=== PATIENT | female | born 1950 | race Caucasian/White ===

== ENCOUNTER → 2016-09-27 | Outpatient (CLI) | payer BC ==
[~2016-09-27] MED LIST: AMBUNK; ASPI325T45 PO; GLUCTAB7 PO; HEMP EXTRACT PO; MELO7.5T5 PO; MISCCAP80 PO; TAPE50TA PO; ZOLP6.252 PO
[2016-09-27 10:27] LABS: CHOLESTEROL/HDL RATIO 2.6
== END | disposition home or self-care (01) ==
LOC: C.LAB 09:12
PROVIDERS: ATTEND Family Medicine
DX: Z00.00 Encounter for general adult medical examination without abnormal findings (principal); E78.5 Hyperlipidemia, unspecified; N95.1 Menopausal and female climacteric states; M19.90 Unspecified osteoarthritis, unspecified site

== ENCOUNTER → 2016-11-21 | Outpatient (CLI) | payer BC ==
--- NOTE | 2016-11-22 08:03 | MAMMOGRAPHY REPORT ---
UNILATERAL RIGHT DIGITAL SCREENING MAMMOGRAM TOMOSYNTHESIS WITH CAD: 11/21/2016 CLINICAL HISTORY: Asymptomatic. Personal history of breast cancer. TECHNIQUE: Right breast tomosynthesis in addition to standard 2D mammography was performed. Current flavio bullard was also evaluated with a Computer Aided Detection (CAD) system. COMPARISON: Comparison is made to exams dated: 11/19/2015 mammogram, 12/08/2014 stereotactic biopsy, mammogram, 12/08/2014 ultrasound biopsy, 11/19/2014 ultrasound, and 11/19/2014 mammogram - [facility]. BREAST COMPOSITION: The tissue of the right breast is heterogeneously dense, which may obscure small masses. FINDINGS: The parenchymal pattern of the right breast is similar to prior mammograms. No developing mass, architectural distortion or cluster of suspicious microcalcifications is seen. IMPRESSION: ACR BI-RADS CATEGORY 2: BENIGN There is no mammographic evidence of malignancy. A 1 year screening mammogram is recommended. The pa tient will receive written notification of the results. Approximately 10% of breast cancers are not detected with mammography. A negative mammographic report should not delay biopsy if a clinically suggestive mass is present. Heather Shore M.D. ay/:11/21/2016 15:15:36 Donor Services Technician: Lynette HENRY(Suha)(M), [facility] letter sent: Normal 1/2 BI-RADS Code: ACR BI-RADS Category 2: Benign
== END | disposition home or self-care (01) ==
LOC: C.MAMM 09:46
PROVIDERS: ATTEND Obstetrics & Gynecology
DX: Z12.31 Encounter for screening mammogram for malignant neoplasm of breast (principal); Z85.3 Personal history of malignant neoplasm of breast

== ENCOUNTER → 2016-11-28 | Outpatient (CLI) | payer BC ==
--- NOTE | 2016-11-28 13:17 | DIAGNOSTIC IMAGING REPORT ---
RIGHT HIP 2 VIEWS CLINICAL HISTORY: Right hip pain. FINDINGS: AP and frog-leg views of the right hip are obtained. No prior studies are available for comparison at the time of dictation. The skeletal structures are osteopenic. No fracture is seen in the right hip or the imaged right hemipelvis. There is advanced arthritic change present in the right hip with near complete loss of the joint space and mild bony sclerosis. Large spurs arise from the femoral head. Sclerotic change is noted in the right sacroiliac joint. Enthesophytes arise from the right anterior superior iliac spine. The overlying soft tissues are within normal limits. IMPRESSION: 1. No acute bony abnormality is seen in the right hip. 2. Osteopenia and advanced arthritic change as above. Electronically signed by: Judd Menchaca M.D. 11/28/2016 1:15 PM Dictated Date/Time: 11/28/2016 1:13 PM
== END | disposition home or self-care (01) ==
LOC: C.RADBC 12:43
PROVIDERS: ATTEND Family Medicine
DX: M16.11 Unilateral primary osteoarthritis, right hip (principal); M85.89 Other specified disorders of bone density and structure, multiple sites

== ENCOUNTER → 2016-12-08 | Outpatient (CLI) | payer BC | END | disposition home or self-care (01) | LOC: C.MAMM 15:14 | PROVIDERS: ATTEND Family Medicine | DX: M81.0 Age-related osteoporosis without current pathological fracture (principal) ==

== ENCOUNTER → 2018-01-18 | Outpatient (CLI) | payer BC ==
[~2018-01-18] MED LIST changes: -AMBUNK; -ASPI325T45 PO
== END | disposition home or self-care (01) ==
LOC: C.PAPS 16:45
PROVIDERS: ATTEND Obstetrics & Gynecology
DX: Z01.419 Encounter for gynecological examination (general) (routine) without abnormal findings (principal)

== ENCOUNTER 2019-06-10 07:55 | Inpatient (IN) ==
--- NOTE | 2019-05-06 13:53 | PAT Medication Instructions ---
Medication Instructions Date of Service May 06, 2019 Home Medications Cbd Liquid 1 dose PO HS Turmeric 1 dose PO DAILY ascorbic acid (vitamin C) [Vitamin C] 1 g PO UD lactobacillus combination no.4 [Probiotic] 3,000 mmu cells PO DAILY STOP taking 2 weeks before surgery (or as soon as possible if surgery is within 2 weeks) Turmeric 1 dose PO DAILY DO NOT take the morning of surgery ascorbic acid (vitamin C) [Vitamin C] 1 g PO UD lactobacillus combination no.4 [Probiotic] 3,000 mmu cells PO DAILY Take evening before surgery Cbd Liquid 1 dose PO HS Other Notes If you have any questions please call us at [phone] or [phone] or [phone] or [phone]
--- NOTE | 2019-05-07 12:53 | Anesthesiology Consultation ---
Date of Service May 07, 2019 Assessment & Plan (1) Encounter for pre-operative examination: Chart Review Chart Review: Acceptable Risk for Surgery and Patient seen in Pre Admission Testing Teaching & Discussion Pre-Anesthesia Teaching/Discussion Notes: Instructed NPO after midnight before surgery,except medications with 15 cc of water. Medication instructions provided according to the PAT guidelines. History Surgery Operation Date: 06/10/19 07:30 Proposed Procedures p Left Total Knee Arthroplasty - Kun Agrawal, Height/Weight Height: 5 ft 3 in Weight: 56.6 kg Allergies Allergy/AdvReac Type Severity Reaction Status Date / Time anastrozole AdvReac Unknown joint Verified 05/07/19 11:39 inflammation, decreased appetite codeine AdvReac Unknown vomiting Verified 05/07/19 11:39 hydrocodone AdvReac Unknown vomiting Verified 05/07/19 11:39 Medications Home Medications Medication Instructions Recorded Confirmed Last Taken Cbd Liquid 1 dose PO HS 05/02/19 05/07/19 Unknown Turmeric 1 dose PO DAILY 05/02/19 05/07/19 Unknown ascorbic acid (vitamin C) [Vitamin 1 g PO UD 05/02/19 05/07/19 Unknown C] lactobacillus combination no.4 3,000 mmu cells PO DAILY 05/02/19 05/07/19 Unknown [Probiotic] Past Medical History Medical History Borderline high cholesterol History of breast cancer s/p left mastectomy History of IBS Spinal stenosis Exercise / Class Metabolic Activity II 4-5 Yardwork/Stairs/Walk up hill (one flight of stairs (no chest pain, no sob)) Past Family History Family History Brother Family history of thyroid cancer Past Surgical History Surgical History History of arthroscopy of left knee multiple History of arthroscopy of right knee multiple History of colonoscopy History of discectomy History of left knee surgery NERVE ENTRAPMENT History of left mastectomy History of surgery on left wrist History of total right hip arthroplasty Past Anesthesia History No Hx of Anesthesia Complications and No Family Hx of Anesthesia Complications History of PONV No Hx of PONV and Hx of Motion Sickness (occasional) Social History Smoking Status: Never smoker Do You Dip or Chew Tobacco: No Hx Alcohol Use: Yes Alcohol type: wine alcohol intake frequency: 0-2 drinks per day (2 drinks wine/day) Hx Substance Use: Yes substance use type: other Substance Use Type Other:: CBD oil for chronic pain (medical marijuana card- advised [facility] protocol) Review of Systems Patient denies chest pain, shortness of breath, dyspnea on exertion, reflux, cough, wheezing, palpitations. Physical Exam Vital Signs VITALS BP 102/70 (per patient, BP typically in the low-normal range) P 66 TEMP 98.7 SP02 99%RA RESP 16 PHYSICAL Full neck and c-spine range of motion. Full TMJ range of motion. TMD 4 finger breaths Mallampati Score 3 Dentition: intact, crowns on sides Lungs: clear throughout to auscultation Cardiac: regular rate and rhythm, no murmurs noted Spine: normal Carotid arteries: negative bruit Extremities: no edema Testing Laboratory Results 05/07/19 13:14 05/07/19 13:14 PT 10.2 Seconds (9.0-12.0) 05/07/19 13:14 INR 1.0 (0.9-1.1) 05/07/19 13:14 APTT 25.4 Seconds (21.0-31.0) 05/07/19 13:14 Blood Type B Negative 05/07/19 13:14 Antibody Screen NEGATIVE 05/07/19 13:14 *Surgeon office made aware of low WBC* Electrocardiogram Date: 05/07/19 NSR at 64bpm. JOSE. Chest X-Ray Date: 05/07/19 Findings: + NAD Echocardiogram Date: 11/11/15 LVEF 60-65%. No RWMA. No significant valvular disease. Incidental septal aneurysm.
--- NOTE | 2019-05-07 13:58 | XRay Report ---
XR chest Pre-admission PA/Lat CLINICAL HISTORY: Preoperative chest COMPARISON STUDY: March 13, 2017 FINDINGS: The cardiac and mediastinal contours are normal. There is no evidence of focal pulmonary co nsolidation. There is no evidence of failure. No pleural effusions are visualized.[ IMPRESSION: No active disease in the chest. Electronically signed by: Florian Colvin M.D. 05/07/2019 1:56 PM
[2019-05-07 15:05] LABS: Basophils # (auto) 0.02 K/uL (0-0.2); Basophils % (auto) 0.5 %; Eosinophils # (auto) 0.02 K/uL (0-0.5); Eosinophils % (auto) 0.5 %; Hematocrit (blood only) 38.8 % (37-47); Hemoglobin 13.2 g/dL (12.0-16.0); Lymphocytes # (auto) 1.43 K/uL (1.2-3.4); Lymphocytes % (auto) 36.2 %; Mean Corpuscular Hemoglobin 32.8 pg (25-34); Mean Corpuscular Volume 96.5 fL (80-100); Mean Platelet Volume 10.7 fL (7.4-10.4); Monocytes # (auto) 0.32 K/uL (0.11-0.59); Monocytes % (auto) 8.1 %; Neutrophils # (auto) 2.16 K/uL (1.4-6.5); Neutrophils % (auto) 54.7 %; Platelet Count 343 K/uL (130-400); RDW Coefficient of Variation 11.8 % (11.5-14.5); RDW Standard Deviation 42.2 fL (36.4-46.3); Red Blood Count 4.02 M/uL (4.2-5.4); White Blood Count 3.95 K/uL (4.8-10.8)
[2019-05-07 15:19] LABS: Partial Thromboplastin Ratio 0.9; Partial Thromboplastin Time 25.4 Seconds (21.0-31.0); Prothrombin Time 10.2 Seconds (9.0-12.0)
[2019-05-07 15:20] LABS: BUN Creatinine Ratio 19.3 (10-20); Calcium 9.4 mg/dl (8.5-10.1); Est GFR (African American) 96.3; Est GFR (Non-African American) 83.1; Potassium 3.9 mmol/L (3.5-5.1)
--- NOTE | 2019-06-06 08:46 | History & Physical Report ---
Date of Service June 06, 2019 Assessment & Plan (1) Osteoarthritis of left knee: We will proceed with a left total knee arthroplasty. Postoperatively she will be started on aspirin for DVT prophylaxis. She will be kept overnight in the hospital for postoperative medical management. She plans to use energy physical therapy upon discharge. Present on Admission?: Yes History of Present Illness Chief Complaint: Primary osteoarthritis of the left knee Primary Care Provider: Sam Quintero MD Vivien is a pleasant 68-year-old female who is been dealing with chronic increasing left knee pain. X-rays and clinical examination have been diagnostic for primary osteoarthritis of the left knee. She does have a history of a peroneal nerve release around her left fibular head. This pain is located medially. Injections have taken care of all of her pain but they only last temporarily. After failing conservative treatment, she has elected proceed with a left total knee arthroplasty. Allergies Allergy/AdvReac Type Severity Reaction Status Date / Time anastrozole AdvReac Intermediate joint Verified 06/03/19 10:05 inflammation, decreased appetite codeine AdvReac Mild vomiting Verified 06/03/19 10:05 hydrocodone AdvReac Mild vomiting Verified 06/03/19 10:05 Home Medications Home Medications Medication Instructions Recorded Confirmed Type Cbd Liquid 1 dose PO HS 05/02/19 05/07/19 History Turmeric 1 dose PO DAILY 05/02/19 05/07/19 History ascorbic acid (vitamin C) [Vitamin 1 g PO UD 05/02/19 05/07/19 History C] lactobacillus combination no.4 3,000 mmu cells PO DAILY 05/02/19 05/07/19 History [Probiotic] Past Med/Surg History Medical History Borderline high cholesterol History of breast cancer s/p left mastectomy History of IBS Spinal stenosis Surgical History History of arthroscopy of left knee multiple History of arthroscopy of right knee multiple History of colonoscopy History of discectomy History of left knee surgery NERVE ENTRAPMENT History of left mastectomy History of surgery on left wrist History of total right hip arthroplasty Family History Brother Family history of thyroid cancer Social History Preferred Language: [place] Communication Ability: Effective Electrical Electronics Technician Required: No Beliefs That Will Affect Care: None Current Living Situation: Spouse Feels Safe at Home: Yes Smoking Status: Never smoker Hx Alcohol Use: Yes Alcohol type: wine Hx Substance Use: Yes substance use type: other Substance Use Type Other:: CBD oil for chronic pain (medical marijuana card- advised [facility] protocol) Review of Systems All systems reviewed & are unremarkable except as noted in HPI & below Physical Exam Constitutional: WD/WN, vitals as above Eyes: PERRL, conjunctivae normal, anicteric sclerae ENMT: external ear and nose normal, oropharynx normal Neck: trachea midline, no thyromegaly Respiratory: normal respiratory effort Cardiovascular: RRR, no murmur, no edema Gastrointestinal (Abdomen): normal bowel sounds, soft, nontender, no hepatosplenomegaly Musculoskeletal: On physical examination of the left knee there is a trace effusion. There is near full range of motion and no evidence of instability. There is significant tenderness palpation along the medial and lateral joint lines and over the distal femoral condyles. Psychiatric: A+Ox3, euthymic affect Results & Data Diagnostic Findings Radiographs of the left knee demonstrate advanced osteoarthritis with joint space narrowing osteophyte formation and [id number] articulation.
[~2019-06-10 07:55] MED LIST changes: +ACETAMINOPHEN 500 MG TAB PO SCH; +BUPIVACAINE 0.5 % 5 MG/1 ML PF 10ML VIAL ONE; +BUPIVACAINE/EPINEPHRINE 0.25% 1:200,000 30 ML VIAL ONE; +CEFAZOLIN 1000MG 1,000 MG/7.5 ML SYR IV SCH; +FAMOTIDINE 20 MG TAB PO SCH; +GABAPENTIN 300 MG CAP PO SCH; -GLUCTAB7 PO; -HEMP EXTRACT PO; +LR 500ML BOLUS, THEN 15ML/HR IV SCH; +LR 60ML/HR IV SCH; -MELO7.5T5 PO; -MISCCAP80 PO; +ROPIVACAINE 0.5% HCL/PF 150 MG, BUPIVACAINE 0.5% MPF 30 ML, EPINEPHrine 30MG/30ML (OR U... INSTIL SCH; -TAPE50TA PO; +TRANEXAMIC ACID 1,000 MG **IV Intra-op IV SCH; +TRANEXAMIC ACID 1,000 MG **IV Pre-op IV SCH; -ZOLP6.252 PO
--- NOTE | 2019-06-10 08:41 | History & Physical Bridge Note ---
Date of Service June 10, 2019 History & Physical Bridge Note I have examined the patient, reviewed the History & Physical and in the interval since the performance of the History & Physical I have noted the following changes of clinical significance: no changes noted
[2019-06-10] MEDS ORDERED: TRANEXAMIC ACID / 0.7% NACL 1000MG/100ML BAG IV ONE (09:01)
[2019-06-10] MEDS ORDERED: fentaNYL citrate 100 MCG/2 ML VIAL ONE (10:00)
[2019-06-10] MEDS ORDERED: LIDOCAINE HCL 2% 2 ML VIAL/AMP(20MG/ML) INFIL ONE (10:00)
[2019-06-10] MEDS ORDERED: PROPOFOL IV EMULSION 10 MG/ML 20 ML VIAL IV ONE (10:00)
[2019-06-10] MEDS ORDERED: MIDAZOLAM HCL 1 MG/ML 2ML VIAL ONE ×2 (10:00→11:49)
[2019-06-10] MEDS ORDERED: ONDANSETRON INJ 2 MG/ML 2 ML VIAL IV PRN ×2 (10:39→14:03)
[2019-06-10] MEDS ORDERED: ePHEDrine sulfate 50 MG/ML AMP IV PRN (10:39)
[2019-06-10] MEDS ORDERED: ATROPINE SULFATE 0.1 MG/ML 10ML SYR IV PRN (10:39)
[2019-06-10] MEDS ORDERED: fentaNYL citrate 100 MCG/2 ML VIAL IV PRN (10:39)
[2019-06-10] MEDS ORDERED: HYDROmorphone INJ 2 MG/ML SYR/VIAL IV PRN (10:39)
[2019-06-10] MEDS ORDERED: ORTHO JOINT ANESTHETIC ONE (11:11)
[2019-06-10] MEDS ORDERED: ONDANSETRON INJ 2 MG/ML 2 ML VIAL ONE (12:34)
--- NOTE | 2019-06-10 13:01 | Operative Report ---
PG Post Operative Report Pre & Post Diagnosis Operation Date: 06/10/19 10:35 Pre-Op Diagnosis: Left Knee Degerative Joint Disease Post-Op Diagnosis: Left Knee Degerative Joint Disease I identified the patient and participated in the time-out.: Yes Procedure Operation Date: 06/10/19 10:35 Actual Procedures p Left Total Knee Arthroplasty(Left) - Kun Agrawal DO Surgeon Kun Agrawal DO Benzene Operator Kun Michel PAC Estimated Blood Loss 10 Findings Consistent with Post-Op Diagnosis Specimens Left femoral and tibial bone Complications none Disposition Disposition: Recovery Room Indications Vivien is a pleasant 68-year-old female who presented my office with chronic increasing left hip and groin pain. X-rays and clinical examination have been diagnostic for primary osteoarthritis of the left knee. After failing conservative treatment, she elected to proceed with a left total knee arthroplasty. Description of Procedure Implants used: I used a [employer]omet Vanguard total knee arthroplasty system with a size 57.5 femur, 63 tibia, 28 patella, and a size 10 PS plus polyethylene bearing. All components were cemented in place with Palacos G cement. The patient arrived [facility] for the above procedure. There were seen in the preoperative holding area and the operative extremity was identified and signed. There were given a preoperative antibiotic, a spinal anesthetic and an adductor nerve block. There were taken back to the operating room and laid on the table in supine position. There were given basic sedation. The operative knee was then prepped and draped in sterile fashion. A timeout was done, and the patient and the operative extremity was properly identified. A midline incision was made directly over the patella. Dissection was taken down to the extensor mechanism. A subvastus arthrotomy was used. The medial retinaculum was released and the fat pad was mostly left intact. The knee was flexed and the ACL, PCL, and meniscus were removed. A drill was sent down the center of the femoral canal followed by an intramedullary rober. Off that rober a distal femoral cutting block was placed. 9 mm was resected off the distal femur at 5 of valgus. A posterior referencing AP sizing guide was then placed on the distal femur. The femur measured to be a size 57.5. 2 drill holes were placed in 3 of external rotation. A 4-in-1 cutting block was then impacted into place. Anterior posterior and chamfer cuts were then made. The posterior stabilizing box guide was then impacted into place and the box was resected for the posterior stabilizing component. The proximal tibia was then exposed. A drill was sent down the center of the tibial canal followed by an intramedullary rober. Off that rober a proximal tibial resection guide was placed. The proximal tibia was then resected. The tibia measured to be a size 63. The tibial plate was then placed in the appropriate rotation and the tibia was punched. The posterior aspect of the knee was then opened up and any additional meniscus fragments and osteophytes were removed. Trial components were then placed. I used a size 10 PS plus polyethylene insert. The knee was brought through a full range of motion and felt to be stable. The patella was then everted and 8 mm was resected off the posterior aspect of the patella. The patella measured to be a size 28. 3 peg holes were then drilled. A trial patella was placed. The knee was once again brought through a full range of motion and felt to be stable. Trial components were then removed. The surrounding soft tissues were injected with 100 cc of an orthopedic pain control cocktail. All components were then cemented into place with Palacos G cement. The final polyethylene insert was then snapped into place and the anterior bar was locked. Once cement was dry the tourniquet was deflated. Hemostasis was obtained. A dilute betadyne lavage was then done for 3 minutes. The joint was then irrigated with normal saline solution. The subvastus arthrotomy was then closed with #1 Vicryl suture. The skin was closed with 2-0 Vicryl, 3-0V lock suture, and josh. A soft compressive dressing was placed. The patient was then transferred to a hospital bed and taken to the postanesthesia care unit in stable condition. They tolerated the procedure well. I attest to the content of the Intraoperative Record and any orders documented therein. Any exceptions are noted below.
--- NOTE | 2019-06-10 13:47 | Anesthesiology Progress Note ---
Date of Service June 10, 2019 Anesthesia Post Procedure Vital Signs Vital Signs: Temp Pulse Resp BP Pulse Ox 06/10/19 13:35 62 14 123/64 99 06/10/19 13:25 36.3 C L 14 115/74 99 06/10/19 08:19 37.3 C 79 13 128/67 97 Pain Intensity Lower Back: Pain Intensity: 3 Transfer of Care Handoff Completed per policy Notes Mental Status: alert / awake / arousable and participated in evaluation Patient Amnestic to Procedure: Yes Nausea / Vomiting: adequately controlled Pain: adequately controlled Airway Patency, RR, SpO2: stable & adequate BP & HR: stable & adequate Hydration State: stable & adequate Anesthetic Complications: no major complications apparent and Pt Satisfied with anesthetic care
--- NOTE | 2019-06-10 13:49 | XRay Report ---
LEFT KNEE 2 VIEWS History: Left total knee arthroplasty. Degenerative arthritis. Postop. FINDINGS: The patient is status post a left total knee arthroplasty. The hardware is intact. No fract ure or dislocation. Skin josh are in place. IMPRESSION: Left total knee arthroplasty. No evidence for hardware complication. ACT 112: Negative or not required by law. Electronically signed by: Dandre Nava M.D. 06/10/2019 1:48 PM
[2019-06-10] MEDS ORDERED: NALOXONE HCL 0.4 MG/1 ML VIAL/CARP IV PRN (14:03)
[2019-06-10] MEDS ORDERED: HYDROmorphone INJ 0.5 MG/0.5 ML SYR IV PRN (14:03)
[2019-06-10] MEDS ORDERED: MAGNESIUM HYDROXIDE SUSP 30 ML UDC PO PRN (14:03)
[2019-06-10] MEDS ORDERED: bisacodyL 10 MG SUPP PR PRN (14:03)
[2019-06-10] MEDS ORDERED: METOCLOPRAMIDE HCL INJ 5 MG/ML 2 ML VIAL IV PRN (14:03)
[2019-06-10] MEDS ORDERED: TRAMADOL HCL 50 MG TABLET PO PRN (14:03)
[2019-06-10] MEDS: SODIUM CHLORIDE 0.9% 1000ML 1,000 ML IV SCH (14:08)
[2019-06-10] MEDS: KETOROLAC TROMETHAMINE 15 MG/ML VIAL IV SCH ×2 (14:35→20:50)
[2019-06-10] MEDS ORDERED: TAPENTADOL HCL 50 MG TAB PO PRN (16:25)
[2019-06-10] MEDS ORDERED: ZOLPIDEM 6.25 MG PO PRN (17:38)
[2019-06-10] MEDS: ACETAMINOPHEN 500 MG TAB PO SCH (18:31)
[2019-06-10] MEDS: DOCUSATE SODIUM 100 MG CAP PO SCH (20:00)
[2019-06-10] MEDS: ASPIRIN 81 MG ECTAB PO SCH (20:00)
[2019-06-10] MEDS: CEFAZOLIN 2000MG 2,000 MG/15 ML SYR IV SCH (20:46)
[2019-06-10] MEDS ORDERED: SENNA 8.6 MG TAB PO SCH (21:00)
[2019-06-11] MEDS: SODIUM CHLORIDE 0.9% 1000ML 1,000 ML IV SCH (01:32)
[2019-06-11] MEDS: CEFAZOLIN 2000MG 2,000 MG/15 ML SYR IV SCH (03:03)
[2019-06-11] MEDS: KETOROLAC TROMETHAMINE 15 MG/ML VIAL IV SCH ×2 (03:04→08:19)
[2019-06-11 05:09] LABS: Hematocrit (blood only) 31.5 % (37-47); Hemoglobin 10.4 g/dL (12.0-16.0); Mean Corpuscular Hemoglobin 32.4 pg (25-34); Mean Corpuscular Volume 98.1 fL (80-100); Platelet Count 342 K/uL (130-400); RDW Coefficient of Variation 12.6 % (11.5-14.5); RDW Standard Deviation 45.2 fL (36.4-46.3); Red Blood Count 3.21 M/uL (4.2-5.4); White Blood Count 11.59 K/uL (4.8-10.8)
[2019-06-11 05:33] LABS: BUN Creatinine Ratio 23.1 (10-20); Calcium 8.3 mg/dl (8.5-10.1); Creatinine Clr Calc Pharmacy 60.2 ml/min; Est GFR (African American) 94.7; Est GFR (Non-African American) 81.7
[2019-06-11] MEDS: ACETAMINOPHEN 500 MG TAB PO SCH ×2 (06:02→14:16)
--- NOTE | 2019-06-11 06:08 | Orthopedic Progress Note ---
Date of Service June 11, 2019 Assessment & Plan (1) History of total left knee replacement: Overall she is doing very well. She is not having much pain in the left knee. The block is still working some. She will be seen this morning by physical therapy for ambulation and range of motion exercises. We will see how she does. If she is doing well she can be discharged home later today. If she is still having difficulty putting full weight on the knee then I am happy to keep her till tomorrow to see how she does. She is on aspirin 81 mg twice a day for DVT prophylaxis. Present on Admission?: No Subjective Vivien was seen and examined at bedside this morning. Overall she is doing fairly well. The block is still working a little bit and she does not feel that she has full strength yet in her left leg for ambulation. She says it is coming back. She does have motion of her ankle. She was able to get some sleep last night. She has no complaints. Physical Exam Musculoskeletal: On physical examination of the left knee, the dressing is clean and dry. Her leg is out in full extension. She has active dorsiflexion and plantarflexion of her left ankle. Results & Data Vital Signs (Past 12 Hours) Vital Signs Temp Pulse Resp BP Pulse Ox 06/11/19 03:01 36.6 C 72 16 111/65 98 06/10/19 23:16 36.6 C 64 16 99/63 L 98 Laboratory Results H & H 05/07/19 06/11/19 Range/Units 13:14 04:42 Hgb 13.2 10.4 L (12.0-16.0) g/dL Hct 38.8 31.5 L (37-47) % Coagulation 05/07/19 Range/Units 13:14 INR 1.0 (0.9-1.1) Diagnostic Findings Postoperative x-rays of the left knee show the prosthesis to be in anatomic alignment without any evidence of fracture, dislocation, or loosening. PG Care Time/CCT Total # of Minutes Spent Total Time Spent with Patient: Total time spent is greater than 50% in coordination of care (as documented) at patient's floor/unit and/or counseling patient:
[2019-06-11] MEDS ORDERED: dexAMETHasone 4 MG TAB PO SCH (08:00)
--- NOTE | 2019-06-11 08:07 | Anesthesiology Progress Note ---
Date of Service June 11, 2019 Anesthesia Post Procedure Vital Signs Vital Signs: Temp Pulse Pulse Resp BP BP Pulse Ox 06/11/19 07:54 36.6 C 62 16 94/58 L 96 06/11/19 03:01 36.6 C 72 16 111/65 98 06/10/19 23:16 36.6 C 64 16 99/63 L 98 06/10/19 16:59 36.6 C 59 L 16 108/71 100 06/10/19 16:12 36.4 C L 56 L 16 100/61 99 06/10/19 15:00 36.5 C 55 L 14 118/75 98 06/10/19 14:30 36.3 C L 57 L 16 124/79 98 06/10/19 14:00 36.5 C 56 L 16 128/76 99 06/10/19 13:55 36.6 C 68 14 118/71 99 06/10/19 13:45 36.6 C 65 14 119/65 99 06/10/19 13:35 62 14 123/64 99 06/10/19 13:25 36.3 C L 14 115/74 99 06/10/19 08:19 37.3 C 79 13 128/67 97 Pain Intensity Lower Back: Pain Intensity: 0 Left Knee: Pain Intensity: 0 Notes Mental Status: alert / awake / arousable and participated in evaluation Patient Amnestic to Procedure: Yes Nausea / Vomiting: adequately controlled Pain: adequately controlled Airway Patency, RR, SpO2: stable & adequate BP & HR: stable & adequate Hydration State: stable & adequate Neuraxial Anesthesia: was administered and sensory block resolved Anesthetic Complications: no major complications apparent and Pt Satisfied with anesthetic care
[2019-06-11] MEDS: ASPIRIN 81 MG ECTAB PO SCH (08:19)
[2019-06-11] MEDS: DOCUSATE SODIUM 100 MG CAP PO SCH (08:19)
[2019-06-11] MEDS ORDERED: MULTIVITAMIN TAB PO SCH (09:00)
--- NOTE | 2019-06-11 15:37 | Discharge Summary ---
Date of Service June 11, 2019 Admission HPI Per Admitting Provider Vivien is a pleasant 68-year-old female who is been dealing with chronic increasing left knee pain. X-rays and clinical examination have been diagnostic for primary osteoarthritis of the left knee. She does have a history of a peroneal nerve release around her left fibular head. This pain is located medially. Injections have taken care of all of her pain but they only last temporarily. After failing conservative treatment, she has elected proceed with a left total knee arthroplasty. Principal Diagnosis Left total knee arthroplasty Discharge Data Allergies Allergy/AdvReac Type Severity Reaction Status Date / Time anastrozole AdvReac Intermediate joint Verified 06/03/19 10:05 inflammation, decreased appetite codeine AdvReac Mild vomiting Verified 06/03/19 10:05 hydrocodone AdvReac Mild vomiting Verified 06/03/19 10:05 oxycodone AdvReac Mild Vomiting Verified 06/10/19 08:15 Consultations 06/10/19 14:03 Consult Case Management - Discharge Planning Routine Procedures Performed Operation Date: 06/10/19 10:35 Actual Procedures p Left Total Knee Arthroplasty(Left) - Kun Agrawal DO Ordered Studies 06/10/19 05:00 US - OR guided needle placemen Routine Hospital Course (1) History of total left knee replacement: On June 10, 2019 Vivien arrived at [facility] and underwent a left total knee arthroplasty without complication. She had a spinal anesthetic and a left adductor nerve block. Postoperatively she was discharged to general orthopedic floors. She was started on aspirin for DVT prophylaxis. Her hospital course was uneventful. On postop day #1 her H&H was stable and her pain was well controlled. She was able to participate well with physical therapy doing ambulation and range of motion exercises. She was then discharged to home. She will follow-up with orthopedics in 2 weeks. Total Time Total Time Spent Total Time Spent (In Minutes): 20 Discharge Plan Discharge Items Patient Disposition: Home - Home Health Services Reason For Visit: Left Knee Degerative Joint Disease Discharge Diagnosis: Left total knee arthroplasty Activity: As commented below Non-emergency contact: Surgeon Call non-emergency contact if: your wound has increased redness and your wound has increased drainage Follow-up/Referrals: Sam Quintero MD [Primary Care Provider] - Diet: Regular Addtl Attending Provider Instructions: Activity and Therapy Recommendations: * If you are using [facility] then therapy will be provided at your home until they feel you have accomplished all of your goals. * If you are using [facility] then Physical Therapy will be provided until they feel you are ready to start Outpatient Physical Therapy. * If you are not using home therapy then Outpatient Physical Therapy should start about 3-5 days from your day of surgery. Therapy will last about 6-10 w eeks * It is important not to put a pillow under your knee when you are relaxing or sleeping. It is just as important to make sure you are getting your knee perfectly straight as it is to regain your knee bend. * You were shown a series of exercises in the hospital. Do these exercises three times each day including the exercises you were shown in physical therapy. * Get up and walk several times each day. For the first four weeks, try not to stand or walk for more than one hour at a time. If you do stand or walk for more than one hour, you will not hurt anything, but your leg will likely swell . * As you feel comfortable, you may change from the walker or crutches to a cane and then to independent walking. Medications: * Narcotic You will likely be sent home from the hospital with a prescription for the narcotic pain medication that worked best throughout your stay. * Aspirin Most patients will be required to take Aspirin 81mg twice a day for 6 weeks after surgery. This is obtained [id number] and a prescription is not necessary. * Other medications may be prescribed for specific circumstances. If you have any questions, please call the office at . * Resume previous home medications unless otherwise instructed TEDs/Elastic Stockings: The white elastic stockings help limit swelling and prevent blood clots from forming in your legs.~ The more you wear them, the more they work. Wear them for six weeks. Dressing Care: If the incision is not draining then you may leave the josh open to air. If there is a little bit of drainage or if the josh are getting stuck on your clothing then cover the incision with a dry dressing. The josh will be removed at your 2 week follow-up appointment. Showering: You may shower 5 days from the day of surgery. Let the soapy shower water run over the josh and pat them dry. Do not scrub or soak the incision. Things To Watch For: * Drainage from the incision site that occurs more than one week after your surgery. * Increased redness at the incision site. * Fever above 102 degrees Fahrenheit. * Unusual chest pain or shortness of breath. * Call [facility] at with any of the above problems Follow-Up Visit: Follow-up with Dr. Agrawal 2-3 weeks after your day of surgery. An appointment was probably scheduled when you signed-up for surgery in the office. If you have any questions call Office Instructions: More detailed instructions as well as Frequently Asked Questions were provided in a folder by our office when you signed-up for surgery. Please review these instructions when you get home. If you have any further questions or concerns, please feel free to call the office at [phone] Pending Studies at Discharge: No Stand-Alone Forms: [facility], Smoking Cessation Medications and DC Order Prescriptions: New Nucynta 50 mg Tablet 50 mg PO Q4H PRN (Reason: pain) Qty: 30 RF: 0 aspirin [Ecotrin Low Strength] 81 mg Tablet,Delayed Release (Dr/Ec) 81 mg PO BID 42 Days Qty: 0 RF: 0 Continued ascorbic acid (vitamin C) [Vitamin C] 1,000 mg Tablet 1 g PO UD RF: 0 Probiotic 3 billion cell Capsule 3,000 mmu cells PO DAILY RF: 0 Cbd Liquid 1 dose PO HS RF: 0 Turmeric 1 dose PO DAILY RF: 0 zolpidem 6.25 mg Tablet,Ext Release Multiphase 6.25 mg PO HS PRN (Reason: Sleep) RF: 0 Discharge Orders: Discharge Order (Routine); Ordered 06/11/19 Ordered By: Kun Agrawal Admission Data Admit Date/Time: 06/10/19 13:29 Attending Provider: Kun Agrawal Admit Provider: Kun Agrawal Primary Care Provider: Sam Quintero Other Interventions: Discharge Summary Assessment (RN) Last Done: 06/11/19 11:53 DC Date/Time DO NOT enter until pt leaves facility: 06/11/19 14:15
== END 2019-06-11 14:15 | disposition home health service (06) | DRG 470 ==
LOC: ASU 07:55 → INTOOBSV 13:29 → 3E 13:29 → OBSVTOIN 13:29

== ENCOUNTER 2023-05-18 09:09 | Inpatient (IN) ==
--- NOTE | 2023-05-12 10:23 | Anesthesiology Consultation ---
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 Oracio Narayanan MD Height/Weight Height: 5 ft 3 in Weight: 52.163 kg Allergies Allergy/AdvReac Type Severity Reaction Status Date / Time anastrozole AdvReac Intermediate joint Verified 05/11/23 11:56 inflammation, decreased appetite codeine AdvReac Mild vomiting Verified 05/11/23 11:56 hydrocodone AdvReac Mild vomiting Verified 05/11/23 11:56 oxycodone AdvReac Mild Vomiting Verified 05/11/23 11:56 Medications Home Medications Medication Instructions Recorded Confirmed Last Taken Cbd Liquid 1 dose PO HS PRN Sleep 05/02/19 05/11/23 06/09/19 20:30 Turmeric 1 dose PO DAILY 05/02/19 05/11/23 06/03/19 ascorbic acid (vitamin C) 1,000 mg 1 g PO UD 05/02/19 05/11/23 Unknown tablet (Vitamin C) lactobacillus combination no.4 3 3,000 mmu cells PO DAILY 05/02/19 05/11/23 Unknown billion cell capsule (Probiotic) lysine 1,000 mg PO QAM 01/09/23 05/11/23 Unknown zinc acetate 1 tab PO DAILY 01/09/23 05/11/23 Unknown peg 3350-sod sulf,[id number]-mah-elm See Rx Instructions PO .COMPLEX #2 04/26/23 Unknown 178.7-7.3-0.5-1.12-0.9 gram oral mL soln (Suflave) diphenhydramine 25 1 tab PO HS PRN Sleep 05/11/23 05/11/23 Unknown mg-acetaminophen 500 mg tablet (Tylenol PM Extra Strength) magnesium 30 mg tablet 30 mg PO DAILY 05/11/23 05/11/23 Unknown Past Medical History Medical History CLL (chronic lymphocytic leukemia) no meds, has visits every 3 month at [facility] heme/onc for monitoring and blood work History of breast cancer s/p left mastectomy History of IBS Spinal stenosis Borderline high cholesterol Past Family History Family History Brother Family history of thyroid cancer Prostate cancer Grandmother (Maternal) Breast cancer Father Prostate cancer Other Colorectal cancer Schizophrenia Denies family history of Ovarian cancer Past Surgical History Surgical History History of total left knee replacement (~05/2019) History of colonoscopy History of surgery on left wrist History of total right hip arthroplasty History of discectomy History of arthroscopy of right knee multiple History of arthroscopy of left knee multiple History of left knee surgery NERVE ENTRAPMENT; numbness in left foot History of left mastectomy Social History Smoking Status: Never smoker Do You Dip or Chew Tobacco: No Hx Alcohol Use: Yes Alcohol type: beer and wine alcohol intake frequency: 0-2 drinks per day Hx Substance Use: Yes substance use type: other Substance Use Type Other:: CBD oil for chronic pain (medical marijuana card- advised [facility] protocol) Lab Results CBC Results Results Complete Blood Count Results: RBC 3.12 M/uL (3.93-5.22) L 07/01/22 WBC 4.40 K/ul (4.8-10.8) L 07/01/22 Hgb 11.6 g/dl (12.0-16.0) L 07/01/22 Hct 34.2 % (34.1-44.9) 07/01/22 Plt Count 380 K/uL (130-400) 07/01/22 Chemistry (BMP) Results [facility] Results: Sodium 142 mmol/L (136-145) 07/01/22 Potassium 4.2 mmol/L (3.5-5.1) 07/01/22 Chloride 107 mmol/L (98-107) 07/01/22 Carbon Dioxide 30 mmol/L (21-32) 07/01/22 Anion Gap 5 (3-11) 07/01/22 BUN 21 mg/dl (6-23) 07/01/22 Creatinine 0.77 mg/dl (0.6-1.2) 07/01/22 Glucose 110 mg/dl (70-99) H 06/11/19 Testing Electrocardiogram Date: 05/07/19 Findings: + NSR @ (64bpm) right atrial enlargement Chest X-Ray Date: 05/07/19 Findings: + NAD
[2023-05-18] MEDS ORDERED: LIDOCAINE 2% 2 ML VIAL/AMP(20MG/ML) INFIL ONE (09:22)
[2023-05-18] MEDS ORDERED: PROPOFOL IV EMULSION 10 MG/ML 20 ML VIAL IV ONE ×2 (09:22→10:39)
--- NOTE | 2023-05-18 09:43 | History & Physical Report ---
Date of Service May 18, 2023 Assessment & Plan (1) Colon cancer screening: Plan proceed with colonoscopy. risks/benefits and procedure discussed with patient, who agrees to proceed History of Present Illness Primary Care Provider: Issac Mark 72 yo female here for colonoscopy. Allergies Allergy/AdvReac Type Severity Reaction Status Date / Time anastrozole AdvReac Intermediate joint Verified 05/18/23 09:23 inflammation, decreased appetite codeine AdvReac Mild vomiting Verified 05/18/23 09:23 hydrocodone AdvReac Mild vomiting Verified 05/18/23 09:23 oxycodone AdvReac Mild Vomiting Verified 05/18/23 09:23 Home Medications Medication Instructions Recorded Confirmed Type Cbd Liquid 1 dose PO HS PRN Sleep 05/02/19 05/18/23 History Turmeric 1 dose PO DAILY 05/02/19 05/18/23 History ascorbic acid (vitamin C) 1,000 mg 1 g PO UD 05/02/19 05/18/23 History tablet (Vitamin C) lactobacillus combination no.4 3 3,000 mmu cells PO DAILY 05/02/19 05/18/23 History billion cell capsule (Probiotic) lysine 1,000 mg PO QAM 01/09/23 05/18/23 History zinc acetate 1 tab PO DAILY 01/09/23 05/18/23 History peg 3350-sod sulf,[id number]-lya-inp See Rx Instructions PO .COMPLEX #2 04/26/23 Rx 178.7-7.3-0.5-1.12-0.9 gram oral mL soln (Suflave) diphenhydramine 25 1 tab PO HS PRN Sleep 05/11/23 05/18/23 History mg-acetaminophen 500 mg tablet (Tylenol PM Extra Strength) magnesium 30 mg tablet 30 mg PO DAILY 05/11/23 05/18/23 History Past Med/Surg History Medical History CLL (chronic lymphocytic leukemia) no meds, has visits every 3 month at [facility] heme/onc for monitoring and blood work History of breast cancer s/p left mastectomy History of IBS Spinal stenosis Borderline high cholesterol Surgical History History of total left knee replacement (~05/2019) History of colonoscopy History of surgery on left wrist History of total right hip arthroplasty History of discectomy History of arthroscopy of right knee multiple History of arthroscopy of left knee multiple History of left knee surgery NERVE ENTRAPMENT; numbness in left foot History of left mastectomy Family History Brother Family history of thyroid cancer Prostate cancer Grandmother (Maternal) Breast cancer Father Prostate cancer Other Colorectal cancer Schizophrenia Denies family history of Ovarian cancer Social History Smoking Status: Never smoker Second Hand Exposure: No; Do You Dip or Chew Tobacco: No; Tobacco Cessation Education Requested by Patient: No Hx Alcohol Use: Yes Alcohol type: beer and wine Hx Substance Use: No Preferred Language: Polish Communication Ability: Effective Health Evaluator Required: No Beliefs That Will Affect Care: None marital status: Current Living Situation: Spouse Other Information That Helps Us Care for You: No Feels Safe at Home: Yes Safety Concerns: Feels Safe At This Time Assistive Devices: Glasses Physical Exam Constitutional: WD/WN, vitals as above Respiratory: normal respiratory effort, lungs clear to auscultation Cardiovascular: RRR, no murmur, no edema Gastrointestinal (Abdomen): normal bowel sounds, soft, nontender, no hepatosplenomegaly Musculoskeletal: Head/Neck/Chest: normocephalic and head atraumatic Psychiatric: Orientation: alert and cooperative Affect: euthymic affect Results & Data Vital Signs (Past 12 Hours) Vital Signs Temp Pulse Resp BP Pulse Ox O2 Del Method 05/18/23 09:27 37.0 C 68 16 111/65 98 Room Air Coding Level of Care Code None Diagnoses Colon cancer screening Z12.11
[2023-05-18] MEDS ORDERED: SODIUM CHLORIDE 0.9% 1,000 ML IV SCH (09:45)
[2023-05-18] MEDS ORDERED: fentaNYL citrate PF 100 MCG/2 ML VIAL ONE (10:15)
[2023-05-18] MEDS ORDERED: ONDANSETRON INJ 2 MG/ML 2 ML VIAL IV PRN (10:43)
[2023-05-18] MEDS ORDERED: HYDROmorphone INJ 1 MG/ML SYRINGE IV PRN (10:43)
[2023-05-18] MEDS ORDERED: ATROPINE SULFATE 0.1 MG/ML 10ML SYR IV PRN (10:43)
[2023-05-18] MEDS ORDERED: ePHEDrine sulfate 50 MG/ML AMP IV PRN (10:43)
--- NOTE | 2023-05-18 10:48 | GI REPORT ---
Patient Name: Vivien Tay Procedure Date: 05/18/2023 9:24 AM Date of : 1950 Admit Type: Outpatient Age: 72 Gender: Female Attending MD: Rafy Narayanan MD, Procedure: Colonoscopy Providers: Rafy Narayanan MD Referring MD: Nghia Mark M.d. Indications: Screening for colorectal malignant neoplasm Medicines: Monitored Anesthesia Care Complications: No immediate complications. Estimated blood loss: None. Estimated Blood Loss: Estimated blood loss: none. Procedure: Pre-Anesthesia Assessment: - Prior Anticoagulants: The patient has taken no anticoagulant or antiplatelet agents. - ASA Grade Assessment: II - A patient with mild systemic disease. After I obtained informed consent, the scope was passed under direct vision. Throughout the procedure, the patient's blood pressure, pulse, and oxygen saturations were monitored continuously. The Colonoscope was introduced through the anus and advanced to the ileocecal valve. The colonoscopy was performed without difficulty. The patient tolerated the procedure well. The quality of the bowel preparation was adequate to identify polyps greater than 5 mm in size. Findings: A 20 mm polyp was found in the ascending colon. The polyp was carpet-like. The polyp was removed with a piecemeal technique using a hot snare. Resection and retrieval were complete. Estimated blood loss: none. A perforation was found in the sigmoid colon. This defect was medium-sized. To repair the defect, the tissue edges were approximated and one padlock [id number]-sun-rngif clip was successfully placed. Closure of the defect was successful. Clip chain maker machine: Wudya. There was no bleeding at the end of the procedure. Multiple small-mouthed diverticula were found in the sigmoid colon. Non-bleeding internal hemorrhoids were found. The hemorrhoids were small. Impression: - One 20 mm polyp in the ascending colon, removed piecemeal using a hot snare. Resected and retrieved. - A perforation was found in the sigmoid colon. Clip was placed. Clip chain maker machine: Wudya. - Diverticulosis in the sigmoid colon. - Non-bleeding internal hemorrhoids. Recommendation: - Admit the patient to hospital [facility] for ongoing care. - NPO today. - Await pathology results. -general surgery consult -antibiotics, supportive care - Repeat colonoscopy in 6 months for surveillance after piecemeal polypectomy. Rafy Narayanan MD 05/18/2023 10:47:38 AM This report has been signed electronically. Note Initiated On: 05/18/2023 9:24 AM Number of Addenda: 0 I attest to the content of the Intraoperative Record and orders documented therein, exceptions below {[id number]}
[2023-05-18] MEDS ORDERED: NALOXONE HCL 0.4 MG/1 ML VIAL/CARP IV PRN (10:57)
[2023-05-18] MEDS ORDERED: PIPERACILLIN/TAZOBACTAM 4.5 GM in DEXTROSE 5% MINI-B 100 ML IV SCH (11:00)
--- NOTE | 2023-05-18 11:11 | Surgery Consultation ---
Date of Consultation May 18, 2023 Assessment & Plan (1) Colon cancer screening: (2) Perforated bowel: Patient is a 72 yo female with PMH of CLL, arthritis, that presented to the [facility] endoscopy unit for an outpatient colonoscopy. During the colonoscopy it was noted by Dr. Narayanan that patients diverticulum was perforated, He then placed an endoscopic clip (see procedure notes for full details). General surgery was consulted. Colonoscopy imaging reviewed with Dr. Law , Dr. Narayanan, bowel appears clean, Endoscopic clip visualized. Patient reports 9/10 abdominal pain. Was bradycardiac in endoscopy OR, in recovery room patients HR is low 60s to 50s. Was 60s in pre operative. Bp stable. Admit to hospitalist service Keep NPO IV Fluids for hydration IV antiemetic IV antibiotics IV analgesic Will continue to monitor , treat conservatively for now. Dr. Law discussed case with admitting provider. as above. pt seen. clean tear on prepped bowel appropriately closed endoscopically. keep NPO. supportive care. no urgent indication for surgical intervention. will follow along closely. History of Present Illness Reason for Consultation: Diverticulum perforation, sigmoid colon Attending Physician: Rafy Narayanan MD History of Present Illness Patient is a 72 yo female with PMH of CLL, arthritis, that presented to the [facility] endoscopy unit for an outpatient colonoscopy. During the colonoscopy it was noted by Dr. Narayanan that patients diverticulum was perforated, He then placed an endoscopic clip (see procedure notes for full details). General surgery was consulted. Allergies Allergy/AdvReac Type Severity Reaction Status Date / Time anastrozole AdvReac Intermediate joint Verified 05/18/23 09:23 inflammation, decreased appetite codeine AdvReac Mild vomiting Verified 05/18/23 09:23 hydrocodone AdvReac Mild vomiting Verified 05/18/23 09:23 oxycodone AdvReac Mild Vomiting Verified 05/18/23 09:23 Home Medications Medication Instructions Recorded Confirmed Type Cbd Liquid 1 dose PO HS PRN Sleep 05/02/19 05/18/23 History Turmeric 1 dose PO DAILY 05/02/19 05/18/23 History ascorbic acid (vitamin C) 1,000 mg 1 g PO UD 05/02/19 05/18/23 History tablet (Vitamin C) lactobacillus combination no.4 3 3,000 mmu cells PO DAILY 05/02/19 05/18/23 History billion cell capsule (Probiotic) lysine 1,000 mg PO QAM 01/09/23 05/18/23 History zinc acetate 1 tab PO DAILY 01/09/23 05/18/23 History peg 3350-sod sulf,[id number]-sxt-uoy See Rx Instructions PO .COMPLEX #2 04/26/23 Rx 178.7-7.3-0.5-1.12-0.9 gram oral mL soln (Suflave) diphenhydramine 25 1 tab PO HS PRN Sleep 05/11/23 05/18/23 History mg-acetaminophen 500 mg tablet (Tylenol PM Extra Strength) magnesium 30 mg tablet 30 mg PO DAILY 05/11/23 05/18/23 History Patient History Medical History CLL (chronic lymphocytic leukemia) no meds, has visits every 3 month at [facility] heme/onc for monitoring and blood work History of breast cancer s/p left mastectomy History of IBS Spinal stenosis Borderline high cholesterol Surgical History History of total left knee replacement (~05/2019) History of colonoscopy History of surgery on left wrist History of total right hip arthroplasty History of discectomy History of arthroscopy of right knee multiple History of arthroscopy of left knee multiple History of left knee surgery NERVE ENTRAPMENT; numbness in left foot History of left mastectomy Family History Brother Family history of thyroid cancer Prostate cancer Grandmother (Maternal) Breast cancer Father Prostate cancer Other Colorectal cancer Schizophrenia Denies family history of Ovarian cancer Social History Smoking Status: Never smoker Second Hand Exposure: No; Do You Dip or Chew Tobacco: No; Tobacco Cessation Education Requested by Patient: No Hx Alcohol Use: Yes Alcohol type: beer and wine Hx Substance Use: No Preferred Language: Hebrew Communication Ability: Effective 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 Professor Required: No Beliefs That Will Affect Care: None marital status: Current Living Situation: Spouse Other Information That Helps Us Care for You: No Feels Safe at Home: Yes Safety Concerns: Feels Safe At This Time Assistive Devices: Glasses Review of Systems Constitutional: no fever, no chills and no sweats Respiratory: no dyspnea Cardiovascular: no chest pain Gastrointestinal: + abdominal pain Physical Exam Constitutional: cooperative Respiratory: able to speak in complete sentences; no respiratory distress Cardiovascular: Rate/Rhythm: regular rate Gastrointestinal (Abdomen): Percussion/Palpation: + abdomen tender Results & Data Vital Signs (Past 12 Hours) Vital Signs Temp Pulse Resp BP Pulse Ox O2 Del Method 05/18/23 09:27 98.6 F 68 16 111/65 98 Room Air PG Care Time/CCT Total # of Minutes Spent Total Time Spent with Patient: Total time spent is greater than 50% in coordination of care (as documented) at patient's floor/unit and/or counseling patient: Coding Level of Care Code 20400 OP VST NEW MOD 45-59 MIN Diagnoses Colon cancer screening Z12.11 Perforated bowel K63.1
[2023-05-18] MEDS: HYDROmorphone INJ 0.5 MG/0.5 ML SYR IV PRN ×2 (11:16→11:43)
--- NOTE | 2023-05-18 11:22 | Anesthesiology Progress Note ---
Date of Service May 18, 2023 Anesthesia Post Procedure Vital Signs Vital Signs: Temp Pulse Resp BP Pulse Ox O2 Del Method 05/18/23 09:27 37.0 C 68 16 111/65 98 Room Air Transfer of Care Handoff Completed per policy Notes Mental Status: alert / awake / arousable and participated in evaluation Patient Amnestic to Procedure: Yes Nausea / Vomiting: adequately controlled Pain: see Notes below Airway Patency, RR, SpO2: stable & adequate BP & HR: see Notes below Hydration State: stable & adequate Anesthetic Complications: no major complications apparent and Pt Satisfied with anesthetic care Notes: pt with perforation and air under the diaphragm. pain management and admission by medicine department
[2023-05-18] MEDS ORDERED: PIPERACILLIN/TAZOBACTAM 4.5 GM in DEXTROSE 5% MINI-B 100 ML IV ONE (11:30)
[2023-05-18] MEDS ORDERED: PLASMA-LYTE A 250 ML IV ONE (11:35)
--- NOTE | 2023-05-18 11:35 | History & Physical Report ---
Date of Service May 18, 2023 Assessment & Plan (1) Perforated bowel: Plan: Patient came in for colonoscopy screening with Dr. Narayanan on the morning of 05/18 for +Cologuard in 2020 Perforated diverticulum was noted during procedure, and padlock clip was applied Patient denies history of diverticulitis Clinically, she endorses severe RUQ pain, as well as neck pain Keep n.p.o. for now EKG revealed NSR at 64 bpm CXR revealed pneumoperitoneum Per GI/Surgery, CT of abd/pelvis not recommended as she has a known perf with closure No surgical intervention is indicated at this time CBC, CMP, PTT, PT/INR, mag ordered, pending Hgb 9.8 and Hct 28.6 post procedure High risk of sepsis; 30cc/kg IVF resuscitation started post procedure with Plasma-Lyte Zosyn 4.5mg IV q6h for empiric antibiotic coverage Dilaudid 0.5mg IV q2h as needed for pain 4-6 Dilaudid 1.0mg IV q2h as needed for pain 7-10 Admit to ICU (2) Nausea: Plan: Zofran 4mg IV q6h as needed for nausea; QTc 435 (3) CLL (chronic lymphocytic leukemia): Plan: Not taking any medications Visits with [facility] heme/onc q3mo for monitoring and blood work; follows with Dr. Manuel De Santiago Plan Disposition: ICU Full code Keep n.p.o. for now VTE PPx: Will defer to ICU History of Present Illness Chief Complaint: Divericulum perforation following routine colonoscopy Primary Care Provider: Miguel Angelsbguerita EliseDahlia Jas Puga is a 72-year-old female with PMH of IBS, lumbar stenosis, breast cancer s/p left-sided mastectomy, and SLL/CLL (dx in July 2022). She presented for a routine colonoscopy screening on 05/[address] Narayanan. During the procedure, a perforated diverticulum was noted, an endoscopic clip was placed. Patient denies being on aspirin or blood thinners. She reports that she did not take any morning medications today. She notes that she is not on any blood pressure medications. She reports only taking Tylenol PM and supplements on a regular basis. Patient is bradycardic at 53 bpm, and hypotensive at 88/40 following colonoscopy. ROS: Patient endorses neck pain, nausea, and severe LUQ pain. Patient denies PMH of CHF, CVA, or heart problems Allergies Allergy/AdvReac Type Severity Reaction Status Date / Time anastrozole AdvReac Intermediate joint Verified 05/18/23 09:23 inflammation, decreased appetite codeine AdvReac Mild vomiting Verified 05/18/23 09:23 hydrocodone AdvReac Mild vomiting Verified 05/18/23 09:23 oxycodone AdvReac Mild Vomiting Verified 05/18/23 09:23 Home Medications Medication Instructions Recorded Confirmed Type Cbd Liquid 1 dose PO HS PRN Sleep 05/02/19 05/18/23 History Turmeric 1 dose PO DAILY 05/02/19 05/18/23 History ascorbic acid (vitamin C) 1,000 mg 1 g PO UD 05/02/19 05/18/23 History tablet (Vitamin C) lactobacillus combination no.4 3 3,000 mmu cells PO DAILY 05/02/19 05/18/23 History billion cell capsule (Probiotic) lysine 1,000 mg PO QAM 01/09/23 05/18/23 History zinc acetate 1 tab PO DAILY 01/09/23 05/18/23 History peg 3350-sod sulf,[id number] See Rx Instructions PO .COMPLEX #2 04/26/23 Rx 178.7-7.3-0.5-1.12-0.9 gram oral mL soln (Suflave) diphenhydramine 25 1 tab PO HS PRN Sleep 05/11/23 05/18/23 History mg-acetaminophen 500 mg tablet (Tylenol PM Extra Strength) magnesium 30 mg tablet 30 mg PO DAILY 05/11/23 05/18/23 History Past Med/Surg History Medical History CLL (chronic lymphocytic leukemia) no meds, has visits every 3 month at [facility] heme/onc for monitoring and blood work History of breast cancer s/p left mastectomy History of IBS Spinal stenosis Borderline high cholesterol Surgical History History of total left knee replacement (~05/2019) History of colonoscopy History of surgery on left wrist History of total right hip arthroplasty History of discectomy History of arthroscopy of right knee multiple History of arthroscopy of left knee multiple History of left knee surgery NERVE ENTRAPMENT; numbness in left foot History of left mastectomy Family History Brother Family history of thyroid cancer Prostate cancer Grandmother (Maternal) Breast cancer Father Prostate cancer Other Colorectal cancer Schizophrenia Denies family history of Ovarian cancer Social History Smoking Status: Never smoker Second Hand Exposure: No; Do You Dip or Chew Tobacco: No; Hx Alcohol Use: Yes Alcohol type: beer and wine Hx Substance Use: No Preferred Language: Kiswahili Communication Ability: Effective Back Tacker Required: No Beliefs That Will Affect Care: None marital status: Current Living Situation: Spouse Feels Safe at Home: Yes Safety Concerns: Feels Safe At This Time Assistive Devices: Glasses Review of Systems Review of Systems: See HPI above Physical Exam Physical Exam: General: Patient is in acute abdominal pain/distress following her colonoscopy; diaphoretic; non-toxic appearing HEENT: normocephalic, atraumatic; no scleral icterus; PERRLA w/ EOMs intact; moist mucus membrane; vision and hearing grossly intact Neck: supple; no lymphadenopathy; trachea midline; no crepitus or subcutaneous emphysema on palpation of the posterior neck where patient reports pain is located Skin: warm, moist without signs of tenting; no cyanosis; no rashes, bruising, lesions, or erythema noted on abdomen, back, chest wall, or upper neck CV: chest wall NTP; regular rhythm, bradycardic 48 bpm; S1/S2 normal; no murmurs/rubs/gallops; pulses intact and symmetric at radial, DP, and PT Lungs: no acute respiratory distress; symmetrical chest wall expansion; clear breath sounds across all lung lau w/o adventitious sounds; no wheezing ABD: Soft; BS present; pain to gentle palpation of the LUQ; no ascites; no distention MSK: no tics or fasciculations; no edema noted in the LEs b/l Neuro: A&Ox3; lethargic; fluent speech Results & Data Results & Data Vital Signs (Past 12 Hours) Vital Signs Temp Pulse Resp BP Pulse Ox O2 Del Method 05/18/23 09:27 37.0 C 68 16 111/65 98 Room Air Laboratory Results Abnormal lab results 05/18/23 Range/Units 11:31 WBC 4.37 L (4.8-10.8) K/ul RBC 2.50 L (4.20-5.40) M/uL Hgb 9.8 L (12.0-16.0) g/dl Hct 28.6 L (37.0-47.0) % MCV 114.4 H (80.0-100.0) fL MCH 39.2 H (25.0-34.0) pg RDW Std Deviation 54.7 H (36.4-46.3) fL Chloride 108 H (98-107) mmol/L Anion Gap 12 H (3-11) BUN/Creatinine Ratio 23.9 H (10-20) Glucose 111 H (70-99(Fasting)) mg/dl Globulin 2.2 L (2.5-4.0) gm/dl Diagnostic Findings Chest X-Ray 05/18/23 11:41 XR chest 1V portable CLINICAL HISTORY: Bowel perforation TECHNIQUE: Single frontal radiograph of the chest was obtained. Comparison: Comparison is made to chest radiograph 05/07/2019 FINDINGS: No lines and tubes are seen. The cardiomediastinal silhouette is normal. The lungs are clear. Pneumoperitoneum is seen. IMPRESSION: Pneumoperitoneum is seen. ACT 112: Negative or not required by law. Electronically signed by: Gino Dumas M.D. 05/18/2023 12:18 PM Code Status & VTE Plan Code Status Full code VTE Prophylaxis Plan VTE Prophylaxis will be ordered: Yes Supervising Physician Co-Signing Physician Notes Patient seen and examined, chart reviewed, case discussed with Dandre Zelaya PA-C and I agree with the assessment and plan as above except as otherwise noted Labs and images reviewed Vivien is a 72-year-old female with a history of CLL monitored at [facility] w/ Dr. Cooper, total left knee replacement, C2 radiculopathy, lumbar stenosis without weakness who presented for colonoscopy screening due to a positive Cologuard test in 2020. She has no history of heart disease, thromboembolism, bleeding disorder, hypertension, CKD or diabetes. After waking up from her colonoscopy she reports she has pain in her abdomen which is worse in the lower quadrants bilaterally but improved after Dilaudid and does not have pain to palpation in the upper quadrants bilaterally. She does have some radiating pain up into her right shoulder. She is not short of breath, and denies chest pain. She feels more comfortable laying on her left side. She does not feel lightheaded or dizzy. She reports her normal heart rate is around 4860 at baseline and her blood pressure tends to run slightly low around the systolic 110s.. Diverticulum perforation - Patient started 2 L total crystalloid resuscitation, has been converted to Plasma-Lyte. Blood pressures remain soft, but patient is just started bolus following antibiotics. 1566cc. On reassessment Patient initially with blood pressure of approximately 110/50, on reassessment has dropped to 88/40. Patient is likely volume depleted after completing colonoscopy prep and has not yet fluid resuscitated. She is a 2 L oxygen requirement and is splinting slightly from pain. Chest x-ray does not show evidence of pulmonary edema. Pneumoperitoneum from known bowel perf. -On reassessment patient was initially ordered ICU as he is not hemodynamically stable and has not yet been adequately resuscitated. Did discuss with staff and are able to get a PCU status bed within the ICU to complete volume resuscitation, and patient can be upgraded to ICU status if she clinically deteriorates or remains hypotensive despite appropriate fluid resuscitation. Discussed with GI and surgery. CT of the abdomen/pelvis is not recommended as she has a known With good visualization after padlock closure. She is recommended for admission, hemodynamic monitoring, and antibiotics. No surgical intervention is indicated at this time. Patient has been ordered Zosyn and this will be continued every 6 hours. On reassessment patient is a 2 L oxygen requirement is splinting slightly from pain. Do not suspect this is from crystalloid resuscitation and clinically is not yet euvolemic. chest x-ray does not show evidence of edema, suspect this is from analgesia and slight splinting. Titrate oxygen to greater than 90%. Narcan is on-call for narcosis patient is alert and responsive at time of assessment. Message left with Dr. De Santiago at [facility] to update on pts complications at pt request. He confirms that patient has not had any active treatment and is on monitoring, appreciative of call and notes she is not on any medications that would interact or otherwise affect her treatment as discussed. IV antiemetics Zosyn every 6 hours CBC/BMP daily, CBC will be trended every 8 for the first 24 hours Type and cross on file, no clinical signs of bleeding at time of assessed Borderline hypokalemic at 3.6, patient receiving potassium in her IV fluids Patient reports he does not take any chronic prescription medications CLL Monitoring, is not undergoing treatment. [facility] updated as above. No acute change in management PG Care Time/CCT Total # of Minutes Spent Total Time Spent with Patient: Total time spent is greater than 50% in coordination of care (as documented) at patient's floor/unit and/or counseling patient: [place] [address] INT INP/OBS CARE 3/75MIN Patient Type New Medical Decision Making High Complexity Diagnoses Perforated bowel K63.1 Nausea R11.0 CLL (chronic lymphocytic leukemia) C91.10
[2023-05-18] MEDS ORDERED: ONDANSETRON INJ 2 MG/ML 2 ML VIAL IV STA (11:43)
[2023-05-18 12:04] LABS: Hematocrit (blood only) 28.6 % (37.0-47.0); Hemoglobin 9.8 g/dl (12.0-16.0); Mean Corpuscular Hemoglobin 39.2 pg (25.0-34.0); Mean Corpuscular Hgb Conc 34.3 g/dL (32.0-36.0); Mean Corpuscular Volume 114.4 fL (80.0-100.0); Mean Platelet Volume 9.9 fL (9.4-12.4); Platelet Count 293 K/uL (130-400); RDW Coefficient of Variation 12.9 % (11.5-14.5); RDW Standard Deviation 54.7 fL (36.4-46.3); White Blood Count 4.37 K/ul (4.8-10.8)
[2023-05-18 12:15] LABS: Albumin Globulin Ratio 1.8 (0.9-2); BUN Creatinine Ratio 23.9 (10-20); Bilirubin,Total 0.7 mg/dl (0.2-1.0); Calcium 8.7 mg/dl (8.6-10.3); Creatinine Clr Calc Pharmacy 64.4 ml/min; Est GFR (African American) 103.2 ml/min; Est GFR (Non-African American) 89.1 ml/min; Globulin 2.2 gm/dl (2.5-4.0); Magnesium 2.1 mg/dl (1.7-2.4); Potassium 3.6 mmol/L (3.5-5.1); Total Protein 6.2 gm/dl (6.0-8.3)
[2023-05-18] MEDS ORDERED: PLASMA-LYTE A 1,000 ML IV ONE (12:19)
--- NOTE | 2023-05-18 12:19 | XRay Report ---
XR chest 1V portable CLINICAL HISTORY: Bowel perforation TECHNIQUE: Single frontal radiograph of the chest was obtained. Comparison: Comparison is made to chest radiograph 05/07/2019 FINDINGS: No lines and tubes are seen. The cardiomediastinal silhouette is normal. The lungs are clear. Pneumop eritoneum is seen. IMPRESSION: Pneumoperitoneum is seen. ACT 112: Negative or not required by law. Electronically signed by: Gino Dumas M.D. 05/18/2023 12:18 PM
[2023-05-18 12:29] LABS: Partial Thromboplastin Ratio 0.8; Partial Thromboplastin Time 22 Seconds (21-31); Prothrombin Time 10.9 Seconds (9.0-12.0)
[2023-05-18 13:07] LABS: Basophils # (auto) 0.02 K/uL (0.00-0.20); Basophils % (auto) 0.5 %; Eosinophils # (auto) 0.02 K/uL (0.00-0.50); Eosinophils % (auto) 0.5 %; Immature Granulocytes # (auto) 0.01 K/uL (0.01-0.20); Immature Granulocytes % (auto) 0.2 %; Lymphocytes # (auto) 2.66 K/uL (1.20-3.40); Lymphocytes % (auto) 60.9 %; Macrocytosis Present; Monocytes # (auto) 0.11 K/uL (0.11-0.59); Monocytes % (auto) 2.5 %; Neutrophils # (auto) 1.55 K/uL (1.40-6.50); Neutrophils % (auto) 35.4 %; Polychromasia 1+
--- OUTSIDE RECORDS SUMMARY | 2023-05-18 13:32 | External Medical Summary | Continuity of Care Document ---
Author Name Unknown Organization [facility] [address] [facility] 2 Address [address] [id number] Care Team Providers Care Salvationist Name Role Phone MarkMiguel Angeldennis Gosia Primary Care Physician [phone] Encounter [facility] [id number] Date(s): 04/10/23 - 04/10/23 [facility] [address] [facility] 2 [address] [id number] [place] Encounter Diagnosis History of squamous cell carcinoma in situ(Discharge Diagnosis) - 04/10/23 Actinic keratoses(Discharge Diagnosis) - 04/10/23 Changing skin lesion(Discharge Diagnosis) - 04/10/23 Seborrheic keratoses(Discharge Diagnosis) - 04/10/23 Discharge Disposition: Home or Self Care Attending Physician: MD Davis Sara B Referring Physician: MD Davis Sara B Allergies, Adverse Reactions, Alerts Substance Reaction Severity Status predniSONE sinusitis Active anastrozole Spiked arthritis No appetite Active Vicodin vomiting nausea Active oxyCODONE Vomiting Nausea Active Assessment and Plan Extracted from: Title:Office Visit Note Author:MD Davis Sar a B Date:04/10/23 1.History of squamous cell carcinoma in situ Warning signs of skin cancer were reviewed. Sun protection reviewed. Follow-up in 6 months, sooner for any changing or growing lesions or acute concerns. I also recommended monthly self skin exams 2.Actinic keratoses We willfreeze these on April 24 after her PET scan 3.Changing skin lesion We will biopsy this on April 24 after her PET scan 4.Seborrheic keratoses Chronic, within normal limits today 5. History of herpes simplex. Discussed Valtrex 2 g once and repeat in 12 hours and onset of symptoms. Risks and benefits discussed. Prescription sent. Immunizations Given and Recorded Vaccine Date Status Refusal Reason tetanus/diphtheria/pertuss, acel (Tdap) 1 08/09/14 Recorded 1Result Comment: 2017-04-11: Historical information-source unspecified [04/11/2017 Uncharted] not patient Medications Flexeril 10 mg oral tablet Start: 08/29/22 9:43:00 EDT, 1 tab, PO, bid, Disp# 30 tab, Refills: 1, PRN: as needed for spasm, Pharmacy: [facility] #[id number] Start Date: 08/29/22 Status: Ordered lysine Start: 09/24/20 13:58:00 EDT, 1,000 mg =, Daily Start Date: 09/24/20 Status: Ordered magnesium citrate Start: 03/10/22 9:07:00 EDT Start Date: 03/10/22 Status: Ordered Probiotic Formula Start: 11/12/18 11:00:00 EDT, 1 cap, PO, Daily Start Date: 11/12/18 Status: Ordered tumeric Start: 10/24/17 10:50:00 EDT, tumeric, PO, Daily Start Date: 10/24/17 Status: Ordered Tylenol Extra Strength Start: 04/24/19 9:03:00 EST Start Date: 04/24/19 Status: Ordered Valtrex 1 g oral tablet Start: 04/10/23 9:28:00 EDT, See Instructions, Disp# 12 tab, Refills: 3, 2 tab PO at onset of cold sore, repeat in 12 hours then stop, Pharmacy: [facility] #[id number] Start Date: 04/10/23 Status: Ordered Vitamin C 500 mg oral capsule Start: 09/24/20 13:58:00 EDT, 1 cap, PO, Daily Start Date: 09/24/20 Status: Ordered Vitamin D3 Start: 02/27/18 15:41:00 EDT, 1,000 Int_Unit =, PO, Daily Start Date: 02/27/18 Status: Ordered Mental Status 04/10/23 Barriers to Learning one year None evide nt Mandatory Health Literacy Documentation Yes Health Literacy Communication Barriers N ever Primary Language Yoruba Problem List Condition Confirmation Course Effective Dates Status Health St atus Informant Abnormal EKG Confirmed Active Actinic keratosis Confirmed Active Arthritis Confirmed Active 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 Confirmed Active Changing skin lesion Confirmed Active CLL (chronic lymphocytic leukemia) Confirmed Active Peroneal neuritis Confirmed Active Degenerative joint disease (DJD) of hip Confirmed Active History of chicken pox Confirmed 1970 Active History of measles as a child Confirmed Active History of mumps as a child Confirmed Active Herpes simplex Confirmed Active History of breast cancer Confirmed Active History of squamous cell carcinoma in situ Confirmed Active Inflamed seborrheic keratosis Confirmed Active Knee pain Confirmed Active Lentigo Confirmed Active Lentigo Confirmed Active Low back pain Confirmed Active Notalgia paresthetica Confirmed Active Degenerative arthritis of knee Confirmed Active Leg pain Confirmed Active Seborrheic keratoses Confirmed Active Solar purpura Confirmed Active Solar elastosis Confirmed Active Vaccine refused by patient Confirmed Active Diagnosis Diagnosis Type Effective Dates Health Status Clinical Service Informant Changing skin lesion Discharge Diagnosis 04/10/23 Seborrheic keratoses Discharge Diagnosis 04/10/23 History of squamous cell carcinoma in situ Discharge Diagnosis 04/10/23 Actinic keratoses Discharge Diagnosis 04/10/23 Procedures Procedure Date Related Diagnosis Body Site Status Shave biopsy and cauterizati on of skin 1 05/23/22 Completed Shave biopsy and cauterizati on of skin 2 04/05/22 Completed Mohs micrographic surgery 10/04/21 Completed Shave biopsy and cauterization of skin 09/13/21 Completed Shave biopsy and cauterization of skin 04/16/20 Completed mammogram 05/08/19 Completed Electrodesiccation with curettage 05/02/19 Completed Shave biopsy and cauterisation of skin 04/24/19 Completed Shave biopsy and cauterisation of skin 04/24/19 Completed Mammogram 2018 Completed Mammogram - screening 4 12/01/17 C ompleted Surgery 5 05/02/17 Completed Bone density scan 6 12/08/16 Compl eted Hip X-ray 7 11/28/16 Completed Mammogram 8 11/21/16 Completed Surgery 9 04/03/15 Completed Mastectomy 10 01/13/15 Completed Surgery 11, 12 2011 Completed Colonoscopy 13 11/11/09 Completed Entire left wrist 06/12/91 Complet ed Arthroscopy 14 Completed Arthroscopy 15 Completed Shave biopsy and cauterisati on of skin 16 Completed Surgery 17 Completed Surgery 18 Completed 1With ED&C 21. Left forearm 2. Right lower cheek 3no evidence of malignancy recheck in 1 year. 4There is no mammographic evidence of malignancy. A 1 year screening mammogram is recommended. 5right hip replacement 6WHO Classification: Normal. Fracture risk is low. Follow-up in November 2018. 7No acute bony abnormality is seen in the right hip Osteopenia and advanced arthritic change as above 8BIRADS: 2: Benign There is no mammographic evidence of malignancy. A 1 year screening mammogram is recommended. 9nerve intrapment surgery 10left 11discectomy 12back surgery 13The entire examined colon is normal 14right knee 15x2 on left knee 16w/ED&C 17laproscopic for fertility x2 [id number] Social History Social History Type Response Smoking Status Never smoked cigaret niharika Sex Female Dermatology Outpatient Note * MD Ryan, Kaela Naranjo: PERFORM Event Display: Dermatology Outpt Note Authored Date: [id number] Chief Complaint skin check- a few spots of concern History of Present Illness Here for skin check. Pt follows up for skin check. Has a hx [place] has used efudex in past( last early 2020), has hx extenisve sun exposure but good with sun screen now. Also history of squamous cellcarcinoma in situ on central neck treated with electrodesiccation and curettage in late 2018. SCC left deltoid tx ED&C in summer 2019. SCC right cheek tx spring 2021 MOHS. [1] Squamous cell in situ left hand treated with electrodesiccation and curettage in May 2022 Here for skin check. Few spots of concern today. Of note she never used Efudex because she has developed diagnosed with lymphoma. She is treated at [facility] going down for PET scan a CTand to see them on April 19 and . She had anepisode with herpes this summer. She occasionally gets around her lips or in her nose would like to have some medicine for this if it develops again. Physical Exam we will freeze the worst disease on April 22Gen: Well appearing patient, no acute distress. Alert and oriented x3. Good mood. Skin examination completed of face, eyelids, scalp, hair, lips, ears, neck, chest, back, abdomen,upper and lower extremities bilaterally including hands, feet, fingers and toes, fingernails and toenails, pt declined buttocks and groin. Pt declined a substation operator transforming.Patient has numerous lentigines numerous seborrheic keratoses and extensive sun damage. She has numerous actinic keratoseson her bilateralcheeks and temples. Possible recurrent SCCIS left neck and pink. she has swollen nodes in the neck but this is known to her. Images 2023-04-10 09:33:05 2023-04-10 09:33:10 2023-04-10 09:33:26 2023-04-10 09:33:33 Assessment/Plan 1.History of squamous cell carcinoma in situ Warning signs of skin cancer were reviewed. Sun protection reviewed. Follow-up in 6 months, sooner for any changing or growing lesions or acute concerns. I also recommended monthly self skin exams 2.Actinic keratoses We willfreeze these on April 24 after her PET scan 3.Changing skin lesion We will biopsy this on April 24 after her PET scan 4.Seborrheic keratoses Chronic, within normal limits today 5. History of herpes simplex. Discussed Valtrex 2 g once and repeat in 12 hours and onset of symptoms. Risks and benefits discussed. Prescription sent. Problem List/Past Medical History Ongoing Abnormal EKG Actinic keratosis Arthritis Changing skin lesion CLL (chronic lymphocytic leukemia) Degenerative arthritis of knee Degenerative joint disease (DJD) of hip Herpes simplex History of breast cancer History of chicken pox History of measles as a child History of mumps as a child History of squamous cell carcinoma in situ Inflamed seborrheic keratosis Knee pain Leg pain Lentigo Lentigo Low back pain Notalgia paresthetica Peroneal neuritis Seborrheic keratoses Solar elastosis Solar purpura 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 Vaccine refused by patient Historical Arthritis of knee Body, loose, knee Bruise Groin pain Itching Knee instability Neoplasm of uncertain behavior of skin Preop examination Seborrheic keratosis Tick bite Trochanteric bursitis Procedure/Surgical History Shave biopsy and cauterization of skin (05/23/2022)Shave biopsy and cauterization of skin (04/05/2022)Mohs micrographic surgery (10/04/2021)Shave biopsy and cauterization of skin (09/13/2021)Shave biopsy and cauterization of skin (04/16/2020)mammogram (05/08/2019)Electrodesiccation with curettage (05/02/2019)Shave biopsy and cauterisation of skin (04/24/2019)Shave biopsy and cauterisation of skin (04/24/2019)Mammogram (2018)Mammogram - screening (12/01/2017)Surgery (05/02/2017)Bone density scan (12/08/2016)Hip X-ray (11/28/2016)Mammogram (11/21/2016)Surgery (04/03/2015)Mastectomy (01/13/2015)Surgery (2011)Colonoscopy (11/11/2009)Entire left wrist (06/12/1991)ArthroscopyArthroscopySurgerySurgeryShave biopsy and cauterisation of skin Medications acetaminophen(Tylenol Extra Strength) ascorbic acid(Vitamin C 500 mg oral capsule), 500 mg= 1 cap, PO, Daily bifidobacterium-lactobacillus(Probiotic Formula), 1 cap, PO, Daily cholecalciferol(Vitamin D3), 1000 Int_Unit, PO, Daily cyclobenzaprine(Flexeril 10 mg oral tablet), 10 mg= 1 tab, PO, bid, PRN, 1 refills lysine, 1000 mg, Daily magnesium citrate unlisted medication(tumeric), PO, Daily valACYclovir(Valtrex 1 g oral tablet), See Instructions, 3 refills Allergies Vicodinvomiting, nausea anastrozoleSpiked arthritis, No appetite oxyCODONEVomiting, Nausea predniSONEsinusitis Social History Smoking Status Never smoked cigarettes Alcohol Type:Wine - Comments: Socially 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 Has a 23 year old daughter. Tobacco - Denies Tobacco Use Use:Never smoker Family History Atrial fibrillation: Brother. Cancer: Father, Brother and MGM. Cardiomyopathy: Brother. Heart attack: Mother and PGM. Heart disease: Mother. Hypertension: Brother. Lung disease: Mother. Tobacco abuse: Mother. Health Status Family Member(s) Recommendations Health Maintenance Pending(in the next year) OverDue Adult Influenza Vaccine due12/10/22and every 1year Medicare Annual Wellness Visit due03/10/23and every 1year Due Adult COVID-19 Vaccination due04/10/23Unknown Frequency Adult Tdap/Td Vaccine due04/10/23Unknown Frequency Hepatitis C Screening due04/10/23One-time only Pneumococcal Vaccine Older Adults due04/10/23One-time only Shingles Vaccine due04/10/23One-time only Due In Future Body Mass Index not due until03/12/24and every 1year Satisfied(in the past 1 year) Satisfied Body Mass Index on03/13/23.Satisfied by ALLIE Acevedo Sara Breast Cancer Screening on06/07/22.Satisfied by CHADD Edouard Angela Lipid Screening on02/02/23.Satisfied by Contributor_system, [id number] [1]Office Visit Note; MD Ryan, Kaela Naranjo 04/05/2022 09:10 EDT Electronic Signature on File Electronically Reviewed/Signed by: Kaela Davis MD Author Signature Dt/Tm:04/10/2023 09:40 AM Department of Dermatology [facility] Patient Care team information Care Team Personnel Name: MD Nanette, Khushi Ramos Position: Physician - Neurosurgery Member Role: Lifetime Relationship Address: Address: [address] [place] [address] [address] [place] [address] [place] Name: HARLAN Breaux, Lindsay Anderson Position: Physician Assembly Machine Operator - Orthopaedic Surg Member Role: Lifetime Relationship Address: Address: [address] [place] [address] [address] [place] [address] [place] Name: MD Jas, Nghia Elise Position: Physician Member Role: Primary Care Provider Address: Address: [address] [facility] [address] [place] [address] [place] Care Team Related Persons Name: MEHRDAD GARCIA Address: home [address] [facility] [place] [id number]
--- OUTSIDE RECORDS SUMMARY | 2023-05-18 13:32 | External Medical Summary | Continuity of Care Document ---
Author Name Unknown Organization [facility] [address] 1 Address [address] [place], [place] [id number] Care Team Providers Care Senior Production Planner Name Role Phone Nghia Mark Primary Care Physician [phone] [id number] Date[facility]s): [facility]/02/23 - 02/02/23 [facility] [address] [facility] [address], [facility] 1 [place], [phone] Encounter Diagnosis Encounter for screening for diabetes mellitus(Final) - Pain in right toe(s)(Final) - Encounter for screening for lipoid disorders(Final) - Discharge Disposition: Home or Self Care Attending Physician: MD Mark Ravishankar E Referring Physician: MD Mark Ravishankar E Allergies, Adverse Reactions, Alerts Substance Reaction Severity Status anastrozole Spiked arthritis No appetite Active Vicodin vomiting nausea Active oxyCODONE Vomiting Nausea Active Immunizations Given and Recorded Vaccine Date Status Refusal Reason tetanus/diphtheria/pertuss, acel (Tdap) 1 08/09/14 Recorded 1Result Comment: 2017-04-11: Historical information-source unspecified [04/11/2017 Uncharted] not patient Medications Flexeril 10 mg oral tablet Start: 08/29/22 9:43:00 EDT, 1 tab, PO, bid, Disp# 30 tab, Refills: 1, PRN: as needed for spasm, [facility]acy: [facility] #[id number] Start Date: 08/29/22 Status: Ordered lysine Start: [...] 9:03:00 EST Start Date: 04/24/19 Status: Ordered Vitamin C 500 mg oral capsule Start: 09/24/20 13:58:00 EDT, 1 cap, PO, Daily Start Date: 09/24/20 Status: Ordered Vitamin D3 Start: 02/27/18 15:41:00 EDT, 1,000 Int_Unit =, PO, Daily Start Date: 02/27/18 Status: Ordered Problem List Condition Confirmation Course Effective Dates [...] Active Vaccine refused by patient Confirmed Active Procedures Procedure Date Related Diagnosis Body Site [...] Completed Mammogram 2018 Completed Mammogram - screening 12/01/17 C ompleted Surgery 5 05/02/17 Completed [...] left knee 16w/ED&C 17laproscopic for fertility x2 Results Laboratory List Name Date Basic Metabolic Panel (BASIC METAB PANEL ) 02/02/23 Lipid Profile (LIPOPROTEINS) 02/02/23 Uric Acid Level (URIC ACID) 02/02/23 Most recent to oldest [Reference Range]: 1 eGFR CKD-EPI [>60 mL/min/1.73 m2] 90 mL/ min/1.73 m2 1 (02/02/23 7:13 AM) Non-HDL 139 mg/dL 2 (02/02/23 7:13 AM) Estimated CrCl 61.27 mL/min (02/02/23 7:45 AM) Anion Gap [5-14 mmol/L] 6 mmol/L (02/02/23 7:13 AM) BUN [7-20 mg/dL] 21 mg/dL *HI* (02/02/23 7:13 AM) Ca [8.4-10.2 mg/dL] 9.0 mg/dL (02/02/23 7:13 AM) Chol/HDL 3 (02/02/23 7:13 AM) Chol [125-200 mg/dL] 201 mg/dL *HI* (02/02/23 7:13 AM) Cl- [96-107 mmol/L] 107 mmol/L (02/02/23 7:13 AM) HCO3 [22-30 mmol/L] 28 mmol/L (02/02/23 7:13 AM) Cret [0.60-1.00 mg/dL] 0.72 mg/dL (02/02/23 7:13 AM) Glu [74-106 mg/dL] 93 mg/dL (02/02/23 7:13 AM) HDL [>35 mg/dL] 62 mg/dL (02/02/23 7:13 AM) K [3.5-5.1 mmol/L] 4.4 mmol/L (02/02/23 7:13 AM) LDL Chol, Calculated [50-130 mg/dL] 126 mg/dL (02/02/23 7:13 AM) Na [137-145 mmol/L] 141 mmol/L (02/02/23 7:13 AM) TG [<200 mg/dL] 67 mg/dL (02/02/23 7:13 AM) Uric Acid [2.5-6.2 mg/dL] 4.7 mg/dL 3 (02/02/23 7:13 AM) 1Result Comment: Testing Performed By: [facility] Kirk Aguilar, [address] [place] [id number] 2Result Comment: Testing Performed By: [facility] Kirk Aguilar, [address] [place] [id number] 3Result Comment: Testing Performed By: Dept [facility] Kirk Aguilar, [address] [place] [id number] Social History Social History Type Response Smoking Status Never smoked cigaret niharika Sex Female Patient Care team information Care Team Personnel Name: MD Nanette, Khushi Ramos Position: Physician - Neurosurgery Member Role: Lifetime Relationship Address: Address: [address] [place] [address] [address] [place] [address] [place] Name: HARLAN Breaux Tammy M Position: Physician Marble Worker - Orthopaedic Surg Member Role: Lifetime Relationship Address: Address: [address] [place] [address] [address] [place] [address] [place] Name: MD Jas, Nghia Elise Position: Physician Member Role: Primary Care Provider Address: Address: [address] [place] [address] [address] [place] [id number] Care Team Related Persons Name: MEHRDAD GARCIA Address: home [address] [place] [phone]
--- OUTSIDE RECORDS SUMMARY | 2023-05-18 13:32 | External Medical Summary | Continuity of Care Document ---
Author Name Unknown Organization [address] Address [address] [place] [address] [address] [place] [id number] Care Team Providers Care Publications Writer Name Role Phone Nghia Mark Primary Care Physician [phone] Encounter [facility] [id number] Date(s): 03/13/23 - 03/13/[address] [place] [address] [facility], [address] [place] [address] [phone] Encounter Diagnosis Annual physical exam(Discharge Diagnosis) - 03/13/23 Vaccine refused by patient(Discharge Diagnosis) - 03/13/23 Solar purpura(Discharge Diagnosis) - 03/13/23 CLL (chronic lymphocytic leukemia)(Discharge Diagnosis) - 03/13/23 Body mass index [BMI] 20.0-20.9, adult(Discharge Diagnosis) - 03/13/23 Positive colorectal cancer screening using Cologuard test(Discharge Diagnosis) - 03/13/23 Discharge Disposition: Home or Self Care Attending Physician: MD Mark Ravishankar E Referring Physician: MD Mark Ravishankar E Allergies, Adverse Reactions, Alerts Substance Reaction Severity Status predniSONE sinusitis Active anastrozole Spiked arthritis No appetite Active Vicodin vomiting nausea Active oxyCODONE Vomiting Nausea Active Assessment and Plan Extracted from: Title:CPE Author:MD Mark Ravishankar E Da te:03/13/23 1.Annual physical exam - Healthy diet/exercise habits reviewed, handouts provided. - Imms reviewed, declines all 2/2 above. - Fasting labs reviewed with pt, no areas of concern. - Cologuard positive 04/2021, due for colo to eval. Ordered. - Declines STI concern/desire for testing 2.Vaccine refused by patient - All vaccines declined by pt 3.Solar purpura - Chronic, followed by derm 4.CLL (chronic lymphocytic leukemia) - Chronic, followed by [facility], will get records sent 5.Positive colorectal cancer screening using Cologuard test - Ordered, pt requested [facility] - referred to Dr. Narayanan for colonoscopy f/u PRN or annually. Immunizations Given and Recorded Vaccine Date Status Refusal Reason tetanus/diphtheria/pertuss, acel (Tdap) 1 08/09/14 Recorded 1Result Comment: 2017-04-11: Historical information-source unspecified [04/11/2017 Uncharted] not patient Medications Flexeril 10 mg oral tablet Start: 08/29/22 9:43:00 EDT, 1 tab, PO, bid, Disp# 30 tab, Refills: 1, PRN: as needed for spasm, Pharmacy: [facility] #[id number] Start Date: 08/29/22 Status: Ordered lysine Start: [...] Start Date: 02/27/18 Status: Ordered Mental Status 03/13/23 Barriers to Learning one year None evide nt Mandatory Health Literacy Documentation Yes Health Literacy Communication Barriers N ever Primary Language Slovak Problem List Condition Confirmation Course Effective Dates [...] Effective Dates Health Status Clinical Service Informant Positive colorectal cancer screening using Cologuard test Discharge Diagnosis 03/13/23 Annual physical exam Discharge Diagnosis 03/13/23 Solar purpura Discharge Diagnosis 03/13/23 CLL (chronic lymphocytic leukemia) Discharge Diagnosis 03/13/23 Body mass index [BMI] 20.0-20.9, adult Discharge Diagnosis 03/13/23 Non-Specified Vaccine refused by patient Discharge Diagnosis 03/13/23 Procedures Procedure Date Related Diagnosis Body Site [...] 04/03/15 Completed Mastectomy 10 01/13/15 Completed Surgery 12 2011 Completed Colonoscopy 13 11/11/09 Completed [...] left knee 16w/ED&C 17laproscopic for fertility x2 Vital Signs Most recent to oldest [Reference Range]: 1 Height 158.9 cm (03/13/23 11:20 AM) Patient Weight 53 kg (03/13/23 11:20 AM) Body Mass Index 20.99 kg/m2 (03/13/23 11:20 AM) Temperature [36.5-37.9 DegC] 36.6 DegC (03/13/23 11:20 AM) Respiratory Rate 14 br/min (03/13/23 11:20 AM) Blood Pressure 128/64mmHg (03/13/23 11:20 AM) Cuff Pulse Pressure 64 mmHg (03/13/23 11:20 AM) Social History Social History Type Response Smoking Status Never smoked cigaret niharika Sex Female FCM Outpt Note * MD Jas, Nghia E: PERFORM Event Display: FCM Outpt Note Authored Date: [id number] Chief Complaint CPE. Pt has had an eye exam. She is going to have Cataracts surgery in May. Pt also would liketo update on Lymphoma. History of Present Illness Lisseth is a 72yoF here today for annual physical exam. She refuses all vaccines due to an incident with her getting CLL diagnosed [facility] (no records available)she believes from the moderna vaccine though unsubstantiated. She notes she gets surveilance labs with them and follows again in Apr 2023 with PET/CT. She plans to get cataract surgery soon. Planned for April of this year. Colon CA screening - positive cologuard 04/2021, pt not made aware. Will order colonoscopy to work-up stat. Mammography - up to date 06/2022. Sees Dr. Fowler at [facility]. Review of Systems 03/25pt ROS reviewed/negative except as noted in HPI. Physical Exam Vitals & Measurements T:36.6C RR:14 BP:128/64 SpO2:97% HT:158.9cm WT:53.000kg(Dosing) WT:53kg BMI:20.99 PHQ2 Data(Data Documented on:03/13/2023 11:20) Emotional health assessment NEGATIVE GENERAL APPEARANCE: The patient is alert, oriented and in no acute distress. VITALS: As above. HEENT: Head is normocephalic/atraumatic. PERRL, EOM-I. Oropharynx clear without lesions. NECK: Supple without lymphadenopathy. Thyroid wnl. CARDIOVASCULAR: Regular rate and rhythm, no m/r/g. +2 radial pulses. LUNGS: Clear to auscultation bilaterally. No wheezes/rhales/rhonchi. ABDOMEN: Soft, nontender, nondistended with normal bowel sounds. No rebound/guarding. EXTREMITIES: No cyanosis, clubbing or edema. NEUROLOGICAL: Grossly non-focal exam. SKIN: Warm and dry without any rash. Assessment/Plan 1.Annual physical exam - Healthy diet/exercise habits reviewed, handouts provided. - Imms reviewed, declines all 2/2 above. - Fasting labs reviewed with pt, no areas of concern. - Cologuard positive 04/2021, due for colo to eval. Ordered. - Declines STI concern/desire for testing 2.Vaccine refused by patient - All vaccines declined by pt 3.Solar purpura - Chronic, followed by derm 4.CLL (chronic lymphocytic leukemia) - Chronic, followed by [facility], will get records sent 5.Positive colorectal cancer screening using Cologuard test - Ordered, pt requested [facility] - referred to Dr. Narayanan for colonoscopy f/u PRN or annually. 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 Has a 23 year old daughter. Tobacco [...] due03/10/23and every 1year Due Adult COVID-19 Vaccination due03/13/23Unknown Frequency Adult Tdap/Td Vaccine due03/13/23Unknown Frequency Hepatitis C Screening due03/13/23One-time only Pneumococcal Vaccine Older Adults due03/13/23One-time only Shingles Vaccine due03/13/23One-time only Due In Future Body Mass Index not due until03/12/24and every 1year Satisfied(in the past 1 year) Satisfied Body Mass Index on03/13/23.Satisfied by ALLIE Acevedo Sara Breast Cancer Screening on06/07/22.Satisfied by CHADD Edouard Angela Lipid Screening on02/02/23.Satisfied by Contributor_system, [employer] Electronic Signature on File Electronically Reviewed/Signed by: Nghia Mark MD Author Signature Dt/Tm:03/13/2023 11:47 AM Department of Family Medicine [facility] Patient Care team information Care Team Personnel Name: MD Nanette, Khushi Ramos Position: Physician - Neurosurgery Member Role: Lifetime Relationship Address: Address: [address] [place] [address] [address] [place] [address] [place] Name: HARLAN Breaux, Lindsay Anderson Position: Physician Incident Handler - Orthopaedic Surg Member Role: Lifetime Relationship Address: Address: [address] [facility] [address] [place] [address] [place] Name: MD Jas, Nghia Elise Position: Physician Member Role: Primary Care Provider Address: Address: [address] [place] [address] [address] [place] [address] Care Team Related Persons Name: MEHRDAD GARCIA Address: home [address] [facility], [place] [id number]
--- OUTSIDE RECORDS SUMMARY | 2023-05-18 13:33 | External Medical Summary | Summary of Care ---
Author Name Unknown Organization [facility] Address [address] [facility] [place] [address] Phone [phone] Care Team Providers Care Director Of Veterans Affairs Name Role Phone Sam Quintero MD Primary Care Provider Reason for Visit * Reason Onset Date Comments Test Results 12/01/2022 Encounter Details Date Type Department Care Team Description 12/01/2022 Telephone Otolaryngology [facility] [address] [place] [id number] [place] Singh DO [address] [place] [id number] Test Results Allergies Active Allergy Reactions Severity Noted Date Comments Anastrozole 08/06/2015 Oxycodone-Acetaminophen 05/12/2012 Tramadol Hcl Nausea/vomiting 01/07/2015 Hydrocodone-Acetaminophen 05/12/2012 documented as of this encounter (statuses as of 12/30/2022) Medications Medication Sig Dispensed Refills Start Date End Date Status Ascorbic Acid (VITAMIN C) 1000 MG Tablet Take 1 Tablet by mouth in the morning. 0 Active Probiotic Product (PROBIOTIC & ACIDOPHILUS EX ST) Capsule Take 1 Cap by mouth three times a day with meals. 0 Active Cholecalciferol 25 MCG (1000 UT) Oral Tablet Take 1 Tablet by mouth in the morning. 0 Active Turmeric 500 MG TABS Take 2 Tabs by mouth 2 times a day. 0 Active Magnesium Citrate 100 MG TABS Take by mouth. 0 Active Lysine 1000 MG Oral Tablet 1,000 mg. 0 09/24/2020 Active Tylenol PM Extra Strength 500-25 MG Oral Tablet (diphenhydrAMINE-APAP (sleep)) Take 1 Tablet by mouth 3 times a day as needed for Itching. 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 Trigeminal neuralgia 07/27/2006 Insomnia Overview: ICD-10 update of inactive term Generalized osteoarthritis Irritable bowel syndrome Ductal carcinoma documented as of this encounter (statuses as of 12/30/2022) Resolved Problems Problem Noted Date Resolved Date Left sided sciatica 05/01/2012 03/20/2013 documented as of this encounter (statuses as of 12/30/2022) Immunizations Name Administration Dates Next Due COVID-19 mRNA, LNP-s, No Pre serve, 2-Dose Series (Moderna) 08/19/2020,07/22/2020 documented as of this encounter Social History Tobacco Use Types Packs/Day Years Used Date Smoking Tobacco: Never Smokeless Tobacco: Never Alcohol Use Standard Drinks/Week Comments Yes 0 (1 standard drink = 0.6 oz pur e alcohol) occasional Sex Assigned at Date Recorded Not on file Job Start Date Occupation Industry Not on file Not on file Not on file documented as of this encounter Miscellaneous Notes * Telephone Encounter - Arline Aragon LPN - 12/01/2022 11:14 AM EDT Call to patient. She is aware of the results, and states that she is doing well. * Telephone Encounter - Kristi Shaver MD - 12/01/2022 10:51 AM EDT Please let patient know biopsy was negative for dysplasia or cancer. 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 Singh. Patient would like test results. Please advise as Dr. Francisco jo of the office. documented in this encounter Plan of Treatment Upcoming Encounters Date Type Specialty Care Team Description 03/31/2023 Office Visit Otolaryngology [place] Singh, [address] [place] [address] Health Maintenance Due Date Last Done Comments DXA Scan 1952 Depression Screening, Annual for Pts 12 and Over 1964 Hepatitis C Screening 1970 DTaP,Tdap,and Td Vaccines (1 - Tdap) 09/22/1971 Cologuard 1997 Fecal Occult Blood Test 1997 Sigmoidoscopy 1997 Zoster Vaccines (1 of 2) 2002 Pneumococcal Vaccine: 65+ Years (1 - PCV) 2017 Mammogram 11/21/2017 11/21/2016, 06/0 02/2016, 12/08/2014, Additional history exists Colonoscopy 11/12/2019 11/11/2009 Colorectal Cancer Screening 11/12/2019 Lipid Panel 06/10/2020 06/10/2015, 02/11, 03/15/2011 COVID-19 Vaccine (3 - Moderna series) 10/14/2020 08/19/2020, 07/22/2020 Influenza Vaccine (FLU shot) (#1) 2023 GARDASIL-HPV IMMUNIZATION SERIES Aged Out No longer eligible based on patient's age to complete this topic Hepatitis B Aged Out No longer eligi ble based on patient's age to complete this topic MENINGOCOCCAL (MENACTRA/MENVEO) Aged Out No longer eligible based on patient's age to complete this topic documented as of this encounter Medical Devices Not on filedocumented as of this encounter Care Teams Director Of Veterans Affairs Relationship Specialty Start Date End Date Sam Quintero MD [address] [place] [address] Dr Cordova [address] [place] [address] PCP - General Family Medicine 12/15/15 documented as of this encounter
--- OUTSIDE RECORDS SUMMARY | 2023-05-18 13:33 | External Medical Summary | Continuity of Care Document ---
Author Name Unknown Organization [address] Address [address] [place] [address] [address] [place] [id number] Care Team Providers Care Er Medical Technician Name Role Phone Nghia Mark Primary Care Physician [phone] Encounter [facility] [id number] Date(s): 02/01/23 - 02/01/[address] [place] [id number] [facility], [address] [place] [address] [phone] Encounter Diagnosis Body mass index [BMI] 20.0-20.9, adult(Discharge Diagnosis) - 02/01/23 Screening for hyperlipidemia(Discharge Diagnosis) - 02/01/23 Pain of right great toe(Discharge Diagnosis) - 02/01/23 Screening for diabetes mellitus(Discharge Diagnosis) - 02/01/23 Discharge Disposition: Home or Self Care Attending Physician: MD Mark Ravishankar E Referring Physician: MD Mark Ravishankar E Allergies, Adverse Reactions, Alerts Substance Reaction Severity Status anastrozole Spiked arthritis No appetite Active Vicodin vomiting nausea Active oxyCODONE Vomiting Nausea Active Assessment and Plan Extracted from: Title:Office Visit Note Author:MD Mark Ravishan kar E Date:02/01/23 1.Pain of right great toe - ? Gout vs OA flare from dress shoes - Encouraged NSAIDs for either case - pt hesitant but will consider - hx of gi issues on NSAIDs -- encouraged taking with famotidine to help counter this - Will check uric acid and BMP to assess for gout and kidney function 2.Screening for hyperlipidemia - FLP as not checked in quite some time 3.Screening for diabetes mellitus - BMP with glucose to screen f/u PRN basis. Time: 30mins 5- pre-visit chart review 20- visit, inclusive of history, exam, and discussion of assessment/plan 5- post-visit documentation/orders/coordination of care Immunizations Given and Recorded Vaccine Date Status Refusal Reason tetanus/diphtheria/pertuss, acel (Tdap) 1 08/09/14 Recorded 1Result Comment: 2017-04-11: Historical information-source unspecified [04/11/2017 Uncharted] not patient Medications Flexeril 10 mg oral tablet Start: 08/29/22 9:43:00 EDT, 1 tab, PO, bid, Disp# 30 tab, Refills: 1, PRN: as needed for spasm, Pharmacy: [facility] #[id number] Start Date: 08/29/22 Status: Ordered lysine Start: [...] Start Date: 02/27/18 Status: Ordered Mental Status 02/01/23 Barriers to Learning one year None evide nt Mandatory Health Literacy Documentation Yes Health Literacy Communication Barriers N ever Primary Language Hebrew Problem List Condition Confirmation Course Effective Dates [...] Effective Dates Health Status Clinical Service Informant Body mass index [BMI] 20.0-20.9, adult Discharge Diagnosis 02/01/23 Non-Specified Screening for hyperlipidemia Discharge Diagnosis 02/01/23 Screening for diabetes mellitus Discharge Diagnosis 02/01/23 Pain of right great toe Discharge Diagnosis 02/01/23 Procedures Procedure Date Related Diagnosis Body Site [...] recent to oldest [Reference Range]: 1 Height 161.1 cm (02/01/23 9:13 AM) Patient Weight 53.6 kg (02/01/23 9:13 AM) Body Mass Index 20.65 kg/m2 (02/01/23 9:13 AM) Temperature [36.5-37.9 DegC] 36.9 DegC (02/01/23 9:13 AM) Respiratory Rate 14 br/min (02/01/23 9:13 AM) Blood Pressure 102/58mmHg (02/01/23 9:13 AM) Cuff Pulse Pressure 44 mmHg (02/01/23 9:13 AM) Social History Social History Type Response Smoking Status Never smoked cigaret niharika Sex Female FCM Outpt Note * MD Jas, Nghia E: PERFORM Event Display: FCM Outpt Note Authored Date: [id number] Chief Complaint Pt c/o pain in her right foot big toe area. Pt states pain goes up her leg when she sleeps. SHe ices it during her sleep. Pt has swelling in her toe and foot. Some in Left foot but not as bad as the right. History of Present Illness Lisseth is a 72yoF with known foot OA as well as history of Gout here today with concern for R great toe pain thats been bothering her since wearing heels at a wedding recently. She wishes to get a uric acid level drawn. She notes pain radiates up her foot to her leg. She notes she wore heeled dress shoes for 8hrs/day x 2 days which she thinks set everything off. Tried extra strength tylenol which helps some. She's been icing it which also helps. Review of Systems 03/25pt ROS reviewed/negative except as noted in HPI. Physical Exam Vitals & Measurements T:36.9C RR:14 BP:102/58 SpO2:98% HT:161.1cm WT:53.6kg WT:53.600kg(Dosing) BMI:20.65 PHQ2 Data(Data Documented on:02/01/2023 09:13) Emotional health assessment NEGATIVE GENERAL APPEARANCE: The patient is alert, oriented and in no acute distress. VITALS: As above. HEENT: Head is normocephalic/atraumatic. CARDIOVASCULAR: +2dp pulses. LUNGS: Respirations even and unlabored. EXTREMITIES: No cyanosis, clubbing or edema. MUSCULOSKELETAL: warm/swollen MTP joint on R side with pain in flexion/extension but intact ROM. Gait antalgic. NEUROLOGICAL: Grossly non-focal exam. SKIN: Warm and dry without any rash. Assessment/Plan 1.Pain of right great toe - ? Gout vs OA flare from dress shoes - Encouraged NSAIDs for either case - pt hesitant but will consider - hx of gi issues on NSAIDs -- encouraged taking with famotidine to help counter this - Will check uric acid and BMP to assess for gout and kidney function 2.Screening for hyperlipidemia - FLP as not checked in quite some time 3.Screening for diabetes mellitus - BMP with glucose to screen f/u PRN basis. 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 Has a 23 year old daughter. Tobacco - Denies Tobacco Use Use:Never smoker Family History Atrial fibrillation: Brother. Cancer: Father, Brother and MGM. Cardiomyopathy: Brother. Heart attack: Mother and PGM. Heart disease: Mother. Hypertension: Brother. Lung disease: Mother. Tobacco abuse: Mother. Health Status Family Member(s) Recommendations Health Maintenance Pending(in the next year) OverDue Adult Influenza Vaccine due12/10/22and every 1year Due Adult COVID-19 Vaccination due02/01/23Unknown Frequency Adult Tdap/Td Vaccine due02/01/23Unknown Frequency Hepatitis C Screening due02/01/23One-time only Pneumococcal Vaccine Older Adults due02/01/23One-time only Shingles Vaccine due02/01/23One-time only Due In Future Medicare Annual Wellness Visit not due until03/10/23and every 1year Body Mass Index not due until02/01/24and every 1year Satisfied(in the past 1 year) Satisfied Body Mass Index on02/01/23.Satisfied by ALLIE Acevedo Sara Breast Cancer Screening on06/07/22.Satisfied by CHADD Edouard Angela Medicare Annual Wellness Visit on03/10/22.Satisfied by SYSTEM Electronic Signature on File Electronically Reviewed/Signed by: Nghia Mark MD Author Signature Dt/Tm:02/01/2023 09:44 AM Department of Family Medicine [facility] Patient Care team information Care Team Personnel Name: MD Nanette, Khushi Ramos Position: Physician - Neurosurgery Member Role: Lifetime Relationship Address: Address: [address] [place] [address] [address] [place] [address] [place] Name: HARLAN Breaux, Lindsay Anderson Position: Physician Optician Apprentice Dispensing - Orthopaedic Surg Member Role: Lifetime Relationship Address: Address: [address] [place] [address] [address] [place] [address] [place] Name: MD Jas, Nghia Elise Position: Physician Member Role: Primary Care Provider Address: Address: [address] [place] [address] [address] [place] [address] Care Team Related Persons Name: MEHRDAD GARCIA Address: home [address] [facility], [place] [id number]
--- OUTSIDE RECORDS SUMMARY | 2023-05-18 13:33 | External Medical Summary | Summary of Care ---
Author Name Unknown Organization [facility] Address [address] [facility] [place] [address] Phone [phone] Care Team Providers Care Powder Coater Name Role Phone Sam Quintero MD Primary Care Provider Reason for Visit * Reason Comments Follow Up Encounter Details Date Type Department Care Team Description 11/21/2022 Office Visit Otolaryngology [facility] [address] [place] [address] Boston Singh DO [address] [place] [address] Lip lesion* Allergies Active Allergy Reactions Severity Noted Date Comments Anastrozole 08/06/2015 Oxycodone-Acetaminophen 05/12/2012 Tramadol Hcl Nausea/vomiting 01/07/2015 Hydrocodone-Acetaminophen 05/12/2012 documented as of this encounter (statuses as of 11/21/2022) Medications Medication Sig Dispensed Refills Start Date [...] PM Extra Strength 500-25 MG Oral Tablet (diphenhydrAMINE-A PAP (sleep)) Take 1 Tablet by mouth 3 times a day as needed for Itching. 0 Active Amoxicillin-Pot Clavulanate 875-125 MG Oral Tablet (Augmentin) Take 1 Tablet by mouth in the morning and 1 Tablet before bedtime. 20 Tablet 0 11/08/2022 11/21/2022 Discontinued predniSONE 10 MG Oral Tablet (Deltasone) Take 4 tab daily x 3 days, then 3 tab daily x 3 days, 2 tab daily x 3 days, then 1 tab daily x 3 days. 30 Tablet 0 11/08/2022 11/21/2022 Discontinued documented as of this encounter (statuses as of 11/21/2022) Active Problems Problem Noted Date Breast cancer, [...] as of this encounter (statuses as of 11/21/2022) Resolved Problems Problem Noted Date Resolved Date Left sided sciatica 05/01/2012 03/20/2013 documented as of this encounter (statuses as of 11/21/2022) Immunizations Name Administration Dates Next Due COVID-19 mRNA, LNP-s, No Pre serve, 2-Dose Series (Moderna) 08/19/2020,07/22/2020 documented as of this encounter Social History Tobacco Use Types Packs/Day Years Used Date Smoking Tobacco: Never Smokeless Tobacco: Never Tobacco Cessation:Counseling Given: Not Answered Alcohol Use Standard Drinks/Week Comments Yes 0 (1 standard drink = 0.6 oz pur e alcohol) occasional Sex Assigned at Date Recorded Not on file Job Start Date Occupation Industry Not on file Not on file Not on file documented as of this encounter Last Filed Vital Signs Vital Sign Reading Time Taken Comments Blood Pressure - - Pulse - - Temperature 35.7 C (96.3 F) 11/21/2022 11:17 AM E DT Respiratory Rate - - Oxygen Saturation - - Inhaled Oxygen Concentration - - Weight 55.8 kg (123 lb 0.3 oz) 11/21/2022 11:17 AM EDT Height 160 cm (5' 2.99") 11/21/2022 11:17 AM EDT Body Mass Index 21.8 11/21/2022 11:17 AM EDT documented in this encounter Progress Notes * Boston Chago Singh, DO - 11/21/2022 11:00 AM EDT Otolaryngology Head and Neck Surgery. 11/21/2022 Patient comes in today for new issue. She developed an ulcerative lesion of the upper lip just below the nasal sill on the right. 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 secondary to prior shingles outbreak Past Surgical History: Procedure Laterality Date COLONOSCOPY, DIAGNOSTIC (RECTUM) 11/11/09 wnl KNEE ARTHROSCOPY/SURGERY x3 LAPAROSCOPY,BIOPSY x2 as part of fertility workup LUMBAR / SACRAL EPIDURAL, SINGLE LEVEL 03/13/2017 INJECTION TRANSFORAMINAL EPIDURAL LUMBAR OR SACRAL performed by Cyrus Naranjo Cousins, DO at OR [facility] REMOVAL OF TONSILS, UNDER AGE 12 Medications Current Outpatient Medications Medication Sig Dispense Refill Ascorbic Acid (VITAMIN C) 1000 MG Tablet Take 1 Tablet by mouth in the morning. Probiotic Product (PROBIOTIC & ACIDOPHILUS EX ST) Capsule Take 1 Cap by mouth three times aday with meals. Cholecalciferol 25 MCG (1000 UT) Oral Tablet Take 1 Tablet by mouth in the morning. Turmeric 500 MG TABS Take 2 Tabs by mouth 2 times a day. Magnesium Citrate 100 MG TABS Take by mouth. Lysine 1000 MG Oral Tablet 1,000 mg. Tylenol PM Extra Strength 500-25 MG Oral Tablet (diphenhydrAMINE-APAP (sleep)) Take 1 Tablet bymouth 3 times a day as needed for Itching. Amoxicillin-Pot Clavulanate 875-125 MG Oral Tablet (Augmentin) Take 1 Tablet by mouth in the morning and 1 Tablet before bedtime. 20 Tablet 0 predniSONE 10 MG Oral Tablet (Deltasone) Take 4 tab daily x 3 days, then 3 tab daily x 3 days, 2 tab daily x 3 days, then 1 tab daily x 3 days. 30 Tablet 0 No current facility-administered medications for this visit. Allergies Review of patient's allergies indicates: Allergen Reactions Anastrozole Percocet [Oxycodone-Acetaminophen] Tramadol Hcl Nausea/vomiting Vicodin [Hydrocodone-Acetaminophen] Family History Family History Problem Relation Age of Onset Heart Disorder Mother Lung Disorder Mother Cancer Other cousin - colon cancer under age 40 Cancer Other paternal side Social History Social History Tobacco Use Smoking status: Never Smokeless tobacco: Never Substance Use Topics Alcohol use: Yes Comment: occasional Vaping/E-Cigarette Use Vaping/E-Cigarette Substances Vaping/E-Cigarette Devices Review of Systems Negative for constitutional, eyes, cardiac, pulmonary, hepatic, renal, digestive, hematologic, epileptic, syncopal, musculo-skeletal, mental health, integumentary, hypertensive, lipid, arthritic, diabetic, thyroid or neurologic disorders (except as listed in the PMH and Problem List). Physical Examination: There were no vitals taken for this visit. PHYSICAL EXAM General: This is a healthy appearing female who appears her stated age. The patient is alert and appropriately verbally conversant without hoarseness. Face: The face was inspected and no cutaneous masses or lesions were visualized. There was no erythema or edema noted. Facial movement was symmetric without weakness. No skin lesions were detected. There was no sinus tenderness elicited. The parotid and submandibular glands were normal to palpation. Eyes: Extra-ocular muscle function was intact. No nystagmus was observed. Pupils were equal. Cranial Nerves: Cranial nerves II, III, IV, and were noted to be intact via extra-ocular muscle movement testing. Cranial nerve VII noted to be intact and symmetric by facial movement. Nose: Examination of the nose revealed no masses, polyps, mucopus, or other lesion. The nasal septum was non-obstructing. The turbinates were without abnormality. There is an approximately 1 cm area of ulceration of the upper lip just below the right nasal sill with some eschar noted. There is alsoa small area on the tip of the nose that has a similar appearance PROCEDURE: After obtaining informed consent, procedure verified time-out held. The area of concern on the upper lip was anesthetized with 2% lidocaine [id number] epinephrine. After allowing time for local to takeeffect a 3 mm punch biopsy was obtained. This done with a 3 mm punch as well as pickup and scissors. Hemostasis was assured with pressure. Patient tolerated procedure well Assessment: 72-year-old female with a right upper lip ulcerative lesion, differential diagnosis includes herpetic lesion verses keratoacanthoma verses skin malignancy Plan: - biopsy as above - will contact with results I spent a total of 20 minutes on the date of service in preparation, delivery, and documentation ofthe care provided to the above patient, excluding any time spent on the performance of any procedures or separately billable services. Boston Singh DO, JANELL [facility] Otolaryngology Head and Neck [place], [place] 11/21/2022 11:46 AM documented in this encounter Nursing Notes * Belem Metz LPN - 11/21/2022 11:12 AM EDT Patient notes she has a sore on her nose since we last seen her. Notes she has been using triple antibiotic ointment on it. She has history of cold sores and stopped her Lysin, while on the abx and prednisone. documented in this encounter Plan of Treatment Upcoming Encounters Date Type Specialty Care Team Description 03/31/2023 Office Visit Otolaryngology Boston Singh DO [address] [place] [address] Scheduled Orders Name Type Priority Associated Diagnoses Orde r Schedule SURGICAL PATHOLOGY Pathology Routine Lip lesion Ordered: 11/21/2022 Health Maintenance Due Date Last Done Comments DXA Scan 1952 Depression Screening, Annual for Pts 12 and Over 1964 Hepatitis C Screening 1970 DTaP,Tdap,and Td Vaccines (1 - Tdap) 09/22/1971 Cologuard 1997 Fecal Occult Blood Test 1997 Sigmoidoscopy 1997 Zoster Vaccines (1 of 2) 2002 Pneumococcal Vaccine: 65+ Years (1 - PCV) 2017 Mammogram 11/21/2017 11/21/2016, 06/02/2016, 12/08/2014, Additional history exists Colonoscopy 11/12/2019 11/11/2009 Colorectal Cancer Screening 11/12/2019 Lipid Panel 06/10/2020 06/10/2015, 02/11, 03/15/2011 COVID-19 Vaccine (3 - Moderna series) 10/14/2020 08/19/2020, 07/22/2020 Influenza Vaccine (FLU shot) (Season Ended) 2023 GARDASIL-HPV IMMUNIZATION SERIES Aged Out No longer eligible based on patient's age to complete this topic Hepatitis B Aged Out No longer eligi ble based on patient's age to complete this topic MENINGOCOCCAL (MENACTRA/MENVEO) Aged Out No longer eligible based on patient's age to complete this topic documented as of this encounter Medical Devices Not on filedocumented as of this encounter Visit Diagnoses Diagnosis Lip lesion- Primary Diseases of lips documented in this encounter Care Teams Powder Coater Relationship Specialty Start Date End Date Sam Quintero MD [address] [place] [address] [address] [place] [address] PCP - General Family Medicine 12/15/15 documented as of this encounter
--- OUTSIDE RECORDS SUMMARY | 2023-05-18 13:33 | External Medical Summary | Summary of Care ---
Author Name Unknown Organization [facility] Address [address] [facility] [place] [address] Phone [phone] Care Team Providers Care Dental Claims Processor Name Role Phone Sam Quintero MD Primary Care Provider Reason for Visit * Reason Comments Follow Up Encounter Details Date Type Department Care Team Description 11/21/2022 Office Visit [facility]olaryngology [facility] [address] [place] [address] Boston Singh DO [address] [place] [address] Lip lesion* Allergies Active Allergy Reactions Severity [...] upper lip was anesthetized with 2% lidocaine [id number] epinephrine. After allowing time for local to [...] separately billable services. Boston Singh DO, JANELL [facility] Otolaryngology Head and Neck [place] 11/21/2022 11:46 AM documented in this [...] Otolaryngology Boston Singh DO [address] [place] [address] Scheduled Orders Name Type Priority Associated Diagnoses [...] lips documented in this encounter Care Teams Dental Claims Processor Relationship Specialty Start Date End Date Sam Quintero MD [address] [place] [address] [address] [place] [address] PCP - General Family Medicine 12/15/15 documented as of this encounter
[2023-05-18] MEDS: PLASMA-LYTE A 1,000 ML IV SCH ×3 (14:03→23:44)
[2023-05-18] MEDS: POTASSIUM CHLORIDE / WTR 10 MEQ/100 ML PLCT IV SCH ×2 (14:03→15:02)
[2023-05-18] MEDS: HYDROmorphone INJ 1 MG/ML SYRINGE IV PRN ×2 (14:03→16:34)
[2023-05-18] MEDS: ICU Protocol for HYPERglycemia SCH ×2 (14:58→21:54)
[2023-05-18] MEDS: ONDANSETRON INJ 2 MG/ML 2 ML VIAL IV PRN ×2 (16:34→20:44)
[2023-05-18] MEDS: PIPERACILLIN/TAZOBACTAM 4.5 GM in DEXTROSE 5% MINI-B 100 ML IV SCH ×2 (16:34→23:55)
[2023-05-18 20:29] LABS: Hematocrit (blood only) 27.8 % (37.0-47.0); Hemoglobin 9.4 g/dl (12.0-16.0); Mean Corpuscular Hemoglobin 38.7 pg (25.0-34.0); Mean Corpuscular Hgb Conc 33.8 g/dL (32.0-36.0); Mean Corpuscular Volume 114.4 fL (80.0-100.0); Mean Platelet Volume 9.9 fL (9.4-12.4); Platelet Count 228 K/uL (130-400); RDW Standard Deviation 54.4 fL (36.4-46.3); Red Blood Count 2.43 M/uL (4.20-5.40); White Blood Count 3.01 K/ul (4.8-10.8)
[2023-05-18 21:14] LABS: Basophils # (auto) 0.01 K/uL (0.00-0.20); Basophils % (auto) 0.3 %; Immature Granulocytes # (auto) 0.01 K/uL (0.01-0.20); Immature Granulocytes % (auto) 0.3 %; Lymphocytes % (auto) 33.2 %; Macrocytosis Present; Monocytes % (auto) 6.6 %; Neutrophils # (auto) 1.79 K/uL (1.40-6.50); Neutrophils % (auto) 59.6 %
[2023-05-19] MEDS: HYDROmorphone INJ 1 MG/ML SYRINGE IV PRN (03:23)
[2023-05-19 05:03] LABS: Hematocrit (blood only) 24.7 % (37.0-47.0); Hemoglobin 8.5 g/dl (12.0-16.0); Mean Corpuscular Hemoglobin 38.5 pg (25.0-34.0); Mean Corpuscular Hgb Conc 34.4 g/dL (32.0-36.0); Mean Corpuscular Volume 111.8 fL (80.0-100.0); Mean Platelet Volume 9.9 fL (9.4-12.4); Platelet Count 207 K/uL (130-400); RDW Coefficient of Variation 12.9 % (11.5-14.5); RDW Standard Deviation 52.9 fL (36.4-46.3); Red Blood Count 2.21 M/uL (4.20-5.40); White Blood Count 2.68 K/ul (4.8-10.8)
[2023-05-19 05:22] LABS: Albumin Globulin Ratio 1.8 (0.9-2); Albumin Level 3.4 gm/dl (3.4-5.0); BUN Creatinine Ratio 29.3 (10-20); Bilirubin,Total 1.1 mg/dl (0.2-1.0); Calcium 7.7 mg/dl (8.6-10.3); Creatinine Clr Calc Pharmacy 74.4 ml/min; Est GFR (African American) 108.2 ml/min; Est GFR (Non-African American) 93.4 ml/min; Globulin 1.9 gm/dl (2.5-4.0); Magnesium 2.2 mg/dl (1.7-2.4); Potassium 3.5 mmol/L (3.5-5.1); Total Protein 5.3 gm/dl (6.0-8.3)
[2023-05-19 05:59] LABS: Folate (Folic Acid),Ser orPlas 11.24 ng/ml (>5.38)
[2023-05-19 06:23] LABS: Basophils # (auto) 0.01 K/uL (0.00-0.20); Basophils % (auto) 0.4 %; Immature Granulocytes # (auto) 0.05 K/uL (0.01-0.20); Immature Granulocytes % (auto) 1.9 %; Lymphocytes # (auto) 1.01 K/uL (1.20-3.40); Lymphocytes % (auto) 37.7 %; Monocytes # (auto) 0.27 K/uL (0.11-0.59); Monocytes % (auto) 10.1 %; Neutrophils # (auto) 1.34 K/uL (1.40-6.50); Neutrophils % (auto) 49.9 %
[2023-05-19] MEDS: ICU Protocol for HYPERglycemia SCH ×4 (07:27→19:36)
[2023-05-19] MEDS: HYDROmorphone INJ 0.5 MG/0.5 ML SYR IV PRN ×2 (07:32→23:38)
[2023-05-19] MEDS: PLASMA-LYTE A 1,000 ML IV SCH ×3 (07:34→23:38)
[2023-05-19] MEDS: PIPERACILLIN/TAZOBACTAM 4.5 GM in DEXTROSE 5% MINI-B 100 ML IV SCH ×3 (07:36→23:38)
--- NOTE | 2023-05-19 08:24 | Surgery Progress Note ---
Date of Service May 19, 2023 Assessment & Plan (1) Perforated bowel: Plan: So far so good. We discussed that she is not out of the sims yet for requiring an operation. I would continue to keep her n.p.o. although I did say she could have some ice chips today. Discussed with the primary service and I would recommend changing her to a Dilaudid COUNTER HELPER. I recommend treating her extremely conservatively over the weekend. We could consider reimaging perhaps on Monday. [facility] surgeons on-call for the weekend. Admission and Anticipated Discharge Date Admission Date: May 18, 2023 Subjective Patient seen. She had some abdominal pain through the night but is feeling much better this morning. She feels better than she did yesterday. Physical Exam Constitutional: WD/WN, vitals as above no acute distress and not ill appearing Eyes: PERRL, conjunctivae normal, anicteric sclerae EOM intact bilaterally ENMT: external ear and nose normal, oropharynx normal Ears: no hearing impairment Neck: trachea midline, no thyromegaly Respiratory: normal respiratory effort; no respiratory distress and does not use accessory muscles Cardiovascular: Rate/Rhythm: regular rate and regular rhythm Gastrointestinal (Abdomen): Her abdomen is soft with minimal tenderness. Much improved from yesterday. It is also less distended than yesterday. Skin: no rashes, warm and dry Psychiatric: Orientation: alert, oriented x 3 and cooperative Results & Data Vital Signs (Past 12 Hours) Vital Signs Temp Pulse Pulse Resp BP Pulse Ox O2 Del Method 05/19/23 04:00 36.9 C 73 16 107/49 L 93 Room Air 05/18/23 23:30 36.9 C 80 16 102/51 L 97 Room Air 05/18/23 22:40 74 PG Care Time/CCT Total # of Minutes Spent Total Time Spent with Patient: Total time spent is greater than 50% in coordination of care (as documented) at patient's floor/unit and/or counseling patient: Coding Level of Care Code 90334 SUB INP/OBS CARE 2/35MIN Diagnoses Perforated bowel K63.1
--- NOTE | 2023-05-19 09:11 | Communication Note ---
Date of Service: May 19, 2023 Patient currently stable at this time. She still has some lower abdominal pain that she rates 5/10. no worse than yesterday. she is afebrile. abdomen is nondistended. normal bowel sounds. abdomen soft. mild lower abdominal tenderness to palpation. continue with NPO and bowel rest. continue with IV zosyn 4.5 gm q 6 hours. surgery is following.
--- NOTE | 2023-05-19 09:22 | Hospitalist Progress Note ---
Date of Service May 19, 2023 Assessment & Plan (1) Perforated bowel: Plan: Pt is a 72 yo female with PMH of CLL and IBS who is admitted to the hospital for a perforated bowel. Pt was undergoing colonoscopy for positive cologuard and her bowel perforated. Bowel perforation secondary to colonoscopy - hx of positive cologuard in 2020 - per surgery, remain NPO (allowed a few ice chips) and continue ABX - continue pain regimen: tylenol 1000mg q8hr PRN, dilaudid 0.5mg q2hr, 1mg q2hr PRN - continue zofran 4 mg q4hr PRN for nausea CLL - pt follows with [facility] q3mths (Dr. Manuel De Santiago) - CBC stable Diet: NPO w/ minimal ice chips VTE ppx: pt ambulatory, will defer chemoppx as surgery may still be urgently necessary Code: full Dispo: PCU (2) CLL (chronic lymphocytic leukemia): Admission and Anticipated Discharge Date Admission Date: May 18, 2023 Supervising Physician Co-Signing Physician Notes I personally examined the patient and verified all pete points of history and exam, discussed case, and agree with decision making with Dr Smith Feeling okay. Does have some lower abdominal pain that feels almost like a gas pain, as well as a little bit of upper pain when she breathes. But this is all reasonably well-controlledDilaudid helps a lot, but also wondered if she could have something less strong for pain given that she does not necessarily feel like she needs the Dilaudid at this time. Vitals noted, in general she is awake and alert pleasant no distress. HEENT normocephalic atraumatic mucous membranes moist. Breathing unlabored no accessory muscle use good effort. Skin shows no rashes no pallor or icterus. Abdomen is soft surprisingly only mildly tender without guarding rebound or rigidity. Colon perforationcontinue Zosyn, n.p.o., supportive care. Otherwise as above. Subjective Pt feeling ok this AM. She notes she had 10/10 pain ~3:30 AM for which medication helped. Her pain is no worse than yesterday. Review of Systems Review of Systems: As per HPI Physical Exam Physical Exam: Constitutional: well appearing, no acute distress HEENT: normocephalic, no conjunctival injection CV: RRR, no murmur, no LE edema Respiratory: CTA bilaterally. No rhonchi, wheezes, or crackles. No increased work of breathing GI: soft, nondistended, nontender, + bowel sounds MSK: no gross deformities noted Skin: warm, dry, no rashes Neuro: alert, oriented, no FND noted Psych: mood and affect congruent Results & Data Results & Data Vital Signs (Past 12 Hours) Vital Signs Temp Pulse Pulse Resp BP BP Pulse Ox 05/19/23 09:00 67 16 94 05/19/23 08:00 68 16 92 05/19/23 07:45 36.7 C 05/19/23 07:42 69 17 91 05/19/23 07:42 102/53 L 05/19/23 07:00 72 16 94 05/19/23 04:00 36.9 C 73 16 107/49 L 93 05/18/23 23:30 36.9 C 80 16 102/51 L 97 05/18/23 22:40 74 O2 Del Method 05/19/23 09:00 05/19/23 08:00 05/19/23 07:45 05/19/23 07:42 Room Air 05/19/23 07:42 05/19/23 07:00 05/19/23 04:00 Room Air 05/18/23 23:30 Room Air 05/18/23 22:40 Resident Activity Tracking Resident Involvement: Resident Care Provided Care Provided: Adult Hospital Medicine
[2023-05-19] MEDS: ACETAMINOPHEN 1,000 MG/100 ML VIAL IV PRN (18:46)
--- NOTE | 2023-05-19 18:48 | Billing Data ---
Date of Service May 19, 2023 Coding Level of Care Code 26684 SUB INP/OBS CARE
[2023-05-20] MEDS: ONDANSETRON INJ 2 MG/ML 2 ML VIAL IV PRN ×3 (03:44→18:47)
[2023-05-20] MEDS: HYDROmorphone INJ 0.5 MG/0.5 ML SYR IV PRN ×3 (03:45→18:47)
[2023-05-20 04:38] LABS: Hematocrit (blood only) 27.4 % (37.0-47.0); Hemoglobin 9.4 g/dl (12.0-16.0); Mean Corpuscular Hemoglobin 38.5 pg (25.0-34.0); Mean Corpuscular Hgb Conc 34.3 g/dL (32.0-36.0); Mean Corpuscular Volume 112.3 fL (80.0-100.0); Mean Platelet Volume 10.2 fL (9.4-12.4); Platelet Count 199 K/uL (130-400); RDW Coefficient of Variation 12.6 % (11.5-14.5); RDW Standard Deviation 52.1 fL (36.4-46.3); Red Blood Count 2.44 M/uL (4.20-5.40); White Blood Count 1.77 K/ul (4.8-10.8)
[2023-05-20 04:50] LABS: Calcium 7.9 mg/dl (8.6-10.3); Creatinine Clr Calc Pharmacy 74.8 ml/min; Est GFR (African American) 109.5 ml/min; Est GFR (Non-African American) 94.5 ml/min; Potassium 3.3 mmol/L (3.5-5.1)
[2023-05-20] MEDS: PLASMA-LYTE A 1,000 ML IV SCH ×2 (07:51→16:26)
[2023-05-20] MEDS: PIPERACILLIN/TAZOBACTAM 4.5 GM in DEXTROSE 5% MINI-B 100 ML IV SCH ×2 (08:19→17:22)
--- NOTE | 2023-05-20 09:58 | Hospitalist Progress Note ---
Date of Service May 20, 2023 Assessment & Plan (1) Perforated bowel: Plan: Pt is a 72 yo female with PMH of CLL and IBS who is admitted to the hospital for a perforated bowel. Pt was undergoing colonoscopy for positive cologuard and her bowel perforated. Bowel perforation secondary to colonoscopy - hx of positive cologuard in 2019 - diet advancement per surgery (currently still NPO w/ ice chips) - continue ABX per surgery - continue pain regimen: tylenol 1000mg q8hr PRN, dilaudid 0.5mg q2hr, 1mg q2hr PRN - continue zofran 4 mg q4hr PRN for nausea Hypokalemia - replete as needed CLL - pt follows with [facility] q3mths (Dr. Manuel De Santiago) - CBC stable Diet: NPO w/ minimal ice chips VTE ppx: pt ambulatory, will defer chemoppx as surgery may still be urgently necessary Code: full Dispo: PCU (2) CLL (chronic lymphocytic leukemia): Admission and Anticipated Discharge Date Admission Date: May 18, 2023 Supervising Physician Co-Signing Physician Notes I personally examined the patient and verified all pete points of history and exam, discussed case, and agree with decision making with Dr Smith Feeling okay. pain up and down some. tolerating clears well, however. Vitals noted, in general she is awake and alert pleasant no distress. HEENT normocephalic atraumatic mucous membranes moist. Breathing unlabored no accessory muscle use good effort. Skin shows no rashes no pallor or icterus. Abdomen is soft may be slightly more diffusely tender than yesterday, but only vaguely so, no guarding rebound or rigidity Colon perforationcontinue Zosyn, n.p.o., supportive care. Otherwise as above. Leukopeniafortunately does not appear septic/peritonealobviously continue to watch very closely. I wonder if this is not related to her B12 deficiency. B12 deficiencywill start replacement. Subjective Pt feeling slightly more pain today. She had a few small BM overnight some of which were normal in color but she did notice black blood/stool at one point. She also has a sharp pain in her rectum which is new. She has generalized abdominal pain including the upper quadrants and her right shoulder. Review of Systems Review of Systems: As per HPI Physical Exam Physical Exam: Constitutional: well appearing, no acute distress HEENT: normocephalic, no conjunctival injection CV: RRR, no murmur, no LE edema Respiratory: CTA bilaterally. No rhonchi, wheezes, or crackles. No increased work of breathing GI: soft, nondistended, tender upon palpation, hypoactive bowel sounds MSK: no gross deformities noted Skin: warm, dry, no rashes Neuro: alert, oriented, no FND noted Psych: mood and affect congruent Results & Data Results & Data Vital Signs (Past 12 Hours) Vital Signs Temp Pulse Pulse Resp BP BP Pulse Ox 05/20/23 07:49 90 20 05/20/23 07:49 84 16 118/55 L 93 05/20/23 00:30 36.9 C 56 L 16 117/46 L 93 05/19/23 23:00 58 L O2 Del Method 05/20/23 07:49 05/20/23 07:49 Room Air 05/20/23 00:30 Room Air 05/19/23 23:00 Resident Activity Tracking Resident Involvement: Resident Care Provided Care Provided: Adult Hospital Medicine
[2023-05-20] MEDS: POTASSIUM CHLORIDE / WTR 10 MEQ/100 ML PLCT IV SCH ×4 (10:06→14:00)
--- NOTE | 2023-05-20 11:39 | Surgery Progress Note ---
Date of Service May 20, 2023 Assessment & Plan (1) Perforated bowel: Plan Doing very well. Pain is fairly minimal and is not increasing. Vital signs and labs are all within normal limits. She is tolerating sips and chips. I will allow her to have small amounts of clear liquids. We will continue to watch her very closely. Does not appear to require any surgery at this time, however we will monitor for increasing pain, fevers, tachycardia, etc. Admission and Anticipated Discharge Date Admission Date: May 18, 2023 Subjective Doing fairly well today. Still some lower abdominal pain, controlled with 0.5 mg of Dilaudid every 4 hours. She denies nausea or vomiting. She denies fevers or chills. She denies other complaints. She is tolerating sips and chips. Physical Exam Physical Exam: NAD, A&O x 3 AFVSS Abdomen: Soft, mild TTP in lower abdomen No rebound or guarding No distention Results & Data Vital Signs (Past 12 Hours) Vital Signs Temp Pulse Pulse Resp BP BP Pulse Ox 05/20/23 10:48 71 05/20/23 07:49 90 20 05/20/23 07:49 84 16 118/55 L 93 05/20/23 00:30 36.9 C 56 L 16 117/46 L 93 O2 Del Method 05/20/23 10:48 05/20/23 07:49 05/20/23 07:49 Room Air 05/20/23 00:30 Room Air Laboratory Results 05/20/23 05/19/23 05/19/23 Range/Units 04:09 17:35 11:48 WBC 1.77 L (4.8-10.8) K/ul RBC 2.44 L (4.20-5.40) M/uL Hgb 9.4 L (12.0-16.0) g/dl Hct 27.4 L (37.0-47.0) % MCV 112.3 H (80.0-100.0) fL MCH 38.5 H (25.0-34.0) pg MCHC 34.3 (32.0-36.0) g/dL RDW Std Deviation 52.1 H (36.4-46.3) fL RDW Coeff of Andi 12.6 (11.5-14.5) % Plt Count 199 (130-400) K/uL MPV 10.2 (9.4-12.4) fL Sodium 141 (136-145) mmol/L Potassium 3.3 L (3.5-5.1) mmol/L Chloride 108 H (98-107) mmol/L Carbon Dioxide 22 (21-32) mmol/L Anion Gap 11 (3-11) BUN 14 (6-23) mg/dl Creatinine 0.56 L (0.6-1.2) mg/dl Est Cr Clr Drug Dosing 74.8 ml/min Est GFR ( Amer) 109.5 ml/min Est GFR (Non-Af Amer) 94.5 ml/min BUN/Creatinine Ratio 25.0 H (10-20) Glucose 75 (70-99(Fasting)) mg/dl POC Glucose 92 92 (70-99) mg/dl Calcium 7.9 L (8.6-10.3) mg/dl
--- NOTE | 2023-05-20 14:36 | Billing Data ---
Date of Service May 20, 2023 Coding Level of Care Code 55526 SUB INP/OBS CARE
[2023-05-20] MEDS: ACETAMINOPHEN 1,000 MG/100 ML VIAL IV PRN (15:10)
[2023-05-21] MEDS: PLASMA-LYTE A 1,000 ML IV SCH ×3 (00:57→16:28)
[2023-05-21] MEDS: ACETAMINOPHEN 1,000 MG/100 ML VIAL IV PRN ×3 (01:02→18:40)
[2023-05-21] MEDS: diphenhydrAMINE 50 MG/ML VIAL IV PRN ×2 (01:03→22:19)
[2023-05-21] MEDS: PIPERACILLIN/TAZOBACTAM 4.5 GM in DEXTROSE 5% MINI-B 100 ML IV SCH ×3 (01:04→16:26)
[2023-05-21 05:39] LABS: Hematocrit (blood only) 22.3 % (37.0-47.0); Hemoglobin 7.7 g/dl (12.0-16.0); Mean Corpuscular Hemoglobin 38.5 pg (25.0-34.0); Mean Corpuscular Hgb Conc 34.5 g/dL (32.0-36.0); Mean Corpuscular Volume 111.5 fL (80.0-100.0); Mean Platelet Volume 10.1 fL (9.4-12.4); Platelet Count 177 K/uL (130-400); RDW Coefficient of Variation 12.5 % (11.5-14.5); RDW Standard Deviation 50.7 fL (36.4-46.3); White Blood Count 1.91 K/ul (4.8-10.8)
[2023-05-21 05:43] LABS: BUN Creatinine Ratio 23.1 (10-20); Calcium 7.5 mg/dl (8.6-10.3); Creatinine Clr Calc Pharmacy 79.6 ml/min; Est GFR (African American) 112.2 ml/min; Est GFR (Non-African American) 96.8 ml/min; Potassium 3.4 mmol/L (3.5-5.1)
[2023-05-21] MEDS: POTASSIUM CHLORIDE / WTR 10 MEQ/100 ML PLCT IV SCH ×3 (07:52→10:00)
[2023-05-21] MEDS: CYANOCOBALAMIN 1000 MCG/ML VIAL IM SCH (07:53)
--- NOTE | 2023-05-21 08:48 | Hospitalist Progress Note ---
Date of Service May 21, 2023 Assessment & Plan (1) Perforated bowel: Plan: Pt is a 72 yo female with PMH of CLL and IBS who is admitted to the hospital for a perforated bowel. Pt was undergoing colonoscopy for positive cologuard and her bowel perforated. Bowel perforation secondary to colonoscopy - hx of positive cologuard in 2019 - diet advancement per surgery - continue ABX per surgery - continue pain regimen: tylenol 1000mg q8hr PRN, dilaudid 0.5mg q2hr, 1mg q2hr PRN - continue zofran 4 mg q4hr PRN for nausea - continue to monitor pt's Hgb (down to 7.7 today) Hypokalemia - replete as needed CLL - pt follows with [facility] q3mths (Dr. Manuel De Santiago) - CBC stable with leukopenia and anemia; will supplement with B12 injections each AM Diet: NPO w/ minimal ice chips VTE ppx: pt ambulatory, will defer chemoppx at this time d/t anemia and possibility for surgical intervention Code: full Dispo: PCU (2) CLL (chronic lymphocytic leukemia): Admission and Anticipated Discharge Date Admission Date: May 18, 2023 Supervising Physician Co-Signing Physician Notes I personally examined the patient and verified all pete points of history and exam, discussed case, and agree with decision making with Dr Smith feeling ok overall bleeding seems to have stopped. Vitals noted, in general she is awake and alert pleasant no distress. HEENT normocephalic atraumatic mucous membranes moist. Breathing unlabored no accessory muscle use good effort. Skin shows no rashes no pallor or icterus. Abdomen is soft may be slightly more diffusely tender than yesterday, but only vaguely so, no guarding rebound or rigidity Colon perforationcontinue Zosyn, serial exams, supportive care. Otherwise as above. acute blood loss anemia - suspect post polypectomy bleed - now appearing to have stopped, follow closely. Leukopeniafortunately does not appear septic/peritonealobviously continue to watch very closely. I wonder if this is not related to her B12 deficiency. resident physician is going to discuss with her oncologist once we can get in touch with him tomorrow B12 deficiencyIM replacement while inpatient, then will transition to PO replacement once home, f/u levels ~3-4 months otherwise as above Subjective Pt feeling about the same as yesterday in terms of stomach pain. Her rectal pain has improved. She had multiple BM overnight (mostly dark stool with BRB around it). Review of Systems Review of Systems: As per HPI Physical Exam Physical Exam: Constitutional: well appearing, no acute distress HEENT: normocephalic, no conjunctival injection CV: clinically well perfused, minimal LE edema Respiratory: no increased work of breathing GI: soft, nondistended, tender upon palpation, hyperactive bowel sounds MSK: no gross deformities noted Skin: warm, dry, no rashes Neuro: alert, oriented, no FND noted Psych: mood and affect congruent Results & Data Results & Data Vital Signs (Past 12 Hours) Vital Signs Temp Pulse Pulse Pulse Resp BP Pulse Ox 05/21/23 04:00 36.7 C 62 18 125/61 98 05/21/23 00:26 61 05/21/23 00:00 36.8 C 68 18 114/59 L 94 O2 Del Method 05/21/23 04:00 Room Air 05/21/23 00:26 05/21/23 00:00 Room Air Resident Activity Tracking Resident Involvement: Resident Care Provided Care Provided: Adult Hospital Medicine
--- NOTE | 2023-05-21 12:25 | Surgery Progress Note ---
Date of Service May 21, 2023 Assessment & Plan (1) Perforated bowel: Plan: s/p colonoscopy. clip placed. From this standpoint she is doing well with no increase in pain or tenderness. (2) GI bleed: Plan: ? as site of perforation or elsewhere. Hbg has decreased to 7.7. from 9.4 yesterday; 8.5 day prior. discussed options - if bleeding actively, angiography could be considered. Repeat cscope would carry risk given recent perforation but this should be discussed with GI. Surgery remains an option if she continues to bleed and source can be identifed. Most bleeding does stop on its own. She is currently hemodynamically stable. Would continue to monitor H/H for now. Continue on clear liquids. Leukopenia may be related to her CLL (she states she has had low counts in the past). Asked her to let primary team tomorrow know about calling her doctor at [facility] as he/ she is unlikely to be around on Monday. Admission and Anticipated Discharge Date Admission Date: May 18, 2023 Subjective Having multiple stools which are dark with bright red blood around them. No increase in abdominal pain. No nausea. Was tolerating clears but has stopped drinking as was concerned it may be exacerbating the bleeding. No tachycardia or lightheadedness. No palpitations. Wants to make sure her doctor at [facility] knows about her stay here. Physical Exam Constitutional: WD/WN, vitals as above Respiratory: normal respiratory effort, lungs clear to auscultation Cardiovascular: RRR, no murmur, no edema Gastrointestinal (Abdomen): Inspection/Auscultation: abdomen normal to inspection and normal bowel sounds; abdomen not distended Percussion/Palpation: abdomen soft; abdomen nontender and no guarding Neurologic: awake; no focal motor deficits Results & Data Vital Signs (Past 12 Hours) Vital Signs Temp Pulse Pulse Resp BP BP Pulse Ox 05/21/23 10:15 13 05/21/23 10:00 59 L 16 05/21/23 09:45 75 22 05/21/23 09:30 67 22 05/21/23 09:15 63 20 05/21/23 09:00 65 17 05/21/23 08:45 64 15 05/21/23 08:30 59 L 15 05/21/23 08:21 63 17 94 05/21/23 08:21 115/55 L 05/21/23 08:15 61 17 05/21/23 08:00 65 16 05/21/23 08:00 37.2 C 05/21/23 07:45 64 21 05/21/23 07:30 73 18 05/21/23 07:15 68 12 05/21/23 07:00 59 L 17 05/21/23 04:00 36.7 C 62 18 125/61 98 05/21/23 00:26 61 O2 Del Method 05/21/23 10:15 05/21/23 10:00 05/21/23 09:45 05/21/23 09:30 05/21/23 09:15 05/21/23 09:00 05/21/23 08:45 05/21/23 08:30 05/21/23 08:21 Room Air 05/21/23 08:21 05/21/23 08:15 05/21/23 08:00 05/21/23 08:00 05/21/23 07:45 05/21/23 07:30 05/21/23 07:15 05/21/23 07:00 05/21/23 04:00 Room Air 05/21/23 00:26 Laboratory Results 05/21/23 Range/Units 05:02 WBC 1.91 L (4.8-10.8) K/ul RBC 2.00 L (4.20-5.40) M/uL Hgb 7.7 L (12.0-16.0) g/dl Hct 22.3 L (37.0-47.0) % MCV 111.5 H (80.0-100.0) fL MCH 38.5 H (25.0-34.0) pg MCHC 34.5 (32.0-36.0) g/dL RDW Std Deviation 50.7 H (36.4-46.3) fL RDW Coeff of Andi 12.5 (11.5-14.5) % Plt Count 177 (130-400) K/uL MPV 10.1 (9.4-12.4) fL Sodium 140 (136-145) mmol/L Potassium 3.4 L (3.5-5.1) mmol/L Chloride 109 H (98-107) mmol/L Carbon Dioxide 22 (21-32) mmol/L Anion Gap 9 (3-11) BUN 12 (6-23) mg/dl Creatinine 0.52 L (0.6-1.2) mg/dl Est Cr Clr Drug Dosing 79.6 ml/min Est GFR ( Amer) 112.2 ml/min Est GFR (Non-Af Amer) 96.8 ml/min BUN/Creatinine Ratio 23.1 H (10-20) Glucose 82 (70-99(Fasting)) mg/dl Calcium 7.5 L (8.6-10.3) mg/dl (2) GI bleed GI bleed type/associated pathology: unspecified gastrointestinal hemorrhage type Qualified Code(s): K92.2 - Gastrointestinal hemorrhage, unspecified
--- NOTE | 2023-05-21 16:32 | Billing Data ---
Date of Service May 21, 2023 Coding Level of Care Code 78305 SUB INP/OBS CARE MIN
[2023-05-22] MEDS: PIPERACILLIN/TAZOBACTAM 4.5 GM in DEXTROSE 5% MINI-B 100 ML IV SCH ×3 (00:14→17:44)
[2023-05-22] MEDS: PLASMA-LYTE A 1,000 ML IV SCH (00:14)
[2023-05-22] MEDS: ACETAMINOPHEN 1,000 MG/100 ML VIAL IV PRN (05:03)
--- NOTE | 2023-05-22 07:54 | Hospitalist Progress Note ---
Date of Service May 22, 2023 Assessment & Plan (1) Perforated bowel: Plan: Pt is a 72 yo female with PMH of CLL and IBS who is admitted to the hospital for a perforated bowel. Pt was undergoing colonoscopy for positive cologuard and her bowel perforated. Bowel perforation secondary to colonoscopy - hx of positive cologuard in 2019 - diet advancement per surgery, continue ABX per surgery - no imaging necessary as pt continues to clinically improve - continue pain regimen: tylenol 1000mg q8hr PRN, dilaudid 0.5mg q2hr, 1mg q2hr PRN - continue zofran 4 mg q4hr PRN for nausea - Hgb remains stable Hypokalemia - replete as needed CLL - pt follows with [facility] q3mths (Dr. Manuel De Santiago) - CBC stable with leukopenia and anemia; will supplement with B12 injections each AM - will attempt to contact Dr. De Santiago to update him; pt also requesting records be sent Diet: full liquids; will plan for low residue diet upon discharge VTE ppx: pt ambulatory, will defer chemoppx Code: full Dispo: plan for discharge tomorrow pending clinical status (2) CLL (chronic lymphocytic leukemia): Admission and Anticipated Discharge Date Admission Date: May 18, 2023 Supervising Physician Co-Signing Physician Notes Resident Physician Supervision Note: I independently interviewed and examined the patient and verified the pete history and physical, reviewed labs and image studies and agree with resident findings and care plan. feeling ok. Denies any concerns. Vitals noted, AAOX3. Breathing unlabored no accessory muscle use good effort. Skin shows no rashes no pallor or icterus. Colon perforationcontinue Zosyn, serial exams, supportive care. Otherwise as above. acute blood loss anemia - suspect post polypectomy bleed - now appearing to have stopped, follow closely. CLL/Small cell lymphoma - [facility] for oncology. Leukopenia likely reactive. B12 deficiencyIM replacement while inpatient, then will transition to PO replacement once home, f/u levels ~3-4 months otherwise as above Subjective Pt feeling well this morning. She had a rough night because of her being moved rooms. Otherwise, her stomach feels similar to prior. No new/worse pain. She con tinues to have BM. Review of Systems Review of Systems: As per HPI Physical Exam Physical Exam: Constitutional: well appearing, no acute distress HEENT: normocephalic, no conjunctival injection CV: clinically well perfused Respiratory: no increased work of breathing GI: soft, nondistended, minimally tender, + bowel sounds MSK: no gross deformities noted Skin: warm, dry, no rashes Neuro: alert, oriented, no FND noted Psych: mood and affect congruent Results & Data Results & Data Vital Signs (Past 12 Hours) Vital Signs Temp Pulse Pulse Pulse Resp BP Pulse Ox 05/22/23 03:33 36.8 C 68 18 105/63 91 05/22/23 00:18 37 C 64 18 101/60 96 05/22/23 00:00 65 O2 Del Method 05/22/23 03:33 Room Air 05/22/23 00:18 Room Air 05/22/23 00:00 Resident Activity Tracking Resident Involvement: Resident Care Provided Care Provided: Adult Hospital Medicine
[2023-05-22 08:02] LABS: BUN Creatinine Ratio 13.2 (10-20); Calcium 7.7 mg/dl (8.6-10.3); Creatinine Clr Calc Pharmacy 80.5 ml/min; Est GFR (African American) 111.5 ml/min; Est GFR (Non-African American) 96.2 ml/min; Potassium 3.8 mmol/L (3.5-5.1)
[2023-05-22 08:14] LABS: Hematocrit (blood only) 23.9 % (37.0-47.0); Hemoglobin 8.1 g/dl (12.0-16.0); Mean Corpuscular Hemoglobin 38.2 pg (25.0-34.0); Mean Corpuscular Hgb Conc 33.9 g/dL (32.0-36.0); Mean Corpuscular Volume 112.7 fL (80.0-100.0); Mean Platelet Volume 10.4 fL (9.4-12.4); Platelet Count 209 K/uL (130-400); RDW Coefficient of Variation 12.6 % (11.5-14.5); RDW Standard Deviation 52.3 fL (36.4-46.3); Red Blood Count 2.12 M/uL (4.20-5.40); White Blood Count 2.34 K/ul (4.8-10.8)
[2023-05-22 08:46] LABS: Basophils # (auto) 0.01 K/uL (0.00-0.20); Basophils % (auto) 0.4 %; Eosinophils # (auto) 0.03 K/uL (0.00-0.50); Eosinophils % (auto) 1.3 %; Immature Granulocytes # (auto) 0.01 K/uL (0.01-0.20); Immature Granulocytes % (auto) 0.4 %; Lymphocytes # (auto) 1.09 K/uL (1.20-3.40); Lymphocytes % (auto) 46.6 %; Monocytes # (auto) 0.07 K/uL (0.11-0.59); Neutrophils # (auto) 1.13 K/uL (1.40-6.50); Neutrophils % (auto) 48.3 %; Polychromasia 1+; Tear Drop Cells 1+
[2023-05-22] MEDS: CYANOCOBALAMIN 1000 MCG/ML VIAL IM SCH (09:08)
--- NOTE | 2023-05-22 09:14 | Surgery Progress Note ---
Date of Service May 22, 2023 Assessment & Plan (1) Perforated bowel: Plan: Continues to improve clinically. Hemoglobin up to 8.1 this morning. No evidence of active bleeding. Will increase her diet to full liquids. She continues to improve potentially could be discharged tomorrow Admission and Anticipated Discharge Date Admission Date: May 18, 2023 Subjective Patient seen. She continues to do well. She is tolerating clear liquid diet. Her abdominal pain continues to improve Physical Exam Constitutional: WD/WN, vitals as above no acute distress and not ill appearing Eyes: PERRL, conjunctivae normal, anicteric sclerae EOM intact bilaterally ENMT: external ear and nose normal, oropharynx normal Ears: no hearing impairment Neck: trachea midline, no thyromegaly Respiratory: normal respiratory effort; no respiratory distress and does not use accessory muscles Cardiovascular: Rate/Rhythm: regular rate and regular rhythm Gastrointestinal (Abdomen): Soft. Nondistended. Minimal lower abdominal tenderness Skin: no rashes, warm and dry Psychiatric: Orientation: alert, oriented x 3 and cooperative Results & Data Vital Signs (Past 12 Hours) Vital Signs Temp Pulse Pulse Pulse Resp BP Pulse Ox 05/22/23 06:59 37.5 C 66 17 115/62 93 05/22/23 03:33 36.8 C 68 18 105/63 91 05/22/23 00:18 37 C 64 18 101/60 96 05/22/23 00:00 65 O2 Del Method 05/22/23 06:59 Room Air 05/22/23 03:33 Room Air 05/22/23 00:18 Room Air 05/22/23 00:00 PG Care Time/CCT Total # of Minutes Spent Total Time Spent with Patient: Total time spent is greater than 50% in coordination of care (as documented) at patient's floor/unit and/or counseling patient: Coding Level of Care Code 37506 SUB INP/OBS CARE 2/35MIN Diagnoses Perforated bowel K63.1
--- NOTE | 2023-05-22 11:22 | Communication Note ---
Date of Service: May 22, 2023 Patient seen in conjunction with Dr. Narayanan. Patient is a 72 yo female with recent colonic perforation on 05/18/23. Patient is currently without abdominal pain. H/H dipped over the weekend but has stabilized--no overt/ongoing GI bleeding noted and patient has a history of CLL. She has slowly advanced diet and it appears there are tentative plans for d/c on 05/23/23 pending she continues to improve.
[2023-05-22] MEDS ORDERED: diphenhydrAMINE Capsule 25 MG CAP PO ONE (20:39)
[2023-05-22] MEDS: diphenhydrAMINE 50 MG/ML VIAL IV PRN (21:06)
[2023-05-22] MEDS: ACETAMINOPHEN 500 MG TAB PO PRN (21:06)
[2023-05-23] MEDS: PIPERACILLIN/TAZOBACTAM 4.5 GM in DEXTROSE 5% MINI-B 100 ML IV SCH ×2 (00:09→08:39)
[2023-05-23] MEDS: ACETAMINOPHEN 500 MG TAB PO PRN (05:36)
[2023-05-23 06:22] LABS: Hematocrit (blood only) 23.9 % (37.0-47.0); Hemoglobin 8.3 g/dl (12.0-16.0); Mean Corpuscular Hemoglobin 38.8 pg (25.0-34.0); Mean Corpuscular Hgb Conc 34.7 g/dL (32.0-36.0); Mean Corpuscular Volume 111.7 fL (80.0-100.0); Mean Platelet Volume 10.3 fL (9.4-12.4); Platelet Count 218 K/uL (130-400); RDW Coefficient of Variation 12.4 % (11.5-14.5); RDW Standard Deviation 50.7 fL (36.4-46.3); Red Blood Count 2.14 M/uL (4.20-5.40); White Blood Count 2.12 K/ul (4.8-10.8)
[2023-05-23 06:37] LABS: BUN Creatinine Ratio 9.1 (10-20); Calcium 8.2 mg/dl (8.6-10.3); Creatinine Clr Calc Pharmacy 64.9 ml/min; Est GFR (African American) 103.7 ml/min; Est GFR (Non-African American) 89.5 ml/min; Potassium 3.4 mmol/L (3.5-5.1)
[2023-05-23] MEDS ORDERED: POTASSIUM CHLORIDE CRTAB 20 MEQ TABCR PO STA (06:57)
[2023-05-23] MEDS: CYANOCOBALAMIN 1000 MCG/ML VIAL IM SCH (08:38)
--- NOTE | 2023-05-23 08:43 | Discharge Summary ---
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 She presented for a routine colonoscopy screening on 05/[address] Narayanan. During the procedure, a perforated diverticulum was noted, an endoscopic clip was placed. Patient denies being on aspirin or blood thinners. She reports that she did not take any morning medications today. She notes that she is not on any blood pressure medications. She reports only taking Tylenol PM and supplements on a regular basis. Patient is bradycardic at 53 bpm, and hypotensive at 88/40 following colonoscopy. ROS: Patient endorses neck pain, nausea, and severe LUQ pain. Patient denies PMH of CHF, CVA, or heart problems Admission Exam Per Admitting Provider General: Patient is in acute abdominal pain/distress following her colonoscopy; diaphoretic; non-toxic appearing HEENT: normocephalic, atraumatic; no scleral icterus; PERRLA w/ EOMs intact; moist mucus membrane; vision and hearing grossly intact Neck: supple; no lymphadenopathy; trachea midline; no crepitus or subcutaneous emphysema on palpation of the posterior neck where patient reports pain is located Skin: warm, moist without signs of tenting; no cyanosis; no rashes, bruising, lesions, or erythema noted on abdomen, back, chest wall, or upper neck CV: chest wall NTP; regular rhythm, bradycardic 48 bpm; S1/S2 normal; no murmurs/rubs/gallops; pulses intact and symmetric at radial, DP, and PT Lungs: no acute respiratory distress; symmetrical chest wall expansion; clear breath sounds across all lung lau w/o adventitious sounds; no wheezing ABD: Soft; BS present; pain to gentle palpation of the LUQ; no ascites; no distention MSK: no tics or fasciculations; no edema noted in the LEs b/l Neuro: A&Ox3; lethargic; fluent speech Principal Diagnosis bowel perforation secondary to colonoscopy Discharge Exam Constitutional: well appearing, no acute distress HEENT: normocephalic, no conjunctival injection CV: clinically well perfused Respiratory: No increased work of breathing GI: soft, nondistended, nontender, positive bowel sounds MSK: no gross deformities noted Skin: warm, dry, no rashes Neuro: alert, oriented, no FND noted Discharge Data Allergies Allergy/AdvReac Type Severity Reaction Status Date / Time tramadol Allergy Unknown Unknown Verified 05/22/23 06:28 anastrozole AdvReac Intermediate joint Verified 05/18/23 09:23 inflammation, decreased appetite codeine AdvReac Mild vomiting Verified 05/18/23 09:23 hydrocodone AdvReac Mild vomiting Verified 05/18/23 09:23 oxycodone AdvReac Mild Vomiting Verified 05/18/23 09:23 Consultations 05/22/23 09:22 HIM [Consult Health Information Management] Routine Procedures Performed Operation Date: 05/18/23 10:00 Actual Procedures p Colonoscopy Polypectomy - Rafy Narayanan MD Hospital Course (1) Perforated bowel: Pt is a 72 yo female with PMH of CLL and IBS who is admitted to the hospital for a perforated bowel. Pt was undergoing colonoscopy for positive cologuard and her bowel perforated. Bowel perforation secondary to colonoscopy - hx of positive cologuard in 2019 - s/p 5 days of infection ppx with zosyn- no further ABX necessary - no imaging necessary as pt continued to clinically improve - pt tolerated full liquids w/o issue; recommend slow advancement of diet to incorporate low fiber foods for the next week - continue pain regimen: tylenol 1000mg q8hr PRN- no opioids needed - Hgb remains stable Hypokalemia - replete as needed Low B12 - continue to supplement 1000mcg daily - f/u with PCP to determine f/u labs and supplementation CLL - pt follows with [facility] q3mths (Dr. Manuel De Santiago) - CBC stable with leukopenia and anemia; will supplement with B12 injections each AM - Dr. De Santiago updated upon admission; pt filled out paperwork for release of records to [facility] Diet: full liquids with slow advancement to low residue diet upon discharge VTE ppx: pt ambulatory, no chemoppx necessary Code: full Dispo: discharge home with close outpatient f/u (2) CLL (chronic lymphocytic leukemia): Total Time Total Time Spent Total Time Spent (In Minutes): as per attending attestation Discharge Plan Discharge Items Patient Disposition: Home - Self-Care Reason For Visit: Screening for colon CA Discharge Diagnosis: perforated bowel secondary to colonoscopy Activity: Per Instructions section Non-emergency contact: Primary Care Provider Call non-emergency contact if: you have any medication questions, your symptoms worsen and your temperature is above 101 Follow-up/Referrals: Issac Mark [Primary Care Provider] - 05/30/23 9:25 am (THIS APPOINTMENT WILL BE WITH DR BOWER AT [address] [place] [address]) Diet: Low Fiber Addtl Attending Provider Instructions: You were admitted to the hospital for a perforation of your bowel after a screening colonoscopy. You were treated with bowel rest (not eating), IV fluids, and antibiotics to prevent infection. Your B12 level is low so you were being supplemented while hospitalized. You should continue this. A discharge summary will be sent to your primary care physician to ensure continuity of care. Please bring this discharge summary with you to your next office appointment so that your provider can review it at that time. Medications: Your medication list has been reviewed and reconciled upon discharge to ensure accuracy and continuity of care. An updated list of all your medications is included with your hospital discharge paperwork. Please review this list closely and make note of any changes to your medications. - You do not need any further antibiotics to prevent infection. - You should continue to take the vitamin B12 that was prescribed to you. Follow up appointments: - Make a follow up appointment with your PCP within the next week. It is very important that you follow up with them shortly after discharge from the hospital. - Keep all of your follow up appointments as already scheduled. If you cannot make an appointment, notify your provider. CONTACT YOUR PRIMARY CARE PROVIDER if you experience any of the following: - Difficulty following your treatment plan - Difficulty taking any of your medications CALL 911 OR GO TO THE EMERGENCY DEPARTMENT if you experience any of the following: - Sudden, severe abdominal pain or nausea/vomiting - Severe chest pain or chest pain that radiates to your jaw or arm - Sudden, severe shortness of breath or difficulty breathing Pending Studies at Discharge: No Stand-Alone Forms: My [employer], Smoking Cessation Medications and DC Order Prescriptions: New cyanocobalamin (vitamin B-12) 1,000 mcg capsule 1,000 mcg PO DAILY Qty: 30 0RF Continued Suflave 178.7-7.3-0.5 gram recon soln See Rx Instructions PO .COMPLEX Qty: 2 0RF Rx Instructions: orally; TAKE FIRST DOSE AT 6 PM AND SECOND DOSE 6 HOURS PRIOR TO PROCEDURE BIN: [id number] PCN: [id number] GROUP: [id number] lysine 1,000 mg PO QAM zinc acetate 1 tab PO DAILY ascorbic acid (vitamin C) [Vitamin C] 1,000 mg Tablet 1 g PO UD Patient Comments: TAKE WHEN FEEL LIKE I NEED IT Probiotic 3 billion cell Capsule 3,000 mmu cells PO DAILY Patient Comments: takes occasionally Cbd Liquid 1 dose PO HS PRN (Reason: Sleep) Patient Comments: 1 DROPPER FULL Turmeric 1 dose PO DAILY diphenhydramine-acetaminophen [Tylenol PM Extra Strength] 25-500 mg Tablet 1 tab PO HS PRN (Reason: Sleep) magnesium 30 mg Tablet 30 mg PO DAILY Discharge Orders: Discharge Order (Routine); Ordered 05/23/23 Ordered By: Elba Arreguin/Other Patient Handouts: Vitamin B12 Oral Tab, Low-Fiber Diet Admission Data Admit Date/Time: 05/18/23 12:32 Attending Provider: Lauren Clemons Admit Provider: Raheel Mercedes Primary Care Provider: Issac Mark Other Interventions: Discharge Summary Assessment (RN) Last Done: 05/23/23 09:45 Supervising Physician Co-Signing Physician Notes Resident Physician Supervision Note: I independently interviewed and examined the patient and verified the pete history and physical, reviewed labs and image studies and agree with resident findings and care plan. No concerns. Tolerated PO intake. Vitals noted, AAOX3. Breathing unlabored no accessory muscle use good effort. Skin shows no rashes no pallor or icterus. Abd soft/non tender/non distended. Colon perforation during colonoscopy for positive Cologuard test received Zosyn. Kept NPO and on IVF. diet advanced - tolerated well. No further abx needed. d/c home. To f/u with GI as outpatient. acute blood loss anemia - suspect post polypectomy bleed - h/h stayed stable. CLL/Small cell lymphoma - [facility] for oncology. Leukopenia at baseline. B12 deficiencyReceived IM replacement while inpatient, transitioned to PO replacement once home, f/u levels ~3-4 months otherwise as above Resident Activity Tracking Resident Involvement: Resident Care Provided Care Provided: Adult [facility] Medicine
--- NOTE | 2023-05-23 09:18 | Communication Note ---
Date of Service: May 23, 2023 Patient is a 72 year old female with recent colonic perforation on 05/18/23. no abdominal pain. she is tolerating her diet and moving bowels. she feels well. she is anticipating discharge to home today. Can plan to see in follow up in outpatient clinic.
--- NOTE | 2023-05-23 10:09 | Surgery Progress Note ---
Date of Service May 23, 2023 Assessment & Plan (1) Perforated bowel: Plan: Patient reports multiple BMs Up walking in room Tolerating low fiber diet No N/v or abd pain Patient is stable for discharge from a surgical stand point, Return precautions given such as increased abdominal pain, nausea , vomiting, fever, chills, bloody stools. Patient to follow up with GI outpatient per their recommendations. Continue low fiber diet for next two weeks Admission and Anticipated Discharge Date Admission Date: May 18, 2023 Subjective Patient reports multiple BMs Up walking in room Tolerating low fiber diet No N/v or abd pain Review of Systems Constitutional: no fever, no chills and no sweats Respiratory: no dyspnea Cardiovascular: no chest pain Gastrointestinal: no abdominal pain, no bloating, no nausea and no vomiting Physical Exam Constitutional: cooperative Respiratory: able to speak in complete sentences; no respiratory distress Cardiovascular: Rate/Rhythm: regular rate Gastrointestinal (Abdomen): Inspection/Auscultation: abdomen normal to inspection; abdomen not distended Percussion/Palpation: abdomen soft; abdomen nontender and no guarding Results & Data Vital Signs (Past 12 Hours) Vital Signs Temp Pulse Pulse Pulse Resp BP Pulse Ox 05/23/23 09:45 98.4 F 79 75 18 112/64 94 05/23/23 07:31 98.4 F 79 18 112/64 94 05/23/23 06:25 55 L 05/23/23 03:04 97.9 F 68 18 104/55 L 96 05/23/23 00:00 59 L 05/22/23 23:44 98.6 F 62 18 97 O2 Del Method 05/23/23 09:45 05/23/23 07:31 Room Air 05/23/23 06:25 05/23/23 03:04 Room Air 05/23/23 00:00 05/22/23 23:44 Room Air PG Care Time/CCT Total # of Minutes Spent Total Time Spent with Patient: Total time spent is greater than 50% in coordination of care (as documented) at patient's floor/unit and/or counseling patient: Coding Level of Care Code 53706 SUB INP/OBS CARE 2/35MIN Diagnoses Perforated bowel K63.1
== END 2023-05-23 10:58 | disposition home or self-care (01) | DRG 920 ==
LOC: ENDO 09:09 → 1E 12:32 → SUATTDRO 12:32 → 2S 05-21 23:26 → 2N 05-22 18:53

== ENCOUNTER 2023-12-10 18:26 | Inpatient (IN) ==
--- OUTSIDE RECORDS SUMMARY | 2023-12-10 18:32 | External Medical Summary | Continuity of Care Document ---
Author Name Unknown Organization [address] Address [address] [place] [address] [address] [place] [id number] Care Team Providers Care Shells Inspector Name Role Phone Nghia Mark Primary Care Physician [phone] [id number] Date(s): 12/07/23 - 12/07/[address] [facility] [address] [facility] [place] [address] [phone] Encounter Diagnosis Cellulitis of right foot(Discharge Diagnosis) - 12/07/23 Discharge Disposition: Home or Self Care Attending Physician: Teresa Gray DO, Mariana Annette Referring Physician: Teresa Gray DO, Mariana Annette Allergies, Adverse Reactions, Alerts Substance Criticality Severity Reaction Reaction Severity Status predniSONE sinusitis Active anastrozole Spiked arthriti s No appetite Active oxyCODONE Vomiting Nausea Active Vicodin vomiting nausea Active Assessment and Plan Extracted from: Title:FCM - cellulitis Author:MD Herman, Nicolas et Date:12/07/23 Cellulitis of right foot Undifferentiated new problem with uncertain prognosis Goal:Resolution Data:_XRFootXRToes Plan: Most likely cellulitis with uncertain nidus of infection[facility] XRfoot/toes to eval forforeign body/signs of osteomyelitis. Recommend RICE. Start Augmentin x 10 days.Will f/u next week to ensure clinical improvement. Would confirm date of last Tdap at that time. Immunizations Given and Recorded Vaccine Date Status Refusal Reason SARS-CoV-2 (COVID-19) mRNA-1273 vaccine 06/17/21 R ecorded SARS-CoV-2 (COVID-19) mRNA-1273 vaccine 08/19/20 R ecorded SARS-CoV-2 (COVID-19) mRNA-1273 vaccine 07/22/20 R ecorded tetanus/diphtheria/pertuss, acel (Tdap) 1 08/09/14 Recorded 1Result Comment: 2017-04-11: Historical information-source unspecified [04/11/2017 Uncharted] not patient Medications Augmentin 875 mg-125 mg oral tablet Start: 12/07/23 11:56:00 AM EDT, amoxicillin 1 tab, PO, q12h, Disp# 20, X 10 day, Stop: 12/17/23 11:56:00 AM EDT, Pharmacy: [facility] Start Date: 12/07/23 Stop Date: 12/17/23 Status: Ordered Bactroban 2% topical ointment Start: 04/26/23 9:16:00 AM EST, See Instructions, Disp# 22 g, Refills: 1, To wound with dressing changes, Pharmacy: [facility] #[id number] Start Date: 04/26/23 Status: Ordered lysine Start: 09/24/20 1:58:00 PM EDT, 1,000 mg =, Daily Start Date: 09/24/20 Status: Ordered magnesium citrate Start: 03/10/22 9:07:00 AM EDT Start Date: 03/10/22 Status: Ordered Probiotic Formula Start: 11/12/18 11:00:00 AM EDT, 1 cap, PO, Daily Start Date: 11/12/18 Status: Ordered Topamax 25 mg oral tablet Start: 10/23/23 4:45:00 PM EDT, 1 tab, PO, Daily, Disp# 30 tab, Refills: 0, Pharmacy: [id number] Start Date: 10/23/23 Stop Date: 11/22/23 Status: Ordered tumeric Start: 10/24/17 10:50:00 AM EDT, tumeric, PO, Daily Start Date: 10/24/17 Status: Ordered Tylenol Extra Strength Start: 04/24/19 9:03:00 AM EST Start Date: 04/24/19 Status: Ordered Valtrex 1 g oral tablet Start: 04/10/23 9:28:00 AM EDT, See Instructions, Disp# 12 tab, Refills: 3, 2 tab PO at onset of cold sore, repeat in 12 hours then stop, Pharmacy: [facility] #[id number] Start Date: 04/10/23 Status: Ordered Vitamin C 500 mg oral capsule Start: 09/24/20 1:58:00 PM EDT, 1 cap, PO, Daily Start Date: 09/24/20 Status: Ordered Vitamin D3 Start: 02/27/18 3:41:00 PM EDT, 1,000 Int_Unit =, PO, Daily Start Date: 02/27/18 Status: Ordered Mental Status 12/07/23 Barriers to Learning one year None evide nt Mandatory Health Literacy Documentation Yes Health Literacy Communication Barriers N ever Primary Language Mosotho Problem List Condition Confirmation Course Effective Dates Status Health St atus Informant Actinic keratosis Confirmed Active Arthritis Confirmed Active 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 Confirmed Active Changing skin lesion Confirmed Active CLL (chronic lymphocytic leukemia) Confirmed Active Peroneal neuritis Confirmed Active Degenerative joint disease (DJD) of hip Confirmed Active History of breast cancer Confirmed Active History of squamous cell carcinoma in situ Confirmed Active Inflamed seborrheic keratosis Confirmed Active Knee pain Confirmed Active Lentigo Confirmed Active Lentigo Confirmed Active Low back pain Confirmed Active Notalgia paresthetica Confirmed Active Degenerative arthritis of knee Confirmed Active Seborrheic keratoses Confirmed Active Solar purpura Confirmed Active Solar elastosis Confirmed Active Tubular adenoma of colon Confirmed Active Diagnosis Diagnosis Type Effective Dates Health Status Clinical Service Informant Cellulitis of right foot Discharge Diagnosis 12/07/23 Non-Specified Procedures Procedure Date Related Diagnosis Body Site Status Mohs' micrographic surgery 08/08/23 Completed Cataract of right eye 06/14/23 Com pleted Mammogram 1 06/09/23 Completed Bowel 2 05/18/23 Completed COLONOSCOPY & POLYPECTOMY 3 05/18/23 Completed Shave biopsy and cauterization of skin 04/26/23 Completed Shave biopsy and cauterization of skin 04/26/23 Completed Shave biopsy and cauterizati on of skin 4 05/23/22 Completed Shave biopsy and cauterizati on of skin 5 04/05/22 Completed Mohs micrographic surgery 10/04/21 Completed Shave biopsy and cauterization of skin 09/13/21 Completed Shave biopsy and cauterization of skin 04/16/20 Completed mammogram 05/08/19 Completed Electrodesiccation with curettage 05/02/19 Completed Shave biopsy and cauterisation of skin 04/24/19 Completed Shave biopsy and cauterisation of skin 04/24/19 Completed Mammogram 2018 Completed Mammogram - screening 7 12/01/17 C ompleted Surgery 8 05/02/17 Completed Bone density scan 9 12/08/16 Compl eted Hip X-ray 10 11/28/16 Completed Mammogram 11 11/21/16 Completed Surgery 12 04/03/15 Completed Mastectomy 13 01/13/15 Completed Surgery 14, 15 2011 Completed Colonoscopy 16 11/11/09 Completed Entire left wrist 06/12/91 Complet ed Arthroscopy 17 Completed Arthroscopy 18 Completed Shave biopsy and cauterisati on of skin 19 Completed Surgery 20 Completed Surgery 21 Completed 1FINDINGS There are no suspicious masses, calcifications, or areas of architectural distortion noted within the right breast There has been no significant interval change compared to prior exams A prominent right axillary Iymph node is again noted on MLO images, consistent with known CLL/SSL IMPRESSION ACR Bl-RADS CATEGORY 2 BENIGN There is no mammographic evidence of malignancy A 1 year screening mammogram is recommended (06/09/2024) 2perforation 320 mm polyp in ascending colon - removed w/ hot snare perforation in sigmoid diverticulitis in sigmoid non-bleeding internal hemorrhoids 4With ED&C 51. Left forearm 2. Right lower cheek 6no evidence of malignancy recheck in 1 year. 7There is no mammographic evidence of malignancy. A 1 year screening mammogram is recommended. 8right hip replacement 9WHO Classification: Normal. Fracture risk is low. Follow-up in November 2018. 10No acute bony abnormality is seen in the right hip Osteopenia and advanced arthritic change as above 11BIRADS: 2: Benign There is no mammographic evidence of malignancy. A 1 year screening mammogram is recommended. 12nerve intrapment surgery 13left 14discectomy 15back surgery 16The entire examined colon is normal 17right knee 18x2 on left knee 19w/ED&C 20laproscopic for fertility x2 Vital Signs Most recent to oldest [Reference Range]: 1 Patient Weight 51.1 kg (12/07/23 11:46 AM) Temperature [36.5-37.9 DegC] 37.3 DegC (12/07/23 11:46 AM) Blood Pressure 122/70mmHg (12/07/23 11:46 AM) Social History Social History Type Response Smoking Status Never smoked cigaret niharika Sex Female FCM Outpt Note * MD Herman, Ludivina: PERFORM Teresa Gray DO, Mariana Annette: MODIFY Event Display: FCM Outpt Note Authored Date: Chief Complaint Pt is here for sore spot on right foot that has noticed since monday and can hardly walk on it has been red and inflamed. pain radiating up calf at times History of Present Illness 73 y/o female with a PMHxofCLLhere for evaluation of redness and swelling of the right foot/toes. Patient uncertain what happened. Was walking around in the garden barefoot recently. Does have an indent on the bottom of her foot. Foot feels warm, painful, and makes it difficult to ambulate. Does also feel some tingling sensation. No fevers or chills. Has a lingering cough from recent pneumonia. Otherwise feeling well. Physical Exam Vitals & Measurements T:37.3C BP:122/70 SpO2:81% WT:51.100kg(Dosing) WT:51.1kg PHQ2 Data(Data Documented on:12/07/2023 11:43) Emotional health assessment NEGATIVE Gen: well appearing female in NAD, occasional cough HEENT: AT NC CV:RRR no m/r/g clinically well perfused Resp: CTAB nowheezingno increased work of breathing Abd: non-distended MSK:swelling of both the plantar and dorsal surfaces of the right foot with notable erythema, indent on the ball of the foot, TTP diffusely where erythematous, no tenderness over the joint Skin: no bruising or rashes noted Psych: appropriate mood and affect Neuro: alert and oriented Assessment/Plan Cellulitis of right foot Undifferentiated new problem with uncertain prognosis Goal:Resolution Data:_XRFootXRToes Plan: Most likely cellulitis with uncertain nidus of infection. May befrom walking in [place]. XRfoot/toes to eval forforeign body/signs of osteomyelitis. Recommend RICE. Start Augmentin x 10 days.Will f/u next week to ensure clinical improvement. Would confirm date of last Tdap at that time. Attestation Pt seen and examined in concert with Dr. Nielsen agree with history and physical as documented above. Plan reviewed in detail. 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 Tubular adenoma of colon Resolved Arthritis of knee Body, loose, knee Bruise Groin pain Itching Knee instability Neoplasm of uncertain behavior of skin Preop examination Seborrheic keratosis Tick bite Trochanteric bursitis Procedure/Surgical History Mohs' micrographic surgery| Service Date: 08/08/2023ataract of right eye| Service Date: 06/14/2023 Mammogram| Service Date: 06/09/2023 Bowel| Service Date: 05/18/2023 COLONOSCOPY & POLYPECTOMY| Service Date: 05/18/2023Shave biopsy and cauterization of skin| Service Date: 04/26/2023Shave biopsy and cauterization of skin| Service Date: 04/26/2023Shave biopsy and cauterization of skin| Service Date: 05/23/2022have biopsy and cauterization of skin| Service Date: 04/05/2022Mo micrographic surgery| Service Date: 10/04/2021have biopsy and cauterization of skin|Service Date: 09/13/2021have biopsy and cauterization of skin| Service Date: 04/16/2020mammogram| Service Date: 05/08/2019Electrodesiccation with curettage| Service Date: 05/02/2019Shave biopsy and cauterisation of skin| Service Date: 04/24/2019Shave biopsy and cauterisation of skin| Service Date: 04/24/2019Mammogram| Service Date: 2018Mammogram - screening| Service Date: 12/01/2017Surgery| Service Date: 05/02/2017Bone density scan| Service Date: 12/08/2016Hip X-ray| Service Date: 11/28/2016Mammogram| Service Date: 11/21/2016Surgery| Service Date: 04/03/2015Mastectomy| Service Date: 01/13/2015Surgery| Service Date: 2011Colonoscopy| Service Date:11/11/2009Entire left wrist| Service Date: 06/12/1991ArthroscopyArthroscopySurgerySurgeryShave biopsy and cauterisation of skin Medications acetaminophen(Tylenol Extra Strength) amoxicillin-clavulanate(Augmentin 875 mg-125 mg oral tablet), 1 tab, PO, q12h ascorbic acid(Vitamin C 500 mg oral capsule), 500 mg= 1 cap, PO, Daily bifidobacterium-lactobacillus(Probiotic Formula), 1 cap, PO, Daily cholecalciferol(Vitamin D3), 1000 Int_Unit, PO, Daily lysine, 1000 mg, Daily magnesium citrate mupirocin topical(Bactroban 2% topical ointment), See Instructions, 1 refills topiramate(Topamax 25 mg oral tablet), 25 mg= 1 tab, PO, Daily unlisted medication(tumeric), PO, Daily valACYclovir(Valtrex 1 g oral tablet), See Instructions, 3 refills Allergies Vicodinvomiting, nausea anastrozoleSpiked arthritis, No appetite oxyCODONEVomiting, Nausea predniSONEsinusitis Social History Smoking Status Never smoked cigarettes Alcohol Type:Wine - Comments: Socially 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 Has a 23 year old daughter. Tobacco - Denies Tobacco Use Use:Never smoker Family History Atrial fibrillation: Brother. Cancer: Father, Brother and MGM. Cardiomyopathy: Brother. Heart attack: Mother and PGM. Heart disease: Mother. Hypertension: Brother. Lung disease: Mother. Tobacco abuse: Mother. Health Status Family Member(s) Immunizations Vaccine Date Status SARS-CoV-2 (COVID-19) mRNA-1273 vaccine 06/17/2021 Recorded SARS-CoV-2 (COVID-19) mRNA-1273 vaccine 08/19/2020 Recorded SARS-CoV-2 (COVID-19) mRNA-1273 vaccine 07/22/2020 Recorded Recommendations Health Maintenance Pending(in the next year) OverDue Adult Influenza Vaccine due12/09/22and every 1year Medicare Annual Wellness Visit due03/10/23and every 1year Due Adult COVID-19 Vaccination due12/07/23Unknown Frequency Adult Social Determinants of Health Screening due12/07/23Unknown Frequency Adult Tdap/Td Vaccine due12/07/23Unknown Frequency Hepatitis C Screening due12/07/23One-time only Pneumococcal Vaccine Older Adults due12/07/23One-time only Shingles Vaccine due12/07/23One-time only Satisfied(in the past 1 year) Satisfied Body Mass Index on03/13/23.Satisfied by ALLIE Acevedo Sara Lipid Screening on02/02/23.Satisfied by Contributor_system, [place] Electronic Signature on File Electronically Reviewed/Signed by: Ludivina Sutton MD Author Signature Dt/Tm:12/07/2023 01:08 PM Resident Department of Family Medicine Electronically Reviewed/Signed by: DO Derek Oconnorignmaikel Signature Dt/Tm: 12/07/2023 05:00 PM Department of Family Medicine MP Patient Care team information Care Team Personnel Name: MD Nanette, Khushi Ramos Position: Research Staff Member Role: Lifetime Relationship Address: Address: [address] [place] [address] [address] [place] [address] [place] Name: HARLAN Breaux, Lindsay Anderson Position: Physician Malt Roaster - Orthopaedic Surg Member Role: Lifetime Relationship Address: Address: [address] [place] [address] [address] [place] [address] [place] Name: MD Jas, Nghia Elise Position: Physician Member Role: Primary Care Provider Address: Address: [address] [place] [address] [address] [place] [address] [place] Care Team Related Persons Name: MEHRDAD GARCIA Address: home [address] [facility] [place] [id number]"
[2023-12-10 19:05] LABS: Hematocrit (blood only) 28.4 % (37.0-47.0); Hemoglobin 9.5 g/dl (12.0-16.0); Mean Corpuscular Hemoglobin 37.8 pg (25.0-34.0); Mean Corpuscular Hgb Conc 33.5 g/dL (32.0-36.0); Mean Corpuscular Volume 113.1 fL (80.0-100.0); Mean Platelet Volume 10.1 fL (9.4-12.4); Platelet Count 344 K/uL (130-400); RDW Coefficient of Variation 13.7 % (11.5-14.5); RDW Standard Deviation 57.2 fL (36.4-46.3); Red Blood Count 2.51 M/uL (4.20-5.40); White Blood Count 7.81 K/ul (4.8-10.8)
[2023-12-10] MEDS ORDERED: VANCOMYCIN CONSULT ACTIVE PRN (19:05)
--- NOTE | 2023-12-10 19:11 | Emergency Department Note ---
Impression & Plan Fever, Cellulitis, Pneumonia ED Provider Note NAME: LISSETH GARCIA AGE: 73 SEX: F : 1950 ARRIVES VIA: Walk-In INFORMANT: Patient ED PROVIDER(S): Bigg Bingham DO CHIEF COMPLAINT: fever HPI: Patient is a 73-year-old female with a past medical history of tubular adenoma, lumbar stenosis, CLL who presents to the ER for redness and swelling of her right foot. She does not remember stepping on anything. It started on Monday and the foot has continued to get larger and redder. She notes she started with fevers today. Denies any headache or change in vision. Does admit to a cough and it has been present for the past several weeks. No chest pain or shortness of breath. No dysuria, urgency, or frequency. No other exacerbating or remitting factors. Patient also notes that she has been on antibiotics as an outpatient since and has been getting worse. ADDITIONAL HISTORY OBTAINED: Per HPI Chronic Medical/Social Conditions Affecting Care: Per HPI PAST MEDICAL HISTORY:See Below PAST SURGICAL HISTORY:See Below FAMILY HISTORY:See Below SOCIAL HISTORY:See Below HOME MEDICATIONS:See Below ALLERGIES:See Below VITALS:See Below PHYSICAL EXAMINATION: GENERAL: Sitting up in bed, alert, well appearing, well nourished, no distress, non-toxic EYE EXAM: normal conjunctiva. PERRL and EOM's grossly intact. OROPHARYNX: no exudate, no erythema, lips, buccal mucosa, and tongue normal and mucous membranes are moist NECK: supple, no nuchal rigidity, no adenopathy, non-tender LUNGS: Clear to auscultation. Normal chest wall mechanics HEART: no murmurs, S1 normal and S2 normal UPPER EXTREMITIES: upper extremities are grossly normal. LOWER EXTREMITIES: Right foot is erythematous and swollen with circumferential erythema around the foot tracking up to the mid brower. Skin is warm and tender. DP and PT 2 out of 4. Gross station intact. Flexion-extension right hip knee and ankles intact. Inversion and eversion of the ankle with no significant pain. No pain with axial loading of the joint. NEURO EXAM: Normal sensorium, cranial nerves II-XII grossly intact, normal speech, no gross weakness of arms, no gross weakness of legs. MEDICAL DECISION MAKING: Patient is a 73-year-old female who presents to the ER with above-stated complaint. She has been on antibiotics and outpatient has failed treatment. She has a worsening cellulitis of the right lower extremity. Labs show no significant leukocytosis mild anemia at 9. INR unremarkable. BMP along LFTs bilirubin and mag was unremarkable. Chest x-ray with a right lower lobe infiltrate as well as a left lower lobe. Patient was covered with IV Rocephin and vancomycin for the cellulitis. Updated bedside. Discussed with the hospitalist for further evaluation management treatment. She was given IV fluids as well. Consults/Care Managements Discussions: Per [facility] Triage Nursing notes reviewed. Limited review of prior medical records performed Vital Signs: reviewed and remarkable for febrile Differential diagnosis: Differential diagnosis includes etiologies such as sepsis, UTI, pneumonia, metabolic, electrolyte abnormalities, cardiac sources, intracerebral event, toxicologic, neurological, as well as others were entertained. ER treatment provided: See below Diagnostics interpreted by me include EKG and cardiac monitoring as listed below: -Cardiac Monitoring: An order was placed for continuous cardiac monitoring. The monitor shows a rate of 90 with sinus rhythm. -ECG: none -Laboratory studies:Interpreted by me as stated above in MDM and shown below. Imaging studies: Xrays: As interpreted by me: Portable AP upright 1 view of the chest shows pneumonia left lower lobe and subtle biopsy on the right X-ray of the foot shows no foreign body CTs show: none Procedures:none Critical Care: None Past Med/Surg History Problem List Pneumonia (Acute) Cellulitis (Acute) Fever (Acute) Tubular adenoma GI bleed Perforated bowel Localized enlarged lymph nodes Abnormal ultrasound of breast Lumbar stenosis Hip pain, right Left knee pain Encounter for pre-operative examination CLL (chronic lymphocytic leukemia) no meds, has visits every 3 month at [facility] heme/onc for monitoring and blood work History of total left knee replacement (~05/2019) Medical History Osteoarthritis Perforated bowel s/p colonoscopy May 18 2023 /perforated bowel / ICU stay for monitoring/no sx intervention. Discharged May 23 2023. CLL (chronic lymphocytic leukemia) no meds, has visits every 3 month at [facility] heme/onc for monitoring and blood work History of breast cancer s/p left mastectomy History of IBS Spinal stenosis Borderline high cholesterol Surgical History Hx of right cataract extraction History of total left knee replacement (~05/2019) History of colonoscopy History of surgery on left wrist History of total right hip arthroplasty History of discectomy History of arthroscopy of right knee multiple History of arthroscopy of left knee multiple History of left knee surgery NERVE ENTRAPMENT; numbness in left foot History of left mastectomy Family History Brother Family history of thyroid cancer Prostate cancer Grandmother (Maternal) Breast cancer Father Prostate cancer Other Colorectal cancer Schizophrenia Denies family history of Ovarian cancer Social History Smoking Status: Never smoker Second Hand Exposure: No; Do You Dip or Chew Tobacco: No; Hx Alcohol Use: Yes Alcohol type: beer and wine Hx Substance Use: Yes (medical card) Last Used Substance Other:: CBD oil-for chronic pain Substance Use Type Other:: cbd oil Preferred Language: Northern Irish Communication Ability: Effective Etl Application Developer Required: No Beliefs That Will Affect Care: None marital status: Current Living Situation: Spouse Feels Safe at Home: Yes Assistive Devices: Glasses Allergies Allergies Allergy/AdvReac Type Severity Reaction Status Date / Time tramadol Allergy Unknown n/v Verified 06/21/23 06:22 anastrozole AdvReac Unknown joint Verified 06/21/23 06:22 inflammation, decreased appetite codeine AdvReac Unknown n/v Verified 06/21/23 06:22 hydrocodone AdvReac Unknown n/v Verified 06/21/23 06:22 oxycodone AdvReac Unknown n/v Verified 06/21/23 06:22 Home Meds Home Medications Medication Instructions Recorded Confirmed Cbd Liquid 1 dose PO HS PRN Sleep 05/02/19 06/21/23 Turmeric 1 dose PO DAILY 05/02/19 06/21/23 ascorbic acid (vitamin C) 1,000 mg 1 g PO UD 05/02/19 06/21/23 tablet (Vitamin C) lactobacillus combination no.4 3 3,000 mmu cells PO DAILY 05/02/19 06/21/23 billion cell capsule (Probiotic) lysine 1,000 mg PO QAM 01/09/23 06/21/23 zinc acetate 1 tab PO DAILY 01/09/23 06/21/23 diphenhydramine 25 1 tab PO HS PRN Sleep 05/11/23 06/21/23 mg-acetaminophen 500 mg tablet (Tylenol PM Extra Strength) calcium 167 mg-vitamin D3 1.67 1 cap PO QAM 06/07/23 06/21/23 mcg-magnesium 83 mg capsule cyanocobalamin (vitamin B-12) 1,000 mcg PO DAILY 06/07/23 06/21/23 1,000 mcg capsule amoxicillin 875 mg-potassium 1 tab PO BID 10/20/23 clavulanate 125 mg tablet azithromycin 250 mg tablet 250 mg PO UD 10/20/23 Results & Data (ED) Vital Signs Vital Signs - 24 hr 12/10/23 18:33 12/10/23 18:56 12/10/23 18:59 Temperature 38.5 C H Temperature Source Oral Pulse Rate 95 H 86 Pulse Rate [Apical] 85 Pulse Rate from SpO2 Sensor Respiratory Rate 20 19 Respiratory Effort / Characteristics Non-Labored Non-Labored Spontaneous Respiratory Depth Normal Normal Respiratory Pattern Regular Blood Pressure 149/64 H Blood Pressure [Left Arm] 110/53 L Blood Pressure Mean 92 Blood Pressure Mean [Left Arm] 72 Blood Pressure Position Sitting Pulse Oximetry 98 99 Oxygen Delivery Method Room Air Room Air Sepsis Recent Fever Within 48 Hours No Sepsis New/Unexplained Change in Mental Status No Sepsis Action Taken by Nursing No Action Required 12/10/23 19:00 12/10/23 19:15 12/10/23 19:18 Temperature Temperature Source Pulse Rate 93 H Pulse Rate [Apical] Pulse Rate from SpO2 Sensor 93 H Respiratory Rate 28 H Respiratory Effort / Characteristics Respiratory Depth Respiratory Pattern Blood Pressure 110/53 L 121/62 Blood Pressure [Left Arm] Blood Pressure Mean 72 82 Blood Pressure Mean [Left Arm] Blood Pressure Position Pulse Oximetry 98 Oxygen Delivery Method Sepsis Recent Fever Within 48 Hours Sepsis New/Unexplained Change in Mental Status Sepsis Action Taken by Nursing 12/10/23 19:31 12/10/23 19:31 12/10/23 19:33 Temperature Temperature Source Pulse Rate 88 Pulse Rate [Apical] Pulse Rate from SpO2 Sensor 90 Respiratory Rate 23 Respiratory Effort / Characteristics Respiratory Depth Respiratory Pattern Blood Pressure 119/48 L 119/48 L Blood Pressure [Left Arm] Blood Pressure Mean 73 73 Blood Pressure Mean [Left Arm] Blood Pressure Position Pulse Oximetry 98 Oxygen Delivery Method Sepsis Recent Fever Within 48 Hours Sepsis New/Unexplained Change in Mental Status Sepsis Action Taken by Nursing 12/10/23 19:45 12/10/23 19:57 12/10/23 20:00 Temperature Temperature Source Pulse Rate 83 Pulse Rate [Apical] Pulse Rate from SpO2 Sensor 83 Respiratory Rate 23 Respiratory Effort / Characteristics Respiratory Depth Respiratory Pattern Blood Pressure 110/54 L 101/48 L Blood Pressure [Left Arm] Blood Pressure Mean 76 66 Blood Pressure Mean [Left Arm] Blood Pressure Position Pulse Oximetry 95 Oxygen Delivery Method Sepsis Recent Fever Within 48 Hours Sepsis New/Unexplained Change in Mental Status Sepsis Action Taken by Nursing 12/10/23 20:06 12/10/23 20:12 12/10/23 20:15 Temperature Temperature Source Pulse Rate 84 86 Pulse Rate [Apical] Pulse Rate from SpO2 Sensor 86 87 Respiratory Rate 28 H 25 H Respiratory Effort / Characteristics Respiratory Depth Respiratory Pattern Blood Pressure 115/49 L Blood Pressure [Left Arm] Blood Pressure Mean 73 Blood Pressure Mean [Left Arm] Blood Pressure Position Pulse Oximetry 97 97 Oxygen Delivery Method Sepsis Recent Fever Within 48 Hours Sepsis New/Unexplained Change in Mental Status Sepsis Action Taken by Nursing 12/10/23 20:15 12/10/23 20:21 12/10/23 20:42 Temperature Temperature Source Pulse Rate 84 Pulse Rate [Apical] 88 Pulse Rate from SpO2 Sensor 85 Respiratory Rate 21 20 Respiratory Effort / Characteristics Non-Labored Spontaneous Respiratory Depth Normal Respiratory Pattern Regular Blood Pressure 115/49 L Blood Pressure [Left Arm] 117/53 L Blood Pressure Mean 73 Blood Pressure Mean [Left Arm] 74 Blood Pressure Position Pulse Oximetry 96 99 Oxygen Delivery Method Room Air Sepsis Recent Fever Within 48 Hours Sepsis New/Unexplained Change in Mental Status Sepsis Action Taken by Nursing Laboratory Data 12/10/23 18:47 12/10/23 18:47 Lab Results 12/10/23 Range/Units 18:47 WBC 7.81 (4.8-10.8) K/ul RBC 2.51 L (4.20-5.40) M/uL Hgb 9.5 L (12.0-16.0) g/dl Hct 28.4 L (37.0-47.0) % MCV 113.1 H (80.0-100.0) fL MCH 37.8 H (25.0-34.0) pg MCHC 33.5 (32.0-36.0) g/dL RDW Std Deviation 57.2 H (36.4-46.3) fL RDW Coeff of Andi 13.7 (11.5-14.5) % Plt Count 344 (130-400) K/uL MPV 10.1 (9.4-12.4) fL Neutrophils % (Manual) 31 % Lymphocytes % (Manual) 69 % Neutrophils # (Manual) 2.42 (1.40-6.50) K/uL Total Absolute Neuts 2.42 (1.4-6.5) K/uL Lymphocytes # (Manual) 5.39 H (1.2-3.4) K/uL Total Abs Lymphocytes 5.39 H (1.2-3.4) K/uL Polychromasia 1+ Macrocytosis Present Tear Drop Cells 1+ PT 10.3 (9.0-12.0) Seconds INR 0.9 (0.9-1.1) APTT 26 (21-31) Seconds PTT Ratio 1.0 Sodium 134 L (136-145) mmol/L Potassium 4.1 (3.5-5.1) mmol/L Chloride 99 (98-107) mmol/L Carbon Dioxide 25 (21-32) mmol/L Anion Gap 10 (3-11) BUN 16 (6-23) mg/dl Creatinine 0.63 (0.6-1.2) mg/dl Est Cr Clr Drug Dosing 67.6 ml/min Est GFR ( Amer) 104.6 ml/min Est GFR (Non-Af Amer) 90.2 ml/min BUN/Creatinine Ratio 25.4 H (10-20) Glucose 97 (70-99(Fasting)) mg/dl Lactate 1.5 (0.4-2.0) mmol/L Calcium 9.6 (8.6-10.3) mg/dl Magnesium 2.0 (1.7-2.4) mg/dl Total Bilirubin 0.6 (0.2-1.0) mg/dl AST 21 (13-39) U/L ALT 14 (7-52) U/L Alkaline Phosphatase 66 (34-104) U/L Total Protein 8.1 (6.0-8.3) gm/dl Albumin 4.5 (3.4-5.0) gm/dl Globulin 3.6 (2.5-4.0) gm/dl Albumin/Globulin Ratio 1.3 (0.9-2) Administered Medications Vancomycin HCl 1,000 mg/ (Sodium Chloride) 520 mls @ 200 mls/hr IV NOW ONE Stop: 12/10/23 21:40 Last Admin: 12/10/23 20:13 Dose: 200 mls/hr Documented By: DIANN Discontinued Medications Acetaminophen (Acetaminophen 325 Mg Tab) 650 mg PO NOW STA Stop: 12/10/23 19:06 Last Admin: 12/10/23 19:26 Dose: 650 mg Documented By: DIANN Ceftriaxone Sodium (Rocephin) 2,000 mg in 50 mls @ 100 mls/hr IV NOW STA Stop: 12/10/23 19:34 Last Infusion: 12/10/23 20:10 Dose: Infused Documented By: Admin: 12/10/23 19:26 Dose: 100 mls/hr Documented By: DIANN Sodium Chloride (Nss) 1,000 mls @ 999 mls/hr IV .Q1H1M ONE Stop: 12/10/23 20:05 Last Infusion: 12/10/23 20:10 Dose: Infused Documented By: Admin: 12/10/23 19:25 Dose: 999 mls/hr Documented By: DIANN Discharge Plan Visit Data Chief Complaint: Swelling/Edema to Extremity Stated Complaint: RT FOOT, SWELLING ED Provider: Bigg Bingham Discharge Problem: Fever, Cellulitis, Pneumonia Forms Stand Alone Forms: My [facility] Prescriptions Prescriptions: No Action lysine 1,000 mg PO QAM zinc acetate 1 tab PO DAILY ascorbic acid (vitamin C) [Vitamin C] 1,000 mg Tablet 1 g PO UD Patient Comments: TAKE WHEN FEEL LIKE I NEED IT Probiotic 3 billion cell Capsule 3,000 mmu cells PO DAILY Patient Comments: takes occasionally Cbd Liquid 1 dose PO HS PRN (Reason: Sleep) Patient Comments: 1 DROPPER FULL Turmeric 1 dose PO DAILY diphenhydramine-acetaminophen [Tylenol PM Extra Strength] 25-500 mg Tablet 1 tab PO HS PRN (Reason: Sleep) cyanocobalamin (vitamin B-12) 1,000 mcg capsule 1,000 mcg PO DAILY Patient Comments: under the tongue not every day. calcium 26-vit D3-magnesium 15 167 mg calcium- 1.67 mcg-83 mg Capsule 1 cap PO QAM azithromycin 250 mg tablet 250 mg PO UD amoxicillin-pot clavulanate 875-125 mg tablet 1 tab PO BID Referrals Referrals: Issac Mark MD [Primary Care Provider] - Discharge Problem: Fever Qualifiers: Fever type: unspecified Qualified Code(s): R50.9 - Fever, unspecified Cellulitis Qualifiers: Site of cellulitis: unspecified site Qualified Code(s): L03.90 - Cellulitis, unspecified Pneumonia Qualifiers: Pneumonia type: due to unspecified organism Laterality: unspecified laterality Lung location: unspecified part of lung Qualified Code(s): J18.9 - Pneumonia, unspecified organism
[2023-12-10] MEDS: SODIUM CHLORIDE 0.9% 1,000 ML IV ONE (19:25)
[2023-12-10] MEDS: cefTRIAXone SODIUM 2,000 MG/50 ML BAG IV STA (19:26)
[2023-12-10] MEDS: ACETAMINOPHEN 325 MG TAB PO STA (19:26)
[2023-12-10 19:28] LABS: Albumin Globulin Ratio 1.3 (0.9-2); Albumin Level 4.5 gm/dl (3.4-5.0); BUN Creatinine Ratio 25.4 (10-20); Bilirubin,Total 0.6 mg/dl (0.2-1.0); Calcium 9.6 mg/dl (8.6-10.3); Creatinine Clr Calc Pharmacy 67.6 ml/min; Est GFR (African American) 104.6 ml/min; Est GFR (Non-African American) 90.2 ml/min; Globulin 3.6 gm/dl (2.5-4.0); Potassium 4.1 mmol/L (3.5-5.1); Total Protein 8.1 gm/dl (6.0-8.3)
[2023-12-10 19:33] LABS: INR 0.9 (0.9-1.1); Partial Thromboplastin Time 26 Seconds (21-31); Prothrombin Time 10.3 Seconds (9.0-12.0)
[2023-12-10] MEDS: VANCOMYCIN HCL 1,000 MG in SODIUM CHLORIDE 0.9% 500 ML IV ONE (20:13)
[2023-12-10 20:21] LABS: ALC (manual) 5.39 K/uL (1.2-3.4); ANC (manual) 2.42 K/uL (1.4-6.5); Lymphocytes # (manual) 5.39 K/uL (1.2-3.4); Lymphocytes % (manual) 69 %; Macrocytosis Present; Neutrophils # (manual) 2.42 K/uL (1.40-6.50); Neutrophils % (manual) 31 %; Polychromasia 1+; Tear Drop Cells 1+
[2023-12-10 21:52] LABS: Appearance Urine Clear (Clear); Bilirubin Urine Negative (Negative); Blood Urine Negative (Negative); Color Urine Yellow; Glucose Urine UA Negative (Negative); Ketones Urine Negative (Negative); Leukocyte Esterase Urine Negative (Negative); Nitrite Urine Negative (Negative); Protein Urine Negative (Negative); Specific Gravity Urine 1.006 (1.000-1.030); Urobilinogen Urine Negative (Negative); pH Urine 6.5 (4.5-7.5)
--- NOTE | 2023-12-10 22:08 | History & Physical Report ---
Date of Service December 10, 2023 Assessment & Plan (1) Cellulitis of right lower extremity: (2) Lymphangitis of lower extremity: (3) Pneumonia: (4) CLL (chronic lymphocytic leukemia): Plan Sepsis- Due to combination of cellulitis right lower extremity and bibasilar pneumonia Cellulitis of right lower extremity/ascending lymphangitis- Failure of outpatient treatment with Augmentin Vancomycin IV per pharmacokinetic monitoring Ceftriaxone 2 g IV every 24 hours Keep right leg elevated Order venous Doppler to assess for DVT Pneumonia, bibasilar, right greater than left- History of recently treated pneumonia Vancomycin IV and ceftriaxone IV as noted above Duonebs every 4 hours while awake and every 2 hours when necessary. CLL- Considered to be relatively immunocompromised Treatment as noted above for multiple infections History of Present Illness Chief Complaint: The patient presents to the emergency department with complaint of swelling, pain, redness and warmth of right lower extremity, that initially began 5 days ago, and is gradually worsened, despite being on Augmentin by her outpatient office. She also notes a return of a intermittently productive cough, following a pneumonia that occurred some weeks ago ago Primary Care Provider: Issac Mark MD The patient is a 73-year-old female with a past medical history including lumbar stenosis, tubular adenoma, perforated bowel, CLL, B12 deficiency, insomnia, and a recently treated pneumonia. She presents to the emergency department symptoms as noted above. Allergies Allergy/AdvReac Type Severity Reaction Status Date / Time anastrozole AdvReac Intermediate joint Verified 12/10/23 22:07 inflammation, decreased appetite codeine AdvReac Intermediate NAUSEA/VOMI Verified 12/10/23 22:07 TING hydrocodone AdvReac Intermediate NAUSEA/VOMI Verified 12/10/23 22:07 TING oxycodone AdvReac Intermediate NAUSEA/VOMI Verified 12/10/23 22:07 TING tramadol AdvReac Intermediate NAUSEA/VOMI Verified 12/10/23 22:07 TING Home Medications Medication Instructions Recorded Confirmed Type Cbd Liquid 1 dose PO HS PRN Sleep 05/02/19 12/10/23 History ascorbic acid (vitamin C) 1,000 mg 0.5 - 1 g PO DAILY 05/02/19 12/10/23 History tablet (Vitamin C) lactobacillus combination no.4 3 3,000 mmu cells PO DAILY 05/02/19 12/10/23 History billion cell capsule (Probiotic) diphenhydramine 25 1 tab PO HS PRN Sleep 05/11/23 12/10/23 History mg-acetaminophen 500 mg tablet (Tylenol PM Extra Strength) calcium 167 mg-vitamin D3 1.67 1 cap PO QAM 06/07/23 12/10/23 History mcg-magnesium 83 mg capsule cyanocobalamin (vitamin B-12) 1,000 mcg PO DAILY 06/07/23 12/10/23 History 1,000 mcg capsule amoxicillin 875 mg-potassium 1 tab PO BID 10/20/23 12/10/23 History clavulanate 125 mg tablet diphenhydramine HCl 25 mg capsule 25 mg PO HS PRN Sleep 12/10/23 12/10/23 History (ZzzQuil) lysine 1,000 mg tablet 1,000 mg PO DAILY 12/10/23 12/10/23 History turmeric 400 mg capsule 400 mg PO DAILY 12/10/23 12/10/23 History zinc gluconate 50 mg tablet 50 mg PO DAILY 12/10/23 12/10/23 History Past Med/Surg History Problem List Lymphangitis of lower extremity Cellulitis of right lower extremity Pneumonia (Acute) Cellulitis (Acute) Fever (Acute) Tubular adenoma GI bleed Perforated bowel Localized enlarged lymph nodes Abnormal ultrasound of breast Lumbar stenosis Hip pain, right Left knee pain Encounter for pre-operative examination CLL (chronic lymphocytic leukemia) no meds, has visits every 3 month at [facility] heme/onc for monitoring and blood work History of total left knee replacement (~05/2019) Medical History Osteoarthritis Perforated bowel s/p colonoscopy May 18 2023 /perforated bowel / ICU stay for monitoring/no sx intervention. Discharged May 23 2023. CLL (chronic lymphocytic leukemia) no meds, has visits every 3 month at [facility] heme/onc for monitoring and blood work History of breast cancer s/p left mastectomy History of IBS Spinal stenosis Borderline high cholesterol Surgical History Hx of right cataract extraction History of total left knee replacement (~05/2019) History of colonoscopy History of surgery on left wrist History of total right hip arthroplasty History of discectomy History of arthroscopy of right knee multiple History of arthroscopy of left knee multiple History of left knee surgery NERVE ENTRAPMENT; numbness in left foot History of left mastectomy Family History Brother Family history of thyroid cancer Prostate cancer Grandmother (Maternal) Breast cancer Father Prostate cancer Other Colorectal cancer Schizophrenia Denies family history of Ovarian cancer Social History Smoking Status: Never smoker Second Hand Exposure: No; Do You Dip or Chew Tobacco: No; Hx Alcohol Use: Yes Alcohol type: beer and wine Hx Substance Use: Yes (medical card) Last Used Substance Other:: CBD oil-for chronic pain Substance Use Type Other:: cbd oil Preferred Language: Faroese Communication Ability: Effective Cco & President Required: No Beliefs That Will Affect Care: None marital status: Current Living Situation: Spouse Feels Safe at Home: Yes Assistive Devices: Glasses Review of Systems Review of Systems: The patient denies chest pain, palpitations, sore throat, fevers, chills, sweats, nausea, vomiting, diarrhea , constipation, abdominal pain, pelvic pain, blood in urine or stool, dysuria, urinary frequency or urgency, lightheadedness, dizziness, headache, imbalance, focal or generalized weakness, numbness or tingling in arms or left leg, generalized arthralgias or myalgias, back or neck pain, or night sweats. The review of systems is otherwise negative other than for that already noted above, and at least 10 systems have been reviewed. Physical Exam Physical Exam: The patient is awake, alert and oriented 3, well developed and well nourished, normocephalic and atraumatic, lying in bed and in no acute distress. HEENT--PERRL, EOMI, mucous membranes and oropharynx normal Neck--supple. No JVD. No bruits. Thyroid normal, trachea midline, no adenopathy. Heart--normal S1 and S2. No murmurs, rubs or gallops. Lungs--crackles at the bases bilaterally, right greater than left. No respiratory distress, no accessory muscle use. Abdomen--normal bowel sounds and soft. Nontender. Nondistended Extremities--right lower extremity with 2+ pretibial and pedal pitting edema. Moderate erythema and warmth right lower extremity. Good distal pulses bilaterally. Left lower extremity normal Dermatologic--normal skin turgor, normal color, no abnormal lymph nodes, no rash. Neurologic--cranial nerves II through XII grossly intact. Rheumatologic--normal range of motion. Psychiatric--normal affect. Results & Data Results & Data Vital Signs (Past 12 Hours) Vital Signs Temp Pulse Pulse Resp BP BP Pulse Ox 12/10/23 22:06 36.7 C 12/10/23 22:00 80 20 102/51 L 98 12/10/23 21:48 78 22 82/50 L 96 12/10/23 21:45 84/60 L 12/10/23 21:12 80 22 96 12/10/23 21:00 109/56 L 12/10/23 21:00 109/56 L 12/10/23 21:00 87 22 96 12/10/23 20:45 109/52 L 12/10/23 20:45 109/52 L 12/10/23 20:42 91 H 25 H 98 12/10/23 20:42 88 20 117/53 L 99 12/10/23 20:39 94 H 25 H 99 12/10/23 20:30 117/53 L 12/10/23 20:21 84 21 96 12/10/23 20:15 115/49 L 12/10/23 20:15 115/49 L 12/10/23 20:12 86 25 H 97 12/10/23 20:06 84 28 H 97 12/10/23 20:00 101/48 L 12/10/23 19:57 83 23 95 12/10/23 19:45 110/54 L 12/10/23 19:33 88 23 98 12/10/23 19:31 119/48 L 12/10/23 19:31 119/48 L 12/10/23 19:18 93 H 28 H 98 12/10/23 19:15 121/62 12/10/23 19:00 110/53 L 12/10/23 18:59 86 12/10/23 18:56 85 19 110/53 L 99 12/10/23 18:33 38.5 C H 95 H 20 149/64 H 98 O2 Del Method 12/10/23 22:06 12/10/23 22:00 Room Air 06/30/24 21:48 12/10/23 21:45 12/10/23 21:12 12/10/23 21:00 12/10/23 21:00 12/10/23 21:00 12/10/23 20:45 12/10/23 20:45 12/10/23 20:42 12/10/23 20:42 Room Air 12/10/23 20:39 12/10/23 20:30 12/10/23 20:21 12/10/23 20:15 12/10/23 20:15 12/10/23 20:12 12/10/23 20:06 12/10/23 20:00 12/10/23 19:57 12/10/23 19:45 12/10/23 19:33 12/10/23 19:31 12/10/23 19:31 12/10/23 19:18 12/10/23 19:15 12/10/23 19:00 12/10/23 18:59 12/10/23 18:56 Room Air 12/10/23 18:33 Room Air Laboratory Results Laboratory Results WBC 7.81 K/ul (4.8-10.8) 12/10/23 18:47 RBC 2.51 M/uL (4.20-5.40) L 12/10/23 18:47 Hgb 9.5 g/dl (12.0-16.0) L 12/10/23 18:47 Hct 28.4 % (37.0-47.0) L 12/10/23 18:47 MCV 113.1 fL (80.0-100.0) H 12/10/23 18:47 MCH 37.8 pg (25.0-34.0) H 12/10/23 18:47 MCHC 33.5 g/dL (32.0-36.0) 12/10/23 18:47 RDW Std Deviation 57.2 fL (36.4-46.3) H 12/10/23 18:47 RDW Coeff of Andi 13.7 % (11.5-14.5) 12/10/23 18:47 Plt Count 344 K/uL (130-400) 12/10/23 18:47 MPV 10.1 fL (9.4-12.4) 12/10/23 18:47 Neutrophils % (Manual) 31 % 12/10/23 18:47 Lymphocytes % (Manual) 69 % 12/10/23 18:47 Neutrophils # (Manual) 2.42 K/uL (1.40-6.50) 12/10/23 18:47 Total Absolute Neuts 2.42 K/uL (1.4-6.5) 12/10/23 18:47 Lymphocytes # (Manual) 5.39 K/uL (1.2-3.4) H 12/10/23 18:47 Total Abs Lymphocytes 5.39 K/uL (1.2-3.4) H 12/10/23 18:47 Polychromasia 1+ 12/10/23 18:47 Macrocytosis Present 12/10/23 18:47 Tear Drop Cells 1+ 12/10/23 18:47 PT 10.3 Seconds (9.0-12.0) 12/10/23 18:47 INR 0.9 (0.9-1.1) 12/10/23 18:47 APTT 26 Seconds (21-31) 12/10/23 18:47 PTT Ratio 1.0 12/10/23 18:47 Sodium 134 mmol/L (136-145) L 12/10/23 18:47 Potassium 4.1 mmol/L (3.5-5.1) 12/10/23 18:47 Chloride 99 mmol/L (98-107) 12/10/23 18:47 Carbon Dioxide 25 mmol/L (21-32) 12/10/23 18:47 Anion Gap 10 (3-11) 12/10/23 18:47 BUN 16 mg/dl (6-23) 12/10/23 18:47 Creatinine 0.63 mg/dl (0.6-1.2) 12/10/23 18:47 Est Cr Clr Drug Dosing 67.6 ml/min 12/10/23 18:47 Est GFR ( Amer) 104.6 ml/min 12/10/23 18:47 Est GFR (Non-Af Amer) 90.2 ml/min 12/10/23 18:47 BUN/Creatinine Ratio 25.4 (10-20) H 12/10/23 18:47 Glucose 97 mg/dl (70-99(Fasting)) 12/10/23 18:47 Lactate 1.5 mmol/L (0.4-2.0) 12/10/23 18:47 Calcium 9.6 mg/dl (8.6-10.3) 12/10/23 18:47 Magnesium 2.0 mg/dl (1.7-2.4) 12/10/23 18:47 Total Bilirubin 0.6 mg/dl (0.2-1.0) 12/10/23 18:47 AST 21 U/L (13-39) 12/10/23 18:47 ALT 14 U/L (7-52) 12/10/23 18:47 Alkaline Phosphatase 66 U/L (34-104) 12/10/23 18:47 Total Protein 8.1 gm/dl (6.0-8.3) 12/10/23 18:47 Albumin 4.5 gm/dl (3.4-5.0) 12/10/23 18:47 Globulin 3.6 gm/dl (2.5-4.0) 12/10/23 18:47 Albumin/Globulin Ratio 1.3 (0.9-2) 12/10/23 18:47 Urine Color Yellow 12/10/23 21:41 Urine Appearance Clear (Clear) 12/10/23 21:41 Urine pH 6.5 (4.5-7.5) 12/10/23 21:41 Ur Specific [place] 1.006 (1.000-1.030) 12/10/23 21:41 Urine Protein Negative (Negative) 12/10/23 21:41 Urine Glucose (UA) Negative (Negative) 12/10/23 21:41 Urine Ketones Negative (Negative) 12/10/23 21:41 Urine Blood Negative (Negative) 12/10/23 21:41 Urine Nitrite Negative (Negative) 12/10/23 21:41 Urine Bilirubin Negative (Negative) 12/10/23 21:41 Urine Urobilinogen Negative (Negative) 12/10/23 21:41 Ur Leukocyte Esterase Negative (Negative) 12/10/23 21:41 Code Status & VTE Plan Code Status Full code VTE Prophylaxis Plan VTE Prophylaxis will be ordered: Yes PG Care Time/CCT Total # of Minutes Spent Total Time Spent with Patient: Total time spent is greater than 50% in coordination of care (as documented) at patient's floor/unit and/or counseling patient: Coding Level of Care Code 97378 INT INP/OBS CARE MIN Diagnoses Cellulitis of right lower extremity L03.115 Lymphangitis of lower extremity I89.1 Pneumonia J18.9 Laterality: unspecified laterality Lung location: unspecified part of lung Pneumonia type: due to unspecified organism CLL (chronic lymphocytic leukemia) C91.10 (3) Pneumonia Laterality: unspecified laterality Lung location: unspecified part of lung Pneumonia type: due to unspecified organism Qualified Code(s): J18.9 - Pneumonia, unspecified organism
[2023-12-10] MEDS ORDERED: ONDANSETRON INJ 2 MG/ML 2 ML VIAL IV PRN (22:38)
[2023-12-10] MEDS: diphenhydrAMINE Capsule 25 MG CAP PO PRN (23:13)
[2023-12-10] MEDS: ACETAMINOPHEN 500 MG TAB PO PRN (23:13)
[2023-12-11] MEDS: VANCOMYCIN HCL 1,500 MG in SODIUM CHLORIDE 0.9% 500 ML IV SCH (01:58)
--- NOTE | 2023-12-11 02:14 | Ultrasound Report ---
Exam(s): US VENOUS RIGHT LOWER EXTREMITY EXAM: US Duplex Right Lower Extremity Veins CLINICAL HISTORY: Swelling, Pain and warmth. TECHNIQUE: Real-time duplex ultrasound scan of the right lower extremity veins integrating B-mode two-dimensional vascular structure, Doppler spectral analysis, color flow Doppler imaging and compression. COMPARISON: No relevant prior studies available. FINDINGS: Deep veins: Unremarkable. No Deep vein thrombosis in the visualized common femoral, femoral, proximal deep femoral or popliteal veins. The veins demonstrate normal color flow, are normally compressible, with normal phasic flow and/or augmentation response. Superficial veins: Unremarkable. No thrombus in the visualized great saphenous vein. Soft tissues: No acute findings. No popliteal cyst. IMPRESSION: No deep vein thrombosis of the right lower extremity. Electronically signed by: Melany Glaeson MD 12/11/23 02:13 AM
[2023-12-11] MEDS: ACETAMINOPHEN 325 MG TAB PO PRN (04:06)
[2023-12-11 06:38] LABS: Hematocrit (blood only) 22.5 % (37.0-47.0); Hemoglobin 7.6 g/dl (12.0-16.0); Mean Corpuscular Hemoglobin 38.2 pg (25.0-34.0); Mean Corpuscular Hgb Conc 33.8 g/dL (32.0-36.0); Mean Corpuscular Volume 113.1 fL (80.0-100.0); Mean Platelet Volume 10.3 fL (9.4-12.4); Platelet Count 250 K/uL (130-400); RDW Coefficient of Variation 13.4 % (11.5-14.5); Red Blood Count 1.99 M/uL (4.20-5.40); White Blood Count 4.23 K/ul (4.8-10.8)
--- NOTE | 2023-12-11 06:47 | XRay Report ---
XR chest 1V portable HISTORY: recent pneumonia, cough returned COMPARISON: Chest 10/30/2023. FINDINGS: No pneumothorax. No pleural effusions. The cardiac silhouette is top normal in size. No lauren dence for pulmonary edema. The upper lung zones are clear. No acute fractures. Patchy bibasilar densi ties most pronounced on the left. Right axillary surgical clip again noted. Degenerative changes with in the shoulders. IMPRESSION: Patchy bibasilar densities most pronounced on the left. This may represent atelectasis or a pneumonia . ACT 112: Negative or not required by law. Electronically signed by: Dandre Nava M.D. 12/11/2023 6:45 AM
--- NOTE | 2023-12-11 07:00 | Hospitalist Progress Note ---
Date of Service December 11, 2023 Assessment & Plan (1) Lymphangitis of lower extremity: (2) Cellulitis of right lower extremity: (3) Anemia: (4) Pneumonia: (5) CLL (chronic lymphocytic leukemia): (6) Sepsis: Plan Sepsis- Cellulitis right lower extremity, blood cultures drawn on 12/09 and pending Cellulitis of right lower extremity/ascending lymphangitis- Failure of outpatient treatment with Augmentin Vancomycin IV per pharmacokinetic monitoring, cover for MRSA Venous Doppler negative for DVT Keep right leg elevated Anemia Hgb 7.6 today, down from 9.5 yesterdat Chronically low, likely due to CLL or dilution Pneumonia, bibasilar, right greater than left- History of recently treated pneumonia, may be secondary to atelectasis due to coughing with deep breaths CLL- Considered to be relatively immunocompromised Treatment as noted above for multiple infections Dispo: admit to Med/surg Diet: heart healthy DVT ppx: Lovenox Code Status: Full Admission and Anticipated Discharge Date Admission Date: December 10, 2023 Subjective Pt is a 73 year old female with a past medical history of Chronic Lymphocytic Leukemia who presents to the hospital on 12/09 for worsening right lower extremity cellulitis and possible pneumonia. Today her leg is feeling better, but she does have a stomach ache. No nausea or vomiting. Does have a cough that has been present since a course of pneumonia last month. Review of Systems Review of Systems: Constitutional: denies fever, chills HEENT: denies congestion, sore throat Cardio: denies chest pain, palpitations Resp: intermittnet shortness of breath, cough GI: denies abdominal pain, nausea, vomiting, constipation, diarrhea : denies pain with urination, change in urinary frequency Neuro: denies new numbness, tingling, weakness Physical Exam Physical Exam: General:Alert and oriented, no acute distress, well appearing HEENT: Normocephalic, moist oral mucosa, Cardio: Regular rate and rhythm, no murmur, Resp:Lungs clear to auscultation b/l, no wheezes or rhonchi, GI: Soft and nontender, nondistended, bowel sounds active Skin: Warm, pink, dry. Right lower extremity is erythematous with nonpitting edema. Psych: Mood-affect congruence. Results & Data Results & Data Vital Signs (Past 12 Hours) Vital Signs Temp Pulse Pulse Resp BP BP Pulse Ox 12/11/23 03:56 37.0 C 80 16 95/57 L 98 12/11/23 00:12 12/11/23 00:11 79 12/10/23 22:38 37.1 C 82 18 100/46 L 96 12/10/23 22:06 36.7 C 12/10/23 22:00 80 20 102/51 L 98 12/10/23 21:48 78 22 82/50 L 96 12/10/23 21:45 84/60 L 12/10/23 21:12 80 22 96 12/10/23 21:00 109/56 L 12/10/23 21:00 109/56 L 12/10/23 21:00 87 22 96 12/10/23 20:45 109/52 L 12/10/23 20:45 109/52 L 12/10/23 20:42 91 H 25 H 98 12/10/23 20:42 88 20 117/53 L 99 12/10/23 20:39 94 H 25 H 99 12/10/23 20:30 117/53 L 12/10/23 20:21 84 21 96 12/10/23 20:15 115/49 L 12/10/23 20:15 115/49 L 12/10/23 20:12 86 25 H 97 12/10/23 20:06 84 28 H 97 12/10/23 20:00 101/48 L 12/10/23 19:57 83 23 95 12/10/23 19:45 110/54 L 12/10/23 19:33 88 23 98 12/10/23 19:31 119/48 L 12/10/23 19:31 119/48 L 12/10/23 19:18 93 H 28 H 98 12/10/23 19:15 121/62 12/10/23 19:00 110/53 L 12/10/23 18:59 86 O2 Del Method 12/11/23 03:56 Room Air 12/11/23 00:12 Room Air 12/11/23 00:11 12/10/23 22:38 Room Air 12/10/23 22:06 12/10/23 22:00 Room Air 12/10/23 21:48 12/10/23 21:45 12/10/23 21:12 12/10/23 21:00 12/10/23 21:00 12/10/23 21:00 12/10/23 20:45 12/10/23 20:45 12/10/23 20:42 12/10/23 20:42 Room Air 12/10/23 20:39 12/10/23 20:30 12/10/23 20:21 12/10/23 20:15 12/10/23 20:15 12/10/23 20:12 12/10/23 20:06 12/10/23 20:00 12/10/23 19:57 12/10/23 19:45 12/10/23 19:33 12/10/23 19:31 12/10/23 19:31 12/10/23 19:18 12/10/23 19:15 12/10/23 19:00 12/10/23 18:59 Resident Activity Tracking Resident Involvement: Resident Care Provided Care Provided: Adult Hospital Medicine Resident Supervision Co-Signing Physician Notes Agree with student doctor Adali's assessment and plan above with any exceptions noted as such: PE: Resp:Faint crackles in lower lung lau bilaterally, otherwise clear, no wheezing Skin: Warm, pink, dry. R lower extremity noted to have redness and swelling of the R foot up to the level of the ankle on the top side of foot only, no obvious openings in the skin, mild erythema on medial aspect of the bottom side of the foot Cellulitis, R foot - pt noted to have started Augmentin on Monday for cellulitis, only had 2-3 days prior to hospitalization - will continue IV vanc today and most likely transition to oral doxy or bactrim tomorrow as long as pt continues to improve Pneumonia Cough - pt notes hx pneumonia at the start of October and was on course of antibiotics, initially better but still has lingering cough - CXR on admission unimpressive - suspect the lingering cough is most likely still her old pneumonia resolving, especially since cough is dry and fever most likely is from her current cellulitis - continue cough drops, prn tessalon perles, tylenol I personally examined the patient and verified all pete points of history and exam, discussed case, and agree with decision making with Dr Barreto and Hannah Bro MS4 leg/foot a little bit better. Not really new shortness of breath. Just ongoing cough. Vitals noted, in general she is awake and alert pleasant no distress. HEENT normocephalic atraumatic mucous membranes moist. Lungs show faint bibasilar rales that sounds loose and somewhat mucousy fairly even. No accessory muscle use no other rales rhonchi or wheezes good effort. Skin without rashes pallor or icterus diffusely, but she does have erythema on the extensor surface of her right lower extremityno areas of fluctuance or coalescing fullness. Somewhat tender. right lower extremity cellulitisfailed Augmentinagree with vancomycin to cover for resistant gram-positives. With ongoing improvement, can consider home tomorrow on resistant gram-positive treatment as well. As above, doubt that she has a recurrent pneumoniaprobably more slowly resolving pneumonia and may be a degree of atelectasis. Ongoing vigilance and supportive care. DVT prophylaxisLovenox otherwise as above (4) Pneumonia Laterality: unspecified laterality Lung location: unspecified part of lung Pneumonia type: due to unspecified organism Qualified Code(s): J18.9 - Pneumonia, unspecified organism
--- NOTE | 2023-12-11 07:01 | XRay Report ---
XR foot RT min 3V routine CLINICAL HISTORY: ? fbpad of foot COMPARISON: Right second toe and right foot radiographs December 07, 2023. FINDINGS: Alignment of the right foot is anatomic. Tarsometatarsal joints are intact. There are no a cute fractures within the right foot. Right forefoot soft tissue swelling is present. No definite rad iopaque foreign body. A punctate 1 mm density projects adjacent to the base of the right third proxim al phalanx on AP projection. This is not identified on the lateral projection. Plantar calcaneal spur is present. IMPRESSION: 1. No fractures within the right foot. 2. Plantar right forefoot soft tissue swelling. 3. No definite radiopaque foreign bodies. Punctate 1 mm density which projects adjacent to the base o f the right third proximal phalanx on AP projection. A foreign body is considered unlikely although d ifficult to completely exclude. ACT 112: Negative or not required by law. Electronically signed by: Ashvin Kessler M.D. 12/11/2023 7:00 AM
[2023-12-11 07:14] LABS: Basophils # (auto) 0.01 K/uL (0.00-0.20); Basophils % (auto) 0.2 %; Eosinophils # (auto) 0.01 K/uL (0.00-0.50); Eosinophils % (auto) 0.2 %; Immature Granulocytes # (auto) 0.01 K/uL (0.01-0.20); Immature Granulocytes % (auto) 0.2 %; Lymphocytes # (auto) 1.87 K/uL (1.20-3.40); Lymphocytes % (auto) 44.2 %; Macrocytosis Present; Monocytes # (auto) 0.48 K/uL (0.11-0.59); Monocytes % (auto) 11.3 %; Neutrophils # (auto) 1.85 K/uL (1.40-6.50); Neutrophils % (auto) 43.9 %; Polychromasia 1+; Tear Drop Cells 1+
[2023-12-11 07:42] LABS: Smudge Cells Present
[2023-12-11] MEDS: CYANOCOBALAMIN (B-12) 500 MCG TABLET PO SCH (08:13)
[2023-12-11] MEDS: cefTRIAXone SODIUM 2,000 MG/50 ML BAG IV SCH (08:14)
[2023-12-11] MEDS ORDERED: NON-FORMULARY MEDICATION (Lactobacillus Combination No.4 [Probiotic] 3 billion cell Capsul PO SCH (09:00)
[2023-12-11 10:25] LABS: Albumin Level 3.2 gm/dl (3.4-5.0); Calcium 8.1 mg/dl (8.6-10.3); Magnesium 1.9 mg/dl (1.7-2.4); Potassium 3.8 mmol/L (3.5-5.1)
[2023-12-11 10:31] LABS: BUN Creatinine Ratio 29.4 (10-20); Creatinine Clr Calc Pharmacy 83.7 ml/min; Est GFR (African American) 112.1 ml/min; Est GFR (Non-African American) 96.7 ml/min; Phosphorus 3.5 mg/dl (2.5-4.9)
--- NOTE | 2023-12-11 14:39 | Pharmacy Report ---
Pharmacy PK ABX Note - Date of Service December 11, 2023 - Assessment and Plan Assessment 73 year old F receiving empiric vancomycin for treatment of RLE cellulitis w/ failure of outpatient Augmentin. Pertinent microbiologic data includes: negative MRSA Nasal Swab, blood cultures x 2 pending. Pertinent PMH includes CLL. Plan Vancomycin * Loading dose: 1000 mg IV x 1, followed by 1500 mg IV x 1 * Maintenance dose: 1000 mg IV every 12 hours * Regimen is predicted to achieve target AUC/ELIOT of 400-600 mg/L.hr * Random level ordered for: 12/12/23 Pharmacy will continue to follow and will adjust dose/frequency as necessary. Thank you. Pharmacy has transitioned to AUC monitoring for vancomycin. AUC/ELIOT is the preferred PK/PD target and is associated with decreased risk of nephrotoxicity compared to traditional trough targets.
[2023-12-11] MEDS: VANCOMYCIN HCL 1,000 MG in SODIUM CHLORIDE 0.9% 250 ML IV SCH (17:43)
--- NOTE | 2023-12-11 19:32 | Billing Data ---
Date of Service December 11, 2023 Coding Level of Care Code 22307 SUB INP/OBS CARE MIN
[2023-12-11] MEDS: diphenhydrAMINE Capsule 25 MG CAP PO PRN (19:49)
[2023-12-12 06:26] LABS: Dohle Bodies 1+; Eosinophils # (auto) 0.01 K/uL (0.00-0.50); Eosinophils % (auto) 0.3 %; Hematocrit (blood only) 20.6 % (37.0-47.0); Hemoglobin 6.9 g/dl (12.0-16.0); Immature Granulocytes # (auto) 0.04 K/uL (0.01-0.20); Lymphocytes # (auto) 1.95 K/uL (1.20-3.40); Macrocytosis Present; Mean Corpuscular Hemoglobin 38.1 pg (25.0-34.0); Mean Corpuscular Hgb Conc 33.5 g/dL (32.0-36.0); Mean Corpuscular Volume 113.8 fL (80.0-100.0); Mean Platelet Volume 10.2 fL (9.4-12.4); Monocytes # (auto) 0.24 K/uL (0.11-0.59); Neutrophils # (auto) 1.74 K/uL (1.40-6.50); Neutrophils % (auto) 43.7 %; Platelet Count 231 K/uL (130-400); RDW Coefficient of Variation 13.2 % (11.5-14.5); RDW Standard Deviation 55.3 fL (36.4-46.3); Red Blood Count 1.81 M/uL (4.20-5.40); White Blood Count 3.98 K/ul (4.8-10.8)
[2023-12-12 06:27] LABS: Calcium 7.8 mg/dl (8.6-10.3); Potassium 3.5 mmol/L (3.5-5.1)
[2023-12-12 06:33] LABS: Creatinine Clr Calc Pharmacy 76.2 ml/min; Est GFR (African American) 108.7 ml/min; Est GFR (Non-African American) 93.8 ml/min
[2023-12-12] MEDS ORDERED: SODIUM CHLORIDE 0.9% 250 ML IV PRN (06:33)
[2023-12-12] MEDS: ENOXAPARIN INJ 40 MG/0.4 ML SYR SQ SCH (09:31)
[2023-12-12] MEDS: CYANOCOBALAMIN 1000 MCG/ML VIAL IM SCH (09:31)
--- NOTE | 2023-12-12 11:58 | Hospitalist Progress Note ---
Date of Service December 12, 2023 Assessment & Plan (1) Lymphangitis of lower extremity: (2) Cellulitis of right lower extremity: (3) Anemia: (4) Pneumonia: (5) CLL (chronic lymphocytic leukemia): Plan Cellulitis of right lower extremity/ascending lymphangitis- Failure of outpatient treatment with Augmentin Vancomycin IV per pharmacokinetic monitoring, cover for MRSA Venous Doppler negative for DVT Keep right leg elevated blood cultures negative for growth at 24 hours Anemia Hgb 6.9 today; recheck H&H, reticulocytes this afternoon Chronically low, likely due to CLL or dilution Vivien is going to check with her oncologist from [facility] about transfusion thoughts Pnuemonia History of pneumonia, cough likely residual inflammation B12 deficiency Switch from oral B12 to IM B12 1000mcg CLL- Considered to be relatively immunocompromised Treatment as noted above for multiple infections Dispo: admit to Med/surg Diet: heart healthy DVT ppx: Lovenox Code Status: Full Admission and Anticipated Discharge Date Admission Date: December 10, 2023 Supervising Physician Co-Signing Physician Notes I personally examined the patient and verified all pete points of history and exam, discussed case, and agree with decision making with Dr Barreto and Hannah Bro MS4 Foot feels about the same, no new complaints. Had a fever last night, does not really seem to have felt much from it. Breathing about the same. No new or worse shortness of breath, no bleeding, no weakness/lightheadedness that is different than what she has been feeling. Vitals noted, in general she is awake and alert pleasant no distress. HEENT normocephalic atraumatic mucous membranes moist. breathing unlabored no accessory muscle use good effort. Skin without rashes pallor or icterus except for her right foot which has resolving erythema and edemaher leg is elevated so that is tracking up a little bit in a feeding way rather than a marching forward demarcated way, and the redness has gone from maroon to much more of a pale pink. Tenderness has faded. Small blistering area has almost resolved. right lower extremity cellulitisfailed Augmentin Seems to be improving, but still had a fever. Will continue IV vancomycin for now covering resistant gram-positive organisms, home once she is 24 hours afebrileI suspect her slow resolution of temperatures relates to her immune compromise from her CLL. Hemoglobin was slightly low on this morning's labsrecheck was 8.2, no blood losslab error/dilution effect/inherent variation most likely. As above, doubt that she has a recurrent pneumoniaprobably more slowly resolving pneumonia and may be a degree of atelectasis. Ongoing vigilance and supportive care. DVT prophylaxisLovenox otherwise as above Subjective Pt is a 73 year old female with a past medical history of Chronic Lymphocytic Leukemia admitted to the hospital for right lower extremity cellulitis. Today her leg is feeling a little bit improved from yesterday. She spiked a temperature two times in the past 24 hours with some chills. Review of Systems Review of Systems: HEENT: denies congestion, sore throat Cardio: denies chest pain, palpitations Resp: intermittent shortness of breath with cough GI: denies abdominal pain, nausea, vomiting, constipation, diarrhea : denies pain with urination, change in urinary frequency Neuro: denies new numbness, tingling, weakness Physical Exam Physical Exam: General:Alert and oriented, no acute distress, well appearing HEENT: Normocephalic, moist oral mucosa, Cardio: Regular rate and rhythm, no murmur, Resp:Lungs clear to auscultation b/l, no wheezes or rhonchi, GI: Soft and nontender, nondistended, bowel sounds active Skin: Warm, pink, dry. Right lower extremity is erythematous with nonpitting edema. Improved in color (pink/red instead of deep red/purple) since yesterday Psych: Mood-affect congruence. Results & Data Results & Data Vital Signs (Past 12 Hours) Vital Signs Temp Pulse Pulse Resp BP Pulse Ox O2 Del Method 12/12/23 10:55 37.0 C 76 18 98/53 L 92 Room Air 12/12/23 10:37 74 12/12/23 08:00 Room Air 12/12/23 08:00 37.4 C 84 18 105/56 L 95 Room Air 12/12/23 06:35 37.3 C 94/54 L 12/12/23 02:18 37.0 C 78 18 88/44 L 98 Room Air 12/12/23 00:01 78 Resident Activity Tracking Resident Involvement: Resident Care Provided Care Provided: Adult Hospital Medicine Resident Supervision Co-Signing Physician Notes I have personally examined this patient and agree with student doctor Adali's assessment and plan above with any exceptions noted as such: PE: Resp:Faint crackles in lower lung lau bilaterally, otherwise clear, no wheezing Skin: Warm, pink, dry. R lower extremity noted to have redness and swelling of the R foot, swelling has improved some with some migration up leg consistent with gravity and erythema sparing the toes has improved some from yesterday Cellulitis, R foot - pt noted to have started Augmentin on Monday for cellulitis, only had 2-3 days prior to hospitalization - will continue IV vanc today and most likely transition to oral doxy or bactrim tomorrow as long as pt continues to improve Pneumonia Cough - pt notes hx pneumonia at the start of October and was on course of antibiotics, initially better but still has lingering cough - CXR on admission unimpressive - suspect the lingering cough is most likely still her old pneumonia resolving, especially since cough is dry and fever most likely is from her current cellulitis - continue cough drops, prn tessalon perles, tylenol Anemia - Hgb this morning 6.9 but pt relatively asymptomatic, no hx of needing transfusions - recheck in the afternoon 8.2 - suspect the decrease was secondary to her known CLL in the setting of an acute infection (4) Pneumonia Laterality: unspecified laterality Lung location: unspecified part of lung Pneumonia type: due to unspecified organism Qualified Code(s): J18.9 - Pneumonia, unspecified organism
[2023-12-12 13:34] LABS: Hematocrit (blood only) 24.5 % (37.0-47.0); Hemoglobin 8.2 g/dl (12.0-16.0)
[2023-12-12 13:35] LABS: Reticulocyte % 2.53 % (0.50-2.00); Reticulocytes # 0.05 10^6/uL (0.020-0.100)
--- NOTE | 2023-12-12 13:50 | Pharmacy Report ---
Pharmacy PK ABX Note - Date of Service December 12, 2023 - Assessment and Plan Assessment 73 year old F receiving empiric vancomycin for treatment of RLE cellulitis w/ failure of outpatient Augmentin. Pertinent microbiologic data includes: negative MRSA Nasal Swab, blood cultures x 2 show no growth at 24 hours. Pertinent PMH includes CLL. Plan Vancomycin * Current regimen: 1000 mg IV every 12 hours * Random level obtained 12/12/23 resulted as 11.1 mcg/mL. This is predicted to result in subtherapeutic AUC/ELIOT of < 400 mg/L.hr * Change to 750 mg IV every 8 hours * Predicted AUC at steady state: 472 mg/L.hr * Repeat trough level ordered for: 12/14/23 Pharmacy will continue to follow and will adjust dose/frequency as necessary. Thank you. Pharmacy has transitioned to AUC monitoring for vancomycin. AUC/ELIOT is the preferred PK/PD target and is associated with decreased risk of nephrotoxicity compared to traditional trough targets.
[2023-12-12] MEDS: VANCOMYCIN HCL 750 MG in SODIUM CHLORIDE 0.9% 250 ML IV SCH (14:27)
--- NOTE | 2023-12-12 16:46 | Billing Data ---
Date of Service December 12, 2023 Coding Level of Care Code 88032 SUB INP/OBS CARE
[2023-12-13 07:39] LABS: C Reactive Protein 15.96 mg/dl (0-0.5); Magnesium 2.2 mg/dl (1.7-2.4)
[2023-12-13 07:44] LABS: Hematocrit (blood only) 20.6 % (37.0-47.0); Hemoglobin 6.8 g/dl (12.0-16.0)
[2023-12-13 08:11] LABS: Mean Corpuscular Volume 115.1 fL (80.0-100.0); Mean Platelet Volume 10.5 fL (9.4-12.4); Platelet Count 243 K/uL (130-400); RDW Coefficient of Variation 13.4 % (11.5-14.5); RDW Standard Deviation 56.8 fL (36.4-46.3); Red Blood Count 1.79 M/uL (4.20-5.40)
[2023-12-13 08:30] LABS: Basophils # (auto) 0.01 K/uL (0.00-0.20); Basophils % (auto) 0.3 %; Immature Granulocytes # (auto) 0.06 K/uL (0.01-0.20); Immature Granulocytes % (auto) 1.5 %; Lymphocytes # (auto) 1.92 K/uL (1.20-3.40); Lymphocytes % (auto) 49.2 %; Macrocytosis Present; Monocytes % (auto) 5.1 %; Neutrophils # (auto) 1.71 K/uL (1.40-6.50); Neutrophils % (auto) 43.9 %; Polychromasia 1+; Tear Drop Cells 1+
--- NOTE | 2023-12-13 14:02 | Hospitalist Progress Note ---
Date of Service December 13, 2023 Assessment & Plan (1) Lymphangitis of lower extremity: (2) Cellulitis of right lower extremity: (3) Anemia: (4) Pneumonia: (5) CLL (chronic lymphocytic leukemia): Plan Pt is a 73 yo female with a past med hx of CLL and chronic anemia who presents to the hospital for 12/09 for R foot cellulitis. Cellulitis, R foot - pt noted to have started Augmentin on Monday for cellulitis, only had 2-3 days prior to hospitalization - venous US doppler neg for DVT - blood cx neg 48 hours - will continue IV vanc today and most likely transition to oral doxy or bactrim tomorrow as long as pt continues to improve - goal is afebrile 24 hours before discharge, as she spiked a fever last night checked procal and CRP which were reassuring Pneumonia, old Cough - pt notes hx pneumonia at the start of October and was on course of antibiotics, initially better but still has lingering cough - CXR on admission unimpressive - suspect the lingering cough is most likely still her old pneumonia resolving, especially since cough is dry and fever most likely is from her current cellulitis - continue cough drops, prn tessalon perles, tylenol, mucinex Anemia, chronic - Hgb 6.8 today; retic count yesterday elevated - Chronically low, likely due to CLL - yesterday was 6.9 but improved spontaneously to 8.2 in the afternoon so most likely this oscillation is due to her CLL, but with elevated retics she is making cells B12 deficiency - was on oral B12 the last few months with B12 levels unchanged so likely she is not absorbing it well through the GI trac - Switched from oral B12 to IM B12 1000mcg CLL - Considered to be relatively immunocompromised - Treatment as noted above for cellulitis DVT ppx: Lovenox Admission and Anticipated Discharge Date Admission Date: December 10, 2023 Supervising Physician Co-Signing Physician Notes I personally examined the patient and verified all pete points of history and exam, discussed case, and agree with decision making with Dr Barreto and Hannah Bro MS4 Foot feels about the same, no new complaints. Had a fever last night, does not really seem to have felt much from it. Breathing about the same. No new or worse shortness of breath, no bleeding, no weakness/lightheadedness that is different than what she has been feeling. ongoing tension headaches. revisited later and discussed CT scan results. Vitals noted, in general she is awake and alert pleasant no distress. HEENT normocephalic atraumatic mucous membranes moist. breathing unlabored no accessory muscle use good effort. faint LLL rales. Skin without rashes pallor or icterus except for her right foot which has resolving erythema and edemaher leg is elevated so that is tracking up a little bit in a fading way rather than a marching forward demarcated way, today tracking to gravity around lateral malleolus of ankle, and the redness has gone from maroon to much more of a pale pink. Tenderness has faded. Small blistering area has almost resolved. right lower extremity cellulitisfailed Augmentin Seems to be improving, but still had a fever. CRP checked to be able to trend. procal reassuring. to ensure no concomitant lingering pneumonia - chest ct done -exceedingly reassuring. fevers likely due to infection slowly resolving and compromised immune system. of course with tick borne illness endemic in [facility] this is a possibility as well - was planning on dc on doxy to cover MRSA anyway. DVT prophylaxisLovenox otherwise as above Subjective Today, pt states she overall feels about the same as yesterday, maybe a little bit better. She states there was a gap between doses of tylenol last night and that's when she seemed to get a fever last. Otherwise foot feels maybe a little bit better today. No further questions or complaints, would like to go home hopefully in the next day or so. Review of Systems Review of Systems: Per HPI. Physical Exam Physical Exam: General:Alert and oriented, no acute distress, HEENT: Normocephalic, moist oral mucosa, Cardio: Regular rate and rhythm, no murmur, Resp:Lungs with faint crackles in lower lobe bases, otherwise clear, no wheezing Skin: Warm, pink, dry, Ext: R foot again noted with erythema of the top of foot and swelling has continued to migrate up her ankle some from yesterday but overall appears improved in terms of tenderness Results & Data Results & Data Vital Signs (Past 12 Hours) Vital Signs Temp Pulse Pulse Resp BP Pulse Ox O2 Del Method 12/13/23 10:56 Room Air 12/13/23 10:46 37.3 C 82 19 97/53 L 99 Room Air 12/13/23 07:29 74 12/13/23 07:21 37.1 C 79 17 100/54 L 99 Room Air 12/13/23 02:51 37.0 C 83 18 101/57 L 100 Room Air Resident Activity Tracking Resident Involvement: Resident Care Provided Care Provided: Adult Hospital Medicine (4) Pneumonia Laterality: unspecified laterality Lung location: unspecified part of lung Pneumonia type: due to unspecified organism Qualified Code(s): J18.9 - Pneumonia, unspecified organism
[2023-12-13] MEDS: guaiFENesin 600 MG TABCR PO PRN (14:46)
--- NOTE | 2023-12-13 16:14 | CT Scan Report ---
CT chest diagnostic wo con CLINICAL HISTORY: cough, dyspnea, LLL rales - ?pneumonia TECHNIQUE: Multidetector row helical CT of the chest was performed. Coronal and sagittal reformations were obtained. Automated dose lowering techniques and/or adjustment according to patient size were u tilized for this exam. CT DOSE: 210.48 mGy.cm Comparison: Comparison is made to chest radiograph 12/10/2023 FINDINGS: Lungs and pleura: Atelectasis is in the left upper lobe. Heart and pericardium: Cardiomegaly is seen with biatrial enlargement. Vessels: Unremarkable. Mediastinum and jaden: Subcentimeter lymph nodes are seen. Chest wall and lower neck: Bilateral axillary lymph nodes measure up to 11 mm. Abdomen: Unremarkable. Bones: Degenerative changes in the thoracic spine. IMPRESSION: 1. No evidence of pneumonia. 2. Bilateral axillary lymph nodes are nonspecific and may be reactive. ACT 112: Negative or not required by law. Electronically signed by: Gino Dumas M.D. 12/13/2023 4:12 PM
--- NOTE | 2023-12-13 17:59 | Billing Data ---
Date of Service December 13, 2023 Coding Level of Care Code 46258 SUB INP/OBS CARE
--- NOTE | 2023-12-13 17:59 | Billing Data ---
Date of Service December 13, 2023 Coding Level of Care Code 70464 SUB INP/OBS CARE
[2023-12-14] MEDS: VANCOMYCIN LEVEL ONE (06:24)
[2023-12-14 06:45] LABS: Hematocrit (blood only) 18.9 % (37.0-47.0); Hemoglobin 6.2 g/dl (12.0-16.0); Mean Corpuscular Hemoglobin 37.6 pg (25.0-34.0); Mean Corpuscular Hgb Conc 32.8 g/dL (32.0-36.0); Mean Corpuscular Volume 114.5 fL (80.0-100.0); Mean Platelet Volume 10.7 fL (9.4-12.4); Platelet Count 246 K/uL (130-400); RDW Coefficient of Variation 13.4 % (11.5-14.5); Red Blood Count 1.65 M/uL (4.20-5.40)
[2023-12-14 06:49] LABS: C Reactive Protein 16.63 mg/dl (0-0.5); Calcium 7.5 mg/dl (8.6-10.3); Creatinine Clr Calc Pharmacy 99.7 ml/min; Est GFR (African American) 114.4 ml/min; Est GFR (Non-African American) 98.7 ml/min; Potassium 3.6 mmol/L (3.5-5.1)
[2023-12-14 07:19] LABS: Dohle Bodies 1+; Eosinophils # (auto) 0.01 K/uL (0.00-0.50); Eosinophils % (auto) 0.3 %; Immature Granulocytes # (auto) 0.01 K/uL (0.01-0.20); Immature Granulocytes % (auto) 0.3 %; Lymphocytes # (auto) 1.61 K/uL (1.20-3.40); Lymphocytes % (auto) 44.7 %; Macrocytosis Present; Monocytes # (auto) 0.18 K/uL (0.11-0.59); Neutrophils # (auto) 1.79 K/uL (1.40-6.50); Neutrophils % (auto) 49.7 %; Polychromasia 1+; Tear Drop Cells 1+
--- NOTE | 2023-12-14 08:58 | Pharmacy Report ---
Pharmacy PK ABX Note - Date of Service December 14, 2023 - Assessment and Plan Assessment 73 year old F receiving empiric vancomycin for treatment of RLE cellulitis w/ failure of outpatient Augmentin. Pertinent microbiologic data includes: negative MRSA Nasal Swab, blood cultures x 2 show no growth to date. Pertinent PMH includes CLL. Plan Vancomycin * Current regimen: 1000 mg IV every 12 hours * Random level obtained 12/14/23 resulted as 10.5 mcg/mL. This is predicted to result in therapeutic AUC/ELIOT of 410 mg/L.hr. However, this is in the lower end of the goal range, patient remains febrile as of yesterday, and has known immunocompromise * Increase to 1000 mg IV every 8 hours * Predicted AUC at steady state: 537 mg/L.hr * Repeat trough level ordered for: 12/15/23 @1330 Pharmacy will continue to follow and will adjust dose/frequency as necessary. Thank you. Pharmacy has transitioned to AUC monitoring for vancomycin. AUC/ELIOT is the preferred PK/PD target and is associated with decreased risk of nephrotoxicity compared to traditional trough targets.
--- NOTE | 2023-12-14 11:31 | Hospitalist Progress Note ---
Date of Service December 14, 2023 Assessment & Plan (1) Lymphangitis of lower extremity: (2) Cellulitis of right lower extremity: (3) Anemia: (4) Pneumonia: (5) CLL (chronic lymphocytic leukemia): Plan Pt is a 73 yo female with a past med hx of CLL and chronic anemia who presents to the hospital for 12/09 for R foot cellulitis. Cellulitis, R foot - pt noted to have started Augmentin on Monday for cellulitis, only had 2-3 days prior to hospitalization - venous US doppler neg for DVT - blood cx neg 48 hours - will transition IV vanc to oral doxycycline today for 7 more days today - clinically improving Persistent fever - initially fever presumed to be secondary to her known cellulitis, but with clinical improvement of her cellulitis this seems a bit less likely - pt is outside a lot to golf but no known tick bite - pt had diffuse joint pains last night and with persistent fever despite IV vancomycin, and with no specific symptoms to lead us one way or another, will do tick borne studies + peripheral smear - will consult oncology as pt has hx CLL and wonder if this can be due to her oncologic condition with fairly unremarkable infectious workup Anemia, chronic - Hgb baseline appears around 9; - Chronically low, likely due to CLL - 12/11 was 6.9 but improved spontaneously to 8.2 in the afternoon so most likely this oscillation is due to her CLL, but with elevated retics she is making cells - low again this morning 6.2 but with no increasing O2 requirements or SOB, no need to transfuse at this time as she appears to oscillate daily Pneumonia, old Cough - pt notes hx pneumonia at the start of October and was on course of antibiotics, initially better but still has lingering cough - CXR on admission unimpressive - suspect the lingering cough is most likely still her old pneumonia resolving, especially since cough is dry and fever most likely is from her current cellulitis - continue cough drops, prn tessalon perles, tylenol, mucinex B12 deficiency - was on oral B12 the last few months with B12 levels unchanged so likely she is not absorbing it well through the GI trac - Switched from oral B12 to IM B12 1000mcg CLL - Considered to be relatively immunocompromised - Treatment as noted above for cellulitis DVT ppx: Lovenox Admission and Anticipated Discharge Date Admission Date: December 10, 2023 Supervising Physician Co-Signing Physician Notes I personally examined the patient and verified all pete points of history and exam, discussed case, and agree with decision making with Dr Barreto fever again last night. Ongoing left-sided suboccipital headache. [place] achy all over last night as well. Vitals noted, in general she is awake and alert oriented pleasant no distress. Left-sided suboccipitals high tone, tender, decr eased range of motioninhibitory pressurepatient tolerated well. Right lower extremity with resolving erythema on the foot, and erythema that seems to be tracking to gravity that is a much duller red and pink, nontenderthere is now 12+ edema right lower extremity but it mostly appears to be dependent and the foot where the initial true erythema was is almost normal other than edema and is nontender. right lower extremity cellulitisfailed Augmentin Very likely resistant gram-positive organismsclinically cellulitis improving on vancomycin; see below for fever feverpersistent fever in spite of improvement of cellulitis. Initially simply following given that she is immunocompromised with cellulitis and it would not been surprising to see her fevers take 48-72 hours to resolve. As she reached the 72-hour libia, worked up further to ensure she did not have smoldering pneumonia (she had been treated for pneumonia not too long ago)and given that she had some lingering respiratory symptoms (mostly a cough) obtain CT chest that did not show any evidence of pneumonia. Differential for fever at this point includes concomitant tickborne illness (to be clear I do not believe her foot rash was erythema migrans as it appeared much more consistent with true erythema of cellulitismore that living in such an endemic area for tickborne illness and spending a great deal of time outside it would not at all be surprising to have a concomitant tickborne illness)and to that end we have initiated empiric doxycycline (was going to utilize this for outpatient management to finish with foot cellulitis anyway, and while her Lyme screen is negative, really that would have been mostly useful if it was positive being able to narrow differentials to most likely tickborne, rather than suspected tickborne. With her hemoglobin being somewhat persistently low, it is not likely to be in someway related to her CLL, but given that she does have this is a chronic process and malignancies can cause fevers for unknown known reasons, while again I do not see any clear evidence that she has a fever as it relates to her CLL, I am suspicious mostly because I do not have many other explanations for her feverand will ask hematology to see her/try to reach out to her primary real estate closing coordinator tomorrow (very unlikely to be on service today with that being a holiday). Sent peripheral smear to entertain most of the aboveboth to look for inclusion bodies consistent with a tickborne illness, and also to look for any atypia as it relates to her CLL anemiaasymptomatic, given that she is now persistently below 7 anticipate transfusing, but at the same time given that I am asking hematology to see her and she is asymptomatic/hemodynamically stable I will hold off on transfusion until obtaining their expertise. DVT prophylaxisLovenox otherwise as above Subjective Today, pt states that she had a horrible night. She states her headache got pretty bad last night, tylenol helped but did not relieve it. She states she also had diffuse joint pains last night, which was not something she experienced before. Feels her foot feels making a bit better than yesterday. No chest pain or shortness of breath. No nausea or vomiting. Review of Systems Review of Systems: Per HPI. Physical Exam Physical Exam: General:Alert and oriented, no acute distress, HEENT: Normocephalic, moist oral mucosa, Cardio: Regular rate and rhythm, no murmur, Resp:Lungs clear to auscultation bilaterally, no wheezes Skin: Warm, pink, dry, Ext: R foot with improved erythema but persistent edema that has migrated up to mid brower level Results & Data Results & Data Vital Signs (Past 12 Hours) Vital Signs Temp Pulse Resp BP Pulse Ox O2 Del Method 12/14/23 11:13 36.9 C 82 18 96/55 L 100 Room Air 12/14/23 07:35 37.2 C 91 H 18 94/61 L 94 Room Air 12/14/23 04:19 37.1 C 82 18 95/53 L 97 Room Air Resident Activity Tracking Resident Involvement: Resident Care Provided Care Provided: Adult Hospital Medicine (4) Pneumonia Laterality: unspecified laterality Lung location: unspecified part of lung Pneumonia type: due to unspecified organism Qualified Code(s): J18.9 - Pneumonia, unspecified organism
[2023-12-14] MEDS ORDERED: VANCOMYCIN HCL 1,000 MG in SODIUM CHLORIDE 0.9% 250 ML IV SCH (14:00)
[2023-12-14 15:30] LABS: Hematocrit (blood only) 20.8 % (37.0-47.0); Hemoglobin 6.9 g/dl (12.0-16.0)
[2023-12-14] MEDS: CYCLOBENZAPRINE HCL 10 MG TAB PO STA (16:24)
--- NOTE | 2023-12-14 17:51 | Billing Data ---
Date of Service December 14, 2023 Coding Level of Care Code 02362 SUB INP/OBS CARE
[2023-12-14] MEDS: KETOROLAC TROMETHAMINE 15 MG/ML VIAL IV ONE (19:50)
[2023-12-14] MEDS: DOXYCYCLINE HYCLATE 100 MG CAP PO SCH (20:40)
[2023-12-15] MEDS: KETOROLAC TROMETHAMINE 15 MG/ML VIAL IV ONE (02:47)
[2023-12-15] MEDS: CYCLOBENZAPRINE HCL 10 MG TAB PO PRN (02:47)
--- NOTE | 2023-12-15 07:00 | Hospitalist Progress Note ---
Date of Service December 15, 2023 Assessment & Plan (1) Lymphangitis of lower extremity: (2) Cellulitis of right lower extremity: (3) Anemia: (4) Pneumonia: (5) CLL (chronic lymphocytic leukemia): Plan Pt is a 73 yo female with a past med hx of CLL and chronic anemia who presents to the hospital for 12/09 for R foot cellulitis. Cellulitis, R foot - pt noted to have started Augmentin on Monday for cellulitis, only had 2-3 days prior to hospitalization - venous US doppler neg for DVT - blood cx neg 72 hours - was on IV vancomycin, transitioned to doxycycline 12/13, continue today - clinically improving Persistent fever - initially fever presumed to be secondary to her known cellulitis, but with clinical improvement of her cellulitis this seems a bit less likely - pt is outside a lot to golf but no known tick bite - pt had diffuse joint pains last night and with persistent fever despite IV vancomycin, and with no specific symptoms to lead us one way or another, will do tick borne studies + peripheral smear - will consult oncology as pt has hx CLL and wonder if this can be due to her oncologic condition with fairly unremarkable infectious workup Headache, - refractory to flexeril, tramadol, and tylenol - will trial Topamax today for her headache - no focal neurologic deficits noted on exam this morning Anemia, chronic - Hgb baseline appears around 9; - Chronically low, likely due to CLL - 12/11 was 6.9 but improved spontaneously to 8.2 in the afternoon so most likely this oscillation is due to her CLL, but with elevated retics she is making cells - low again this morning 6.2 but with no increasing O2 requirements or SOB, no need to transfuse at this time as she appears to oscillate daily; pending oncology eval Pneumonia, old Cough - pt notes hx pneumonia at the start of October and was on course of antibiotics, initially better but still has lingering cough - CXR on admission unimpressive - suspect the lingering cough is most likely still her old pneumonia resolving, especially since cough is dry and fever most likely is from her current cellulitis - continue cough drops, prn tessalon perles, tylenol, mucinex B12 deficiency - was on oral B12 the last few months with B12 levels unchanged so likely she is not absorbing it well through the GI trac - Switched from oral B12 to IM B12 1000mcg CLL - Considered to be relatively immunocompromised - Treatment as noted above for cellulitis DVT ppx: Lovenox Admission and Anticipated Discharge Date Admission Date: December 10, 2023 Supervising Physician Co-Signing Physician Notes I personally examined the patient and verified all pete points of history and exam, discussed case, and agree with decision making with Dr Barreto fever again last night. worse left-sided suboccipital headache. No new complaints otherwise. Vitals noted, in general she is awake and alert oriented pleasant no distress. Left-sided suboccipitals high tone, tender, decreased range of motioninhibitory pressurepatient tolerated well. patient noted some benefit to headache during OMT; just did not seem to have much lasting effect. Mental status shows her to be awake and alert oriented pleasant although in a degree of pain. She has good recent and remote recall good judgment and insight. present at the bedside as well. right lower extremity cellulitisfailed Augmentin Very likely resistant gram-positive organismsclinically cellulitis Improved on vancomycinhad transitioned to doxycycline to continue treatment for resistant gram-positive organisms as well as potentially cover for tickborne illness feverpersistent fever in spite of improvement of cellulitis. Initially simply following given that she is immunocompromised with cellulitis and it would not been surprising to see her fevers take 48-72 hours to resolve. As she reached the 72-hour libia, worked up further to ensure she did not have smoldering pneumonia (she had been treated for pneumonia not too long ago)and given that she had some lingering respiratory symptoms (mostly a cough) obtain CT chest that did not show any evidence of pneumonia. differential for fever at this point includes concomitant tickborne illness (to be clear I do not believe the rash on her foot was erythema migrans as appeared consistent with cellulitisbut we are in an endemic area) versus in someway related to her CLL (although nothing about this appears to be acute or CLL related in an overt waybut asking hematology to see here; versus other infectious/inflammatory (asking infectious disease to see her.) anemia Asymptomatic, reassuring that the peripheral smear essentially is just consistent with an anemia related to B12 deficiency (replacement ongoing) but given that she is persistently low giving 2 units packed red cells headacheappreciate infectious disease concerned this could be meningiticgiven that this has been a headache she is struggled with since October, and seems to worsen as an indirect cause and effect of whenever she is sick with other things, I would certainly be surprised if there is any E LEARNING COORDINATOR infection (also given that she has not had any focal neurodeficits or alteration of consciousness), and yet at the same time certainly it is quite reasonable when we are trying to discern etiology of the fever and she has a headache as her chief complaint to e valuate for any sort of E LEARNING COORDINATOR infectionagree with infectious disease plan in this respect. At the same time, given that it seems most consistent with a suboccipital tension headacheattempted OMT again, has ice packs. Flexeril has not been helpingswitch muscle relaxant over to Valium (hopefully more efficacy, discussed possible sedation/confusion risk which she is accepting of) and give 4 g IV mag sulfate to try to help with muscle relaxant effect. Continue to follow. Continue other supportive care. DVT prophylaxisLovenox otherwise as above Subjective Today, pt states she had a horrible night last night due to a really bad headache mostly on the L side of her head starting from the top of the neck and wrapping to the front of her head. She states that she has a high pain tolerance but nothing has helped and it is excruciating at this point. Given flexeril and tramadol last night with essentially no relief. She states last time she had this headache a month ago when she had the pneumonia and was coughing a lot, valtrex took the headache away. Other than increase in headache, she is about the same today as she was yesterday. Review of Systems Review of Systems: Per HPI. Physical Exam Physical Exam: General:Alert and oriented, no acute distress, HEENT: Normocephalic, moist oral mucosa, Cardio: Regular rate and rhythm, no murmur, Resp:Lungs clear to auscultation bilaterally, no wheezes Skin: Warm, pink, dry, Ext: R foot with improved erythema but persistent edema that has migrated up to just above mid brower level Results & Data Results & Data Vital Signs (Past 12 Hours) Vital Signs Temp Pulse Pulse Resp BP Pulse Ox O2 Del Method 12/15/23 02:51 36.9 C 85 18 124/69 99 Room Air 12/14/23 21:35 80 12/14/23 19:40 Room Air 12/14/23 19:10 39.3 C H 107 H 18 115/58 L 95 Room Air Resident Activity Tracking Resident Involvement: Resident Care Provided Care Provided: Adult Hospital Medicine (4) Pneumonia Laterality: unspecified laterality Lung location: unspecified part of lung Pneumonia type: due to unspecified organism Qualified Code(s): J18.9 - Pneumonia, unspecified organism
[2023-12-15 07:16] LABS: Creatinine Clr Calc Pharmacy 77.1 ml/min; Est GFR (African American) 105.1 ml/min; Est GFR (Non-African American) 90.7 ml/min
[2023-12-15 07:36] LABS: Hematocrit (blood only) 18.6 % (37.0-47.0); Hemoglobin 6.2 g/dl (12.0-16.0); Mean Corpuscular Hemoglobin 38.3 pg (25.0-34.0); Mean Corpuscular Hgb Conc 33.3 g/dL (32.0-36.0); Mean Corpuscular Volume 114.8 fL (80.0-100.0); Platelet Count 248 K/uL (130-400); RDW Coefficient of Variation 13.3 % (11.5-14.5); RDW Standard Deviation 55.6 fL (36.4-46.3); Red Blood Count 1.62 M/uL (4.20-5.40); White Blood Count 4.08 K/ul (4.8-10.8)
[2023-12-15] MEDS: BENZONATATE 100 MG CAPSULE PO PRN (07:47)
[2023-12-15 08:12] LABS: Basophils # (auto) 0.01 K/uL (0.00-0.20); Basophils % (auto) 0.2 %; Dohle Bodies 1+; Eosinophils # (auto) 0.01 K/uL (0.00-0.50); Eosinophils % (auto) 0.2 %; Immature Granulocytes # (auto) 0.02 K/uL (0.01-0.20); Immature Granulocytes % (auto) 0.5 %; Lymphocytes # (auto) 1.91 K/uL (1.20-3.40); Lymphocytes % (auto) 46.8 %; Macrocytosis Present; Monocytes # (auto) 0.17 K/uL (0.11-0.59); Monocytes % (auto) 4.2 %; Neutrophils # (auto) 1.96 K/uL (1.40-6.50); Neutrophils % (auto) 48.1 %; Polychromasia 1+
[2023-12-15 09:14] LABS: C Reactive Protein 18.18 mg/dl (0-0.5)
[2023-12-15] MEDS: TOPIRAMATE 25 MG TAB PO SCH (09:44)
[2023-12-15] MEDS ORDERED: SODIUM CHLORIDE 0.9% 250 ML IV PRN ×2 (11:38→13:15)
[2023-12-15] MEDS ORDERED: POLYETHYLENE (MIRALAX) 17 GM PACK PO PRN (13:13)
[2023-12-15 13:14] LABS: Reticulocyte % 1.65 % (0.50-2.00); Reticulocytes # 0.03 10^6/uL (0.020-0.100)
[2023-12-15] MEDS ORDERED: VANCOMYCIN LEVEL ONE (13:30)
[2023-12-15 13:50] LABS: Ferritin 438.7 ng/ml (8-388)
[2023-12-15] MEDS: HYDROmorphone INJ 0.5 MG/0.5 ML SYR IV STA (14:20)
--- NOTE | 2023-12-15 14:24 | Infectious Disease Consult ---
Date of Consultation December 15, 2023 Assessment & Plan (1) Cellulitis of right lower extremity: (2) Sepsis: (3) Fever: Plan THis is a 73 year old female with H/o breast cancer sp L mastectomy, CLL/SLL on surveillance, L TKA, recent pneumomia in late October 2023 presents with RLE redness, pain swelling and warmth associated with fevers. She denies trauma to area. I am able to get a limited history from the patient as she is in pain from headache during my visit. Her is at bedside and provides some history. Prior to admission she received 3 days of augmentin with progression of cellulitis . She denies an inciting event. . In the Ed she was febrile with a T 38.5, HR 95. Labs wbc 7.81, H/H 9.5/28.4, plts 344, bun 16, cr 0.63. LE doppler negative for dvt. CT chest with no evidence of pneumonia.non specific Bilateral axillary lymph nodes. She was started on IV Vancomycin for cellulitis with some improvement. Her hospital course with c/b continued fever, worsening anemia and left sided headed which refers to the right side when she moves her head. She reports a history of shingles and cold sores. She denies any sores or rash now. In October she reports that she developed headaches and fevers while being treated for pneumonia. She was given Valtrex and the fevers and headaches resolved. She denies pet or tick exposure. She did not elaborate on travel history as she was relatively uncomfortable during exam. She denies sweats, ab pain , nausea and vomiting. She has an occasional cough since her pneumonia in October , but this has improved. Id consulted for fevers despite antibiotics for RLE cellulitis. #High fevers, headaches; rule out viral/aseptic meningitis vs non infectious cause #History of cold sores and shingles #RLE cellulitis, improving # worsening anemia, stable leukopenia #CLL/SLL She has been febrile since admission. Initially thought to be secondary to cellulitis, but fevers persisted despite appropriate cellulitis abx coverage. Her course has been c/b increased headaches which she states worsened inpatient. She has a history of cold sores and shingles but I did not see any obvious vesicles /rash ( but limited exam as she is in pain). SHe denies any new lesions. In the past her headache/fever resolved with Valrex ( ? Mollaret meningitis) . Additonally, her H/H has decreased. She denies recent tick bites, but this does not rule this out. No intraRBC or WBC seen on blood smear but would repeat. She is pending evaluation by hemonc. Recommendation -Start acyclovir 10 mg /Kg iv q8hrs for empiric HSV/VZV meningitis coverage in setting of fever, headache, h/o shingles and cold sores and similar presentation with resolution with Valtrex -LP to rule out above. I doubt a bacterial meningitis, but pending rule out will need empiric coverage pending LP results -Send CSF for cell count with diff, glucose, protein, meningitis/encephalitis panal that includes HSV1/2 PCR and Varicella (VZV) pcr, csf culture, [place] testing -Although Bacterial meningitis much less likely, start Ceftriaxone 2g iv q12 hrs, IV vanco per pharm protocol Ampicillin 2g iv q 4 pending rule out -IVF on acyclovir to protect kidneys -Continue doxycycline -Follow up tick borne panelPerip, heral smears and Babesia PCR If no evidence of BIODIESEL PLANT OPERATIONS ENGINEER infection and M/E pcr panel negative , DC IV vanco, ceftriaxone, ampicillin, acyclovir and continue doxcycline for cellulitis and possible tick borne disease. Doxycycline Does not cover Babesiosis ( which affects the RBC), will await Babesia smear and pcr and adjust abx as needed d/w team Thank you for this consult. ID will continue to follow ID will not round over the weekend. Please call covering provider with questions at [phone], I will return 12/17. Shala Beauchamp MD, MPH Infectious Disease [facility], [facility] Consultation Information Consultation was provided via telemedicine using two-way real-time interactive telecommunication between the patient and the telemedicine provider. For the duration of the visit, the provider was performing the assessment from a different facility than the patient. This includesuse of bluetooth stethoscope forauscultationperformed by the telepresenter that the telemedicine provider can hear if described in the physical exam. Field Mechanic/Site Lead contact information: Please call [facility] Call Center [phone]. (Phone Number For Physician Use Only) After establishing a telemedicine visit, patient was: Patient was verified with two unique identifiers Time Spent with Patient: Initial => 75 min History of Present Illness Reason for Consultation: CLL, with persistent fevers despite abx for RLE cellulitis Requesting Physician: Diane Barreto DO Attending Physician: Bigg Dorantes DO History of Present Illness THis is a 73 year old female with H/o breast cancer sp L mastectomy, CLL/SLL on surveillance, L TKA, recent pneumomia in late October 2023 presents with RLE redness, pain swelling and warmth associated with fevers. She denies trauma to area. I am able to get a limited history from the patient as she is in pain from headache during my visit. Her is at bedside and provides some history. Prior to admission she received 3 days of augmentin with progression of cellulitis . She denies an inciting event. . In the Ed she was febrile with a T 38.5, HR 95. Labs wbc 7.81, H/H 9.5/28.4, plts 344, bun 16, cr 0.63. LE doppler negative for dvt. CT chest with no evidence of pneumonia.non specific Bilateral axillary lymph nodes. She was started on IV Vancomycin for cellulitis with some improvement. Her hospital course with c/b continued fever, worsening anemia and left sided headed which refers to the right side when she moves her head. She reports a history of shingles and cold sores. She denies any sores or rash now. In October she reports that she developed headaches and fevers while being treated for pneumonia. She was given Valtrex and the fevers and headaches resolved. She denies pet or tick exposure. She did not elaborate on travel history as she was relatively uncomfortable during exam. She denies sweats, ab pain , nausea and vomiting. She has an occasional cough since her pneumonia in October , but this has improved. Id consulted for fevers despite antibiotics for RLE cellulitis. Allergies Allergy/AdvReac Type Severity Reaction Status Date / Time anastrozole AdvReac Intermediate joint Verified 12/10/23 22:07 inflammation, decreased appetite codeine AdvReac Intermediate NAUSEA/VOMI Verified 12/10/23 22:07 TING hydrocodone AdvReac Intermediate NAUSEA/VOMI Verified 12/10/23 22:07 TING oxycodone AdvReac Intermediate NAUSEA/VOMI Verified 12/10/23 22:07 TING tramadol AdvReac Intermediate NAUSEA/VOMI Verified 12/10/23 22:07 TING Home Medications Medication Instructions Recorded Confirmed Type Cbd Liquid 1 dose PO HS PRN Sleep 05/02/19 12/10/23 History ascorbic acid (vitamin C) 1,000 mg 0.5 - 1 g PO DAILY 05/02/19 12/10/23 History tablet (Vitamin C) lactobacillus combination no.4 3 3,000 mmu cells PO DAILY 05/02/19 12/10/23 History billion cell capsule (Probiotic) diphenhydramine 25 1 tab PO HS PRN Sleep 05/11/23 12/10/23 History mg-acetaminophen 500 mg tablet (Tylenol PM Extra Strength) calcium 167 mg-vitamin D3 1.67 1 cap PO QAM 06/07/23 12/10/23 History mcg-magnesium 83 mg capsule cyanocobalamin (vitamin B-12) 1,000 mcg PO DAILY 06/07/23 12/10/23 History 1,000 mcg capsule amoxicillin 875 mg-potassium 1 tab PO BID 10/20/23 12/10/23 History clavulanate 125 mg tablet diphenhydramine HCl 25 mg capsule 25 mg PO HS PRN Sleep 12/10/23 12/10/23 History (ZzzQuil) lysine 1,000 mg tablet 1,000 mg PO DAILY 12/10/23 12/10/23 History turmeric 400 mg capsule 400 mg PO DAILY 12/10/23 12/10/23 History zinc gluconate 50 mg tablet 50 mg PO DAILY 12/10/23 12/10/23 History Patient History Medical History Osteoarthritis Perforated bowel s/p colonoscopy May 18 2023 /perforated bowel / ICU stay for monitoring/no sx intervention. Discharged May 23 2023. CLL (chronic lymphocytic leukemia) no meds, has visits every 3 month at [place]/ [facility] heme/onc for monitoring and blood work History of breast cancer s/p left mastectomy History of IBS Spinal stenosis Borderline high cholesterol Surgical History Hx of right cataract extraction History of total left knee replacement (~05/2019) History of colonoscopy History of surgery on left wrist History of total right hip arthroplasty History of discectomy History of arthroscopy of right knee multiple History of arthroscopy of left knee multiple History of left knee surgery NERVE ENTRAPMENT; numbness in left foot History of left mastectomy Family History Brother Family history of thyroid cancer Prostate cancer Grandmother (Maternal) Breast cancer Father Prostate cancer Other Colorectal cancer Schizophrenia Denies family history of Ovarian cancer Social History Smoking Status: Never smoker Second Hand Exposure: No; Do You Dip or Chew Tobacco: No; Hx Alcohol Use: Yes Alcohol type: beer and wine Hx Substance Use: No Preferred Language: Kiswahili Communication Ability: Effective Web Content Executive Required: No Beliefs That Will Affect Care: None marital status: Current Living Situation: Spouse Feels Safe at Home: Yes Assistive Devices: Cane Review of System A 10 point ROS obtained. Pertinent positives as per HPI Physical Exam Physical Exam: Gen- uncomfortable secondary to headaches Neck- No meningeal signs, supple HEENT- anicteric sclera Skin - unable to complete full skin exam as pt is uncomfortable. No oral sores of obvious lesions, ulcers on exposed skin Lung- No increased work of breathing Abd- soft Ext- RLE with edema redness, warmth, mildy tender ( improved per pt and ) Neuro- Non focal, awake , alert, oriented *3 Results & Data Vital Signs (Past 12 Hours) Vital Signs Temp Pulse Pulse Resp BP Pulse Ox O2 Del Method 12/15/23 11:41 36.7 C 73 18 105/57 L 100 Room Air 12/15/23 08:15 37.2 C 83 18 111/69 98 Room Air 12/15/23 08:00 Room Air 12/15/23 07:21 82 12/15/23 02:51 36.9 C 85 18 124/69 99 Room Air Laboratory Results 12/14/23 15:09 Blood Parasites Smear - Final Blood 12/15/23 12/15/23 12/15/23 12:36 12:07 06:35 WBC 4.08 L RBC 1.62 L Hgb 6.2 L* Hct 18.6 L* MCV 114.8 H MCH 38.3 H MCHC 33.3 RDW Std Deviation 55.6 H RDW Coeff of Andi 13.3 Plt Count 248 MPV 11.0 Immature Gran % (Auto) 0.5 Neut % (Auto) 48.1 Lymph % (Auto) 46.8 [place] % (Auto) 4.2 Eos % (Auto) 0.2 Baso % (Auto) 0.2 Reticulocyte % (Auto) 1.65 Neut # (Auto) 1.96 Lymph # (Auto) 1.91 [place] # (Auto) 0.17 Eos # (Auto) 0.01 Baso # (Auto) 0.01 Reticulocyte # 0.030 Immature Gran # (Auto) 0.02 Dohle Bodies 1+ Polychromasia 1+ Macrocytosis Present Peripher Smr Path Cons Creatinine Est Cr Clr Drug Dosing Est GFR ( Amer) Est GFR (Non-Af Amer) Iron 17 L TIBC 148 L Unsaturated IBC 131 L Transferrin % Sat 11 L Ferritin 438.7 H Lactate Dehydrogenase 145 C-Reactive Protein Folate 14.42 Blood Type B Negative Antibody Screen NEGATIVE Direct Antiglob Test Negative ARTURO (IgG-AHG) Neg ARTURO, Polyspecific Neg ARTURO C3b, C3d 5 Min Neg Crossmatch See Detail 12/15/23 12/14/23 12/12/23 06:31 05:44 06:48 WBC RBC Hgb Hct MCV MCH MCHC RDW Std Deviation RDW Coeff of Andi Plt Count MPV Immature Gran % (Auto) Neut % (Auto) Lymph % (Auto) [place] % (Auto) Eos % (Auto) Baso % (Auto) Reticulocyte % (Auto) Neut # (Auto) Lymph # (Auto) [place] # (Auto) Eos # (Auto) Baso # (Auto) Reticulocyte # Immature Gran # (Auto) Dohle Bodies Polychromasia Macrocytosis Peripher Smr Path Cons Creatinine 0.62 Est Cr Clr Drug Dosing 77.1 Est GFR ( Amer) 105.1 Est GFR (Non-Af Amer) 90.7 Iron TIBC Unsaturated IBC Transferrin % Sat Ferritin Lactate Dehydrogenase C-Reactive Protein 18.18 H Folate Blood Type Antibody Screen Direct Antiglob Test ARTURO (IgG-AHG) ARTURO, Polyspecific ARTURO C3b, C3d 5 Min Crossmatch See Detail Diagnostic Findings Chest CT 12/13/23 14:50 CT chest diagnostic wo con CLINICAL HISTORY: cough, dyspnea, LLL rales - ?pneumonia TECHNIQUE: Multidetector row helical CT of the chest was performed. Coronal and sagittal reformations were obtained. Automated dose lowering techniques and/or adjustment according to patient size were utilized for this exam. CT DOSE: 210.48 mGy.cm Comparison: Comparison is made to chest radiograph 12/10/2023 FINDINGS: Lungs and pleura: Atelectasis is in the left upper lobe. Heart and pericardium: Cardiomegaly is seen with biatrial enlargement. Vessels: Unremarkable. Mediastinum and jaden: Subcentimeter lymph nodes are seen. Chest wall and lower neck: Bilateral axillary lymph nodes measure up to 11 mm. Abdomen: Unremarkable. Bones: Degenerative changes in the thoracic spine. IMPRESSION: 1. No evidence of pneumonia. 2. Bilateral axillary lymph nodes are nonspecific and may be reactive. ACT 112: Negative or not required by law. Electronically signed by: Gino Dumas M.D. 12/13/2023 4:12 PM Medications Administered Home Medications Medication Instructions Recorded Confirmed Last Taken Cbd Liquid 1 dose PO HS PRN Sleep 05/02/19 12/10/23 06/09/19 20:30 ascorbic acid (vitamin C) 1,000 mg 0.5 - 1 g PO DAILY 05/02/19 12/10/23 12/10/23 tablet (Vitamin C) lactobacillus combination no.4 3 3,000 mmu cells PO DAILY 05/02/19 12/10/23 12/10/23 billion cell capsule (Probiotic) diphenhydramine 25 1 tab PO HS PRN Sleep 05/11/23 12/10/23 05/16/23 mg-acetaminophen 500 mg tablet (Tylenol PM Extra Strength) calcium 167 mg-vitamin D3 1.67 1 cap PO QAM 06/07/23 12/10/23 12/10/23 mcg-magnesium 83 mg capsule cyanocobalamin (vitamin B-12) 1,000 mcg PO DAILY 06/07/23 12/10/23 12/10/23 1,000 mcg capsule amoxicillin 875 mg-potassium 1 tab PO BID 10/20/23 12/10/23 12/10/23 08:00 clavulanate 125 mg tablet diphenhydramine HCl 25 mg capsule 25 mg PO HS PRN Sleep 12/10/23 12/10/23 Unknown (ZzzQuil) lysine 1,000 mg tablet 1,000 mg PO DAILY 12/10/23 12/10/23 12/10/23 turmeric 400 mg capsule 400 mg PO DAILY 12/10/23 12/10/23 12/10/23 zinc gluconate 50 mg tablet 50 mg PO DAILY 12/10/23 12/10/23 12/10/23 Active Medications Generic Name Dose Route Start Last Admin Trade Name Freq PRN Reason Stop Dose Admin Acetaminophen 650 mg 12/10/23 22:38 12/15/23 13:41 Acetaminophen 325 Mg Tab PO 01/09/24 22:37 650 mg Q4H PRN Administration Pain or Fever Acetaminophen 500 mg 12/10/23 23:05 12/10/23 23:13 Acetaminophen 500 Mg Tab PO 01/09/24 23:04 500 mg HS PRN Administration Sleep Benzonatate 100 mg 12/11/23 11:32 12/15/23 07:47 Benzonatate 100 Mg Capsule PO 01/10/24 13:59 100 mg TID PRN Administration cough Cyanocobalamin 1,000 mcg 12/12/23 09:00 12/15/23 07:46 Cyanocobalamin 1000 Mcg/Ml Vial IM 01/11/24 08:59 1,000 mcg QAM ALVIN Administration Diphenhydramine HCl 50 mg 12/11/23 11:26 12/14/23 21:39 Diphenhydramine Capsule 25 Mg Cap PO 01/09/24 23:04 50 mg HS PRN Administration Sleep Enoxaparin Sodium 40 mg 12/12/23 09:00 12/15/23 07:47 Enoxaparin Inj 40 Mg/0.4 Ml Syr SQ 01/11/24 08:59 40 mg QAM ALVIN Administration Guaifenesin 600 mg 12/13/23 10:52 12/15/23 07:46 Guaifenesin 600 Mg Tabcr PO 01/12/24 20:59 600 mg Q12 PRN Administration Cough Ceftriaxone Sodium 2,000 mg in 50 mls @ 100 mls/hr 12/15/23 15:30 12/15/23 16:55 Rocephin IV 12/25/23 15:29 Infused Q12H ALVIN Infusion Ampicillin Sodium 2,000 mg/ 100 mls @ 200 mls/hr 12/15/23 16:00 12/15/23 16:55 Sodium Chloride IV 12/25/23 15:59 Infused Q4H ALVIN Infusion Acyclovir Sodium 680 mg/ 113.6 mls @ 100 mls/hr 12/15/23 16:00 12/15/23 16:09 Dextrose IV 12/25/23 15:59 100 mls/hr Q8H ALVIN Administration Magnesium Sulfate/Dextrose 1 gm in 100 mls @ 50 mls/hr 12/15/23 15:45 12/15/23 17:06 Magnesium Sulfate / D5w IV 12/15/23 23:44 50 mls/hr Q2H ALVIN Infusion Vancomycin HCl 1,000 mg/ 270 mls @ 200 mls/hr 12/15/23 17:00 12/15/23 17:03 Sodium Chloride IV 12/25/23 16:59 200 mls/hr Q8H ALVIN Administration Topiramate 25 mg 12/15/23 09:00 12/15/23 09:44 Topiramate 25 Mg Tab PO 01/14/24 08:59 25 mg QAM ALVIN Administration (3) Fever Fever type: unspecified Qualified Code(s): R50.9 - Fever, unspecified
[2023-12-15] MEDS ORDERED: VANCOMYCIN CONSULT ACTIVE PRN (15:17)
--- NOTE | 2023-12-15 15:17 | Billing Data ---
Date of Service December 15, 2023 Coding Level of Care Code 43526 SUB INP/OBS CARE
[2023-12-15] MEDS: diazePAM 5 MG TABLET PO ONE (15:37)
[2023-12-15] MEDS: MAGNESIUM SULFATE / D5W 1 GM/100 ML BAG IV SCH (15:37)
[2023-12-15] MEDS: AMPICILLIN 2,000 MG in SODIUM CHLOR 0.9% MINI-B 100 ML IV SCH (16:09)
[2023-12-15] MEDS: cefTRIAXone SODIUM 2,000 MG/50 ML BAG IV SCH (16:09)
[2023-12-15] MEDS: ACYCLOVIR SOD 680 MG in DEXTROSE 5% 100 ML IV SCH (16:09)
[2023-12-15] MEDS: VANCOMYCIN HCL 1,000 MG in SODIUM CHLORIDE 0.9% 250 ML IV SCH (17:03)
[2023-12-15] MEDS: HYDROmorphone INJ 0.5 MG/0.5 ML SYR IV PRN (18:45)
[2023-12-15] MEDS ORDERED: diazePAM 5 MG TABLET PO PRN (21:00)
--- NOTE | 2023-12-15 21:14 | Pharmacy Report ---
Pharmacy PK ABX Note - Date of Service December 15, 2023 - Assessment and Plan Assessment 73 year old F receiving antibiotics for RLE cellulitis and possible tickborne illness. Antibiotics broadened to vancomycin, ampicillin, ceftriaxone, and acyclovir IV for possible meningitis. LP ordered. Previously on vanco IV 12/09- 12/13 AM Micro: 12/09 BC - no growth to date 12/13 - no parasites seem Plan Vancomycin * Resume previous regimen of vanco 1000 mg IV every 8 hours * This regimen was predicted to achieve a steady state AUC of 537 mg/L.hr earlier this admission * Vanc level ordered for: 12/17/23 @0800 Pharmacy will continue to follow and will adjust dose/frequency as necessary. Thank you. Pharmacy has transitioned to AUC monitoring for vancomycin. AUC/ELIOT is the preferred PK/PD target and is associated with decreased risk of nephrotoxicity compared to traditional trough targets.
[2023-12-15 22:09] LABS: Hematocrit (blood only) 27.5 % (37.0-47.0); Hemoglobin 9.2 g/dl (12.0-16.0)
[2023-12-16 05:58] LABS: Hematocrit (blood only) 23.7 % (37.0-47.0); Mean Corpuscular Hemoglobin 35.1 pg (25.0-34.0); Mean Corpuscular Hgb Conc 33.8 g/dL (32.0-36.0); Mean Corpuscular Volume 103.9 fL (80.0-100.0); Mean Platelet Volume 10.8 fL (9.4-12.4); Platelet Count 254 K/uL (130-400); RDW Coefficient of Variation 20.6 % (11.5-14.5); RDW Standard Deviation 75.8 fL (36.4-46.3); Red Blood Count 2.28 M/uL (4.20-5.40); White Blood Count 4.16 K/ul (4.8-10.8)
[2023-12-16 06:01] LABS: Calcium 7.6 mg/dl (8.6-10.3); Est GFR (African American) 109.4 ml/min; Est GFR (Non-African American) 94.4 ml/min; Potassium 3.5 mmol/L (3.5-5.1)
--- NOTE | 2023-12-16 06:23 | Oncology Consultation ---
Date of Consultation December 16, 2023 Assessment & Plan (1) Cellulitis of right lower extremity: (2) Fever: (3) CLL (chronic lymphocytic leukemia): Plan Very pleasant 73-year-old female who presented with fever in the setting of right lower extremity cellulitis. Continues to have persistent fever despite broad-spectrum antibiotics. Now complaining of headaches of unclear etiology for which she recently started treatment for possible HSV/VZV. Labs also show worsening anemia with labs negative for hemolytic anemia and most recent imaging negative for splenomegaly -Although fever could be due to underlying CLL/SLL, most recent imaging not suggestive of this as she does not have significant lymphadenopathy/splenomegaly to suggest progression of CLL/SLL. Would therefore recommend ruling out infectious causes and if all infectious workup is negative, may consider CLL/SLL as possible etiology although as noted above, less likely. -She has had chronic anemia since May, which I suspect is due to bone marrow involvement by CLL/SLL Other potential etiology is PRCA both of which could be diagnosed via bone marrow biopsy. Will defer to her primary assisted living administrator regarding potentially obtaining outpatient bone marrow biopsy and starting her treatment. Transfuse for hemoglobin less than 7. -She complains of persistent headaches of unclear etiology. Being worked up by infectious disease for possible meningitis. Given more aggressive p53 mutation, would recommend obtaining brain MRI to rule out leptomeningeal involvement by CLL/SLL. Although this is a very rare presentation of CLL/SLL -She has had multiple infections within the past year, so would recommend c hecking immunoglobulin levels. If low, she may benefit from IVIG outpatient. Would not give her IVIG while inpatient as this could exacerbate headaches. Thank you for this consult. Hematology will continue following patient peripherally while she is in the hospital. She will continue follow-up with outpatient assisted living administrator at [facility] [place]. Please feel free to call if you have any further questions. 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 She was started on IV antibiotics with improvement in cellulitis. However, she has had persistent fever, now complains of left-sided headaches. Labs show worsening anemia with hemoglobin of 6.2/18.6 yesterday for which she received 2 units PRBC transfusion with labs today showing hemoglobin of 8 and hematocrit of 23.7, MCV of 103.9. Iron studies revealed elevated ferritin of 438, transferrin saturation of 11%, TIBC of 148 and serum iron of 17 compatible with anemia of inflammation/chronic disease. Bilirubin, LDH both within normal limits, reticulocyte count was 0.03 and Sakshi test was negative. Haptoglobin pending. She is on parenteral B12 supplementation for B12 deficiency. She has had CT chest and CT head which were both unremarkable. Was evaluated by infectious disease yesterday who recommended empiric coverage for HSV/VZV meningitis and lumbar puncture. Around early October, she was diagnosed with pneumonia for which she was given oral antibiotics after which she presented to the ER on 10/20/2023 with left-sided headaches: CT head was obtained which was negative. During my evaluation of patient today, she complains of persistent left-sided headaches. Also complains of fever. No night sweats or significant weight loss For history of CLL/SLL, she follows with Dr. Manuel De Santiago of lymphoma/leukemia clinic at [facility] [place] every 3 months and has imaging every [address]. [address] CAP on 11/15/2023 revealed unchanged mild supradiaphragmatic infradiaphragmatic adenopathy with largest lymph node in the left external iliac area measuring 2.4 x 1.3 cm, spleen size was normal. Allergies Allergy/AdvReac Type Severity Reaction Status Date / Time anastrozole AdvReac Intermediate joint Verified 12/10/23 22:07 inflammation, decreased appetite codeine AdvReac Intermediate NAUSEA/VOMI Verified 12/10/23 22:07 TING hydrocodone AdvReac Intermediate NAUSEA/VOMI Verified 12/10/23 22:07 TING oxycodone AdvReac Intermediate NAUSEA/VOMI Verified 12/10/23 22:07 TING tramadol AdvReac Intermediate NAUSEA/VOMI Verified 12/10/23 22:07 TING Home Medications Medication Instructions Recorded Confirmed Type Cbd Liquid 1 dose PO HS PRN Sleep 05/02/19 12/10/23 History ascorbic acid (vitamin C) 1,000 mg 0.5 - 1 g PO DAILY 05/02/19 12/10/23 History tablet (Vitamin C) lactobacillus combination no.4 3 3,000 mmu cells PO DAILY 05/02/19 12/10/23 History billion cell capsule (Probiotic) diphenhydramine 25 1 tab PO HS PRN Sleep 05/11/23 12/10/23 History mg-acetaminophen 500 mg tablet (Tylenol PM Extra Strength) calcium 167 mg-vitamin D3 1.67 1 cap PO QAM 06/07/23 12/10/23 History mcg-magnesium 83 mg capsule cyanocobalamin (vitamin B-12) 1,000 mcg PO DAILY 06/07/23 12/10/23 History 1,000 mcg capsule amoxicillin 875 mg-potassium 1 tab PO BID 10/20/23 12/10/23 History clavulanate 125 mg tablet diphenhydramine HCl 25 mg capsule 25 mg PO HS PRN Sleep 12/10/23 12/10/23 History (ZzzQuil) lysine 1,000 mg tablet 1,000 mg PO DAILY 12/10/23 12/10/23 History turmeric 400 mg capsule 400 mg PO DAILY 12/10/23 12/10/23 History zinc gluconate 50 mg tablet 50 mg PO DAILY 12/10/23 12/10/23 History Patient History Medical History Osteoarthritis Perforated bowel s/p colonoscopy May 18 2023 /perforated bowel / ICU stay for monitoring/no sx intervention. Discharged May 23 2023. CLL (chronic lymphocytic leukemia) no meds, has visits every [address] [facility] heme/onc for monitoring and blood work History of breast cancer s/p left mastectomy History of IBS Spinal stenosis Borderline high cholesterol Surgical History Hx of right cataract extraction History of total left knee replacement (~05/2019) History of colonoscopy History of surgery on left wrist History of total right hip arthroplasty History of discectomy History of arthroscopy of right knee multiple History of arthroscopy of left knee multiple History of left knee surgery NERVE ENTRAPMENT; numbness in left foot History of left mastectomy Family History Brother Family history of thyroid cancer Prostate cancer Grandmother (Maternal) Breast cancer Father Prostate cancer Other Colorectal cancer Schizophrenia Denies family history of Ovarian cancer Social History Smoking Status: Never smoker Second Hand Exposure: No; Do You Dip or Chew Tobacco: No; Hx Alcohol Use: Yes Alcohol type: beer and wine Hx Substance Use: No Preferred Language: Maori Communication Ability: Effective 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 Required: No Beliefs That Will Affect Care: None marital status: Current Living Situation: Spouse Feels Safe at Home: Yes Assistive Devices: Cane Results & Data Vital Signs (Past 12 Hours) Vital Signs Temp Pulse Pulse Resp BP BP Pulse Ox 12/16/23 02:41 37.8 C H 84 18 91/50 L 93 12/15/23 22:46 38.2 C H 85 18 114/62 93 12/15/23 21:56 98 H 12/15/23 21:14 37.3 C 96 H 20 139/56 L 96 12/15/23 20:15 37.3 C 88 18 115/62 96 12/15/23 19:36 12/15/23 19:15 37.3 C 78 18 110/67 98 12/15/23 18:45 37.1 C 85 18 127/72 96 12/15/23 18:30 37.1 C 87 18 124/66 92 O2 Del Method 12/16/23 02:41 Room Air 12/15/23 22:46 Room Air 12/15/23 21:56 12/15/23 21:14 12/15/23 20:15 12/15/23 19:36 Room Air 12/15/23 19:15 12/15/23 18:45 12/15/23 18:30 (2) Fever Fever type: unspecified Qualified Code(s): R50.9 - Fever, unspecified
[2023-12-16 06:50] LABS: Basophils # (auto) 0.01 K/uL (0.00-0.20); Basophils % (auto) 0.2 %; Dohle Bodies 1+; Eosinophils # (auto) 0.01 K/uL (0.00-0.50); Eosinophils % (auto) 0.2 %; Immature Granulocytes # (auto) 0.01 K/uL (0.01-0.20); Immature Granulocytes % (auto) 0.2 %; Lymphocytes # (auto) 1.84 K/uL (1.20-3.40); Lymphocytes % (auto) 44.2 %; Monocytes # (auto) 0.31 K/uL (0.11-0.59); Monocytes % (auto) 7.5 %; Neutrophils # (auto) 1.98 K/uL (1.40-6.50); Neutrophils % (auto) 47.7 %; Polychromasia 1+
--- NOTE | 2023-12-16 06:51 | Hospitalist Progress Note ---
Date of Service December 16, 2023 Assessment & Plan (1) Lymphangitis of lower extremity: (2) Cellulitis of right lower extremity: (3) Anemia: (4) Pneumonia: (5) CLL (chronic lymphocytic leukemia): Plan Pt is a 73 yo female with a past med hx of CLL and chronic anemia who presents to the hospital for 12/09 for R foot cellulitis. Cellulitis, R foot - pt noted to have started Augmentin on Monday for cellulitis, only had 2-3 days prior to hospitalization - venous US doppler neg for DVT - blood cx neg 72 hours - was on IV vancomycin, transitioned to doxycycline 12/13 which was discontinued yesterday due to new AB regime started (see below) - clinically improving Persistent fever - initially fever presumed to be secondary to her known cellulitis, but with clinical improvement of her cellulitis this seems a bit less likely - pt is outside a lot to golf but no known tick bite, lyme test neg - pt has had horrible headache worsening the last few days and a few episodes of acute body aches and joint pains - will consult oncology as pt has hx CLL and wonder if this can be due to her oncologic condition with fairly unremarkable infectious workup; to have brain MRI today - consulted ID and they advised an LP and AB therapy with ceftriaxone, vanc, ampicillin, and acyclovir until results return, concerned for possible meningitis Headache, - refractory to flexeril, tramadol, and tylenol, controlled somewhat with Dilaudid - will trial Topamax daily for her headache - no focal neurologic deficits noted on exam this morning Anemia, chronic - Hgb baseline appears around 9; - Chronically low, likely due to CLL - 12/11 was 6.9 but improved spontaneously to 8.2 in the afternoon so most likely this oscillation is due to her CLL, but with elevated retics she is making cells - low to 6.2 yesterday so given 2 units PRBCs, today 8.0 - oncology consulted Pneumonia, old Cough - pt notes hx pneumonia at the start of October and was on course of antibiotics, initially better but still has lingering cough - CXR on admission unimpressive - suspect the lingering cough is most likely still her old pneumonia resolving, especially since cough is dry and fever most likely is from her current cellulitis - continue cough drops, prn tessalon perles, tylenol, mucinex B12 deficiency - was on oral B12 the last few months with B12 levels unchanged so likely she is not absorbing it well through the GI trac - Switched from oral B12 to IM B12 1000mcg CLL - Considered to be relatively immunocompromised - oncology consulted DVT ppx: Lovenox Admission and Anticipated Discharge Date Admission Date: December 10, 2023 Supervising Physician Co-Signing Physician Notes Patient seen and examined, chart reviewed, case discussed with Dr. Barreto and I agree with the assessment and plan as above except as otherwise noted Labs and images reviewed 73-year-old female with history of CLL, chronic anemia who presented with right foot cellulitis on Augmentin which has improved but with swelling which has not resolved but who has had persistent fevers and headache. She does have a history of neuralgia previously tx with topamax. MRI of the brain does not show any acute abnormalities, no evidence of metastatic disease to explain her symptoms. She is on broad coverage for potential meningitis including Rocephin/acyclovir/vancomycin and ID is following. LP is pending. She has not had a leukocytosis No photosensitivity/phono sensitivity. No right-sided headache. At bedside chin to chest intact without exacerbation of her discomfort. She continues to have fevers, and was febrile to 38.2 overnight despite broad meningitis coverage and several days of treatment. while she does have some left-sided headache similar to her prior neurologist she does not have nuchal rigidity, notable photo/phono sensitivity. Does generally feel tired with some body aches. On afternoon reassessment she reports that she has a severe left temporal headache, and is tender to palpation at the left anterior and supraauricular temporal areas. Does have a elevated CRP of 18. She has no visual changes.? GCA. There is no palpable cording samaritan. As she has had broad antibiotic coverage, including viral meningeal coverage, but has not improved with a worsened and persistent elevated CRP and tender temporal region medial GCA rule out is reasonable and will consult surgery for temporal artery biopsy, Lovenox held. As she has not had vision change high-dose steroids are not required at this time, will start empirically on prednisone 60 mg pending further evaluation. CRP is trended Agree with assessment and management above Subjective Today, patient states that her night last night was unpleasant because she had a hard time sleeping due to her headache. She states she got a dose of dilaudid last night that did help for awhile to help her get some sleep but the headache has still just been really bothering her, along with the fevers. No chest pain or SOB. She states her right foot feels about the same as yesterday. Review of Systems Review of Systems: Per HPI. Physical Exam Physical Exam: General:Alert and oriented, no acute distress but uncomfortable appearing HEENT: Normocephalic, moist oral mucosa, Cardio: Regular rate and rhythm, no murmur, Resp:Lungs clear to auscultation bilaterally, no wheezes Skin: Warm, pink, dry, Ext: R foot with stable darkened area from yesterday, edema noted now largely in ankle and brower up past mid-brower level Results & Data Results & Data Vital Signs (Past 12 Hours) Vital Signs Temp Pulse Pulse Resp BP BP Pulse Ox 12/16/23 02:41 37.8 C H 84 18 91/50 L 93 12/15/23 22:46 38.2 C H 85 18 114/62 93 12/15/23 21:56 98 H 12/15/23 21:14 37.3 C 96 H 20 139/56 L 96 12/15/23 20:15 37.3 C 88 18 115/62 96 12/15/23 19:36 12/15/23 19:15 37.3 C 78 18 110/67 98 O2 Del Method 12/16/23 02:41 Room Air 12/15/23 22:46 Room Air 12/15/23 21:56 12/15/23 21:14 12/15/23 20:15 12/15/23 19:36 Room Air 12/15/23 19:15 Resident Activity Tracking Resident Involvement: Resident Care Provided Care Provided: Adult Hospital Medicine (4) Pneumonia Laterality: unspecified laterality Lung location: unspecified part of lung Pneumonia type: due to unspecified organism Qualified Code(s): J18.9 - Pneumonia, unspecified organism
[2023-12-16 09:02] LABS: Immunoglobulin A 112.3 mg/dl (70-400); Immunoglobulin G 613.2 mg/dl (635-1741); Immunoglobulin M < 20.0 mg/dl (45-281)
[2023-12-16 11:24] LABS: C Reactive Protein 18.71 mg/dl (0-0.5)
[2023-12-16] MEDS: GADOBUTROL 65ML VIAL IV ONE (12:14)
--- NOTE | 2023-12-16 12:55 | Magnetic Resonance Report ---
MR brain wo/w con CLINICAL HISTORY: Concern for leptomeningeal spread of CLL TECHNIQUE: Multiplanar and multisequence MR images of the brain were obtained prior to and following administration of gadolinium contrast. Comparison: Comparison is made to MRI brain 05/30/[address] head 10/20/2023 FINDINGS: No abnormal restricted diffusion is identified. Foci of T2 and FLAIR hyperintensity are noted in the paraventricular areas consistent with chronic small vessel ischemic disease. Ex vacuo ventriculomegal y and sulcal enlargement is noted compatible with diffuse volume loss. No mass or abnormal enhancemen t is seen. There is no mass effect or midline shift. There is no evidence of acute intraparenchymal h emorrhage. No extra axial fluid collections are seen. The corpus callosum, pituitary gland, and cereb ellar tonsils appear grossly unremarkable. Flow voids of the major intracranial arterial vessels are identified. The imaged portions of the para nasal sinuses, mastoid air cells, and orbits are unremarkable. IMPRESSION: No acute abnormality and in particular no evidence of metastatic disease. ACT 112: Negative or not required by law. Electronically signed by: Gino Dumas M.D. 12/16/2023 12:53 PM
--- NOTE | 2023-12-16 14:15 | Billing Data ---
Date of Service December 16, 2023 Coding Level of Care Code 05739 SUB INP/OBS CARE MIN
[2023-12-16] MEDS: predniSONE 20 MG TAB PO SCH (15:49)
--- NOTE | 2023-12-16 19:50 | Surgery Consultation ---
Date of Consultation December 16, 2023 Assessment & Plan (1) Headache: Patient has been admitted on the hospitalist service She continues to undergo evaluation for intermittent fevers and as noted a lumbar puncture has been ordered and is pending General surgery has been asked to see for consideration of perform a temporal artery biopsythe patient will be evaluated by Dr. Ladarius Purcell and we will also await the patient's ensuing evaluation to determine if temporal artery biopsy will be indicated at that time. Of note the patient does not have any visual changes or other neurologic deficits necessitating performing an emergent biopsy. In the interim which can recommend continuing antibiotics as directed by the infectious disease service and remainder of care as directed by the primary service Supervising Physician Co-Signing Physician Notes I personally saw and evaluated the patient with Bhupinder Mcginnis PA-C and agree with the assessment and plan. 73-year-old female with fevers and left-sided headache She is still being worked up for her fevers going to get a lumbar puncture tomorrow I discussed with the medical team and we have decided to hold off on temporal artery biopsy at this time and await the lumbar puncture results Will follow-up these results and be in contact with the medical team if temporal artery biopsy is deemed necessary History of Present Illness Reason for Consultation: Headache, consideration of temporal artery biopsy Attending Physician: Raheel Mercedes MD History of Present Illness This is a 73-year-old female who has been admitted to [facility] since 12/10/2023. The patient was initially admitted with swelling, pain, and redness of the right lower extremity that began 5 days prior to admission and got gradually worse. The patient was treated as an outpatient with Augmentin but this did not improve her above-noted complaints. Since admission the patient has been treated with antibiotics in the form of ampicillin, Rocephin, and vancomycin. Despite these antibiotic treatments patient has been having intermittent fevers and infectious disease was consulted and acyclovir was added to her medication regimen and a lumbar puncture was recommended which is pending. The patient also has an underlying history of leukemia and hematology oncology has been seen and they felt it was less likely that this hematologic condition was causing her fevers. General surgery was asked to see this patient secondary to her headaches. The patient notes that her headache is on the left side of her head in the temporal region. Patient reports that she does have a history of shingles in the past and reports that her current headache feels like a stabbing/knifelike sensation that is similar to what she experienced when she had occipital neuralgia in the past. She notes that the pain is improved as an outpatient with Valtrex when she takes it in time. Since admission to the hospital she says that she has been receiving Valium and Dilaudid which does help improve the pain. I did asked the patient other symptomatology and she denies any jaw claudication or visual loss or visual changes. She denies any rashes. The patient says that she has been having intermittent fevers. The patient does report that she has chronic issues with arthritis but she does not report any new arthralgias or myalgias. Available imaging that the patient had included an MRI of the of the head today which showed no acute abnormalities. She did have a CT scan of the chest this admission that showed no evidence of pneumonia with some possible bilateral axillary lymph nodes felt to be reactive in nature. The patient had a right lower extremity venous ultrasound that showed no evidence of DVT. Chest x-ray showed concern for either atelectasis or pneumonia however CT scan noted above showed no evidence of pneumonia. She also had an x-ray of her right foot that showed no fractures within the right foot. Available labs were from today including a CBC her white blood cell count was 4.1. Her hemoglobin and hematocrit are 8.0 and 23.7. Platelet count is normal. Chemistry profile today showed sodium and potassium were normal. Her BUN was normal and the creatinine was not elevated. She did have an elevated C-reactive protein 18.7. She did have immunoglobulin levels checked where her IgG level had been noted to be slightly low at 613. Her IgA levels were normal and her IgM levels were low at less than 20. The patient did have serologies checked for anaplasmosis which was negative. She also had by serology checked which was negative. The patient had a peripheral blood smear checked for parasites which was negative for any parasites. Blood cultures were checked on 12/10/2023 which are negative for growth. At the time of my interview the patient was resting comfortably bed and she was no distress Allergies Allergy/AdvReac Type Severity Reaction Status Date / Time anastrozole AdvReac Intermediate joint Verified 12/10/23 22:07 inflammation, decreased appetite codeine AdvReac Intermediate NAUSEA/VOMI Verified 12/10/23 22:07 TING hydrocodone AdvReac Intermediate NAUSEA/VOMI Verified 12/10/23 22:07 TING oxycodone AdvReac Intermediate NAUSEA/VOMI Verified 12/10/23 22:07 TING tramadol AdvReac Intermediate NAUSEA/VOMI Verified 12/10/23 22:07 TING Home Medications Medication Instructions Recorded Confirmed Type Cbd Liquid 1 dose PO HS PRN Sleep 05/02/19 12/10/23 History ascorbic acid (vitamin C) 1,000 mg 0.5 - 1 g PO DAILY 05/02/19 12/10/23 History tablet (Vitamin C) lactobacillus combination no.4 3 3,000 mmu cells PO DAILY 05/02/19 12/10/23 History billion cell capsule (Probiotic) diphenhydramine 25 1 tab PO HS PRN Sleep 05/11/23 12/10/23 History mg-acetaminophen 500 mg tablet (Tylenol PM Extra Strength) calcium 167 mg-vitamin D3 1.67 1 cap PO QAM 06/07/23 12/10/23 History mcg-magnesium 83 mg capsule cyanocobalamin (vitamin B-12) 1,000 mcg PO DAILY 06/07/23 12/10/23 History 1,000 mcg capsule amoxicillin 875 mg-potassium 1 tab PO BID 10/20/23 12/10/23 History clavulanate 125 mg tablet diphenhydramine HCl 25 mg capsule 25 mg PO HS PRN Sleep 12/10/23 12/10/23 History (ZzzQuil) lysine 1,000 mg tablet 1,000 mg PO DAILY 12/10/23 12/10/23 History turmeric 400 mg capsule 400 mg PO DAILY 12/10/23 12/10/23 History zinc gluconate 50 mg tablet 50 mg PO DAILY 12/10/23 12/10/23 History Patient History Medical History Osteoarthritis Perforated bowel s/p colonoscopy May 18 2023 /perforated bowel / ICU stay for monitoring/no sx intervention. Discharged May 23 2023. History of breast cancer s/p left mastectomy History of IBS Spinal stenosis Borderline high cholesterol Surgical History Hx of right cataract extraction History of colonoscopy History of surgery on left wrist History of total right hip arthroplasty History of discectomy History of arthroscopy of right knee multiple History of arthroscopy of left knee multiple History of left knee surgery NERVE ENTRAPMENT; numbness in left foot History of left mastectomy Family History Brother Family history of thyroid cancer Prostate cancer Grandmother (Maternal) Breast cancer Father Prostate cancer Other Colorectal cancer Schizophrenia Denies family history of Ovarian cancer Social History Smoking Status: Never smoker Second Hand Exposure: No; Do You Dip or Chew Tobacco: No; Hx Alcohol Use: Yes Alcohol type: beer and wine Hx Substance Use: No Preferred Language: Mohawk Communication Ability: Effective Embedded Nurse Required: No Beliefs That Will Affect Care: None marital status: Current Living Situation: Spouse Feels Safe at Home: Yes Assistive Devices: Cane Review of Systems Constitutional: + fever Eyes: no diplopia and no problem reported Ear, Nose, Mouth, Throat: no hearing loss Respiratory: + cough Cardiovascular: no chest pain Gastrointestinal: no abdominal pain Genitourinary: no dysuria Musculoskeletal: no myalgia Integumentary: no rash Neurologic: as per Subjective / HPI Physical Exam Constitutional: WD/WN, vitals as above Eyes: PERRL, conjunctivae normal, anicteric sclerae ENMT: Ears: no hearing impairment and no external ear abnormality Mouth: no oropharynx abnormality Neck: trachea midline Respiratory: no labored breathing Cardiovascular: Rate/Rhythm: regular rate and regular rhythm Gastrointestinal (Abdomen): Soft and nontender Musculoskeletal: No calf tenderness Skin: no rashes Neurologic: Patient is able to move all 4 extremities and follows simple commands without noted focal deficits. Cranial nerves II through XII appear grossly intact. The patient did not have any pain with palpation over the temporal arteries bilaterally. Psychiatric: A+Ox3, euthymic affect Results & Data Vital Signs (Past 12 Hours) Vital Signs Temp Pulse Resp BP Pulse Ox O2 Del Method 12/16/23 19:16 37.8 C H 83 17 111/60 93 Room Air 12/16/23 16:56 Room Air 12/16/23 15:31 37.0 C 82 18 99/57 L 97 Room Air PG Care Time/CCT Total # of Minutes Spent Total Time Spent with Patient: Total time spent is greater than 50% in coordination of care (as documented) at patient's floor/unit and/or counseling patient: Coding Level of Care Code 08833 INT INP/OBS CARE 375MIN Diagnoses Headache R51.9
--- NOTE | 2023-12-17 06:59 | Hospitalist Progress Note ---
Date of Service December 17, 2023 Assessment & Plan (1) Lymphangitis of lower extremity: (2) Cellulitis of right lower extremity: (3) Anemia: (4) Pneumonia: (5) CLL (chronic lymphocytic leukemia): Plan Pt is a 73 yo female with a past med hx of CLL and chronic anemia who presents to the hospital for 12/09 for R foot cellulitis. Continued admission for severe headache with persistent fevers and anemia. Cellulitis, R foot - pt noted to have started Augmentin on Monday for cellulitis, only had 2-3 days prior to hospitalization - initial venous US doppler neg for DVT - blood cx neg 72 hours - was on IV vancomycin, transitioned to doxycycline 12/13 which was discontinued yesterday due to new AB regime started (see below) - clinically stable, will do repeat US as edema has progressed some and some calf pain noted Persistent fever - initially fever presumed to be secondary to her known cellulitis, but with clinical improvement of her cellulitis this seems a bit less likely - pt is outside a lot to golf but no known tick bite, lyme test neg - pt has had horrible headache worsening the last few days and a few episodes of acute body aches and joint pains - will consult oncology as pt has hx CLL and wonder if this can be due to her oncologic condition with fairly unremarkable infectious workup; to have brain MRI today - consulted ID and they advised an LP and AB therapy with ceftriaxone, vanc, ampicillin, and acyclovir until results return, concerned for possible meningitis - plan for hopeful LP tomorrow, if + then treat accordingly, if - then will contact gen surg for temporal artery biopsy to r/o GCA Headache, - refractory to flexeril, tramadol, and tylenol, controlled somewhat with Dilaudid - will trial Topamax daily for her headache - no focal neurologic deficits noted on exam this morning - MRI brain 12/15 unremarkable - improved today but etiology difficult to determine as pt on a cocktail of antibiotics last few days and started on prednisone yesterday Anemia, chronic - Hgb baseline appears around 9; - Chronically low, likely due to CLL - 12/11 was 6.9 but improved spontaneously to 8.2 in the afternoon so most likely this oscillation is due to her CLL, but with elevated retics she is making cells - low to 6.2 12/14 so given 2 units PRBCs, today 9.5 - oncology consulted Pneumonia, old Cough - pt notes hx pneumonia at the start of October and was on course of antibiotics, initially better but still has lingering cough - CXR on admission unimpressive - suspect the lingering cough is most likely still her old pneumonia resolving, especially since cough is dry and fever most likely is from her current cellulitis - continue cough drops, prn tessalon perles, tylenol, mucinex B12 deficiency - was on oral B12 the last few months with B12 levels unchanged so likely she is not absorbing it well through the GI trac - Switched from oral B12 to IM B12 1000mcg CLL - Considered to be relatively immunocompromised - oncology consulted DVT ppx: Lovenox Admission and Anticipated Discharge Date Admission Date: December 10, 2023 Supervising Physician Co-Signing Physician Notes Patient seen and examined, chart reviewed, case discussed with Dr. Barreto and I agree with the assessment and plan as above except as otherwise noted Labs and images reviewed Fevers improved overnight. Patient's headache has also resolved. She continues to have right lower extremity swelling however the bright erythema has resolved compared to prior. She does endorse that she had new pain in the right lower extremity which is spread into her calf, repeat Dopplers do not show any evidence of DVT. Slow improvement of edema however it does not appear actively infected and she has been on broad antibiotic coverage. SCDs/fluid mobilization strategies to help resolve edema. Her headache has improved and she does not have palpable temporal tenderness today, and no cording of the temporal arteries; is also afebrile with a now downtrending CRP today. Did receive a single dose of prednisone. Reviewed with surgery, does not require emergent evaluation for GCA as she has no vision changes. There is no obvious cording of the temporal arteries. Will complete LP tomorrow morning, if this shows evidence of meningitis or improving viral meningitis then would defer biopsy at that time. If this is negative then we will evaluate for potential artery biopsy at that time. She has no meningeal signs today and appears clinically improved. Agree with assessment and management above Subjective Today, pt states her headache has resolved. She states she overall feels much better today than she did yesterday with her awful headache. No chest pain or SOB. She states she is nervous to take the prednisone because last time she took it she had a lesion in her nose that she states had to be removed and that she was on valtrex at the time that helped. She is agreeable to be on the prednisone while she is on acyclovir but states she is just otherwise nervous to be on it if not continuing on the acyclovir. Her leg she states seems swollen but is about the same as yesterday in general. No further questions or complaints at this time. She states she is glad her headache has improved. Review of Systems Review of Systems: Per HPI. Physical Exam Physical Exam: General:Alert and oriented, no acute distress HEENT: Normocephalic, moist oral mucosa, Cardio: Regular rate and rhythm, no murmur, Resp:Lungs clear to auscultation bilaterally, no wheezes Skin: Warm, pink, dry, Ext: R foot with darkened area up above mid brower with edema noted from above mid brower down, not as warm or erythematous as on admission but slight progression of edema noted, Results & Data Results & Data Vital Signs (Past 12 Hours) Vital Signs Temp Pulse Pulse Resp BP Pulse Ox O2 Del Method 12/17/23 02:52 36.8 C 75 18 99/55 L 97 Room Air 12/16/23 22:59 36.9 C 81 17 114/63 96 Room Air 12/16/23 22:50 82 12/16/23 19:16 37.8 C H 83 17 111/60 93 Room Air Resident Activity Tracking Resident Involvement: Resident Care Provided Care Provided: Adult Hospital Medicine (4) Pneumonia Laterality: unspecified laterality Lung location: unspecified part of lung Pneumonia type: due to unspecified organism Qualified Code(s): J18.9 - Pneumonia, unspecified organism
[2023-12-17 09:13] LABS: Hematocrit (blood only) 28.7 % (37.0-47.0); Hemoglobin 9.5 g/dl (12.0-16.0); Mean Corpuscular Hemoglobin 34.9 pg (25.0-34.0); Mean Corpuscular Hgb Conc 33.1 g/dL (32.0-36.0); Mean Corpuscular Volume 105.5 fL (80.0-100.0); Mean Platelet Volume 10.8 fL (9.4-12.4); Platelet Count 328 K/uL (130-400); RDW Coefficient of Variation 19.1 % (11.5-14.5); RDW Standard Deviation 73.4 fL (36.4-46.3); Red Blood Count 2.72 M/uL (4.20-5.40); White Blood Count 5.68 K/ul (4.8-10.8)
[2023-12-17] MEDS: VANCOMYCIN LEVEL ONE (09:18)
[2023-12-17 09:23] LABS: BUN Creatinine Ratio 34.7 (10-20); C Reactive Protein 12.66 mg/dl (0-0.5); Creatinine Clr Calc Pharmacy 87.1 ml/min; Est GFR (African American) 113.6 ml/min; Potassium 3.6 mmol/L (3.5-5.1)
[2023-12-17 09:29] LABS: Anisocytosis Present; Basophils # (auto) 0.01 K/uL (0.00-0.20); Basophils % (auto) 0.2 %; Dohle Bodies 1+; Immature Granulocytes # (auto) 0.02 K/uL (0.01-0.20); Immature Granulocytes % (auto) 0.4 %; Lymphocytes # (auto) 2.08 K/uL (1.20-3.40); Lymphocytes % (auto) 36.6 %; Monocytes # (auto) 0.49 K/uL (0.11-0.59); Monocytes % (auto) 8.6 %; Neutrophils # (auto) 3.08 K/uL (1.40-6.50); Neutrophils % (auto) 54.2 %; Polychromasia 1+; Toxic Granulation 1+
--- NOTE | 2023-12-17 09:47 | Pharmacy Report ---
Pharmacy PK ABX Note - Date of Service December 17, 2023 - Assessment and Plan Assessment 12/16: Day # 3 vancomycin, ampicillin, acyclovir, ceftriaxone for possible meningitis. Pending LP. Renal function stable. 12/14: 73 year old F receiving antibiotics for RLE cellulitis and possible t ickborne illness. Antibiotics broadened to vancomycin, ampicillin, ceftriaxone, and acyclovir IV for possible meningitis. LP ordered. Previously on vanco IV 12/09- 12/13 AM Plan Vancomycin * Current regimen: 1gm IV q8h * Trough level this AM (~6h steady state level) - 15.1mcg/mL. Predicted to achieve ssAUC 553mg/L.hr - therapeutic. * Continue vancomycin 1gm IV q8h. Repeat level in ~ 48h or sooner if clinically indicated. Pharmacy will continue to follow and will adjust dose/frequency as necessary. Thank you. Pharmacy has transitioned to AUC monitoring for vancomycin. AUC/ELIOT is the preferred PK/PD target and is associated with decreased risk of nephrotoxicity compared to traditional trough targets.
--- NOTE | 2023-12-17 10:55 | Ultrasound Report ---
US venous doppler LE RT CLINICAL HISTORY: Reasses for DVT R calf TECHNIQUE: Right lower extremity real-time compression venous ultrasound with Color Doppler imaging. Utilizing real-time ultrasonic imaging multiple real time high-resolution ultrasonic images with comp ression and noncompression maneuvers of the deep venous system in addition to color doppler imaging w ere performed from the common femoral vein through the proximal calf veins. COMPARISON: Comparison is made to lower extremity ultrasound 12/10/2023 FINDINGS/IMPRESSION: Currently there is normal compressibility of the deep venous system from the common femoral vein thro ugh the proximal calf veins. No superficial venous thrombosis is identified. Soft tissue edema is se en. ACT 112: Negative or not required by law. Electronically signed by: Gino Dumas M.D. 12/17/2023 10:54 AM
--- NOTE | 2023-12-17 11:41 | Billing Data ---
Date of Service December 17, 2023 Coding Level of Care Code 09317 SUB INP/OBS CARE MIN
[2023-12-18 06:28] LABS: Hematocrit (blood only) 24.2 % (37.0-47.0); Mean Corpuscular Hemoglobin 35.1 pg (25.0-34.0); Mean Corpuscular Hgb Conc 33.1 g/dL (32.0-36.0); Mean Corpuscular Volume 106.1 fL (80.0-100.0); Mean Platelet Volume 11.2 fL (9.4-12.4); Platelet Count 266 K/uL (130-400); RDW Standard Deviation 68.5 fL (36.4-46.3); Red Blood Count 2.28 M/uL (4.20-5.40); White Blood Count 3.95 K/ul (4.8-10.8)
[2023-12-18 06:48] LABS: BUN Creatinine Ratio 40.4 (10-20); C Reactive Protein 4.56 mg/dl (0-0.5); Calcium 7.8 mg/dl (8.6-10.3); Est GFR (African American) 111.4 ml/min; Est GFR (Non-African American) 96.1 ml/min; Potassium 3.7 mmol/L (3.5-5.1)
[2023-12-18 07:19] LABS: Basophils # (auto) 0.01 K/uL (0.00-0.20); Basophils % (auto) 0.3 %; Dohle Bodies Occasional; Immature Granulocytes # (auto) 0.01 K/uL (0.01-0.20); Immature Granulocytes % (auto) 0.3 %; Lymphocytes # (auto) 1.64 K/uL (1.20-3.40); Lymphocytes % (auto) 41.5 %; Monocytes # (auto) 0.27 K/uL (0.11-0.59); Monocytes % (auto) 6.8 %; Neutrophils # (auto) 2.02 K/uL (1.40-6.50); Neutrophils % (auto) 51.1 %
[2023-12-18 09:57] LABS: Appearance CSF Clear; CSF Count Tube # 3; CSF Xanthrochromic No xanthochromia; Color CSF Colorless; Red Blood Cell CSF Manual 8 (0-); White Blood Cell CSF Manual 0 (0-5)
[2023-12-18 10:00] LABS: Total Protein CSF 46.8 mg/dl (15-45)
--- NOTE | 2023-12-18 10:41 | Hospitalist Progress Note ---
Date of Service December 18, 2023 Assessment & Plan (1) Lymphangitis of lower extremity: (2) Cellulitis of right lower extremity: (3) Anemia: (4) Pneumonia: (5) CLL (chronic lymphocytic leukemia): Plan Pt is a 73 yo female with a past med hx of CLL and chronic anemia who presents to the hospital for 12/09 for R foot cellulitis. Continued admission for severe headache with persistent fevers and anemia. Headache - ID consulted - recurrent HSV vs GCA vs unknown etiology - refractory to flexeril, tramadol, and tylenol, controlled somewhat with Dilaudid - MRI brain 12/15 unremarkable - LP neg. discontinue ceftriaxone, vanc, ampicillin, and acyclovir - start doxycycline 100 mg PO BID (end 12/24) - start valtrex 1000 mg PO q12h (end 12/25) - pt refused prednisone taper and temporal artery biopsy - pt advised to return if CHRISTOPHER recurs once discharged w/o pred Cellulitis, R foot - pt noted to have started Augmentin on Thursday 12/07 for cellulitis, only had 2-3 days prior to hospitalization - initial venous US doppler and repeat on 12/16 neg for DVT - blood cx neg 72 hours - was on IV vancomycin, transitioned to doxycycline 12/13 which was discontinued 12/14 due to new AB regimen Persistent fever Chronic anemia CLL - Considered to be relatively immunocompromised - oncology consulted - Hgb baseline appears around 9; 7/2 was 6.9 but improved spontaneously to 8.2 so most likely this oscillation is due to her CLL, but with elevated retics she is making cells - low to 6.2 12/14 so given 2 units PRBCs, today 8 Pneumonia, old Cough - pt notes hx pneumonia at the start of October, was on course of abx, improved but still has lingering cough - CXR on admission unimpressive - suspect the lingering cough is most likely still her old pneumonia resolving, especially since cough is dry and fever most likely is from her current cellulitis - continue cough drops, prn tessalon perles, tylenol, mucinex B12 deficiency - was on oral B12 the last few months with B12 levels unchanged so likely she is not absorbing it well through the GI trac - Switched from oral B12 to IM B12 1000mcg DVT ppx: Lovenox Admission and Anticipated Discharge Date Admission Date: December 10, 2023 Supervising Physician Co-Signing Physician Notes Attending attestation Pt seen and examined in concert with Dr. Carbajal. In agreement with the documented findings as noted in the resident documentation with any exceptions or additions as noted here. Ongoing swelling and discomfort of the right lower extremity considerably improved from presentation in appearance and pain level. Complete resolution of headache. On conversation, prefers not to do temporal bx nor prednisone taper. On examination, S1/S2 nl RRR no MCG. CTAB. Abd NT/ND BS+ve. RLE with ongoing edema 1+ to the upper brower with mild TTP without erythema or considerable induration. Cellulitis of the right lower extremity - ID consult - transition to PO Doxycycline x 2 wks to cover cellulitis and tickborne illness Headache - concern for HSV/VZV vs. temporal/giant cell arteritis vs. other occult cause - reviewed with patient re: while completing course of valacyclovir will be helpful if HSV/VZV related, without doing biopsy/treatment with steroids there is a possibility of ongoing inflammatory arteritis cause which may result in recurrent symptoms including vision loss, morbidity. Patient will d/w family and consider intervention vs. watchful waiting on valacyclovir and not steroid tx. Else see resident documentation as noted. Subjective Patient reports feeling well this morning. Her RLE is improved, with less swelling, warmth, and hyperpigmentation. She is now able to feel her right foot and wiggle her toes, and she walked a few laps through the halls. She reports having very little cough now, usually when eating. She reports no chest pain or SOB. Her CHRISTOPHER has not recurred since yesterday. She stated reluctance to take prednisone, and the possibility of GCA and the necessity for treatment was discussed with her. She had no other questions or complaints. Review of Systems 2 Review of Systems: Per HPI Physical Exam 2 Physical Exam: General: AOx3, NAD CV: RRR, m/r/g Resp: CTAB GI: NT/ND, +BS MSK: RLE edema to the knee, mild hyperpigmentation, no warmth, non-tender Results & Data Results & Data Vital Signs (Past 12 Hours) Vital Signs Temp Pulse Pulse Pulse Resp BP Pulse Ox 12/18/23 15:36 36.5 C 70 18 107/63 95 12/18/23 12:49 36.6 C 66 16 126/76 98 07/08/24 09:23 37.0 C 92 H 18 96 12/18/23 09:08 36.9 C 85 16 96 12/18/23 08:53 36.7 C 82 16 9 L 12/18/23 08:38 36.7 C 54 L 82 8 L 12/18/23 07:30 12/18/23 07:24 36.6 C 73 18 135/75 97 12/18/23 03:10 36.5 C 74 18 115/65 96 12/17/23 22:54 36.7 C 77 17 112/60 98 12/17/23 22:11 61 12/17/23 19:21 36.6 C 80 17 118/68 98 Intake and Output 12/18/23 12/18/23 12/18/23 06:59 14:59 22:59 Intake Total 883.6 / 2400.8 839.017 / 939.017 100 / 939.017 Output Total 450 / 450 Balance 883.6 / 2400.8 389.017 / 489.017 100 / 489.017 Intake: IV 633.6 / 1850.8 464.017 / 564.017 100 / 564.017 Acyclovir Sod 680 mg In 113.6 / 340.8 113.6 / 113.6 Dextrose 5% 100 ml @ 100 mls/hr IV Q8H [facility] Rx#:[id number] Ampicillin 2,000 mg In Sodium 200 / 600 80.417 / 180.417 100 / 180.417 Chlor 0.9% Mini-B 100 ml @ 200 mls/hr IV Q4H [facility] Rx#:[id number] Vancomycin HCl 1,000 mg In 270 / 810 270 / 270 Sodium Chloride 0.9% 250 ml @ 200 mls/hr IV Q8H [facility] Rx#: [id number] cefTRIAXone SODIUM 2,000 mg In 50 / 100 50 ml @ 100 mls/hr IV Q12H [facility] Rx#:[id number] Oral 250 / 550 375 / 375 Output: Urine 450 / 450 Other: # Unmeasured Voids 2 Weight 63.5 kg Weight Measurement Method Built in [facility] Laboratory Results 12/18/23 05:42 12/18/23 05:42 CSF Analysis CSF Appearance Clear CSF Color Colorless Xanthrochromic No CSF WBC (0-5) 0 CSF RBC (0-) 8 CSF Cell Count Tube # 3 CSF Chemistry Tube # 1 CSF Glucose (40-70 mg/dl) 65 CSF Total Protein 46.8 H CSF C.neoform/gat PCR (NotDetected) CSF CMV DNA (PCR) (NotDetected) CSF Enterovirus (PCR) (NotDetected) CSF E. coli K1 (PCR) (NotDetected) CSF H. influenzae (PCR) (NotDetected) CSF HSV I (PCR) (NotDetected) CSF HSV II (PCR) (NotDetected) CSF HHV 6 (PCR) (NotDetected) CSF L.monocytogenes PCR (NotDetected) CSF N. meningitidis PCR (NotDetected) CSF Parechovirus (PCR) (NotDetected) CSF S. agalactiae (PCR) (NotDetected) CSF S. pneumoniae (PCR) (NotDetected) CSF VZV DNA (PCR) (NotDetected) CSF West Nile RNA (pending) Resident Activity Tracking Resident Involvement: Resident Care Provided Care Provided: Adult Hospital Medicine (4) Pneumonia Laterality: unspecified laterality Lung location: unspecified part of lung P neumonia type: due to unspecified organism Qualified Code(s): J18.9 - Pneumonia, unspecified organism
[2023-12-18 11:14] LABS: Cryptococcus neoformans/ga PCR Not Detected (NotDetected); Cytomegalovirus PCR Not Detected (NotDetected); Enterovirus PCR Not Detected (NotDetected); Escherichia coli K1 PCR Not Detected (NotDetected); Haemophilius influenzae PCR Not Detected (NotDetected); Herpes Simplex Virus 1 PCR Not Detected (NotDetected); Herpes Simplex Virus 2 PCR Not Detected (NotDetected); Human Herpes Virus 6 PCR Not Detected (NotDetected); Human Parechovirus PCR Not Detected (NotDetected); Listeria monocytogenes PCR Not Detected (NotDetected); Neisseria meningitidis PCR Not Detected (NotDetected); Streptococcus agalactiae PCR Not Detected (NotDetected); Streptococcus pneumoniae PCR Not Detected (NotDetected); Varicella Zoster Virus PCR Not Detected (NotDetected)
--- NOTE | 2023-12-18 11:41 | Infectious Disease Progress Nt ---
Date of Service December 18, 2023 Assessment & Plan (1) Cellulitis of right lower extremity: (2) Sepsis: (3) Fever: Plan THis is a 73 year old female with H/o breast cancer sp L mastectomy, CLL/SLL on surveillance, L TKA, recent pneumomia in late October 2023 presents with RLE redness , pain swelling and warmth associated with fevers. She denies trauma to area. I am able to get a limited history from the patient as she is in pain from headache during my visit. Her is at bedside and provides some history. Prior to admission she received 3 days of augmentin with progression of cellulitis . She denies an inciting event. . In the Ed she was febrile with a T 38.5, HR 95. Labs wbc 7.81, H/H 9.5/28.4, plts 344, bun 16, cr 0.63. LE doppler negative for dvt. CT chest with no evidence of pneumonia.non specific Bilateral axillary lymph nodes. She was started on IV Vancomycin for cellulitis with some improvement. Her hospital course with c/b continued fever, worsening anemia and left sided headed which refers to the right side when she moves her head. She reports a history of shingles and cold sores. She denies any sores or rash now. In October she reports that she developed headaches and fevers while being treated for pneumonia. She was given Valtrex and the fevers and headaches resolved. She denies pet or tick exposure. She did not elaborate on travel history as she was relatively uncomfortable during exam. She denies sweats, ab pain , nausea and vomiting. She has an occasional cough since her pneumonia in October , but this has improved. Id consulted for fevers despite antibiotics for RLE cellulitis. #High fevers, headache; resolved #History of cold sores and shingles outbreaks #RLE cellulitis, improving # worsening anemia, stable leukopenia #CLL/SLL She had been febrile since admission. Initially thought to be secondary to cellulitis, but fevers persisted despite appropriate cellulitis abx coverage. Her course had been c/b increased headaches which she states worsened inpatient. She has a history of cold sores and shingles but I did not see any obvious vesicles /rash. SHe denies any new lesions. In the past her headache/fever resolved with Valrex ( ? Mollaret meningitis)vs recurrent outbreak with neuralgia with stressor trigger. She reports a history of biopsy + nasal lesion with herpes. This occured when she was sick and received prednisone. Additionally, her H/H has decreased. She denies recent tick bites, but this does not rule this out. 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 No intraRBC or WBC seen on blood smear but repeat pending. She is s/p eval by [facility]. She was started empirically on IV acyclovir and bacterial meningitis abx ( ceftriaxone, vanco , amp) on 12/14 pending LP She was started on prednisone by primary team on 12/15 for ? temporal arteritis. 12/17- complete resolution of headaches and fevers. She feels back to her baseline and wants to go home. CSF studies not c/w meningitis. HSV and VZV pcr not detected. She is more comfortable today and reiterates her history of HSV r shingles outbreaks with stressors that usually resolves with valtex Recommendation -Discontinue Acyclovir, vancomycin, ceftriaxone, and ampicillin -Continue doxycycline 100 mg po bid for total of 7 days . EOT for doxy: 12/29 which eill cover cellulitis and some tick borne diseases ( Ehrlichia/anaplasma pcr pending) -Start Valtrex 1g po q12h for 7 days EOT for valtrex 12/24 Given pts history of recurrent outbreaks per report, may consider suppression with valtrex 500 mg po daily AFTER she completes treatment dosing ( she follows with a functional medicine doctor and can d/w her provider post discharge if she wants to pursue this) . ID will sign off. Please call with questions. Shala Beauchamp MD, MPH Infectious Disease [facility], ID Division Admission and Anticipated Discharge Date Admission Date: December 10, 2023 Subjective Subsequent visit was provided via telemedicine using two-way real-time interactive telecommunication between the patient and the telemedicine provider. For the duration of the visit, the provider was performing the assessment from a different facility than the patient. This includesuse of bluetooth stethoscope forauscultationperformed by the telepresenter that the telemedicine provider can hear if described in the physical exam. Veneer Splicer contact information: Please call [facility] Center . (Phone Number For Physician Use Only) After establishing a telemedicine visit, patient was: Patient was verified with two unique identifiers Time Spent with Patient: Subsequent => 35 min Headaches and fevers resolved. Pt is awake, alert and able to give me a history now that headaches resolved. Feels well and wants to go home S/P LP. CSF results not c/w meningtis She feels her improvement is from IV antivirals as she has had this presentation in the past that resolved with Valtex Physical Exam Physical Exam: Gen- NAD, back to her baseling ( marked improvement from 12/14 exam) Neck- No meningeal signs, supple HEENT- anicteric sclera Skin - . No oral sores of obvious lesions, ulcers on exposed skin Lung- No increased work of breathing Abd- soft Ext- RLE with edema redness, warmth, mildy tender ( improved ) Neuro- Non focal, awake , alert, oriented *3 Results & Data Vital Signs (Past 12 Hours) Vital Signs Temp Pulse Pulse Resp BP Pulse Ox O2 Del Method 12/18/23 09:23 37.0 C 92 H 18 96 Room Air 12/18/23 09:08 36.9 C 85 16 96 Room Air 12/18/23 08:53 36.7 C 82 16 9 L Room Air 12/18/23 08:38 36.7 C 54 L 82 8 L Room Air 12/18/23 07:24 36.6 C 73 18 135/75 97 Room Air 12/18/23 03:10 36.5 C 74 18 115/65 96 Room Air Laboratory Results Laboratory Results - last 48 hr 12/15/23 12/17/23 12/18/23 12:36 08:34 05:42 WBC 5.68 3.95 L RBC 2.72 L 2.28 L Hgb 9.5 L 8.0 L Hct 28.7 L 24.2 L MCV 105.5 H 106.1 H MCH 34.9 H 35.1 H MCHC 33.1 33.1 RDW Std Deviation 73.4 H 68.5 H RDW Coeff of Andi 19.1 H 18.0 H Plt Count 328 266 MPV 10.8 11.2 Immature Gran % (Auto) 0.4 0.3 Neut % (Auto) 54.2 51.1 Lymph % (Auto) 36.6 41.5 [place] % (Auto) 8.6 6.8 Eos % (Auto) 0.0 0.0 Baso % (Auto) 0.2 0.3 Neut # (Auto) 3.08 2.02 Lymph # (Auto) 2.08 1.64 [place] # (Auto) 0.49 0.27 Eos # (Auto) 0.00 0.00 Baso # (Auto) 0.01 0.01 Immature Gran # (Auto) 0.02 0.01 Toxic Granulation 1+ Dohle Bodies 1+ Occasional Polychromasia 1+ Anisocytosis Present Haptoglobin 536 H Sodium 140 143 Potassium 3.6 3.7 Chloride 109 H 113 H Carbon Dioxide 24 24 Anion Gap 7 6 BUN 17 21 Creatinine 0.49 L 0.52 L Est Cr Clr Drug Dosing 87.1 89.0 Est GFR ( Amer) 113.6 111.4 Est GFR (Non-Af Amer) 98.0 96.1 BUN/Creatinine Ratio 34.7 H 40.4 H Glucose 115 H 94 Calcium 8.0 L 7.8 L C-Reactive Protein 12.66 H 4.56 H Fluid Comment CSF Appearance CSF Color Xanthrochromic CSF WBC CSF RBC CSF Cell Count Tube # CSF Chemistry Tube # CSF Glucose CSF Total Protein CSF C.neoform/gat PCR CSF CMV DNA (PCR) CSF Enterovirus (PCR) CSF E. coli K1 (PCR) CSF H. influenzae (PCR) CSF HSV I (PCR) CSF HSV II (PCR) CSF HHV 6 (PCR) CSF L.monocytogenes PCR CSF N. meningitidis PCR CSF Parechovirus (PCR) CSF S. agalactiae (PCR) CSF S. pneumoniae (PCR) CSF VZV DNA (PCR) Random Vancomycin 15.1 12/18/23 12/18/23 09:03 09:03 WBC RBC Hgb Hct MCV MCH MCHC RDW Std Deviation RDW Coeff of Andi Plt Count MPV Immature Gran % (Auto) Neut % (Auto) Lymph % (Auto) [place] % (Auto) Eos % (Auto) Baso % (Auto) Neut # (Auto) Lymph # (Auto) [place] # (Auto) Eos # (Auto) Baso # (Auto) Immature Gran # (Auto) Toxic Granulation Dohle Bodies Polychromasia Anisocytosis Haptoglobin Sodium Potassium Chloride Carbon Dioxide Anion Gap BUN Creatinine Est Cr Clr Drug Dosing Est GFR ( Amer) Est GFR (Non-Af Amer) BUN/Creatinine Ratio Glucose Calcium C-Reactive Protein Fluid Comment CSF Appearance Clear CSF Color Colorless Xanthrochromic No xanthochromia CSF WBC 0 CSF RBC 8 CSF Cell Count Tube # 3 CSF Chemistry Tube # 1 CSF Glucose 65 CSF Total Protein Cancelled 46.8 H CSF C.neoform/gat PCR Not Detected CSF CMV DNA (PCR) Not Detected CSF Enterovirus (PCR) Not Detected CSF E. coli K1 (PCR) Not Detected CSF H. influenzae (PCR) Not Detected CSF HSV I (PCR) Not Detected CSF HSV II (PCR) Not Detected CSF HHV 6 (PCR) Not Detected CSF L.monocytogenes PCR Not Detected CSF N. meningitidis PCR Not Detected CSF Parechovirus (PCR) Not Detected CSF S. agalactiae (PCR) Not Detected CSF S. pneumoniae (PCR) Not Detected CSF VZV DNA (PCR) Not Detected Random Vancomycin Diagnostic Findings Microbiology 12/18/23 09:03 Cerebral Spinal Fluid Gram Stain - Final 12/10/23 19:09 Blood Aerobic Blood Culture - Final No growth in Aerobic bottle after 5 days. 12/10/23 19:09 Blood Anaerobic Blood Culture - Final No growth in Anaerobic bottle after 5 days. 12/10/23 18:47 Blood Aerobic Blood Culture - Final No growth in Aerobic bottle after 5 days. 12/10/23 18:47 Blood Anaerobic Blood Culture - Final No growth in Anaerobic bottle after 5 days. 12/14/23 15:09 Blood Blood Parasites Smear - Final Brain MRI 12/16/23 07:50 MR brain wo/w con CLINICAL HISTORY: Concern for leptomeningeal spread of CLL TECHNIQUE: Multiplanar and multisequence MR images of the brain were obtained prior to and following administration of gadolinium contrast. Comparison: Comparison is made to MRI brain 05/30/[address] head 10/20/2023 FINDINGS: No abnormal restricted diffusion is identified. Foci of T2 and FLAIR hyperintensity are noted in the paraventricular areas consistent with chronic small vessel ischemic disease. Ex vacuo ventriculomegaly and sulcal enlargement is noted compatible with diffuse volume loss. No mass or abnormal enhancement is seen. There is no mass effect or midline shift. There is no evidence of acute intraparenchymal hemorrhage. No extra axial fluid collections are seen. The corpus callosum, pituitary gland, and cerebellar tonsils appear grossly unremarkable. Flow voids of the major intracranial arterial vessels are identified. The imaged portions of the paranasal sinuses, mastoid air cells, and orbits are unremarkable. IMPRESSION: No acute abnormality and in particular no evidence of metastatic disease. ACT 112: Negative or not required by law. Electronically signed by: Gino Dumas M.D. 12/16/2023 12:53 PM Venous Doppler Study 12/17/23 09:10 US venous doppler LE RT CLINICAL HISTORY: Reasses for DVT R calf TECHNIQUE: Right lower extremity real-time compression venous ultrasound with Color Doppler imaging. Utilizing real-time ultrasonic imaging multiple real time high-resolution ultrasonic images with compression and noncompression maneuvers of the deep venous system in addition to color doppler imaging were performed from the common femoral vein through the proximal calf veins. COMPARISON: Comparison is made to lower extremity ultrasound 12/10/2023 FINDINGS/IMPRESSION: Currently there is normal compressibility of the deep venous system from the common femoral vein through the proximal calf veins. No superficial venous thrombosis is identified. Soft tissue edema is seen. ACT 112: Negative or not required by law. Electronically signed by: Gino Dumas M.D. 12/17/2023 10:54 AM Medications Administered Home Medications Medication Instructions Recorded Confirmed Last Taken Cbd Liquid 1 dose PO HS PRN Sleep 05/02/19 12/10/23 06/09/19 20:30 ascorbic acid (vitamin C) 1,000 mg 0.5 - 1 g PO DAILY 05/02/19 12/10/23 12/10/23 tablet (Vitamin C) lactobacillus combination no.4 3 3,000 mmu cells PO DAILY 05/02/19 12/10/23 12/10/23 billion cell capsule (Probiotic) diphenhydramine 25 1 tab PO HS PRN Sleep 05/11/23 12/10/23 05/16/23 mg-acetaminophen 500 mg tablet (Tylenol PM Extra Strength) calcium 167 mg-vitamin D3 1.67 1 cap PO QAM 06/07/23 12/10/23 12/10/23 mcg-magnesium 83 mg capsule cyanocobalamin (vitamin B-12) 1,000 mcg PO DAILY 06/07/23 12/10/23 12/10/23 1,000 mcg capsule amoxicillin 875 mg-potassium 1 tab PO BID 10/20/23 12/10/23 12/10/23 08:00 clavulanate 125 mg tablet diphenhydramine HCl 25 mg capsule 25 mg PO HS PRN Sleep 12/10/23 12/10/23 Unknown (Aaronil) lysine 1,000 mg tablet 1,000 mg PO DAILY 12/10/23 12/10/23 12/10/23 turmeric 400 mg capsule 400 mg PO DAILY 12/10/23 12/10/23 12/10/23 zinc gluconate 50 mg tablet 50 mg PO DAILY 12/10/23 12/10/23 12/10/23 Active Medications Generic Name Dose Route Start Last Admin Trade Name Freq PRN Reason Stop Dose Admin Acetaminophen 650 mg 12/10/23 22:38 12/16/23 04:32 Acetaminophen 325 Mg Tab PO 01/09/24 22:37 650 mg Q4H PRN Administration Pain or Fever Acetaminophen 500 mg 12/10/23 23:05 12/10/23 23:13 Acetaminophen 500 Mg Tab PO 01/09/24 23:04 500 mg HS PRN Administration Sleep Benzonatate 100 mg 12/11/23 11:32 12/15/23 07:47 Benzonatate 100 Mg Capsule PO 01/10/24 13:59 100 mg TID PRN Administration cough Cyanocobalamin 1,000 mcg 12/12/23 09:00 12/18/23 08:46 Cyanocobalamin 1000 Mcg/Ml Vial IM 01/11/24 08:59 1,000 mcg QAM [facility] Administration Diphenhydramine HCl 50 mg 12/11/23 11:26 12/17/23 21:11 Diphenhydramine Capsule 25 Mg Cap PO 01/09/24 23:04 50 mg HS PRN Administration Sleep Enoxaparin Sodium 40 mg 12/12/23 09:00 12/16/23 08:42 Enoxaparin Inj 40 Mg/0.4 Ml Syr SQ 01/11/24 08:59 40 mg QAM [facility] Administration Guaifenesin 600 mg 12/13/23 10:52 12/18/23 08:47 Guaifenesin 600 Mg Tabcr PO 01/12/24 20:59 600 mg Q12 PRN Administration Cough Hydromorphone HCl 0.25 mg 12/15/23 18:11 12/16/23 13:28 Hydromorphone Inj 0.5 Mg/0.5 Ml Syr IV 12/29/23 18:10 0.25 mg Q4H PRN Administration Pain Ceftriaxone Sodium 2,000 mg in 50 mls @ 100 mls/hr 12/15/23 15:30 12/18/23 03:44 Rocephin IV 12/25/23 15:29 Infused Q12H [facility] Infusion Ampicillin Sodium 2,000 mg/ 100 mls @ 200 mls/hr 12/15/23 16:00 12/18/23 08:48 Sodium Chloride IV 12/25/23 15:59 25 mls/hr Q4H [facility] Administration Acyclovir Sodium 680 mg/ 113.6 mls @ 100 mls/hr 12/15/23 16:00 12/18/23 00:14 Dextrose IV 12/25/23 15:59 Infused Q8H [facility] Infusion Vancomycin HCl 1,000 mg/ 270 mls @ 200 mls/hr 12/15/23 17:00 12/18/23 01:35 Sodium Chloride IV 12/25/23 16:59 Infused Q8H [facility] Infusion Prednisone 60 mg 12/16/23 14:15 12/18/23 08:47 Prednisone 20 Mg Tab PO 01/15/24 14:14 60 mg DAILY [facility] Administration Topiramate 25 mg 12/15/23 09:00 12/17/23 08:39 Topiramate 25 Mg Tab PO 01/14/24 08:59 25 mg QAM [facility] Administration (3) Fever Fever type: unspecified Qualified Code(s): R50.9 - Fever, unspecified
[2023-12-18] MEDS: valACYclovir HCL 500 MG TABLET PO ONE (13:00)
[2023-12-18] MEDS: DOXYCYCLINE HYCLATE 100 MG CAP PO STA (13:00)
--- NOTE | 2023-12-18 13:09 | Fluoroscopy Report ---
Lumbar puncture under fluoroscopy INDICATION: Evaluate for meningitis PROCEDURE: Procedure and risks were explained. Informed consent was obtained. A final timeout was com pleted. The patient was placed prone on the fluoroscopic exam table. The lower lumbar region was prep ped and draped in sterile fashion. 1% lidocaine was utilized for skin anesthesia. Utilizing fluoroscopic guidance, a 22-gauge spinal needle was advanced into the intrathecal space at the L2-3 disc space level. Spot images were obtained. Approximately 8 mL of clear CSF fluid was remov ed and sent to the lab for analysis. The needle was removed and Band-Aid applied. The patient tolerat ed the procedure well. Vital signs will be monitored postprocedure. Fluoroscopy time 12 seconds. Study dose 8.70 mGy. IMPRESSION: Lumbar puncture as above. Performed, dictated, and signed by Jaciel Heredia PA-C; to be co-signed by Dr. Cecilio Kauffman. Electronically signed by: Cecilio Kauffman M.D. 12/18/2023 4:55 PM
[2023-12-18] MEDS: DOXYCYCLINE HYCLATE 100 MG CAP PO SCH (20:40)
[2023-12-19] MEDS: valACYclovir HCL 500 MG TABLET PO SCH (00:02)
[2023-12-19 04:16] VITALS: RESP 18
[2023-12-19 06:27] LABS: Hematocrit (blood only) 25.7 % (37.0-47.0); Hemoglobin 8.4 g/dl (12.0-16.0); Mean Corpuscular Hemoglobin 34.9 pg (25.0-34.0); Mean Corpuscular Hgb Conc 32.7 g/dL (32.0-36.0); Mean Corpuscular Volume 106.6 fL (80.0-100.0); Mean Platelet Volume 11.3 fL (9.4-12.4); Platelet Count 296 K/uL (130-400); RDW Coefficient of Variation 18.1 % (11.5-14.5); RDW Standard Deviation 70.3 fL (36.4-46.3); Red Blood Count 2.41 M/uL (4.20-5.40); White Blood Count 3.88 K/ul (4.8-10.8)
[2023-12-19 06:56] LABS: BUN Creatinine Ratio 43.4 (10-20); Creatinine Clr Calc Pharmacy 87.3 ml/min; Est GFR (African American) 110.7 ml/min; Est GFR (Non-African American) 95.5 ml/min; Potassium 3.7 mmol/L (3.5-5.1)
[2023-12-19 07:09] LABS: Basophils # (auto) 0.01 K/uL (0.00-0.20); Basophils % (auto) 0.3 %; Immature Granulocytes # (auto) 0.01 K/uL (0.01-0.20); Immature Granulocytes % (auto) 0.3 %; Lymphocytes # (auto) 2.28 K/uL (1.20-3.40); Lymphocytes % (auto) 58.8 %; Monocytes # (auto) 0.13 K/uL (0.11-0.59); Monocytes % (auto) 3.4 %; Neutrophils # (auto) 1.45 K/uL (1.40-6.50); Neutrophils % (auto) 37.2 %
[2023-12-19 07:43] VITALS: TEMP 97.7; O2SAT 97
[2023-12-19] MEDS ORDERED: VANCOMYCIN LEVEL ONE (08:30)
[2023-12-19 10:29] VITALS: BP 126/68; PULSE 54
--- NOTE | 2023-12-19 11:36 | Discharge Summary ---
Date of Service December 19, 2023 Admission HPI Per Admitting Provider The patient is a 73-year-old female with a past medical history including lumbar stenosis, tubular adenoma, perforated bowel, CLL, B12 deficiency, insomnia, and a recently treated pneumonia. She presents to the emergency department symptoms as noted above. Admission Exam Per Admitting Provider The patient is awake, alert and oriented 3, well developed and well nourished, normocephalic and atraumatic, lying in bed and in no acute distress. HEENT--PERRL, EOMI, mucous membranes and oropharynx normal Neck--supple. No JVD. No bruits. Thyroid normal, trachea midline, no adenopathy. Heart--normal S1 and S2. No murmurs, rubs or gallops. Lungs--crackles at the bases bilaterally, right greater than left. No respiratory distress, no accessory muscle use. Abdomen--normal bowel sounds and soft. Nontender. Nondistended Extremities--right lower extremity with 2+ pretibial and pedal pitting edema. Moderate erythema and warmth right lower extremity. Good distal pulses bilaterally. Left lower extremity normal Dermatologic--normal skin turgor, normal color, no abnormal lymph nodes, no rash. Neurologic--cranial nerves II through XII grossly intact. Rheumatologic--normal range of motion. Psychiatric--normal affect. Principal Diagnosis Cellulitis Discharge Exam General: AOx3, NAD CV: RRR, m/r/g Resp: CTAB GI: NT/ND, +BS MSK: RLE edema to the knee, mild hyperpigmentation, no warmth, non-tender Discharge Data Allergies Allergy/AdvReac Type Severity Reaction Status Date / Time prednisone AdvReac Severe Headache Verified 12/19/23 06:20 anastrozole AdvReac Intermediate joint Verified 12/10/23 22:07 inflammation, decreased appetite codeine AdvReac Intermediate NAUSEA/VOMI Verified 12/10/23 22:07 TING hydrocodone AdvReac Intermediate NAUSEA/VOMI Verified 12/10/23 22:07 TING oxycodone AdvReac Intermediate NAUSEA/VOMI Verified 12/10/23 22:07 TING tramadol AdvReac Intermediate NAUSEA/VOMI Verified 12/10/23 22:07 TING Consultations 12/10/23 19:32 ED Decision to Admit Stat 12/14/23 12:22 Consult Oncology Routine 12/15/23 12:16 Consult Infectious Diseases Routine 12/16/23 13:51 Consult General Surgery Routine Ordered Studies Foot X-Ray 12/10/23 20:00 XR foot RT min 3V routine FINDINGS: Alignment of the right foot is anatomic. Tarsometatarsal joints are intact. There are no acute fractures within the right foot. Right forefoot soft tissue swelling is present. No definite radiopaque foreign body. A punctate 1 mm density projects adjacent to the base of the right third proximal phalanx on AP projection. This is not identified on the lateral projection. Plantar calcaneal spur is present. IMPRESSION: 1. No fractures within the right foot. 2. Plantar right forefoot soft tissue swelling. 3. No definite radiopaque foreign bodies. Punctate 1 mm density which projects adjacent to the base of the right third proximal phalanx on AP projection. A foreign body is considered unlikely although difficult to completely exclude. Chest X-Ray 12/10/23 20:38 XR chest 1V portable FINDINGS: No pneumothorax. No pleural effusions. The cardiac silhouette is top normal in size. No evidence for pulmonary edema. The upper lung zones are clear. No acute fractures. Patchy bibasilar densities most pronounced on the left. Right axillary surgical clip again noted. Degenerative changes within the shoulders. IMPRESSION: Patchy bibasilar densities most pronounced on the left. This may represent atele ctasis or a pneumonia. = Venous Doppler Study 12/10/23 20:38 FINDINGS: Deep veins: Unremarkable. No Deep vein thrombosis in the visualized common femoral, femoral, proximal deep femoral or popliteal veins. The veins demonstrate normal color flow, are normally compressible, with normal phasic flow and/or augmentation response. Superficial veins: Unremarkable. No thrombus in the visualized great saphenous vein. Soft tissues: No acute findings. No popliteal cyst. IMPRESSION: No deep vein thrombosis of the right lower extremity. Chest CT 12/13/23 14:50 CT chest diagnostic wo con FINDINGS: Lungs and pleura: Atelectasis is in the left upper lobe. Heart and pericardium: Cardiomegaly is seen with biatrial enlargement. Vessels: Unremarkable. Mediastinum and jaden: Subcentimeter lymph nodes are seen. Chest wall and lower neck: Bilateral axillary lymph nodes measure up to 11 mm. Abdomen: Unremarkable. Bones: Degenerative changes in the thoracic spine. IMPRESSION: 1. No evidence of pneumonia. 2. Bilateral axillary lymph nodes are nonspecific and may be reactive. Brain MRI 12/16/23 07:50 MR brain wo/w con FINDINGS: No abnormal restricted diffusion is identified. Foci of T2 and FLAIR hyperintensity are noted in the paraventricular areas consistent with chronic sm all vessel ischemic disease. Ex vacuo ventriculomegaly and sulcal enlargement is noted compatible with diffuse volume loss. No mass or abnormal enhancement is seen. There is no mass effect or midline shift. There is no evidence of acute intraparenchymal hemorrhage. No extra axial fluid collections are seen. The corpus callosum, pituitary gland, and cerebellar tonsils appear grossly unremarkable. Flow voids of the major intracranial arterial vessels are identified. The imaged portions of the paranasal sinuses, mastoid air cells, and orbits are unremarkable. IMPRESSION: No acute abnormality and in particular no evidence of metastatic disease. Venous Doppler Study 12/17/23 09:10 FINDINGS/IMPRESSION: Currently there is normal compressibility of the deep venous system from the common femoral vein through the proximal calf veins. No superficial venous thrombosis is identified. Soft tissue edema is seen. Hospital Course (1) Lymphangitis of lower extremity: (2) Cellulitis of right lower extremity: (3) Anemia: (4) Pneumonia: (5) CLL (chronic lymphocytic leukemia): Plan Pt is a 73 yo female with a past med hx of CLL and chronic anemia who presents to the hospital for 12/09 for R foot cellulitis. Continued admission for severe headache with persistent fevers and anemia. 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 Pt aware of risks of doing so. Instructed to seek care if CHRISTOPHER returns. - Finish doxycycline course (100 mg PO BID, stop date 12/25) and valtrex course (1000 mg PO q12h, stop 12/25). Would consider suppressive valtrex therapy after completing acute course. Cellulitis, R foot - Pt treated with Augmentin outpt; failed outpt tx - venous US doppler negative x2 - blood cx neg 72 hours - will complete doxycycline course Persistent fever Chronic anemia CLL - Considered to be relatively immunocompromised - Oncology saw during inpatient stay - low to 6.2 7/5 so given 2 units pRBCs - Hgb stable at 8 at time of discharge; would recheck outpt Pneumonia, old Cough - Post-PNA lingering cough. No sign of active PNA on CXR - continue supportive care. if cough persists > 8 wks, consider further workup. B12 deficiency - was on oral B12 the last few months with B12 levels unchanged so likely she is not absorbing it well through the GI tract - Switched from oral B12 to IM B12 1000mcg Total Time Total Time Spent Total Time Spent (In Minutes): See attending attestation Discharge Plan Discharge Items Patient Disposition: Home - Self-Care Reason For Visit: PNEUMONIA, RLE CELLULITIS Discharge Diagnosis: Cellulitis of the R foot, anemia in the setting of CLL Activity: Resume your previous activity Non-emergency contact: Primary Care Provider Call non-emergency contact if: you have any medication questions, your symptoms worsen, your temperature is above 101 and your wound has increased redness Follow-up/Referrals: Issac Mark MD [Primary Care Provider] - 12/21/23 9:05 am (Hospital follow up scheduled December 20 at 9:[address] Diane Foley at [facility] [[email or web address] ) Diet: Regular Addtl Attending Provider Instructions: You were admitted to the hospital for cellulitis of your right foot. This improved with antibiotics. We will continue with doxycycline 100 mg twice a day for an additional 7 days. You did also develop a headache during your stay. We started you on meningitis dosing of antibiotics and antivirals. We started prednisone as there was concern for temporal arteritis. Your work up for meningitis was negative. Upon discussion with infectious diseases this may be HSV/Varicella reactivation. We will continue with Valtrex 1000 mg every 12 hours for 7 days. We did discuss the possibility of the diagnosis of temporal arteritis. Since we started steroids and antivirals at the same time it is difficult to distinguish between the two. With shared decision making we decided to hold off on an extended prednisone taper and/or temporal artery biopsy. If you have a return of symptoms you will need to come back to the ED immediately for high dose steroids. We discussed the risks/benefits of this plan extensively. Pending Studies at Discharge: No Stand-Alone Forms: My [facility] Medications and DC Order Prescriptions: New doxycycline hyclate 100 mg Capsule 100 mg PO BID Qty: 12 0RF valacyclovir 500 mg Tablet 1,000 mg PO Q12H Qty: 12 0RF Continued ascorbic acid (vitamin C) [Vitamin C] 1,000 mg Tablet 0.5 - 1 g PO DAILY Patient Comments: TAKE WHEN FEEL LIKE I NEED IT Probiotic 3 billion cell Capsule 3,000 mmu cells PO DAILY Patient Comments: takes occasionally Cbd Liquid 1 dose PO HS PRN (Reason: Sleep) Patient Comments: 1 DROPPER FULL Tylenol PM Extra Strength 25-500 mg Tablet 1 tab PO HS PRN (Reason: Sleep) cyanocobalamin (vitamin B-12) 1,000 mcg capsule 1,000 mcg PO DAILY Patient Comments: under the tongue not every day. calcium 26-vit D3-magnesium 15 167 mg calcium- 1.67 mcg-83 mg Capsule 1 cap PO QAM lysine 1,000 mg Tablet 1,000 mg PO DAILY diphenhydramine HCl [ZzzQuil] 25 mg Capsule 25 mg PO HS PRN (Reason: Sleep) zinc gluconate 50 mg Tablet 50 mg PO DAILY turmeric 400 mg Capsule 400 mg PO DAILY Discontinued amoxicillin-pot clavulanate 875-125 mg tablet 1 tab PO BID Rx Instructions: STARTED 12/07/23 FOR 10 DAYS Discharge Orders: Discharge Order (Routine); Ordered 12/19/23 Ordered By: Ludivina Sutton Admission Data Admit Date/Time: 12/10/23 21:34 Attending Provider: Mauro Carpenter Admit Provider: Narendra Mcnamara Primary Care Provider: Issac Mark Other Providers: Narendra Mcnamara; Judd Hicks; Yuly Harris; Kathleen Clarke; Hammad Fang; Laura Mckeon; Janett Hutchinson; Ivan Galaviz; Carlos Eduardo Villeda; Batool Meyer; Flo,No Attending; Justyna Garcia; Mary Hopkins; Leigh Ann Rasheed; Shala Beauchamp; Risa Norton; Jodie Kulkarni; Kae Asencio; Bhupinder Mcginnis; Babatunde Mehta; Jaciel Law; Shadi Cross; Deanne Conley; Ladarius Purcell; Mukesh Rios; Carmine Layton; Koby Cardona Other Interventions: Discharge Summary Assessment (RN) Last Done: 12/19/23 10:28 Supervising Physician Co-Signing Physician Notes Attending attestation Pt seen and examined in concert with Dr. Carbajal. In agreement with the documented findings as noted in the resident documentation with any exceptions or additions as noted here. Continued improvement of right lower extremity swelling and pain. Revisited extensive conversation re: headache w/ conern for giant cell/temporal arteritis - defers temporal bx nor prednisone taper. On examination, S1/S2 nl RRR no MCG. CTAB. Abd NT/ND BS+ve. RLE edema 1+ to the upper brower with mild TTP without erythema or considerable induration. Cellulitis of the right lower extremity - ID consult - complete course of PO Doxycycline to cover cellulitis and tickborne illness Headache - concern for HSV/VZV vs. temporal/giant cell arteritis vs. other occult cause - reviewed with patient re: while completing course of valacyclovir will be helpful if HSV/VZV related, without doing biopsy/treatment with steroids there is a possibility of ongoing inflammatory arteritis cause which may result in recurrent symptoms including vision loss, morbidity. Patient will d/w family and consider intervention vs. watchful waiting on valacyclovir and not steroid tx. Else see resident documentation as noted. Total attending physician time spent with this patient's care on the day of discharge: 35 minutes. Resident Activity Tracking Resident Involvement: Resident Care Provided Care Provided: Adult Hospital Medicine
[2023-12-20 00:47] LABS: Babesia microti DNA Not Detected (Not Detected)
--- NOTE | 2023-12-20 08:56 | Coding Query ---
CODING QUERY To promote full compliance with coding requirements relating to patient care, provider participation is requested in all cases of dietetic intern uncertainty. Please assist us with the question(s) below: Clinical Indicators: H&P: * Sepsis - Due to combination of cellulitis of right lower extremity and bibasilar pneumonia * Cellulitis of right lower extremity * Vancomycin IV per pharmacokinetic monitoring * Ceftriaxone 2 g IV every 24 hours * Vitals: Temp - 36.7; Pulse - 80; Resp - 20; BP - 102/51; Pulse Ox 98 * WBC - 7.81 * Anion Gap - 10 * Lactate - 1.5 Blood Cultures (12/09) - Negative Infectious Disease Consult and Progress Note on 12/14 and 12/17: * Sepsis * In the Ed she was febrile with a T 38.5, HR 95. Labs wbc 7.81, H/H 9.5/28.4, plts 344, bun 16, cr 0.63 Coding Question(s): Without further mention of sepsis in the Discharge Summary, are you able to clarify if sepsis was (x ) Ruled in ( ) Ruled out ( ) Other (please specify): ( ) Unable to determine Physician's Response(s): in addition in the ED, BP was 82/40, HR 97 and lethargic Thank you Stefani Lynn Principal Diagnosis: "that condition established after study, to be chiefly responsible for occasioning the admission of the patient to the hospital for care." Co-Existing Principal Diagnosis: "when two or more diagnoses equally meet the criteria for principal diagnosis as determined by the circumstances of admission, diagnostic work up, and/or therapy provided, and the Alphabetic Index, Tabular List, or another coding guideline does not provide sequencing direction, any one of the diagnoses may be sequenced first." "When the physician has documented what appears to be a current diagnosis in the body of the record, but has not included the diagnosis in the final diagnostic statement, the physician should be asked whether the diagnosis should be added." (Source Coding Clinic 2 QTR90. p3-4) VINAYD
[2023-12-21 13:07] LABS: West Nile Virus, PCR Source CSF; West Nile Virus, PCR, CSF NOT DETECTED (NOT DETECTED)
== END 2023-12-19 11:17 | disposition home or self-care (01) | DRG 872 ==
LOC: SUATTDRO → ED 18:26 → 4W 21:34 → SUATTDRO 21:34 → 4W 22:07
DX: D84.9 Immunodeficiency, unspecified; B00.9 Herpesviral infection, unspecified; Z88.8 Allergy status to other drugs, medicaments and biological substances; L03.115 Cellulitis of right lower limb; R05.8 Other specified cough; R50.9 Fever, unspecified; A41.9 Sepsis, unspecified organism; Z88.5 Allergy status to narcotic agent; D63.0 Anemia in neoplastic disease; Z79.899 Other long term (current) drug therapy; C91.10 Chronic lymphocytic leukemia of B-cell type not having achieved remission; M31.6 Other giant cell arteritis; R51.9 Headache, unspecified; E53.8 Deficiency of other specified B group vitamins

== ENCOUNTER 2024-03-26 15:10 | Inpatient (IN) ==
[2024-03-26 16:03] LABS: Hematocrit (blood only) 27.7 % (37.0-47.0); Hemoglobin 9.1 g/dl (12.0-16.0); Mean Corpuscular Hemoglobin 37.9 pg (25.0-34.0); Mean Corpuscular Hgb Conc 32.9 g/dL (32.0-36.0); Mean Corpuscular Volume 115.4 fL (80.0-100.0); Mean Platelet Volume 10.7 fL (9.4-12.4); Platelet Count 301 K/uL (130-400); RDW Coefficient of Variation 13.8 % (11.5-14.5); RDW Standard Deviation 58.5 fL (36.4-46.3); White Blood Count 5.32 K/ul (4.8-10.8)
[2024-03-26 16:19] LABS: Albumin Globulin Ratio 1.2 (0.9-2); Albumin Level 4.1 gm/dl (3.4-5.0); BUN Creatinine Ratio 38.3 (10-20); Bilirubin,Total 0.4 mg/dl (0.2-1.0); Calcium 9.5 mg/dl (8.6-10.3); Creatinine Clr Calc Pharmacy 71.1 ml/min; Globulin 3.3 gm/dl (2.5-4.0); Potassium 4.2 mmol/L (3.5-5.1); Total Protein 7.4 gm/dl (6.0-8.3)
--- NOTE | 2024-03-26 16:34 | Emergency Department Note ---
Impression & Plan Cellulitis, Anemia, Failure of outpatient treatment ED Provider Note NAME: LISSETH GARCIA AGE: 73 SEX: F : 1950 ARRIVES VIA: Walk-In INFORMANT: [Patient] ED PROVIDER(S): [Judd Candelaria MD] CHIEF COMPLAINT: Right leg pain HISTORY OF PRESENT ILLNESS: The patient is a 73-year-old female who presents to the ER with just over a week of symptoms. The patient states that she started with a bruise on the right knee. 3 days ago, she noticed an increase swelling, redness and pain in the same area. She was started on Augmentin, she has been taking this twice a day. Despite the Augmentin, the erythema is spreading up the leg and down the leg. She has had no fever or chills, the pain in the leg though has increased and the warmth has increased. Patient was admitted to the hospital 3 months ago for something similar. She has been admitted 10 days for a cellulitis in the same leg. At the time of discharge, she left with doxycycline. PMHx/PSHx/Social Hx: See Below PHYSICAL EXAM: GENERAL: Patient is in no acute distress. HEENT: No acute trauma, normocephalic atraumatic, mucous membranes moist, no nasal congestion. NECK: No stridor, no adenopathy, no meningismus, trachea is midline. LUNGS: Clear to auscultation bilaterally, no wheeze, no rhonchi, breath sounds equal. HEART: Without murmurs gallops or rubs, regular rate and rhythm. ABDOMEN: Soft, nontender, no peritonitis. EXTREMITIES: No cyanosis. The patient does have some mild bilateral pedal edema, slightly worse on the right. There is erythema and warmth that extends from the mid right thigh down to the mid tib-fib. The erythema has spread past the outlined areas. The area of erythema is tender to touch. NEUROLOGIC: Oriented x 3, no acute motor or sensory deficits, no focal weakness. SKIN: No jaundice, no diaphoresis. DIFFERENTIAL DIAGNOSIS: Cellulitis, failed outpatient management, MRSA, among others. EMERGENCY DEPARTMENT PROCEDURES: MEDICAL DECISION MAKING: There is no leukocytosis. An anemia was noted, this is baseline looking back at previous testing. There was a normal platelet count. No renal failure or significant electrolyte abnormality. No concerning liver enzyme elevation. On exam, the patient was not toxic or febrile. She had a right lower extremity cellulitis which had spread past the margins previously outlined. Patient presents with worsening cellulitis despite outpatient antibiotics. She requires a hospital stay and IV antibiotic therapy. In the past, it looks as if she has done well with IV vancomycin. The dose of IV Vanco was administered. The patient requires a hospital stay. I spoke with her, I spoke with case management, the on-call hospitalist was consulted. Prior/Outside records/notes reviewed: Discharge summary note from 12/19/2023 discussing her presentation, hospital care and plan at discharge. Chronic Medical/Social conditions affecting care: Advanced age, recent hospitalization. Care/Management discussed with: Case management, the on-call hospitalist. Level of care consideration(s): After review of the information above and other included data: --I believe the patient requires escalation of care to admission DISPOSITION: Admission Past Med/Surg History Problem List Failure of outpatient treatment (Acute) Anemia (Acute) Cellulitis (Acute) Headache Lymphangitis of lower extremity Cellulitis of right lower extremity Anemia (Acute) Pneumonia (Acute) Cellulitis (Acute) Fever (Acute) Tubular adenoma GI bleed Perforated bowel Localized enlarged lymph nodes Abnormal ultrasound of breast Lumbar stenosis Hip pain, right Left knee pain Encounter for pre-operative examination CLL (chronic lymphocytic leukemia) no meds, has visits every 3 month at [facility] heme/onc for monitoring and blood work History of total left knee replacement (~05/2019) Medical History Sepsis Osteoarthritis Perforated bowel s/p colonoscopy May 18 2023 /perforated bowel / ICU stay for monitoring/no sx intervention. Discharged May 23 2023. History of breast cancer s/p left mastectomy History of IBS Spinal stenosis Borderline high cholesterol Surgical History Hx of right cataract extraction History of colonoscopy History of surgery on left wrist History of total right hip arthroplasty History of discectomy History of arthroscopy of right knee multiple History of arthroscopy of left knee multiple History of left knee surgery NERVE ENTRAPMENT; numbness in left foot History of left mastectomy Family History Brother Family history of thyroid cancer Prostate cancer Grandmother (Maternal) Breast cancer Father Prostate cancer Other Colorectal cancer Schizophrenia Denies family history of Ovarian cancer Social History Smoking Status: Never smoker Second Hand Exposure: No; Do You Dip or Chew Tobacco: No; Tobacco Cessation Education Requested by Patient: No Hx Alcohol Use: Yes Alcohol type: beer and wine Hx Substance Use: No Preferred Language: Sami Communication Ability: Effective Second Steward Required: No Beliefs That Will Affect Care: None marital status: Current Living Situation: Spouse Other Information That Helps Us Care for You: No Feels Safe at Home: Yes Safety Concerns: Feels Safe At This Time Assistive Devices: Hospital Bed Allergies Allergies Allergy/AdvReac Type Severity Reaction Status Date / Time prednisone AdvReac Severe Headache Verified 12/19/23 06:20 anastrozole AdvReac Intermediate joint Verified 12/10/23 22:07 inflammation, decreased appetite codeine AdvReac Intermediate NAUSEA/VOMI Verified 12/10/23 22:07 TING hydrocodone AdvReac Intermediate NAUSEA/VOMI Verified 12/10/23 22:07 TING oxycodone AdvReac Intermediate NAUSEA/VOMI Verified 12/10/23 22:07 TING tramadol AdvReac Intermediate NAUSEA/VOMI Verified 12/10/23 22:07 TING Home Meds Home Medications Medication Instructions Recorded Confirmed Cbd Liquid 1 dose PO HS PRN Sleep 05/02/19 03/26/24 ascorbic acid (vitamin C) 1,000 mg 0.5 - 1 g PO DAILY 05/02/19 03/26/24 tablet (Vitamin C) lactobacillus combination no.4 3 3,000 mmu cells PO DAILY 05/02/19 03/26/24 billion cell capsule (Probiotic) diphenhydramine 25 1 tab PO HS PRN Sleep 05/11/23 03/26/24 mg-acetaminophen 500 mg tablet (Tylenol PM Extra Strength) cyanocobalamin (vitamin B-12) 1,000 mcg PO DAILY PRN Other 06/07/23 03/26/24 1,000 mcg capsule lysine 1,000 mg tablet 1,000 mg PO DAILY 12/10/23 03/26/24 turmeric 400 mg capsule 400 mg PO DAILY 12/10/23 03/26/24 zinc gluconate 50 mg tablet 50 mg PO DAILY PRN Other 12/10/23 03/26/24 cyanocobalamin (vitamin B-12) 1,000 mcg IM MONTHLY 03/26/24 03/26/24 1,000 mcg/mL injection solution magnesium citrate 2 tabs PO DAILY 03/26/24 03/26/24 valacyclovir 500 mg tablet 1,000 mg PO Q12H PRN Other 03/26/24 03/26/24 Results & Data (ED) Vital Signs Vital Signs - 24 hr 03/26/24 15:16 03/26/24 16:34 Temperature 36.8 C Temperature Source Oral Pulse Rate 77 Pulse Rate [Apical] 65 Respiratory Rate 18 20 Respiratory Effort / Characteristics Non-Labored Spontaneous Non-Labored Spontaneous Respiratory Depth Normal Normal Respiratory Pattern Regular Blood Pressure 112/69 Blood Pressure [Left Arm] 110/67 Blood Pressure Mean 83 Blood Pressure Mean [Left Arm] 81 Blood Pressure Position Sitting Pulse Oximetry 98 97 Oxygen Delivery Method Room Air Room Air Sepsis Recent Fever Within 48 Hours No Sepsis New/Unexplained Change in Mental Status No Sepsis Action Taken by Nursing No Action Required Home Medications Current Medication List: was personally reviewed by me Laboratory Data Attestation: I reviewed the patient's lab results. 03/26/24 15:35 03/26/24 15:35 Lab Results 03/26/24 Range/Units 15:35 WBC 5.32 (4.8-10.8) K/ul RBC 2.40 L (4.20-5.40) M/uL Hgb 9.1 L (12.0-16.0) g/dl Hct 27.7 L (37.0-47.0) % MCV 115.4 H (80.0-100.0) fL MCH 37.9 H (25.0-34.0) pg MCHC 32.9 (32.0-36.0) g/dL RDW Std Deviation 58.5 H (36.4-46.3) fL RDW Coeff of Andi 13.8 (11.5-14.5) % Plt Count 301 (130-400) K/uL MPV 10.7 (9.4-12.4) fL Immature Gran % (Auto) 0.2 % Neut % (Auto) 29.1 % Lymph % (Auto) 67.1 % [place] % (Auto) 3.0 % Eos % (Auto) 0.2 % Baso % (Auto) 0.4 % Neut # (Auto) 1.55 (1.40-6.50) K/uL Lymph # (Auto) 3.57 H (1.20-3.40) K/uL [place] # (Auto) 0.16 (0.11-0.59) K/uL Eos # (Auto) 0.01 (0.00-0.50) K/uL Baso # (Auto) 0.02 (0.00-0.20) K/uL Immature Gran # (Auto) 0.01 (0.01-0.20) K/uL Toxic Granulation 1+ Dohle Bodies 1+ Tear Drop Cells 1+ Sodium 139 (136-145) mmol/L Potassium 4.2 (3.5-5.1) mmol/L Chloride 103 (98-107) mmol/L Carbon Dioxide 26 (21-32) mmol/L Anion Gap 10 (3-11) BUN 23 (6-23) mg/dl Creatinine 0.60 (0.6-1.2) mg/dl Est Cr Clr Drug Dosing 71.1 ml/min eGFR 95.90 BUN/Creatinine Ratio 38.3 H (10-20) Glucose 94 (70-99(Fasting)) mg/dl Uric Acid 4.0 (2.6-7.2) mg/dl Calcium 9.5 (8.6-10.3) mg/dl Total Bilirubin 0.4 (0.2-1.0) mg/dl AST 18 (13-39) U/L ALT 11 (7-52) U/L Alkaline Phosphatase 59 (34-104) U/L Total Protein 7.4 (6.0-8.3) gm/dl Albumin 4.1 (3.4-5.0) gm/dl Globulin 3.3 (2.5-4.0) gm/dl Albumin/Globulin Ratio 1.2 (0.9-2) Administered Medications Famotidine (Famotidine 10 Mg Tablet) 10 mg PO BID ALVIN Stop: 04/25/24 20:59 Last Admin: 03/26/24 21:17 Dose: 10 mg Documented By: RES Ceftriaxone Sodium (Rocephin) 2,000 mg in 50 mls @ 100 mls/hr IV Q24H ALVIN Stop: 04/02/24 19:59 Last Infusion: 03/26/24 21:25 Dose: Infused Documented By: Admin: 03/26/24 20:55 Dose: 100 mls/hr Documented By: RES Discontinued Medications Vancomycin HCl 1,250 mg/ (Sodium Chloride) 275 mls @ 200 mls/hr IV NOW STA Stop: 03/26/24 17:54 Last Infusion: 03/26/24 18:45 Dose: Infused Documented By: Admin: 03/26/24 17:17 Dose: 200 mls/hr Documented By: HS Discharge Plan Visit Data Chief Complaint: Leg Injury/Pain Stated Complaint: SERIOUS CELLULITIS RETURNED TO RT LEG ED Provider: Judd Candelaria Discharge Problem: Cellulitis, Anemia, Failure of outpatient treatment Patient Disposition: Admitted As Inpatient Condition: Fair Discharge Instructions Interventions: ED Discharge Assessment Last Done: 03/26/24 18:04 Discharge Problem: Cellulitis Qualifiers: Site of cellulitis: extremity Site of cellulitis of extremity: lower extremity Laterality: right Qualified Code(s): L03.115 - Cellulitis of right lower limb Anemia Qualifiers: Anemia type: unspecified type Qualified Code(s): D64.9 - Anemia, unspecified
[2024-03-26 16:50] LABS: Basophils # (auto) 0.02 K/uL (0.00-0.20); Basophils % (auto) 0.4 %; Dohle Bodies 1+; Eosinophils # (auto) 0.01 K/uL (0.00-0.50); Eosinophils % (auto) 0.2 %; Immature Granulocytes # (auto) 0.01 K/uL (0.01-0.20); Immature Granulocytes % (auto) 0.2 %; Lymphocytes # (auto) 3.57 K/uL (1.20-3.40); Lymphocytes % (auto) 67.1 %; Monocytes # (auto) 0.16 K/uL (0.11-0.59); Neutrophils # (auto) 1.55 K/uL (1.40-6.50); Neutrophils % (auto) 29.1 %; Tear Drop Cells 1+; Toxic Granulation 1+
--- NOTE | 2024-03-26 16:59 | History & Physical Report ---
Date of Service March 26, 2024 Assessment & Plan (1) Cellulitis of right lower extremity: Plan: Admission for RLE cellulitis failing Augmentin outpatient (similar to presentation in December this year) and discharged on Doxycycline (tick testing negative) Admit med/surg Vancomycin, Ceftriaxone IV. No hx DM but if not improving can consider adding pseudomonal coverage but improved last admission on Doxy at dc Monitor erythema/marking, elevation Venous doppler r/o DVT Pain control as needed (prefers her tylenol PM, has bottle and to tube down to pharmacy to allow for use) Antiemetics as needed Consideration for arterial studies given repeat infection to affected leg/chronic swelling and wears compression stockings. Check TSH/B12/folate w/ AM labs given MCV >100 with LE edema/constipation to ensure not having underlying hypothyroidism as well. Will check xray L knee, add uric acid level to ?if any underlying gout. Pepcid for GI proph, hx perforated bowel/GI bleeding and will avoid chemo proph. SCDs to LLE as tolerated. Unable to tolerate NSAIDs w/ IBS/perforation/GI bleed. Obtaining venous doppler as above Monitor labs/exam on repeat Of note, does have low IgG/IgM as outlined, req records from [facility]/consider reaching out to director internal communications in AM about arranging outpt IVIG for prevention in future (2) Lymphangitis of lower extremity: Plan: noted, abx as outlined and monitoring response to IV therapy (3) Anemia: Plan: chronic, hx GIB. Hgb stable 9.0 and no bleeding reported. AVOIDING NSAIDS/CHEMO PROPH given hx bleeding. Ambulation/SCDs as above Check TSH w AM labs, monitor for any bleeding (4) GI bleed: Plan: hx of such,avoiding NSAIDs (5) CLL (chronic lymphocytic leukemia): Plan: Hx of such, following with [facility]. Req records Notable IG levels as above, consider reaching out to Dr Fang in AM pending outpt records for arranging possible IVIG to prevent recurrent infections? Plan updated on plan at bedside, FULL CODE. Admission for IV abx after failure of outpatient abx. Hopefully broad abx upfront and hopefully able to have short inpatient stay. History of Present Illness Chief Complaint: RLE swelling/pain, failure outpatient antibiotics Primary Care Provider: Issac Mark MD 73yo with PMHx significant for _breast ca, CLL, IBS, HLD, perforated bowel presents for pain/redness/swelling to her RLE concerning for cellulitis. Patient evaluated in A3, at bedside. She reports having a bruise on her right knee and noticed increased swelling redness and pain in the same area and saw PCP and was started on Augmentin as she thought thats what she was given last time (however discussed was admitted w/ failure of Augmentin) with subsequent spread of erythema up the leg with increased pain/warmth. She denies any recent fevers at home, takes Tylenol PM for pain control as unable to tolerate opiates and avoids NSAIDs with her IBS to prevent irritating it. Reports she was admitted ~3 months ago for similar issue requiring 10 day admission or cellulitis of the same leg and was given Ceftriaxone/Vanco/Ampicillin (but also concerns for possible meningitis with headache/persistent fever on abx, LP negative) as well as Valtrex and was discharged on Doxycycline at that time. Lyme testing/tick testing appeared to be negative. Does follow [facility] for her CLL, not on active treatment. Prior followed by Dr Akhtar. Did discuss I noted she did have IG levels drawn and appears to have low IgG/IgM but IgA acceptable. Prior heme/onc discussion for IVIG as outpatient given hx CLL, can reach out to local team on consult but will request most recent records for evaluation to see if any mention. Does have elevated lymphocytes on lab testing. Does have LE edema at baseline and wears compression stockings at baseline. No CP/SOB, abdominal pain/nausea/vomiting. Does have some constipation at baseline since antibiotics but discussed to let us know if any diarrhea given ongoing antibiotic use. No hx DM known. Will admit for IV antibiotics and evaluation. Discussed already provided abx and will avoid blood cultures but if repeat infections should be considered. Full code. Questions/concerns addressed at bedside. Allergies Allergy/AdvReac Type Severity Reaction Status Date / Time prednisone AdvReac Severe Headache Verified 12/19/23 06:20 anastrozole AdvReac Intermediate joint Verified 12/10/23 22:07 inflammation, decreased appetite codeine AdvReac Intermediate NAUSEA/VOMI Verified 12/10/23 22:07 TING hydrocodone AdvReac Intermediate NAUSEA/VOMI Verified 12/10/23 22:07 TING oxycodone AdvReac Intermediate NAUSEA/VOMI Verified 12/10/23 22:07 TING tramadol AdvReac Intermediate NAUSEA/VOMI Verified 12/10/23 22:07 TING Home Medications Medication Instructions Recorded Confirmed Type Cbd Liquid 1 dose PO HS PRN Sleep 05/02/19 03/26/24 History ascorbic acid (vitamin C) 1,000 mg 0.5 - 1 g PO DAILY 05/02/19 03/26/24 History tablet (Vitamin C) lactobacillus combination no.4 3 3,000 mmu cells PO DAILY 05/02/19 03/26/24 History billion cell capsule (Probiotic) diphenhydramine 25 1 tab PO HS PRN Sleep 05/11/23 03/26/24 History mg-acetaminophen 500 mg tablet (Tylenol PM Extra Strength) cyanocobalamin (vitamin B-12) 1,000 mcg PO DAILY PRN Other 06/07/23 03/26/24 History 1,000 mcg capsule lysine 1,000 mg tablet 1,000 mg PO DAILY 12/10/23 03/26/24 History turmeric 400 mg capsule 400 mg PO DAILY 12/10/23 03/26/24 History zinc gluconate 50 mg tablet 50 mg PO DAILY PRN Other 12/10/23 03/26/24 History cyanocobalamin (vitamin B-12) 1,000 mcg IM MONTHLY 03/26/24 03/26/24 History 1,000 mcg/mL injection solution magnesium citrate 2 tabs PO DAILY 03/26/24 03/26/24 History valacyclovir 500 mg tablet 1,000 mg PO Q12H PRN Other 03/26/24 03/26/24 History Past Med/Surg History Problem List Headache Lymphangitis of lower extremity Cellulitis of right lower extremity Anemia (Acute) Pneumonia (Acute) Cellulitis (Acute) Fever (Acute) Tubular adenoma GI bleed Perforated bowel Localized enlarged lymph nodes Abnormal ultrasound of breast Lumbar stenosis Hip pain, right Left knee pain Encounter for pre-operative examination CLL (chronic lymphocytic leukemia) no meds, has visits every 3 month at [facility] heme/onc for monitoring and blood work History of total left knee replacement (~05/2019) Medical History Sepsis Osteoarthritis Perforated bowel s/p colonoscopy May 18 2023 /perforated bowel / ICU stay for monitoring/no sx intervention. Discharged May 23 2023. History of breast cancer s/p left mastectomy History of IBS Spinal stenosis Borderline high cholesterol Surgical History Hx of right cataract extraction History of colonoscopy History of surgery on left wrist History of total right hip arthroplasty History of discectomy History of arthroscopy of right knee multiple History of arthroscopy of left knee multiple History of left knee surgery NERVE ENTRAPMENT; numbness in left foot History of left mastectomy Family History Brother Family history of thyroid cancer Prostate cancer Grandmother (Maternal) Breast cancer Father Prostate cancer Other Colorectal cancer Schizophrenia Denies family history of Ovarian cancer Social History Smoking Status: Never smoker Second Hand Exposure: No; Do You Dip or Chew Tobacco: No; Hx Alcohol Use: Yes Alcohol type: beer and wine Hx Substance Use: No Preferred Language: Cuban Communication Ability: Effective Systems Applications Programming Lead Required: No Beliefs That Will Affect Care: None marital status: Current Living Situation: Spouse Feels Safe at Home: Yes Assistive Devices: Cane Physical Exam Physical Exam: General: 73yo female resting in bed, at bedside, NAD HEENT; head atraumatic, normocephalic, mmm, trachea midline Resp: even/unlabored, no w/c/r, on room air CV: RRR, faint systolic murmur, RLE edema c/w cellulitis, pulses present, +warmth RLE, cap refill wnl GI: +BS, soft/NT : no mckenzie MSK/Neuro: nonfocal, not confused, answering questions appropriately Psych: AOx3, cooperative with exam Skin: RLE w/ increased swelling/warmth from the knee to ankle, slightly beyond markings to R thigh but stable to ankle. sparing the foot no obvious opening/lesion/drainage Results & Data Results & Data Vital Signs (Past 12 Hours) Vital Signs Temp Pulse Pulse Resp BP BP Pulse Ox 03/26/24 16:34 65 20 110/67 97 03/26/24 15:16 36.8 C 77 18 112/69 98 O2 Del Method 03/26/24 16:34 Room Air 03/26/24 15:16 Room Air Laboratory Results 03/26/24 Range/Units 15:35 WBC 5.32 (4.8-10.8) K/ul RBC 2.40 L (4.20-5.40) M/uL Hgb 9.1 L (12.0-16.0) g/dl Hct 27.7 L (37.0-47.0) % MCV 115.4 H (80.0-100.0) fL MCH 37.9 H (25.0-34.0) pg MCHC 32.9 (32.0-36.0) g/dL RDW Std Deviation 58.5 H (36.4-46.3) fL RDW Coeff of Andi 13.8 (11.5-14.5) % Plt Count 301 (130-400) K/uL MPV 10.7 (9.4-12.4) fL Immature Gran % (Auto) 0.2 % Neut % (Auto) 29.1 % Lymph % (Auto) 67.1 % [place] % (Auto) 3.0 % Eos % (Auto) 0.2 % Baso % (Auto) 0.4 % Neut # (Auto) 1.55 (1.40-6.50) K/uL Lymph # (Auto) 3.57 H (1.20-3.40) K/uL [place] # (Auto) 0.16 (0.11-0.59) K/uL Eos # (Auto) 0.01 (0.00-0.50) K/uL Baso # (Auto) 0.02 (0.00-0.20) K/uL Immature Gran # (Auto) 0.01 (0.01-0.20) K/uL Toxic Granulation 1+ Dohle Bodies 1+ Tear Drop Cells 1+ Sodium 139 (136-145) mmol/L Potassium 4.2 (3.5-5.1) mmol/L Chloride 103 (98-107) mmol/L Carbon Dioxide 26 (21-32) mmol/L Anion Gap 10 (3-11) BUN 23 (6-23) mg/dl Creatinine 0.60 (0.6-1.2) mg/dl Est Cr Clr Drug Dosing 71.1 ml/min eGFR 95.90 BUN/Creatinine Ratio 38.3 H (10-20) Glucose 94 (70-99(Fasting)) mg/dl Calcium 9.5 (8.6-10.3) mg/dl Total Bilirubin 0.4 (0.2-1.0) mg/dl AST 18 (13-39) U/L ALT 11 (7-52) U/L Alkaline Phosphatase 59 (34-104) U/L Total Protein 7.4 (6.0-8.3) gm/dl Albumin 4.1 (3.4-5.0) gm/dl Globulin 3.3 (2.5-4.0) gm/dl Albumin/Globulin Ratio 1.2 (0.9-2) Supervising Physician Co-Signing Physician Notes Patient seen and examined, chart reviewed, case discussed with Nelida Mooney PA-C and I agree with the assessment and plan as above except as otherwise noted Labs and images reviewed 73-year-old female who presents with right lower extremity cellulitis which has not improved on outpatient Augmentin. She is recommended for admission for right lower extremity cellulitis without clinical improvement on outpatient oral antibiotics. She is not a leukocytosis. Rocephin/vancomycin given and continued. She is nontoxic at bedside assessment. Does have demarcated erythema of the right lower extremity with some swelling and warmth consistent w ith cellulitis. Agree with above. PG Care Time/CCT Total # of Minutes Spent Total Time Spent with Patient: Total time spent is greater than 50% in coordination of care (as documented) at patient's floor/unit and/or counseling patient: Coding Level of Care Code 86608 INT INP/OBS CARE MIN Diagnoses Cellulitis of right lower extremity L03.115 Lymphangitis of lower extremity I89.1 Anemia D64.9 Gastrointestinal hemorrhage, unspecified gastrointestinal hemorrhage type K92.2 GI bleed type/associated pathology: unspecified gastrointestinal hemorrhage type CLL (chronic lymphocytic leukemia) C91.10 (4) GI bleed GI bleed type/associated pathology: unspecified gastrointestinal hemorrhage type Qualified Code(s): K92.2 - Gastrointestinal hemorrhage, unspecified
[2024-03-26] MEDS: VANCOMYCIN HCL 1,250 MG in SODIUM CHLORIDE 0.9% 250 ML IV STA (17:17)
[2024-03-26] MEDS ORDERED: ONDANSETRON INJ 2 MG/ML 2 ML VIAL IV PRN (19:20)
[2024-03-26] MEDS ORDERED: SODIUM CHLORIDE 0.9% IV SCH (19:20)
[2024-03-26] MEDS ORDERED: NON-FORMULARY MEDICATION (Diphenhydramine-Acetaminophen [Tylenol Pm Extra Strength] 25-500 PO PRN (19:20)
[2024-03-26] MEDS ORDERED: VANCOMYCIN HCL IV SCH (19:20)
[2024-03-26] MEDS ORDERED: VANCOMYCIN CONSULT ACTIVE PRN (19:20)
[2024-03-26] MEDS: cefTRIAXone SODIUM 2,000 MG/50 ML BAG IV SCH (20:55)
[2024-03-26] MEDS ORDERED: diphenhydrAMINE Capsule 25 MG CAP PO PRN (21:15)
[2024-03-26] MEDS ORDERED: ACETAMINOPHEN 500 MG TAB PO PRN (21:16)
[2024-03-26] MEDS: FAMOTIDINE 10 MG TABLET PO SCH (21:17)
--- NOTE | 2024-03-26 23:14 | Ultrasound Report ---
Exam(s): US VENOUS RIGHT LOWER EXTREMITY EXAM: US Duplex Right Lower Extremity Veins CLINICAL HISTORY: Reason for exam: r/o dvt. TECHNIQUE: Real-time duplex ultrasound scan of the right lower extremity veins integrating B-mode two-dimensional vascular structure, Doppler spectral analysis, color flow Doppler imaging and compression. COMPARISON: 12/10/2023 FINDINGS: Deep veins: Unremarkable. No DVT in the visualized common femoral, femoral, proximal deep femoral or popliteal veins. The veins demonstrate normal color flow, are normally compressible, with normal phasic flow and/or augmentation response. Superficial veins: Unremarkable. No thrombus in the visualized great saphenous vein. Soft tissues: No acute findings. No popliteal cyst. IMPRESSION: Negative right lower extremity duplex venous ultrasound. Electronically signed by: Moose Silva MD 03/26/24 23:14 PM
--- OUTSIDE RECORDS SUMMARY | 2024-03-27 04:50 | External Medical Summary | Continuity of Care Document ---
Author Name Unknown Organization [address] Address [address] [place] [address] [address] [place] [id number] Care Team Providers Care Blue Leather Setter Name Role Phone Nghia Mark Primary Care Physician [phone] Encounter [facility] [id number] Date(s): 03/12/24 - 03/12/[address] [facility] [address] [facility], [address] [place] [address] [phone] Encounter Diagnosis Deficiency of vitamin B12(Discharge Diagnosis) - 03/12/24 Discharge Disposition: Home or Self Care Attending Physician: MD Mark Ravishankar E Referring Physician: MD Mark Ravishankar E Allergies, Adverse Reactions, Alerts Substance Criticality Severity Reaction Reaction Severity Status predniSONE sinusitis Active anastrozole Spiked arthriti s No appetite Active oxyCODONE Vomiting Nausea Active Vicodin vomiting nausea Active Immunizations Given and Recorded Vaccine Date Status Refusal Reason SARS-CoV-2 (COVID-19) mRNA-1273 vaccine 06/17/21 R ecorded SARS-CoV-2 (COVID-19) mRNA-1273 vaccine 08/19/20 R ecorded SARS-CoV-2 (COVID-19) mRNA-1273 vaccine 07/22/20 R ecorded tetanus/diphtheria/pertuss, acel (Tdap) 1 08/09/14 Recorded 1Result Comment: 2017-04-11: Historical information-source unspecified [04/11/2017 Uncharted] not patient Medications Bactroban 2% topical ointment Start: 04/26/23 9:16:00 AM EST, See Instructions, Disp# 22 g, Refills: 1, To wound with dressing changes, Pharmacy: [id number] Start Date: 04/26/23 Status: Ordered BD 1 mL Ultra-Fine II Short Insulin Syringe 31G x 5/16" Start: 03/08/24 8:24:00 AM EDT, See Instructions, Disp# 12 each, Use as directed with B12 injectionsmonthly., Pharmacy: [id number] Start Date: 03/08/24 Status: Ordered lysine Start: 09/24/20 1:58:00 PM EDT, 1,000 mg =, Daily Start Date: 09/24/20 Status: Ordered magnesium citrate Start: 03/10/22 9:07:00 AM EDT Start Date: 03/10/22 Status: Ordered Probiotic Formula Start: 11/12/18 11:00:00 AM EDT, 1 cap, PO, Daily Start Date: 11/12/18 Status: Ordered tumeric Start: 10/24/17 10:50:00 AM EDT, tumeric, PO, Daily Start Date: 10/24/17 Status: Ordered Tylenol Extra Strength Start: 04/24/19 9:03:00 AM EST Start Date: 04/24/19 Status: Ordered valACYclovir 500 mg oral tablet Start: 12/21/23 10:33:00 AM EDT Start Date: 12/21/23 Status: Ordered Valtrex 1 g oral tablet Start: 04/10/23 9:28:00 AM EDT, See Instructions, Disp# 12 tab, Refills: 3, 2 tab PO at onset of cold sore, repeat in 12 hours then stop, [facility]: [facility] #[id number] Start Date: 04/10/23 Status: Ordered Vitamin B12 1000 mcg/mL injectable solution Start: 02/22/24 10:10:00 AM EDT, 1,000 mcg =, IM, qmonth (30 days), Disp# 1 mL, Refills: 6, Note to Pharmacy: Pt to inject self at home., Pharmacy: [id number] Start Date: 02/22/24 Status: Ordered Vitamin C 500 mg oral [...] 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 [...] Active Tubular adenoma of colon Confirmed Active Common wart Confirmed Active Diagnosis Diagnosis Type Effective Dates Health Status Clinical Service Informant Deficiency of vitamin B12 Discharge Diagnosis 03/12/24 Non-Specified Procedures Procedure Date Related Diagnosis Body Site Status Electrodesiccation with curettage 1 02/15/24 Completed Shave biopsy 01/22/24 Completed Lumbar puncture 12/2023 Completed Mohs' micrographic surgery 08/08/23 Completed Cataract of right eye 06/14/23 Com pleted Mammogram 2 06/09/23 Completed Bowel 3 05/18/23 Completed COLONOSCOPY & POLYPECTOMY 4 05/18/23 Completed Shave biopsy and cauterization of skin 04/26/23 Completed Shave biopsy and cauterization of skin 04/26/23 Completed Shave biopsy and cauterizati on of skin 5 05/23/22 Completed Shave biopsy and cauterizati on of skin 6 04/05/22 Completed Mohs micrographic surgery 10/04/21 Completed Shave biopsy and cauterization of skin 09/13/21 Completed Shave biopsy and cauterization of skin 04/16/20 Completed mammogram 05/08/19 Completed Electrodesiccation with curettage 05/02/19 Completed Shave biopsy and cauterisation of skin 04/24/19 Completed Shave biopsy and cauterisation of skin 04/24/19 Completed Mammogram 2018 Completed Mammogram - screening 8 12/01/17 C ompleted Surgery 9 05/02/17 Completed Bone density scan 10 12/08/16 Comp leted Hip X-ray 11 11/28/16 Completed Mammogram 12 11/21/16 Completed Surgery 13 04/03/15 Completed Mastectomy 14 01/13/15 Completed Surgery 2011 Completed Colonoscopy 17 11/11/09 Completed Entire left wrist 06/12/91 Complet ed Arthroscopy 18 Completed Arthroscopy 19 Completed Shave biopsy and cauterisati on of skin 20 Completed Surgery 21 Completed Surgery 22 Completed 1right upper chest 2FINDINGS There are no suspicious masses, calcifications, or [...] 1 year screening mammogram is recommended (06/09/2024) 3perforation 420 mm polyp in ascending colon - removed w/ hot snare perforation in sigmoid diverticulitis in sigmoid non-bleeding internal hemorrhoids 5With ED&C 61. Left forearm 2. Right lower cheek 7no evidence of malignancy recheck in 1 year. 8There is no mammographic evidence of malignancy. A 1 year screening mammogram is recommended. 9right hip replacement 10WHO Classification: Normal. Fracture risk is low. Follow-up in November 2018. 11No acute bony abnormality is seen in the right hip Osteopenia and advanced arthritic change as above 12BIRADS: 2: Benign There is no mammographic evidence of malignancy. A 1 year screening mammogram is recommended. 13nerve intrapment surgery 14left 15discectomy 16back surgery 17The entire examined colon is normal 18right knee 19x2 on left knee 20w/ED&C 21laproscopic for fertility x2 226/2016 Social History Social History Type Response Smoking Status Never smoked cigaret niharika Sex Female Sex Representation Female (finding) Patient Care team information Care Team Personnel Name: DO Barreto Amanda Position: Resident Member Role: Lifetime Relationship Address: [address] [facility] [address] [place] [address] [place] Name: MD Nanette, Khushi Ramos Position: Research Staff Member Role: Lifetime Relationship Address: [address] [place] [address] [address] [place] [address] [place] Name: HARLAN Breaux, Lindsay Anderson Position: Physician Scarrer - Orthopaedic Surg Member Role: Lifetime Relationship Address: [address] [facility] [address] [place] [address] [place] Name: MD Jas, Nghia Elise Position: Physician Member Role: Primary Care Provider Address: [address] [facility] [address] [place] [address] [place] Care Team Related Persons Name: MEHRDAD GARCIA
--- OUTSIDE RECORDS SUMMARY | 2024-03-27 04:51 | External Medical Summary | Continuity of Care Document ---
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) - Anemia, unspecified(Final) - Discharge Disposition: Home or Self Care [...] 1, To wound with dressing changes, [facility]acy: [facility] #[id number] Start Date: 04/26/23 Status: Ordered doxycycline hyclate 100 mg oral capsule Start: 12/21/23 10:33:00 AM EDT Start Date: 12/21/23 Status: Ordered lysine Start: 09/24/20 1:58:00 PM [...] Daily, Disp# 30 tab, Refills: 0, Pharmacy: [id number] Start Date: 10/23/23 Stop Date: 11/22/23 Status: [...] in 12 hours then stop, [facility]acy: [facility] #[id number] Start Date: 04/10/23 Status: Ordered Vitamin B12 1000 mcg/mL injectable solution Start: 12/21/23 11:33:00 AM EDT, 1,000 mcg =, IM, qmonth (30 days), Disp# 1 mL, Refills: 6, Pharmacy: [id number] Start Date: 12/21/23 Status: Ordered Vitamin C 500 mg oral [...] Active Tubular adenoma of colon Confirmed Active Procedures Procedure Date Related Diagnosis [...] 04/03/15 Completed Mastectomy 13 01/13/15 Completed Surgery 2011 Completed Colonoscopy 16 11/11/09 Completed Entire [...] left knee 19w/ED&C 20laproscopic for fertility x2 Results Laboratory List Name Date Complete Blood Count (CBC) 12/28/23 Most recent to oldest [Reference Range]: 1 MPV [9.0-12.2 fL] 10.9 fL (12/28/23 9:01 AM) RDW [11.5-14.2 %] 18.4 % *HI* (12/28/23 9:01 AM) Hct [35-44 %] 34.3 % *LOW* (12/28/23 9:01 AM) Hgb [11.7-15.0 g/dL] 10.9 g/dL *LOW* (12/28/23 9:01 AM) MCH [28-33 pg] 36.0 pg *HI* (12/28/23 9:01 AM) MCHC [32-36 g/dL] 31.8 g/dL *LOW* (12/28/23 9:01 AM) MCV [81-96 fL] 113.2 fL *HI* (12/28/23 9:01 AM) Plts [150-350 K/uL] 347 K/uL (12/28/23 9:01 AM) RBC [3.90-5.00 M/uL] 3.03 M/uL *LOW* (12/28/23 9:01 AM) WBC [4.0-10.4 K/uL] 7.63 K/uL (12/28/23 9:01 AM) Social History Social History Type Response Smoking Status Never smoked cigaret niharika Sex Female Patient Care team information Care Team Personnel Name: DO Barreto Amanda Position: Resident Member Role: Lifetime Relationship Address: Address: [address] [facility] [address] [place] [address] [place] Name: MD Nanette, Khushi Ramos Position: Research Staff Member Role: Lifetime Relationship Address: Address: [address] [place] [address] [address] [place] [address] [place] Name: HARLAN Breaux, Lindsay Anderson Position: Physician Lens Grinder Rough - Orthopaedic Surg Member Role: Lifetime Relationship Address: Address: [address] [facility] [address] [place] [address] [place] Name: MD Jas, Nghia Elise Position: Physician Member Role: Primary Care Provider Address: Address: [address] [facility] [address] [place] [address] Care Team Related Persons Name: MEHRDAD GARCIA Address: home [address] [facility], [place] [id number]
--- OUTSIDE RECORDS SUMMARY | 2024-03-27 04:51 | External Medical Summary | Summary of Care ---
Author Name Unknown Organization [facility] Address [address] [facility] [facility] [place] [address] Phone [phone] Care Team Providers Care Head Of Housekeeping Name Role Phone Sam Quintero MD Primary Care Provider Encounter Details Date Type Department Care Team (Latest Contact Info) Description 01/31/2024 9:00 AM EDT Office Visit Audiology [facility] [address] [place] [address] Gema Paredes AuMelissa [address] [place] [address] Mixed conductive and sensorineural hearing loss of right ear with restricted hearing of left ear* Allergies Active Allergy Reactions Criticality Noted Date Comments Anastrozole 08/06/2015 Oxycodone-Acetaminophen 05/12/2012 Tramadol Hcl Nausea/vomiting 01/07/2015 Hydrocodone-Acetaminophen 05/12/2012 documented as of this encounter (statuses as of 01/31/2024) Medications Medication Sig Dispensed Refills Start Date End Date Status Ascorbic Acid (VITAMIN C) 1000 MG Tablet Take 1 Tablet by mouth in the morning. Active Probiotic Product (PROBIOTIC & ACIDOPHILUS EX ST) Capsule Take 1 Cap by mouth three times a day with meals. Active Cholecalciferol 25 MCG (1000 UT) Oral Tablet Take 1 Tablet by mouth in the morning. Active Turmeric 500 MG TABS Take 2 Tabs by mouth 2 times a day. Active Magnesium Citrate 100 MG TABS Take by mouth. Active Lysine 1000 MG Oral Tablet 1,000 mg. 09/24/2020 Active Tylenol PM Extra Strength 500-25 MG Oral Tablet (diphenhydrAMINE-APAP (sleep)) Take 1 Tablet by mouth 3 times a day as needed for Itching. Active Moxifloxacin HCl 0.5 % Ophthalmic Solution (Vigamox) INSTILL 1 DROP INTO LEFT EYE FOUR TIMES A DAY STARTING 1 DAY PRIOR TO SURGERY 06/20/2023 Active prednisoLONE Acetate 1 % Ophthalmic Suspension (Pred Forte) BRING TO SURGERY CENTER. INSTILL 1 DROP INTO LEFT EYE FOUR TIMES A DAY AFTER SURGERY DIRECTED 06/19/2023 Active documented as of this encounter (statuses as of 01/31/2024) Active Problems Problem Noted Date Diagnosed Date Breast cancer, female 02/27/2015 Cancer Staging:Clinical: Unsigned Pathologic:Stage IA(T1b, N0, cM0) - Signed by Lionel Akhtar MD on 02/27/2015 Lumbar disc herniation with radiculopathy 2011 Degenerative disc disease, lumbar 05/01/2012 ADVANCE DIRECTIVE INFORMATION 07/27/2006 Overview: No, Advance Directive brochure offered , patient declined. Trigeminal neuralgia 07/27/2006 Insomnia Overview: ICD-10 update of inactive term Generalized osteoarthritis Irritable bowel syndrome Ductal carcinoma documented as of this encounter (statuses as of 01/31/2024) Resolved Problems Problem Noted Date Diagnosed Date Resolved Date Left sided sciatica 05/01/2012 03/20/20 13 documented as of this encounter (statuses as of 01/31/2024) Immunizations Name Administration Dates Next Due COVID-19 mRNA, LNP-s, No Pre serve, 2-Dose Series (Moderna) 08/19/2020,07/22/2020 documented as of this encounter Social History Tobacco Use Types Packs/Day Years Used Date Smoking Tobacco: Never Smokeless Tobacco: Never Alcohol Use Standard Drinks/Week Comments Yes 0 (1 standard drink = 0.6 oz pur e alcohol) occasional Sex and Gender Information Value Date Recorded Sex Assigned at Not on file Gender Identity Not on file Sexual Orientation Not on file Job Start Date Occupation Industry Not on file Not on file Not on file documented as of this encounter Progress Notes * Gema Paredes Au.D. - 01/31/2024 9:27 AM EDT Images from the original note were not included. Audiologic evaluation was completed on referral from Otolaryngology clinic. Tympanometry 69928 Right: Flat with normal equivalent volume ("Type B") Left: WNL for static admittance, tympanometric peak pressure, equivalent volume, and tympanic width("Type A") Standard audiometric testing 11117 ABSD insert earphones Good reliability Right: mixed hearing loss Left: sensorineural hearing loss Speech recognition thresholds were consistent with hearing thresholds. Word recognition scores, obtained via monitored live voice were: right 92%, left 92% Felipe Wang, [facility] 01/31/2024 9:27 AM Scan: audiogram, tympanograms documented in this encounter Plan of Treatment Upcoming Encounters Date Type Department Care Team (Latest Contact Info) Description 04/01/2024 11:15 AM EDT Office Visit Otolaryngology [facility] [address] [place] [address] [place] Singh DO [address] [place] [address] 05/30/2024 10:15 AM EST Hospital Encounter [facility] [address] [place] [phone] Edi Higginbotham MD [address] [place] [address] 05/30/2024 10:15 AM EST - 05/30/2024 10:45 AM EST Surgery [facility], [facility] [address] [place] [phone] Edi Higginbotham MD [address] [place] [address] COLONOSCOPY FLEXIBLE PROXIMAL DIAGNOSTIC Scheduled Procedures Name Priority Associated Diagnoses Date/Ti me COLONOSCOPY FLEXIBLE PROXIMAL DIAGNOSTIC Perforation of colon (HCC) 05/30/2024 10:15 AM EST Health Maintenance Due Date Last Done Comments DXA Scan 1952 Depression Screening 1964 Hepatitis C Screening 1970 DTaP,Tdap,and Td Vaccines (1 - Tdap) 09/22/1971 Fecal Occult Blood Test 1997 Sigmoidoscopy 1997 Zoster Vaccines (1 of 2) 2002 Pneumococcal Vaccine: 65+ Years (1 of 1 - PCV) 2017 Mammogram 11/21/2017 11/21/2016, 02/2016, 12/08/2014, Additional history exists Colonoscopy 11/12/2019 11/11/2009 Lipid Panel 06/10/2020 06/10/2015, 02/11, 03/15/2011 COVID-19 Vaccine ( season) 2023 08/19/2020, 07/22/2020 Influenza Vaccine (FLU shot) (#1) 2024 Cologuard 05/06/2024 05/06/2021 Colorectal Cancer Screening 05/06/2024 HPV (Gardasil) Vaccine Aged Out No lo nger eligible based on patient's age to complete this topic Hepatitis B Vaccine Aged Out No longe r eligible based on patient's age to complete this topic MENINGOCOCCAL (MENACTRA/MENVEO) Aged Out No longer eligible based on patient's age to complete this topic documented as of this encounter Medical Devices Not on filedocumented as of this encounter Procedures Procedure Name Priority Date/Time Associated Diagnosis Comments AUDIOMETRIC RESULT 01/31/2024 AUDIOMETRIC RESULT 01/31/2024 documented in this encounter Results * AUDIOMETRIC RESULT (01/31/2024) 01/31/2024 [facility] * AUDIOMETRIC RESULT (01/31/2024) 01/31/2024 [facility] documented in this encounter Visit Diagnoses Diagnosis Mixed conductive and sensorineural hearing loss of right ear with restricted hearing of left ear- Primary Perforation of colon (HCC) Perforation of intestine documented in this encounter Care Teams Head Of Housekeeping Relationship Specialty Start Date End Date Sam Quintero MD [address] [facility] [address] [address] PCP - General Family Medicine 12/15/15 documented as of this encounter
--- OUTSIDE RECORDS SUMMARY | 2024-03-27 04:51 | External Medical Summary | Summary of Care ---
Author Name Unknown Organization [facility] Address [address] [facility] [place] [address] Phone [phone] Care Team Providers Care Insurance Loss Assessor Name Role Phone Sam Quintero MD Primary Care Provider Encounter Details Date Type Department Care Team (Late st Contact Info) Description 02/06/[address] [facility] [address] [place] [address] [place] Singh DO [address] [place] [address] Allergies Active Allergy Reactions Criticality Noted Date Comments Anastrozole 08/06/2015 Oxycodone-Acetaminophen 05/12/2012 Tramadol Hcl Nausea/vomiting 01/07/2015 Hydrocodone-Acetaminophen 05/12/2012 documented as of this encounter (statuses as of 02/06/2024) Medications Medication Sig Dispensed Refills Start Date [...] as of this encounter (statuses as of 02/06/2024) Active Problems Problem Noted Date Diagnosed Date [...] as of this encounter (statuses as of 02/06/2024) Resolved Problems Problem Noted Date Diagnosed Date Resolved Date Left sided sciatica 05/01/2012 03/20/20 13 documented as of this encounter (statuses as of 02/06/2024) Immunizations Name Administration Dates Next Due COVID-19 [...] encounter Miscellaneous Notes * Telephone Encounter - Lucia George LPN - 02/06/2024 2:28 PM EDT I called pt back to offer an appointment per Dr. Singh, Pt states as of today she is feeling better, so she would like to wait to see if she really needs it or not. Pt states maybe next week if she feels like she needs it then she will call in for an appointment. * Telephone Encounter - [place] Singh DO - 02/06/2024 1:24 PM EDT Please let patient know that I spoke to her brother over the weekend. Recommend she consider a myringotomy (i.e. small incision on the eardrum) with suction/removal of middle ear effusion. If she would like to do this please help her schedule an appointment tomorrow or between OR cases [place] Singh DO, [facility], Department of Otolaryngology-Head and Neck Surgery [facility], [place] 02/06/2024 1:25 PM * Telephone Encounter - Lucia George LPN - 02/06/2024 1:10 PM EDT Pt calling in requesting a sooner appointment. She states that her and her brother believe that sheneeds seen sooner than March. documented in this encounter Plan of Treatment Upcoming Encounters Date Type Department Care Team (Latest Contact Info) Description 02/09/2024 11:15 AM EDT Hospital Encounter [facility] [address] [place] [phone] Edi Higginbotham MD [address] [place] [address] 02/09/2024 11:15 AM EDT - 02/09/2024 11:45 AM EDT Surgery [facility], [facility] [address] [place] [phone] Edi Higginbotham MD [address] [place] [address] COLONOSCOPY FLEXIBLE PROXIMAL DIAGNOSTIC 04/01/2024 11:15 AM EDT Office Visit Otolaryngology [facility] [address] [place] [address] [place] Singh DO [address] [place] [address] Scheduled Procedures Name Priority Associated Diagnoses Date/Ti me COLONOSCOPY FLEXIBLE PROXIMAL DIAGNOSTIC Perforation of colon (HCC) 02/09/2024 11:15 AM EDT Health Maintenance Due Date Last Done Comments DXA Scan 1952 Depression Screening 1964 Hepatitis C Screening 1970 DTap/Tdap Vaccines (1 - Tdap) 09/22/1971 Fecal Occult Blood Test 1997 Sigmoidoscopy 1997 Zoster Vaccines (1 of 2) 2002 Pneumococcal Vaccine: 65+ Years (1 of 1 - PCV) 2017 Mammogram 11/21/2017 11/21/2016, 06/02/2016, [...] filedocumented as of this encounter Care Teams Insurance Loss Assessor Relationship Specialty Start Date End Date Sam Quintero MD [address] [facility] [place] [address] [place] [address] PCP - General Family Medicine 12/15/15 documented as of this encounter
--- OUTSIDE RECORDS SUMMARY | 2024-03-27 04:51 | External Medical Summary | Summary of Care ---
Author Name Unknown Organization [facility] Address [address] [address] Phone [phone] Care Team Providers Care Circular Saw Operator Name Role Phone Sam Quintero MD Primary Care Provider Reason for Visit * Reason Comments Follow Up Cerumen removal Encounter Details Date Type Department Care Team (Late st Contact Info) Description 01/03/2024 11:15 AM EDT Office Visit Otolaryngology [facility] [address] [place] [address] Boston Singh DO [address] [place] [address] Bilateral impacted cerumen*; Fluid level behind tympanic membrane of both ears Allergies Active Allergy Reactions Criticality Noted Date Comments Anastrozole 08/06/2015 Oxycodone-Acetaminophen 05/12/2012 Tramadol Hcl Nausea/vomiting 01/07/2015 Hydrocodone-Acetaminophen 05/12/2012 documented as of this encounter (statuses as of 01/03/2024) Medications Medication Sig Dispensed Refills Start Date [...] as of this encounter (statuses as of 01/03/2024) Active Problems Problem Noted Date Diagnosed Date [...] as of this encounter (statuses as of 01/03/2024) Resolved Problems Problem Noted Date Diagnosed Date Resolved Date Left sided sciatica 05/01/2012 03/20/20 13 documented as of this encounter (statuses as of 01/03/2024) Immunizations Name Administration Dates Next Due COVID-19 [...] Pressure - - Pulse - - Temperature - - Respiratory Rate - - Oxygen Saturation - - Inhaled Oxygen Concentration - - Weight 51.6 kg (113 lb 12.8 oz) 024 11:22 AM EDT Height 160 cm (5' 2.99") 01/03/2024 11: 22 AM EDT Body Mass Index 20.17 01/03/2024 11:22 AM EDT documented in this encounter Progress Notes * Boston Singh, DO - 01/03/2024 12:14 PM EDT Otolaryngology Head and Neck Surgery 01/03/2024 Patient returns today for check of her ears. She has a history of recurrent cerumen impactions. Does have a recent history of a hospital admission for pneumonia. Feels like her ears are full and blocked in the hearing is down. Problem List Patient Active Problem List Diagnosis ADVANCE DIRECTIVE INFORMATION Trigeminal neuralgia Insomnia Generalized osteoarthritis Irritable bowel syndrome Lumbar disc herniation with radiculopathy Degenerative disc disease, lumbar Ductal carcinoma (HCC) Breast cancer, female (HCC) Past Medical History: Diagnosis Date Generalized osteoarthritis Herpes zoster along R side of head x3 Insomnia, unspecified Irritable bowel syndrome Trigeminal neuralgia resolved, ? secondary to prior shingles outbreak Past Surgical History: Procedure Laterality Date COLONOSCOPY, DIAGNOSTIC (RECTUM) 11/11/2009 wnl KNEE ARTHROSCOPY/SURGERY x3 LAPAROSCOPY,BIOPSY x2 as part of fertility workup LUMBAR / SACRAL EPIDURAL, SINGLE LEVEL 03/13/2017 INJECTION TRANSFORAMINAL EPIDURAL LUMBAR OR SACRAL performed by Cyrus Naranjo Cousins, DO at OR [facility] OTHER Right 06/14/2023 Cataract eye surgery [place] RMVL LUNG OTHER THAN PNEUMONECTOMY 1 LOBE LOBECT Left 06/21/2023 cataract eye surgery REMOVAL OF TONSILS, UNDER AGE 12 Medications Current Outpatient Medications Medication Sig Dispense Refill Ascorbic Acid (VITAMIN C) 1000 MG Tablet Take 1 Tablet by mouth in the morning. Probiotic Product (PROBIOTIC & ACIDOPHILUS EX ST) Capsule Take 1 Cap by mouth three times a daywith meals. Cholecalciferol 25 MCG (1000 UT) Oral [...] times a day as needed for Itching. Moxifloxacin HCl 0.5 % Ophthalmic Solution (Vigamox) INSTILL 1 DROP INTO LEFT EYE FOUR TIMES A DAY STARTING 1 DAY PRIOR TO SURGERY prednisoLONE Acetate 1 % Ophthalmic Suspension (Pred Forte) BRING TO SURGERY CENTER. INSTILL 1 DROPINTO LEFT EYE FOUR TIMES A DAY AFTER SURGERY DIRECTED No current facility-administered medications for this visit. Allergies Review of patient's allergies indicates: Allergen Reactions Anastrozole Percocet [Oxycodone-Acetaminophen] Tramadol Hcl Nausea/vomiting Vicodin [Hydrocodone-Acetaminophen] Family History Family History Problem Relation Name Age of Onset Heart Disorder Mother Lung [...] mental health, integumentary, hypertensive, lipid, arthritic, diabetic, thyroid, or neurologic disorders (except as listed in the PMH and Problem List). Physical Examination: Ht 1.6 m (5' 2.99") | Wt 51.6 kg (113 lb 12.8 oz) | BMI 20.17 kg/m | BSA 1.51 m PHYSICAL EXAM General: This is a healthy [...] No nystagmus was observed. Pupils were equal. Ears: Examination of the ears revealed that the auricles were normally formed with no lesions. The external auditory canals were cleaned of any obstructing cerumen. The tympanic membranes were intact. She does have bilateral middle ear effusions on exam today Assessment: 73-year-old female with bilateral cerumen impactions and bilateral middle ear effusions after recent bout of pneumonia. Plan: Cerumen removed as above. Recommend tincture of time/observation for her middle ear effusions as 85% of these resolve spontaneously. I will see her in 1 month for recheck. Boston Singh DO, JANELL Gaines Otolaryngology Head and Neck Surgery [place] 01/03/2024 12:16 PM documented in this encounter Nursing Notes * Christina Eden LPN - 01/03/2024 11:24 AM EDT Chief Complaint Patient presents with Follow Up Cerumen removal Patient returns today for routine cerumen removal. Pt states her ears are clogged and having trouble hearing. Plan: Cerumen removed as above Follow-up in 6 months. Boston Singh DO, JANELL Gaines Otolaryngology Head [facility] Neck [facility] [place], [place] 07/05/2023 3:01 PM documented in this encounter Plan of Treatment Upcoming Encounters Date Type Department Care Team (Latest Contact Info) Description 01/31/2024 9:00 AM EDT Office Visit Otolaryngology [facility] [address] [place] [address] Boston Singh DO [address] [place] [address] 05/30/2024 10:15 AM [facility] Hospital Encounter ENDO [facility], Endoscopy Room [facility] [address] [place] [id number] Edi Higginbotham MD [address] [place] [address] 05/30/2024 10:15 AM EST - 05/30/2024 10:45 AM EST Surgery ENDO [facility], Endoscopy Room [facility] [address] [place] [phone] Edi Higginbotham MD [address] [place] [address] COLONOSCOPY FLEXIBLE PROXIMAL DIAGNOSTIC Scheduled Procedures Name [...] 1 - PCV) 2017 Mammogram 11/21/2017 11/21/2016, /02/2016, 12/08/2014, Additional history exists Colonoscopy 11/12/2019 11/11/2009 [...] as of this encounter Visit Diagnoses Diagnosis Bilateral impacted cerumen- Primary Impacted cerumen Fluid level behind tympanic membrane of both ears Perforation of colon (HCC) Perforation of intestine documented in this encounter Care Teams Circular Saw Operator Relationship Specialty Start Date End Date Sam Quintero MD [address] [place] [address], [place] [address] PCP - General Family Medicine 12/15/15 documented as of this encounter
--- OUTSIDE RECORDS SUMMARY | 2024-03-27 04:51 | External Medical Summary | Continuity of Care Document ---
Author Name Unknown Organization [facility] [address] [facility] [address] [phone] Care Team Providers Care Regulatory Scientist Name Role Phone Nghia Mark Primary Care Physician [phone] Encounter [facility] [id number] Date(s): 02/22/24 - 02/22/24 [facility] [address] [facility] [address] [phone] [place] Discharge Disposition: Home or Self Care Attending Physician: MD Davis Sara B Allergies, Adverse Reactions, Alerts Substance Criticality Severity [...] 1, To wound with dressing changes, [facility]acy: [id number] Start Date: 04/26/23 Status: Ordered lysine Start: [...] in 12 hours then stop, [facility]acy: [id number] Start Date: 04/10/23 Status: Ordered Vitamin B12 1000 mcg/mL injectable solution Start: 02/22/24 10:10:00 AM EDT, 1,000 mcg =, IM, qmonth (30 days), Disp# 1 mL, Refills: 6, Note to Pharmacy: Pt to inject self at home., Pharmacy: [id number] Start Date: 02/22/24 Status: Ordered Vitamin C [...] colon Confirmed Active Common wart Confirmed Active Procedures Procedure Date Related Diagnosis [...] and cauterisation of skin 04/24/19 Completed Mammogram 7 2018 Completed Mammogram - screening 8 12/01/17 C ompleted Surgery 9 05/02/17 Completed Bone density scan 10 12/08/16 Comp leted Hip X-ray 11 11/28/16 Completed Mammogram 12 11/21/16 Completed Surgery 13 04/03/15 Completed Mastectomy 14 01/13/15 Completed Surgery 15, 16 2011 Completed Colonoscopy 17 11/11/09 Completed Entire [...] left knee 20w/ED&C 21laproscopic for fertility x2 /2016 Social History Social History Type Response Smoking Status Never smoked cigaret niharika Sex Female Sex Representation Female (finding) Patient Care team information Care Team Personnel Name: DO Barreto Amanda Position: Resident Member Role: Lifetime Relationship Address: [address] [facility] [address] [place] [address] [place] Name: MD Nanette, Khushi Ramos Position: Research Staff Member Role: Lifetime Relationship Address: [address] [facility] [place] [address] [place] Name: HARLAN Breaux, Lindsay Anderson Position: Physician Dustless Operator - Orthopaedic Surg Member Role: Lifetime Relationship Address: [address] [facility] [place] [address] [place] Name: MD Jas, Nghia Elise Position: Physician Member Role: Primary Care Provider Address: [address] [facility] [address] [place] [address] [place] Care Team Related Persons Name: MEHRDAD GARCIA
--- OUTSIDE RECORDS SUMMARY | 2024-03-27 04:51 | External Medical Summary | Summary of Care ---
Author Name Unknown Organization [facility] Address [address] [place] [place] [place] [address] Phone [phone] Care Team Providers Care Esl Teacher Name Role Phone Nghia Mark MD Primary Care Provi concha Reason for Visit * Reason Onset Date Comments Appointment 02/15/2024 Encounter Details Date Type Department Care Team (Late st Contact Info) Description 02/15/2024 Telephone Gastroenterology, [facility] [email or web address] [place] [address] Edi Higginbotham MD [address] [place] [address] Appointment Allergies Active Allergy Reactions Criticality Noted Date Comments Anastrozole 08/06/2015 Oxycodone-Acetaminophen 05/12/2012 Prednisone Other (Please comment) 02/06/2024 Nasal herpetic growth Tramadol Hcl Nausea/vomiting 01/07/2015 Hydrocodone-Acetaminoph en 05/12/2012 documented as of this encounter (statuses as of 02/15/2024) Medications Medication Sig Dispensed Refills Start Date [...] a day as needed for Itching. Active Ciprofloxacin HCl 500 MG Oral Tablet (Cipro) Take 1 Tablet by mouth in the morning and 1 Tablet before bedtime. 6 Tablet 02/09/2024 Active documented as of this encounter (statuses as of 02/15/2024) Active Problems Problem Noted Date Diagnosed Date [...] as of this encounter (statuses as of 02/15/2024) Resolved Problems Problem Noted Date Diagnosed Date Resolved Date Left sided sciatica 05/01/2012 03/20/20 13 documented as of this encounter (statuses as of 02/15/2024) Immunizations Name Administration Dates Next Due COVID-19 [...] encounter Miscellaneous Notes * Telephone Encounter - Cuca Syed OSA - 02/15/2024 11:37 AM EDT Per biopsy letter from Dr Higginbotham pt to have repeat colonoscopy in 6 months (book for an hour per report). Spoke to pt, states she would like to get scheduled in the spring, please call pt once more schedules are available. Thanks! documented in this encounter Plan of Treatment Upcoming Encounters Date Type Department Care Team (Late st Contact Info) Description 04/01/2024 11:15 AM EDT Office Visit Otolaryngology [facility] [address] [place] [address] Boston Singh DO [address] [place] [address] Health Maintenance Due Date Last Done Comments DXA Scan 1950 Depression Screening 1964 Hepatitis C Screening 1970 DTap/Tdap Vaccines (1 - Tdap) 09/22/1971 Fecal Occult Blood Test 1997 Sigmoidoscopy 1997 Zoster Vaccines (1 of 2) 2002 Pneumococcal Vaccine: 65+ Years (1 of 1 - PCV) 2017 Mammogram 11/21/2017 11/21/2016, 0602/2016, 12/08/2014, Additional history exists Lipid Panel 06/10/2020 06/10/2015, 02/11, 03/15/2011 COVID-19 Vaccine ( season) 2024 08/19/2020, 07/22/2020 Influenza Vaccine (FLU shot) (#1) 2024 Cologuard 05/06/2024 05/06/2021 Colonoscopy 02/08/2034 02/09/2024, 01/12, 11/11/2009 Colorectal Cancer Screening 02/08/2034 HPV (Gardasil) Vaccine Aged Out No lo [...] filedocumented as of this encounter Care Teams Esl Teacher Relationship Specialty Start Date End Date Nghia Mark MD [facility] [address] [place] [address] PCP - General Family Medicine 02/09/24 documented as of this encounter
--- OUTSIDE RECORDS SUMMARY | 2024-03-27 04:51 | External Medical Summary | Continuity of Care Document ---
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(Discharge Diagnosis) - 02/15/24 Discharge Disposition: Home or Self Care Attending [...] 1, To wound with dressing changes, Pharmacy: [facility] #[id number] Start Date: 04/26/23 Status: Ordered lysine Start: [...] 12 hours then stop, [facility]acy: [facility] #[id number] Start Date: 04/10/23 Status: Ordered Vitamin B12 1000 mcg/mL injectable solution Start: 12/21/23 11:33:00 AM EDT, 1,000 mcg =, IM, qmonth (30 days), Disp# 1 mL, Refills: 6, Pharmacy: [id number] Start Date: 12/21/23 Status: Ordered Vitamin C 500 mg oral capsule Start: 09/24/20 1:58:00 PM EDT, 1 cap, PO, Daily Start Date: 09/24/20 Status: Ordered Vitamin D3 Start: 02/27/18 3:41:00 PM EDT, 1,000 Int_Unit =, PO, Daily Start Date: 02/27/18 Status: Ordered Mental Status 02/15/24 Barriers to Learning one year None evide nt Mandatory Health Literacy Documentation Yes Health Literacy Communication Barriers N ever Primary Language Tajik Problem List Condition Confirmation Course Effective Dates [...] Diagnosis Diagnosis Type Effective Dates Health Status Cl inical Service Informant 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 With everything else going on with her cancer treatments and being [id number] on her infectious status we elected to treated with E D&C. If itrecurs we would send for Mohs OPERATIVE REPORT Diganosis: SCCIS Site: Right upper chest Operation performed: Electrodessication and Curretage Pathology Reviewed: Yes Size after first curettin.9 cm OPERATION: After discussion of the risks, benefits, and alternatives to therapy, the patient had the opportunity to ask questions, and a signed consent was obtained. A time out was completed and scanned into the chart. The patient was taken to the surgical suite, and placed on the operating table in the supine position. The area was then prepped with ETOH. 1% lidocaine with epinephrine was administered until adequate anesthesia was obtained. Approximately 1.5 cc were given. A dermal curette wasused to curette the lesion to normal skin in all areas. Electrocautery was performed at the base ofthe newly formed ulcer. The curettage and electrodessication was twice repeated. The patient tolerated the procedure well, and a sterile dressing with Vaseline was placed. The patient was given both written and verbal wound care instructions. The patient is to return to clinic in 6 months for re-evaluation and a skin examination; however, the patient was instructed to call us immediately if any problems develop in the interim. Electronic Signature on File Electronically Reviewed/Signed by: Kaela Davis MD Author Signature Dt/Tm:02/15/2024 10:51 AM Department of Dermatology [facility] Patient Care team information Care Team Personnel Name: DO Barreto Amanda Position: Resident Member Role: Lifetime Relationship Address: [address] [facility] [address] [place] [address] [place] Name: MD Nanette, Khushi Ramos Position: Research Staff Member Role: Lifetime Relationship Address: [address] [place] [address] [address] [place] [address] [place] Name: HARLAN Breaux, Lindsay Anderson Position: Physician Mechanics Handyman - Orthopaedic Surg Member Role: Lifetime Relationship Address: [address] [place] [address] [place] [address] [place] Name: MD Jas, Nghia Elise Position: Physician Member Role: Primary Care Provider Address: [address] [facility] [address] [place] [address] [place] Care Team Related Persons Name: MEHRDAD GARCIA
--- OUTSIDE RECORDS SUMMARY | 2024-03-27 04:51 | External Medical Summary | Summary of Care ---
Author Name Unknown Organization [facility] Address [address] [place] [facility] [place] [address] Phone [phone] Care Team Providers Care Access Manager Name Role Phone Nghia Mark MD Primary Care Provi concha Reason for Visit * Auth/Cert Specialty Diagnoses / Procedures Referred By Contac t Referred To Contact Diagnoses Perforation of colon (HCC) Perforation of colon (HCC) [K63.1] Procedures COLONOSCOPY, DIAGNOSTIC (RECTUM) COLONOSCOPY FLEXIBLE PROXIMAL DIAGNOSTIC Edi Higginbotham MD [address] [place] [address] [facility] [address] [place] [address] Referral ID Status Reason Start Date Expiration Date Visits Re quested Visits Authorized [id number] Encounter Details Date Type Department Care Team (Latest Contact Info) Description 02/09/2024 10:10 AM EDT - 02/09/2024 12:33 PM EDT Hospital Encounter [facility], Endoscopy Room [facility] [address] [place] [phone] Edi Higginbotham MD [address] [place] [address] Colonoscopy Discharge Disposition: Home - Self Care Allergies Active Allergy Reactions Criticality Noted Date Comments Anastrozole 08/06/2015 Oxycodone-Acetaminophen 05/12/2012 Prednisone Other (Please comment) 02/06/2024 Nasal herpetic growth Tramadol Hcl Nausea/vomiting 01/07/2015 Hydrocodone-Acetaminoph en 05/12/2012 documented as of this encounter (statuses as of 02/10/2024) Medications Medication Sig Dispensed Refills Start Date [...] STARTING 1 DAY PRIOR TO SURGERY 06/20/2023 02/06/2024 Discontinued prednisoLONE Acetate 1 % Ophthalmic Suspension (Pred Forte) BRING TO SURGERY CENTER. INSTILL 1 DROP INTO LEFT EYE FOUR TIMES A DAY AFTER SURGERY DIRECTED 06/19/2023 02/06/2024 Discontinued documented as of this encounter (statuses as of 02/10/2024) Active Problems Problem Noted Date Diagnosed Date [...] as of this encounter (statuses as of 02/10/2024) Resolved Problems Problem Noted Date Diagnosed Date Resolved Date Left sided sciatica 05/01/2012 03/20/20 13 documented as of this encounter (statuses as of 02/10/2024) Immunizations Name Administration Dates Next Due COVID-19 [...] Sign Reading Time Taken Comments Blood Pressure 102/57 02/09/2024 12:19 PM EDT Pulse 71 02/09/2024 12:19 PM EDT Temperature 36.5 C (97.7 F) 02/09/2024 12:19 PM E DT Respiratory Rate 16 02/09/2024 12:19 PM EDT Oxygen Saturation 100% 02/09/2024 12:19 PM EDT Inhaled Oxygen Concentration - - Weight 51.7 kg (114 lb) 02/09/2024 10:15 AM EDT Height 160 cm (5' 2.99") 02/09/2024 10:15 AM EDT Body Mass Index 20.2 02/09/2024 10:15 AM EDT documented in this encounter H&P Notes * Edi Higginbotham MD - 02/09/2024 11:12 AM EDT Endoscopy Pre-Procedure Assessment Name: Vivien Tay Date: 02/09/2024 Time: 11:12 AM Procedure(s): Colonoscopy; with Indication(s) of colon polyp surveillance Endoscopy Pre-Procedure Assessment: Prior to the procedure, the patient is identified. The patient's history, medications and allergieshave been reviewed. The patient is competent. The risks and benefits of the proposed procedure and the planned sedation have been discussed with the patient. All questions have been answered and informed consent for the procedure has been obtained. Prior to Admission medications Medication Sig Last Dose Discont. Lysine 1000 MG Oral Tablet 1,000 mg. 02/08/2024 Magnesium Citrate 100 MG TABS Take by mouth. 02/08/2024 Turmeric 500 MG TABS Take 2 Tabs by mouth 2 times a day. 02/08/2024 Probiotic Product (PROBIOTIC & ACIDOPHILUS EX ST) Capsule Take 1 Cap by mouth three times a daywith meals. 02/08/2024 Ascorbic Acid (VITAMIN C) 1000 MG Tablet Take 1 Tablet by mouth in the morning. 02/08/2024 Tylenol PM Extra Strength 500-25 MG Oral Tablet (diphenhydrAMINE-APAP (sleep)) Take 1 Tablet by mouth 3 times a day as needed for Itching. Over 30 Days Cholecalciferol 25 MCG (1000 UT) Oral Tablet Take 1 Tablet by mouth in the morning. Patient not taking: Reported on 02/06/2024 Not Taking Review of patient's allergies indicates: Allergen Reactions Anastrozole Percocet [Oxycodone-Acetaminophen] Prednisone Other (Please comment) Nasal herpetic growth Tramadol Hcl Nausea/vomiting Vicodin [Hydrocodone-Acetaminophen] BP 101/53 | Pulse 62 | Temp 36.4 C (97.6 F) (Tympanic) | Resp 15 | Ht 1.6 m (5' 2.99") | Wt 51.7 kg (114 lb) | SpO2 99% | BMI 20.20 kg/m | BSA 1.52 m Physical Exam: Mental Status Examination: alert and oriented. Airway Examination: normal oropharyngeal airway and neck mobility. Respiratory Examination: clear to auscultation. CV Examination: normal. ASA Grade: III - A patient with severe systemic disease. Abdomen: negative This patient has undergone a preprocedural evaluation. A determination has been made to proceed with the planned procedure under [facility] procedural guidelines and the CMS Non-Emergent, Elective Medical Services and Treatment Recommendations (published on 09-17-19). The community and hospital prevalence of COVID-19 has been discussed as well as this patient's specific risks associated with SARS-CoV-19 infection. Based upon the clinical acuity and patient-specific care considerations, this procedure is deemed a Tier II - Intermediate acuity treatment or service with either progression or the threat of progressive disease related to the delay in treatment. Not providing the service has the potential for increasing morbidity or mortality. After reviewing the risks and benefits, the patient is deemed in satisfactory condition to undergo the procedure. The anesthesia plan is to use general anesthesia. Edi Higginbotham MD 02/09/2024 documented in this encounter Procedure Notes * Nghia Mark MD - 02/09/2024 11:26 AM EDTAssociated Order(s): COLONOSCOPY [facility] Patient Name: Vivien Tay Procedure Date: 02/09/2024 11:26 AM Date of : 1950 Admit Type: Outpatient Note Status: Finalized Date of : 1950 Admit Type: Outpatient Age: 73 Room: Endo 2 Gender: Female Note Status: Finalized Procedure: Colonoscopy Indications: High risk colon cancer surveillance: Personal history of colonic polyps, Last colonoscopy: November 2009 Providers: Edi Higginbotham MD (Doctor) Referring MD: Nghia Mark (Referring MD) Medicines: See the Anesthesia note for documentation of the administered medications Complications: No immediate complications. Procedure: Pre-Anesthesia Assessment: - ASA Grade Assessment: III - A patient with severe systemic disease. - Prior to the procedure, a History and Physical was performed, and patient medication allergies have been reviewed. The patient's tolerance of previous anesthesia has been reviewed. - Respiratory Examination: clear to auscultation. - CV Examination: normal. - The risks and benefits of the procedure and the sedation options and risks were discussed with the patient. All questions were answered and informed consent was obtained. - Patient identification and proposed procedure were verified prior to the procedure by the physician, the nurse and the memorial mason. The procedure was verified in the pre-procedure area in the procedure room. - The medication list for this patient has been reviewed prior to the procedure and has been determined that the patient may proceed with the planned study. Any medication changes made as a result of the findings of this procedure have been discussed with the patient and/or benefits representative at the time of discharge from the facility. After I obtained informed consent, the scope was passed under direct vision. All instruments were visually inspected immediately before and after removal from the patient to ensure they are fully intact. Throughout the procedure, the patient's blood pressure, pulse, and oxygen saturations were monitored continuously. The [id number]-[id number] Colonoscope ([id number]) was introduced through the anus and advanced to the terminal ileum. The colonoscopy was performed without difficulty. The patient tolerated the procedure well. The quality of the bowel preparation was good. Findings & Specimens: The perianal and digital rectal examinations were significant for perianal erythema. Multiple small and large-mouthed diverticula were found in the sigmoid colon. There was a retained padlock clip at 20 cm, with mild luminal narrowing. A post polypectomy scar was found at the hepatic flexure. There was residual polypoid tissue. Therewas a 8 mm sessile polyp at the scar that was removed with wide margins using a cold snare. There was a 4 mm flat adenoma at the scar that was removed with a hot biopsy forceps. There was no residual adenoma noted after polypectomy. 1 cc of tattoo was injected 2-3 cm distal to the polypectomy site on the contralateral wall. Small non bleeding AVM in cecum. Hemorrhoids on retroflexion. Otherwise normal exam. Recommendation: Discharge pt home. Avoid NSAIDs x 5 days. Repeat exam in 6-9 months, book for an hour. Edi Higginbotham MD 02/09/2024 12:26:13 PM This report has been signed electronically. documented in this encounter Nursing Notes * Raheel Christensen RN - 02/09/2024 12:31 PM EDT Patient is alert, pain free, tolerating po fluids prior to discharge. Patient has been visited by Dr. Higginbotham. Patient has received and demonstrates understanding of discharge instructions. Patient ambulated to private auto accompanied by endo staff. * Raheel Christensen RN - 02/09/2024 12:21 PM EDT Pt sitting at bedside dressing self denies any pain or dizziness. * Raheel Christensen RN - 02/09/2024 12:13 PM EDT Pt sitting up in bed tolerating liquids well. * Jeremías Lynn RN - 02/09/2024 12:04 PM EDT Specimen(s) and location(s) verified with physician post procedure 12:04 PM Jeremías Lynn RN Mid abdominal pressure given per Dr. Higginbotham to assist with scope advancement. Pt tolerated well See anesthesia record for medication administered during procedure. Jeremías Lynn RN Pre cleaning of scope at the bedside started by product/device technologist. * Raheel Christensen RN - 02/09/2024 12:04 PM EDT Pt received in recovery awake and alert, abd is soft and non distended, pt denies any pain. VSS * Nelida Wen RN - 02/09/2024 10:36 AM EDT The following pt discharge instructions reviewed with pt prior to prodedure: No driving today. No alcohol today. No signing of legal documents. Rest as much as possible today and can return to normal activities tomorrow. No operating any heavy equipment today. Diet as tolerated. Pt verbalized understanding. documented in this encounter Plan of Treatment Upcoming Encounters Date Type Department Care Team (Late st Contact Info) Description 04/01/2024 11:15 AM EDT Office Visit Otolaryngology [facility] [address] [facility] [place] [address] Bostno Singh, [address] [place], [place] [address] [place] [address] Pending Results Name Type Priority Associated Diagnoses Date /Time SURGICAL PATHOLOGY Pathology Routine Perforation of colon (HCC) 02/09/2024 12:02 PM EDT Scheduled Orders Name Type Priority Associated Diagnoses Orde r Schedule SURGICAL PATHOLOGY Pathology Routine Perforation of colon (HCC) Release Upon Ordering for 1 Occurrences starting 02/09/2024, 1 completed Health Maintenance Due Date Last Done Comments DXA Scan 1950 Depression Screening 1964 Hepatitis C Screening 1970 DTap/Tdap Vaccines (1 - Tdap) 09/22/1971 Fecal Occult Blood Test 1997 Sigmoidoscopy 1997 Zoster Vaccines (1 of 2) 2002 Pneumococcal Vaccine: 65+ Years (1 of 1 - PCV) 2017 Mammogram 11/21/2017 11/21/2016, 02/2016, 12/08/2014, Additional history exists Lipid Panel 06/10/2020 06/10/2015, 02/11, 03/15/2011 COVID-19 Vaccine ( season) 2023 08/19/2020, 07/22/2020 Influenza Vaccine (FLU shot) (#1) 2024 Cologuard 05/06/2024 05/06/2021 Colonoscopy 02/08/2034 02/09/2024, 11/11/2009 Colorectal Cancer Screening 02/08/2034 HPV (Gardasil) [...] Procedure Name Priority Date/Time Associated Diagnosis Comments COLONOSCOPY 02/09/2024 11:26 AM EDT documented in this encounter Results * COLONOSCOPY (02/09/2024 11:26 AM EDT) 02/09/2024 11:2 6 AM EDT Narrative Procedure Note Nghia Mark MD - 02/09/2024 11:26 AM EDT [facility] Patient Name: Vivien Tay Procedure Date: 02/09/2024 11:26 AM Date of : 1950 Admit Type: Outpatient Note Status:Finalized Date of : 1950 Admit Type: Outpatient Age: 73 Room: Endo 2 Gender: Female Note Status: Finalized Procedure: Colonoscopy Indications: High risk colon cancer surveillance: Personalhistory of colonic polyps, Last colonoscopy: November 2009 Providers: Edi Higginbotham MD (Doctor) Referring MD: Nghia Mark (Referring MD) Medicines: See the Anesthesia note for documentation of theadministered medications Complications: No immediate complications. Procedure: Pre-Anesthesia Assessment: - ASA Grade Assessment: III - A patient with severesystemic disease. - Prior to the procedure, a History and Physicalwas performed, and patient medication allergies have been reviewed. Thepatient's tolerance of previous anesthesia has been reviewed. - Respiratory Examination: clear to auscultation. - CV Examination: normal. - The risks and benefits of the procedure and thesedation options and risks were discussed with the patient. All questions wereanswered and informed consent was obtained. - Patient identification and proposed procedurewere verified prior to the procedure by the physician, the nurse and the memorial mason.The procedure was verified in the pre-procedure area in the procedure room. - The medication list for this patient has beenreviewed prior to the procedure and has been determined that the patient may proceedwith the planned study. Any medication changes made as a result of the findingsof this procedure have been discussed with the patient and/or benefits representative atthe time of discharge from the facility. After I obtained informed consent, the scope waspassed under direct vision. All instruments were visually inspected immediatelybefore and after removal from the patient to ensure they are fully intact. Throughout the procedure, the patient's bloodpressure, pulse, and oxygen saturations were monitored continuously. The [id number] ([id number]) was introduced through the anus and advanced to the terminalileum. The colonoscopy was performed without difficulty. The patient tolerated theprocedure well. The quality of the bowel preparation was good. Findings & Specimens: The perianal and digital rectal examinations were significant forperianal erythema. Multiple small and large-mouthed diverticula were found in thesigmoid colon. There was a retained padlock clip at 20 cm, with mild luminal narrowing. A post polypectomy scar was found at the hepatic flexure. There wasresidual polypoid tissue. There was a 8 mm sessile polyp at the scar that was removed with wide marginsusing a cold snare. There was a 4 mm flat adenoma at the scar that was removed with a hotbiopsy forceps. There was no residual adenoma noted after polypectomy. 1 cc of tattoo was injected 2-3 cm distal to the polypectomy site onthe contralateral wall. Small non bleeding AVM in cecum. Hemorrhoids on retroflexion. Otherwise normal exam. Recommendation: Discharge pt home. Avoid NSAIDs x 5 days. Repeat exam in 6-9 months, book for an hour. Edi Higginbotham MD 02/09/2024 12:26:13 PM This report has been signed electronically. Nghia Mark MD GASTRO RODRIGOE R documented in this encounter Visit Diagnoses Diagnosis Perforation of colon (HCC) Perforation of intestine documented in this encounter Administered Medications Inactive Administered Medications - up to 3 most recent administrations Medication Order MAR Action Action Date Dose Rate Site isolyte-S pH 7.4 infusion Intravenous, at 100 mL/hr, Plasma-LYTE 148, isolyte-S, and isolyte-S pH 7.4 are considered equivalent - including for MAR barcode scanning., CONTINUOUS, Starting on Mon02/09/24 at 1045, Until Mon02/09/24 at 1633, Pre-Op Continue from Pre-Op 02/09/2024 11:08 AM EDT 100 mL/hr New Bag 02/09/2024 10:50 AM EDT 100 mL/hr documented in this encounter Active and Recently Administered Medications Times are shown in EDT. Continuous Medication Order 02/07/2024 02/08/2024 02/09/2024 isolyte-S pH 7.4 infusion Intravenous, at 100 mL/hr, Plasma-LYTE 148, isolyte-S, and isolyte-S pH 7.4 are considered equivalent - including for MAR barcode scanning., CONTINUOUS, Starting on Mon02/09/24 at 1045, Until Mon02/09/24 at 1633, Pre-Op 1050 (New Bag - Prov ider: Nelida Wen RN)1108 (Continue from Pre-Op - Provider: Judd Griggs CRNA)1202 (Anes Intra-Op Fluid - Provider: Judd Griggs CRNA) documented in this encounter Care Teams Access Manager Relationship Specialty Start Date End Date Nghia Mark MD [address] [facility] [address] [place] [address] PCP - General Family Medicine 02/09/24 documented as of this encounter
--- OUTSIDE RECORDS SUMMARY | 2024-03-27 04:51 | External Medical Summary | Summary of Care ---
Author Name Unknown Organization [facility] Address [address] [facility] [place] [address] Phone [phone] Care Team Providers Care Base Ply Hand Name Role Phone Sam Quintero MD Primary Care Provider Reason for Visit * Reason Comments Ear Re-Check Encounter Details Date Type Department Care Team (Late st Contact Info) Description 01/31/2024 9:00 AM EDT Office Visit Otolaryngology [facility] [address] [place] [address] Boston Singh DO [address] [place] [address] Middle ear effusion, right* Allergies Active Allergy Reactions Criticality Noted Date [...] - Inhaled Oxygen Concentration - - Weight 52.1 kg (114 lb 14.4 oz) 01/31/2024 9:09 AM EDT Height 160 cm (5' 2.99") 01/31/2024 9:09 AM EDT Body Mass Index 20.36 01/31/2024 9:09 AM EDT documented in this encounter Progress Notes * Boston Singh, DO - 01/31/2024 9:12 AM EDT Otolaryngology Head and Neck Surgery 01/31/2024 Patient returns today for check of her ears. She had bilateral middle ear effusions when I saw her last. That was after a bout of pneumonia several weeks prior. States the left ear feels well but herright ear still feels full and hearing is decreased. Problem List Patient Active Problem List Diagnosis [...] by Cyrus Naranjo Cousins, DO at OR [facility] OTHER Right 06/14/2023 Cataract eye surgery [place] RMVL LUNG OTHER THAN PNEUMONECTOMY 1 LOBE [...] Ht 1.6 m (5' 2.99") | Wt 52.1 kg (114 lb 14.4 oz) | BMI 20.36 kg/m | BSA 1.52 m PHYSICAL EXAM General: This is a healthy appearing female who appears her stated age. The patient is alert and appropriately verbally conversant without hoarseness. Face: The face was inspected and no cutaneous masses or lesions were visualized. There was no erythema or edema noted. Facial movement was symmetric without weakness. Eyes: Extra-ocular muscle function was intact. No nystagmus was observed. Pupils were equal. Cranial Nerves: Cranial nerves II, III, IV, and were noted to be intact via extra-ocular muscle movement testing. Cranial nerve VII noted to be intact and symmetric by facial movement. Ears: Examination of the ears revealed that the auricles were normally formed with no lesions. The external auditory canals were cleaned of any obstructing cerumen. Left TM is intact. Middle ear is healthy. Right TM intact. There is an lizbet colored middle ear effusion. Assessment: 73-year-old female with resolved left middle ear effusion but persistent right effusion on exam today. Plan: Discussed the options with her including observation versus tube placement. She would like to continue to observe to see if the right ear will clear like the left did. I will see her back in 2 months I spent a total of 20 minutes on the date of service in preparation, delivery, and documentation ofthe care provided to the above patient, excluding any time spent on the performance of any procedures or separately billable services. Boston Singh DO, FACS [facility] Test Engine Evaluator, Department of Otolaryngology-Head and Neck Surgery [place], [place] 01/31/2024 9:54 AM documented in this encounter Nursing Notes * Christina Ang LPN - 01/31/2024 9:10 AM EDT Chief Complaint Patient presents with Ear Re-Check Patient presents today for recheck of her ears. Pt states her ears are still full feeling, right isworse than left. Plan: Cerumen removed as above. Recommend tincture of time/observation for her middle ear effusions as 85% of these resolve spontaneously. I will see her in 1 month for recheck. Boston Singh DO, FACS [facility] Otolaryngology Head and Neck [place] 01/03/2024 12:16 PM documented in this encounter Plan of Treatment Upcoming Encounters Date Type Department Care Team (Latest Contact Info) Description 04/01/2024 11:15 AM EDT Office [facility] [place] [address] Boston Singh DO [address] [place] [address] 05/30/2024 10:15 AM EST Hospital Encounter [facility], Endoscopy Room [facility] [address] [place] [id number] Edi Higginbotham MD [address] [place] [address] 05/30/2024 10:15 AM EST - 05/30/2024 10:45 AM EST Surgery ENDO [facility], Endoscopy Room [facility] [address] [place] [phone] Edi Higginbotham MD [address] [place] [address] COLONOSCOPY FLEXIBLE PROXIMAL DIAGNOSTIC Scheduled Procedures Name [...] 1 - PCV) 2017 Mammogram 11/21/2017 11/21/2016, 06/0 [...] as of this encounter Visit Diagnoses Diagnosis Middle ear effusion, right- Primary Perforation of colon (HCC) Perforation of intestine documented in this encounter Care Teams Base Ply Hand Relationship Specialty Start Date End Date Sam Quintero MD [address] [facility] [place] [address] PCP - General Family Medicine 12/15/15 documented as of this encounter
--- OUTSIDE RECORDS SUMMARY | 2024-03-27 04:51 | External Medical Summary | Summary of Care ---
Author Name Unknown Organization [facility] Address [address] [address] Phone [phone] Care Team Providers Care Critical Care Unit Nurse Name Role Phone Sam Quintero MD Primary Care Provider Reason for Visit * Reason Onset Date Comments Medical Questions 02/07/2024 Encounter Details Date Type Department Care Team (Late st Contact Info) Description 02/07/2024 Telephone Pre Surgery Center, [facility] [address] [place] [address] Edi Higginbotham MD [address] [place] [address] Medical Questions Allergies Active Allergy Reactions Criticality Noted Date Comments Anastrozole 08/06/2015 Oxycodone-Acetaminophen 05/12/2012 Prednisone Other (Please comment) 02/06/2024 Nasal herpetic growth Tramadol Hcl Nausea/vomiting 01/07/2015 Hydrocodone-Acetaminoph en 05/12/2012 documented as of this encounter (statuses as of 02/07/2024) Medications Medication Sig Dispensed Refills Start Date [...] a day as needed for Itching. Active documented as of this encounter (statuses as of 02/07/2024) Active Problems Problem Noted Date Diagnosed Date [...] as of this encounter (statuses as of 02/07/2024) Resolved Problems Problem Noted Date Diagnosed Date Resolved Date Left sided sciatica 05/01/2012 03/20/20 13 documented as of this encounter (statuses as of 02/07/2024) Immunizations Name Administration Dates Next Due COVID-19 [...] on file documented as of this encounter Plan of Treatment Upcoming Encounters Date Type Department Care Team (Latest Contact Info) Description 02/09/2024 11:15 AM EDT Hospital Encounter ENDO [facility], Endoscopy Room [facility] [address] [facility] [place] [phone] Edi Higginbotham MD [address] [place] [address] 02/09/2024 11:15 AM EDT - 02/09/2024 11:45 AM EDT Surgery ENDO [facility], Endoscopy Room [facility] [address] [place] [phone] Edi Higginbotham MD [address] [place] [address] COLONOSCOPY FLEXIBLE PROXIMAL DIAGNOSTIC 04/01/2024 11:15 AM EDT Office Visit Otolaryngology [facility] [address] [place] [address] Boston Singh DO [address] [place] [address] Scheduled Procedures Name Priority Associated Diagnoses Date/Ti [...] 06/10/2020 06/10/2015, 02/11, 03/15/2011 COVID-19 Vaccine ( - season) 2023 08/19/2020, 07/22/2020 Influenza Vaccine (FLU [...] filedocumented as of this encounter Care Teams Critical Care Unit Nurse Relationship Specialty Start Date End Date Sam Quintero MD 6 [facility] [address] [address] PCP - General Family Medicine 12/15/15 documented as of this encounter
--- OUTSIDE RECORDS SUMMARY | 2024-03-27 04:51 | External Medical Summary | Continuity of Care Document ---
Author Name Unknown Organization [address] Address [address] [place] [address] [address] [phone] Care Team Providers Care Stained Glass Glazier Name Role Phone Nghia Mark Primary Care Physician [phone] Encounter [facility] [id number] Date(s): 01/19/24 - 01/19/[address] [place] [id number] [facility], [address] [place] [address] [phone] Encounter Diagnosis Vitamin B 12 deficiency(Discharge Diagnosis) - 01/19/24 Discharge Disposition: Home or Self Care Attending [...] 1, To wound with dressing changes, Pharmacy: [facility] #[id number] Start Date: 04/26/23 Status: Ordered doxycycline hyclate [...] Daily, Disp# 30 tab, Refills: 0, Pharmacy: [id number] Start Date: 10/23/23 Stop Date: 11/22/23 Status: [...] 12 hours then stop, [facility]acy: [facility] #[id number] Start Date: 04/10/23 Status: Ordered Vitamin B12 1000 mcg/mL injectable solution Start: 12/21/23 11:33:00 AM EDT, 1,000 mcg =, IM, qmonth (30 days), Disp# 1 mL, Refills: 6, Pharmacy: [facility] Start Date: 12/21/23 Status: Ordered Vitamin C [...] Effective Dates Health Status Clinical Service Informant Vitamin B 12 deficiency Discharge Diagnosis 01/19/24 Non-Specified Procedures Procedure Date Related Diagnosis Body [...] 04/03/15 Completed Mastectomy 13 01/13/15 Completed Surgery , 2011 Completed Colonoscopy 16 11/11/09 Completed Entire [...] left knee 19w/ED&C 20laproscopic for fertility x2 /2015 Social History Social History Type Response Smoking Status Never smoked cigaret niharika Sex Female Sex Representation Female (finding) Patient Care team information Care Team Personnel Name: DO Barreto Amanda Position: Resident Member Role: Lifetime Relationship Address: [address] [facility] [address] [place] [address] [place] Name: MD Nanette, Khushi Ramos Position: Research Staff Member Role: Lifetime Relationship Address: [address] [place] [address] [place] Name: HARLAN Breaux, Lindsay Anderson Position: Physician Industrial Maintenance Repairer Helper - Orthopaedic Surg Member Role: Lifetime Relationship Address: [address] [facility] [address] [place] [address] [place] Name: MD Jas, Nghia Elise Position: Physician Member Role: Primary Care Provider Address: [address] [facility] [facility] [address] [facility] [address] [place] [address] [place] Care Team Related Persons Name: MEHRDAD GARCIA
--- OUTSIDE RECORDS SUMMARY | 2024-03-27 04:51 | External Medical Summary | Summary of Care ---
Author Name Unknown Organization [facility] Address [address] [address] [address] Phone [phone] Care Team Providers Care It Portfolio Manager Name Role Phone Sam Quintero MD Primary Care Provider Reason for Visit * Reason Onset Date Comments Preop Pt Assessment 02/06/2024 Encounter Details Date Type Department Care Team (Late st Contact Info) Description 02/06/2024 Telephone Pre Surgery Center, [facility] [address] [place] [address] Edi Higginbotham MD [address] [place] [address] Preop Pt Assessment Allergies Active Allergy Reactions Criticality Noted Date [...] EDT Hospital Encounter ENDO [facility], Endoscopy Room [facility] [place] [phone] Edi Higginbotham MD [address] [place] [address] 02/09/2024 11:15 AM EDT - 02/09/2024 11:45 AM EDT Surgery ENDO [facility], Endoscopy Room [facility] [address] [place] [phone] Edi Higginbotham MD [address] [place] [address] COLONOSCOPY FLEXIBLE PROXIMAL DIAGNOSTIC 04/01/2024 11:15 AM EDT Office Visit Otolaryngology [facility] [address] [place] [address] Boston Singh DO [address] [place] [address] Scheduled Procedures Name Priority Associated Diagnoses Date/Ti [...] 11/21/2017 11/21/2016, 0602/2016, 12/08/2014, Additional history exists Colonoscopy 11/12/2019 11/11/2009 [...] filedocumented as of this encounter Care Teams It Portfolio Manager Relationship Specialty Start Date End Date Sam Quintero MD 6 [facility] [address] [address] PCP - General Family Medicine 12/15/15 documented as of this encounter
--- OUTSIDE RECORDS SUMMARY | 2024-03-27 04:51 | External Medical Summary | Continuity of Care Document ---
Author Name Unknown Organization [facility] [address] [facility] [address] [phone] Care Team Providers Care Line Lead Name Role Phone Aron Markbenjamin Gosia Primary Care Physician [phone] Encounter [facility] [id number] Date(s): 01/22/24 - 01/22/24 [facility] [address] [facility] [address] [phone] Encounter Diagnosis Changing skin lesion(Discharge Diagnosis) - 01/22/24 Common wart(Discharge Diagnosis) - 01/22/24 Discharge Disposition: Home or Self Care Attending Physician: MD Ryan, Kaela Naranjo Allergies, Adverse Reactions, Alerts Substance Criticality Severity [...] 1, To wound with dressing changes, Pharmacy: [facility] #[id number] Start Date: 04/26/23 Status: Ordered lysine Start: [...] 12 hours then stop, [facility]acy: [facility] #[id number] Start Date: 04/10/23 Status: Ordered Vitamin B12 1000 mcg/mL injectable solution Start: 12/21/23 11:33:00 AM EDT, 1,000 mcg =, IM, qmonth (30 days), Disp# 1 mL, Refills: 6, Pharmacy: [id number] Start Date: 12/21/23 Status: Ordered Vitamin C 500 mg oral capsule Start: 09/24/20 1:58:00 PM EDT, 1 cap, PO, Daily Start Date: 09/24/20 Status: Ordered Vitamin D3 Start: 02/27/18 3:41:00 PM EDT, 1,000 Int_Unit =, PO, Daily Start Date: 02/27/18 Status: Ordered Mental Status 01/22/24 Barriers to Learning one year None evide nt Mandatory Health Literacy Documentation Yes Health Literacy Communication Barriers N ever Primary Language Croatian Problem List Condition Confirmation Course Effective Dates [...] Dates Health Status Cl inical Service Informant Changing skin lesion Discharge Diagnosis 01/22/24 Non-Specified Common wart Discharge Diagnosis 01/22/24 Procedures Procedure Date Related Diagnosis Body Site Status Shave biopsy 01/22/24 Completed Lumbar puncture 12/2023 [...] left knee 19w/ED&C 20laproscopic for fertility x2 Social History Social History Type Response Smoking Status Never smoked cigaret niharika Sex Female Sex Representation Female (finding) .Outpt Proc * MD Ryan, Kaela Naranjo: PERFORM Event Display: .Outpt Proc Authored Date: [id number] OUTPATIENT PROCEDURE Name: LISSETH GARCIA Patient Number: [id number] : 1950 Date of Service: 01/22/2024 Patient is here acutely today for a scaly area on her right upper chest she thinks I froze but it never resolved. She also has noticed a wart on her left forearm. She has been monitored for her lymphoma. She has had significant infections over the past several months including a bout of pneumonia and a bout of cellulitis. [facility] is managing her pneumonia. On examination she has about a 1.1 cm in diameter plaque that is thin pink and scaly on the right chest worrisome for squamous cell in situ. She also have a koilocytic papule on her left forearm that is about 5 mm concerning for a sore wart. Changing skin lesion right upper chest The area was identified and time out was completed. Verbal informed consent was obtained with the patient aware of the possibility of bleeding, scarring and infection and they did elect to proceed. The site was cleansed with alcohol and anesthetized with 1% lidocaine with epinephrine. Time out was performed and scanned into the patient's chart. Tangential shave biopsy was performed, hemostasis was achieved with Lumin and chloride cautery and the area was dressed with Vaseline and a bandage. Patient was given verbal and written instructions regarding wound care. My office will be in touch withresults. Call with any problems. Photograph(s) was/were taken to document location and verbal informed consent was obtained to use the [employer] Camera Capture janet. We did discuss increased risk of infection because of her history. In addition she is going to put mupirocin on this as it heals. Sore wart x 1 Lesions treated with liquid nitrogen. Patient aware of possibility of infection, hypo or hyperpigmentation or scarring and did elect to proceed. They should inform me of any problems or recurrences post treatment. Care sheet given. Stressed she should call me if this does not fully resolve. Electronic Signature on File Electronically Reviewed/Signed by: Kaela Davis MD Author Signature Dt/Tm:01/22/2024 11:40 AM Department of Dermatology [facility] Patient Care team information Care Team Personnel Name: DO Barreto Amanda Position: Resident Member Role: Lifetime Relationship Address: [address] [facility] [address] [place] [address] [place] Name: MD Nanette, Khushi Ramos Position: Research Staff Member Role: Lifetime Relationship Address: [address] [facility] [address] [place] [address] [place] Name: HARLAN Breaux, Lindsay Anderson Position: Physician Fence Maker - Orthopaedic Surg Member Role: Lifetime Relationship Address: [address] [facility] [address] [place] [address] [place] Name: MD Jas, Nghia Elise Position: Physician Member Role: Primary Care Provider Address: [address] [facility] [address] [place] [address] [place] Care Team Related Persons Name: MEHRDAD GARCIA
--- OUTSIDE RECORDS SUMMARY | 2024-03-27 04:52 | External Medical Summary | Continuity of Care Document ---
Author Name Unknown Organization [address] Address [address] [place] [address] DR WOODARD [place] [phone] Care Team Providers Care Mining Engineer Name Role Phone Nghia Mark Primary Care Physician [phone] Encounter [facility] [phone] Date(s): 12/21/23 - 12/21/[address] [facility] [address] [facility], [address] [place] [address] [phone] Encounter Diagnosis Cellulitis of right leg(Discharge Diagnosis) - 12/21/23 Headache(Discharge Diagnosis) - 12/21/23 Vitamin B12 deficiency(Discharge Diagnosis) - 12/21/23 CLL (chronic lymphocytic leukemia)(Discharge Diagnosis) - 12/21/23 Anemia(Discharge Diagnosis) - 12/21/23 Hospital discharge follow-up(Discharge Diagnosis) - 12/21/23 Discharge Disposition: Home or Self Care Attending Physician: Teresa Gray DO, Mariana Annette Allergies, Adverse Reactions, Alerts Substance Criticality Severity Reaction Reaction Severity Status predniSONE sinusitis Active anastrozole Spiked arthriti s No appetite Active oxyCODONE Vomiting Nausea Active Vicodin vomiting nausea Active Assessment and Plan Extracted from: Title:FCM: Hosp f/u Author:DO Barreto Amanda Date:12/21/23 1.Cellulitis of right leg Acute w/ systemic symptoms or complicated injury Goal: _Resolution Data:_[facility]ed [facility], and labsprior todischarge includingCBC Plan: Appears to be resolving, but slowly. Continue course of doxycycline. Advised pt elevate as much as possible and otherwise can try compression stockings to relieve some of the edema in the area but from an infection standpoint it appears to be resolving. 2.Headache Chronic condition not at goal/exacerbated/progressive/side effects of treatment Goal: Resolution Data:_ Plan: Hospitalization prolonged due to severe posterior L sided headache and persistent fevers, LP normal and brain MRI unremarkable. Pt notes that headache has resolved now that she is on Valtrex which is what resolved it in October, now had frontal tension headache most likely from stress. Advised ibuprofen or tylenol for this. 3.Vitamin B12 deficiency Chronic condition not at goal/exacerbated/progressive/side effects of treatment Goal: _ Data:_ Plan: Will continue IM B12 injections monthly as pt had about 1 week of daily injections in the hospital and monthly would be more convenient as the leg swelling has made it hard for her to put on her shoe on the R leg and so going out in public has become rather difficult, which should improve with elevation and compression as noted above. 4.CLL (chronic lymphocytic leukemia) Chronic condition, at goal Goal: _ Data:_ Plan: I personally spoke with her oncologist on Thursday 12/14 while she was in the hospital who had no concerns as of their last visit that her CLL is active. [facility] oncology saw her this past admission and brain MRI neg so no further workup. She has an appt with her oncologist Dr. Anyi Garcia but advised she call their office and let them know she just got out of the hospital for possible sooner follow-up as she has profound anemia in the hospital requiring transfusion. Will Check CBC in 1 week in case apptwith oncologist still over a month away after they call. 5.Hospital discharge follow-up See above problems. Immunizations Given and Recorded Vaccine Date Status [...] wound with dressing changes, [facility]: [id number] Start Date: 04/26/23 Status: Ordered doxycycline hyclate [...] Daily, Disp# 30 tab, Refills: 0, Pharmacy: [facility] [place] [id number] Start Date: 10/23/23 Stop Date: 11/22/23 Status: [...] 12 hours then stop, Pharmacy: [id number] Start Date: 04/10/23 Status: Ordered Vitamin B12 1000 mcg/mL injectable solution Start: 12/21/23 11:33:00 AM EDT, 1,000 mcg =, IM, qmonth (30 days), Disp# 1 mL, Refills: 6, Pharmacy: [id number] Start Date: 12/21/23 Status: Ordered Vitamin C 500 mg oral capsule Start: 09/24/20 1:58:00 PM EDT, 1 cap, PO, Daily Start Date: 09/24/20 Status: Ordered Vitamin D3 Start: 02/27/18 3:41:00 PM EDT, 1,000 Int_Unit =, PO, Daily Start Date: 02/27/18 Status: Ordered Mental Status 12/21/23 Barriers to Learning one year None evide nt Mandatory Health Literacy Documentation Yes Health Literacy Communication Barriers N ever Primary Language Slovenian Problem List Condition Confirmation Course Effective Dates [...] Status Clinical Service Informant Cellulitis of right leg Discharge Diagnosis 12/21/23 Non-Specified Headache Discharge Diagnosis 12/21/23 Non-Specified Vitamin B12 deficiency Discharge Diagnosis 12/21/23 Non-Specified CLL (chronic lymphocytic leukemia) Discharge Diagnosis 12/21/23 Non-Specified Hospital discharge follow-up Discharge Diagnosis 12/21/23 Non-Specified Anemia Discharge Diagnosis 12/21/23 Non-Specified Procedures Procedure Date Related Diagnosis Body [...] to oldest [Reference Range]: 1 Patient Weight 54.5 kg (12/21/23 10:36 AM) Heart Rate 66 bpm (12/21/23 10:36 AM) Respiratory Rate 20 br/min (12/21/23 10:36 AM) Blood Pressure 122/65mmHg (12/21/23 10:36 AM) Social History Social History Type Response Smoking Status Never smoked cigaret niharika Sex Female FCM Outpt Note * Teresa Gray DO, Mariana Annette: MODIFY Teresa Gray DO, Mariana Annette: MODIFY Event Display: FCM Outpt Note Authored Date: Chief Complaint f/u RLE cellulitis - taking doxy and valtrex History of Present Illness Pt is a 73 yo female who presents for hospital f/u #Hosp f/u - was at [facility] from 12/09 until 12/18 - initially admitted for cellulitis but found to have persistent fevers and headache, MRI brain wnl, LP done and wnl - see issues below for further information #Cellulitis - R foot and leg cellulitis noted in the hospital - initially on IV vanc,then podoxy to finish 12/25 - does feel it is overall better, can walk on it but still very swollen so has not been able to wear any of her shoes over it #Headache - had severe L sided headache for several days at the hospital - had a severe headache in the past that she states was relieved with Valtrex - she was discharged with Valtrex until 12/25 - that headache has resolved but now has a frontal tension headache at times #Vitamin B12 deficiency - B12 levels in the hospital unchanged from prior of low normal despite daily poB12 - switched to B12 IM injections while inpatient #CLL #Anemia - noted during her hospital stay requiring transfusion and thought to be secondary to her CLL - has f/u with her oncologist in January Review of Systems Constitutional: No fever, no chills, Respiratory: No shortness of breath, + cough, Cardiovascular:No chest pain, no palpitations, Physical Exam Vitals & Measurements HR:66(Monitored) RR:20 BP:122/65 SpO2:95% WT:54.5kg WT:54.500kg(Dosing) PHQ2 Data(Data Documented on:12/21/2023 10:34) Emotional health assessment NEGATIVE General:Alert and oriented, no acute distress, HEENT: Normocephalic, moist oral mucosa, Cardiovascular:Regular rate and rhythm, Respiratory:Lungs clear to auscultation b/l, no wheezes or rhonchi, Integumentary:Warm, pink, dry, Extremities:R leg with dependent edema from mid brower to and including top of foot, spares the toes, cap refill <2 sec, some skin darkening noted but no increased warmth or erythema and is improved from last seen on 12/16 in the hospital by myself Assessment/Plan 1.Cellulitis of right leg Acute w/ systemic symptoms or complicated injury Goal: _Resolution Data:_[facility], and labsprior todischarge includingCBC Plan: Appears to be resolving, but slowly. Continue course of doxycycline. Advised pt elevate as much as possible and otherwise can try compression stockings to relieve some of the edema in the area but from an infection standpoint it appears to be resolving. 2.Headache Chronic condition not at goal/exacerbated/progressive/side effects of treatment Goal: Resolution Data:_ Plan: Hospitalization prolonged due to severe posterior L sided headache and persistent fevers, LP normal and brain MRI unremarkable. Pt notes that headache has resolved now that she is on Valtrex which is what resolved it in October, now had frontal tension headache most likely from stress. Advised ibuprofen or tylenol for this. 3.Vitamin B12 deficiency Chronic condition not at goal/exacerbated/progressive/side effects of treatment Goal: _ Data:_ Plan: Will continue IM B12 injections monthly as pt had about 1 week of daily injections in the hospital and monthly would be more convenient as the leg swelling has made it hard for her to put on her shoe on the R leg and so going out in public has become rather difficult, which should improve with elevation and compression as noted above. 4.CLL (chronic lymphocytic leukemia) Chronic condition, at goal Goal: _ Data:_ Plan: I personally spoke with her oncologist on Thursday 12/14 while she was in the hospital who had noconcerns as of their last visit that her CLL is active. [facility] oncology saw her this past admission and brain MRI neg so no further workup. She has an appt with her oncologist Dr. Anyi Garcia but advised she call their office and let them know she just got out of the hospital for possible sooner follow-up as she has profound anemia in the hospital requiring transfusion. Will Check CBC in 1 week in case apptwith oncologist still over a month away after they call. 5.Hospital discharge follow-up See above problems. Attestation Pt seen and examined in concert with Dr. Barreto, agree with history and physical as documented above. Plan reviewed in detail. Problem List/Past Medical History Ongoing Actinic keratosis [...] biopsy and cauterization of skin| Service Date: 04/05/2022Mohs micrographic surgery| Service Date: 10/04/2021have biopsy and cauterization of skin|Service Date: 09/13/2021have biopsy and cauterization of skin| Service Date: 04/16/2020mammogram| Service Date: 05/08/2019Electrodesiccation with curettage| Service Date: 05/02/2019Shave biopsy and cauterisation of skin| Service Date: 04/24/2019Shave biopsy and cauterisation of skin| Service Date: 04/24/2019Mammogram| Service Date: 2019Mammogram - screening| Service Date: 12/01/2017Surgery| Service Date: [...] Daily cholecalciferol(Vitamin D3), 1000 Int_Unit, PO, Daily cyanocobalamin(Vitamin B12 1000 mcg/mL injectable solution), 1000 mcg, IM, qmonth (30 days), 6 refills doxycycline(doxycycline hyclate 100 mg oral capsule) lysine, 1000 mg, Daily magnesium citrate mupirocin topical(Bactroban 2% topical ointment), See Instructions, 1 refills topiramate(Topamax 25 mg oral tablet), 25 mg= 1 tab, PO, Daily unlisted medication(tumeric), PO, Daily valACYclovir(valACYclovir 500 mg oral tablet) valACYclovir(Valtrex 1 g oral tablet), See Instructions, 3 refills Allergies Vicodinvomiting, nausea anastrozoleSpiked arthritis, No appetite oxyCODONEVomiting, Nausea predniSONEsinusitis Social History Smoking Status Never smoked cigarettes Alcohol Type:Wine - Comments: Socially 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 Has a 23 year old daughter. [...] Health Maintenance Pending(in the next year) OverDue Medicare Annual Wellness Visit due03/10/23and every 1year Due Adult Influenza Vaccine due12/10/23and every 1year Adult COVID-19 Vaccination due12/21/23Unknown Frequency Adult Social Determinants of Health Screening due12/21/23Unknown Frequency Adult Tdap/Td Vaccine due12/21/23Unknown Frequency Hepatitis C Screening due12/21/23One-time only Pneumococcal Vaccine Older Adults due12/21/23One-time only Shingles Vaccine due12/21/23One-time only Satisfied(in the past 1 year) Satisfied Body Mass Index on03/13/23.Satisfied by ALLIE Acevedo Sara Lipid Screening on02/02/23.Satisfied by Contributor_system, [employer] Electronic Signature on File CC: Nghia Mark MD [address] [place] [id number] Electronically Reviewed/Signed by: Diane Barreto DO Author Signature Dt/Tm:12/21/2023 12:03 PM Resident Department of Family Medicine Electronically Reviewed/Signed by: Ibis Gray DO Cosigner Signature Dt/Tm: 12/21/2023 01:48 PM Department of Family Medicine AB Patient Care team information Care Team Personnel Name: MD Nanette, Khushi Ramos Position: Research Staff Member Role: Lifetime Relationship Address: Address: [address] [place] [address] [address] [place] [address] [place] Name: HARLAN Breaux, Lindsay Anderson Position: Physician Financial Operations Clerk - Orthopaedic Surg Member Role: Lifetime Relationship Address: Address: [address] [place] [address] [address] [place] [address] [place] Name: MD Mark Ravishankar E Position: Physician Member Role: Primary Care Provider Address: Address: [address] [place] [id number] Care Team Related Persons Name: MEHRDAD GARCIA Address: home [address] [place], [place] [id number]"
--- OUTSIDE RECORDS SUMMARY | 2024-03-27 04:52 | External Medical Summary | Summary of Care ---
Author Name Unknown Organization [facility] Address [address] [facility] [place] [address] Phone [phone] Care Team Providers Care Supervisor Graphite Name Role Phone Sam Quintero MD Primary Care Provider Encounter Details Date Type Department Care Team (Late st Contact Info) Description 12/11/2023 Telephone Gastroenterology, [facility] [address] [place] [address] Edi Higginbotham MD [address] [place] [address] Allergies Active Allergy Reactions Criticality Noted Date Comments Anastrozole 08/06/2015 Oxycodone-Acetaminophen 05/12/2012 Tramadol Hcl Nausea/vomiting 01/07/2015 Hydrocodone-Acetaminophen 05/12/2012 documented as of this encounter (statuses as of 12/11/2023) Medications Medication Sig Dispensed Refills Start Date [...] as of this encounter (statuses as of 12/11/2023) Active Problems Problem Noted Date Diagnosed Date [...] as of this encounter (statuses as of 12/11/2023) Resolved Problems Problem Noted Date Diagnosed Date Resolved Date Left sided sciatica 05/01/2012 03/20/20 13 documented as of this encounter (statuses as of 12/11/2023) Immunizations Name Administration Dates Next Due COVID-19 [...] Department Care Team (Latest Contact Info) Description 01/01/2024 1:00 PM EDT Hospital Encounter [facility], Endoscopy Room [facility] [address] [place] [phone] Edi Higginbotham MD [address] [place] [address] 01/01/2024 1:00 PM EDT - 01/01/2024 1:30 PM EDT Surgery [facility], Endoscopy Room [facility] [address] [place] [phone] Edi Higginbotham MD [address] [place] [address] COLONOSCOPY FLEXIBLE PROXIMAL DIAGNOSTIC 01/03/2024 11:15 AM EDT Office Visit Otolaryngology [facility] [address] [place] [address] [place] Singh DO [address] [place] [address] Scheduled Procedures Name Priority Associated Diagnoses Date/Ti me COLONOSCOPY FLEXIBLE PROXIMAL DIAGNOSTIC Perforation of colon (HCC) 01/01/2024 1:00 PM EDT Health Maintenance Due Date Last Done [...] 07/22/2020 Influenza Vaccine (FLU shot) (#1) 2024 GARDASIL-HPV IMMUNIZATION SERIES Aged Out No longer eligible based on patient's age to complete this topic Hepatitis B Aged Out No longer eligi ble based on patient's age to complete this topic MENINGOCOCCAL (MENACTRA/MENVEO) Aged Out No longer eligible based on patient's age to complete this topic documented as of this encounter Medical Devices Not on filedocumented as of this encounter Care Teams Supervisor Graphite Relationship Specialty Start Date End Date Sam Quintero MD [address] [place] [address], [place] [address] PCP - General Family Medicine 12/15/15 documented as of this encounter
[2024-03-27] MEDS: VANCOMYCIN HCL 750 MG in SODIUM CHLORIDE 0.9% 250 ML IV SCH (05:26)
[2024-03-27 06:30] LABS: Hematocrit (blood only) 24.9 % (37.0-47.0); Hemoglobin 8.3 g/dl (12.0-16.0); Mean Corpuscular Hemoglobin 38.4 pg (25.0-34.0); Mean Corpuscular Hgb Conc 33.3 g/dL (32.0-36.0); Mean Corpuscular Volume 115.3 fL (80.0-100.0); Mean Platelet Volume 10.7 fL (9.4-12.4); Platelet Count 249 K/uL (130-400); RDW Coefficient of Variation 13.9 % (11.5-14.5); RDW Standard Deviation 58.5 fL (36.4-46.3); Red Blood Count 2.16 M/uL (4.20-5.40); White Blood Count 3.44 K/ul (4.8-10.8)
[2024-03-27 06:36] LABS: Albumin Globulin Ratio 1.2 (0.9-2); Albumin Level 3.3 gm/dl (3.4-5.0); BUN Creatinine Ratio 30.6 (10-20); Bilirubin,Total 0.3 mg/dl (0.2-1.0); Calcium 8.6 mg/dl (8.6-10.3); Creatinine Clr Calc Pharmacy 68.8 ml/min; Globulin 2.8 gm/dl (2.5-4.0); Magnesium 2.2 mg/dl (1.7-2.4); Potassium 3.8 mmol/L (3.5-5.1); Total Protein 6.1 gm/dl (6.0-8.3)
[2024-03-27 06:49] LABS: Thyroid Stimulating Hormone 5.116 uIu/ml (0.300-4.500)
[2024-03-27 07:03] LABS: Estimated Average Glucose 108 mg/dl; Hemoglobin A1C 5.4 % (4.5-5.6)
--- NOTE | 2024-03-27 07:03 | XRay Report ---
XR knee RT 3V CLINICAL HISTORY: R leg cellulitis COMPARISON: Right knee radiographs March 17, 2015. MRI of the right knee February 06, 2017. FINDINGS: Diffuse soft tissue swelling is noted. There are no fractures within the right knee. No os seous lesions are identified. There is no evidence for a right knee joint effusion. There is moderate medial compartment joint space narrowing with osteophytosis. There is also patellofemoral compartmen t osteophytosis. IMPRESSION: 1. No fractures within the right knee. No right knee joint effusion. 2. Diffuse soft tissue swelling. 3. Moderate right knee osteoarthritis, most pronounced within the medial compartment. ACT 112: Negative or not required by law. Electronically signed by: Ashvin Kessler M.D. 03/27/2024 7:02 AM
[2024-03-27 07:16] LABS: Folate (Folic Acid),Ser orPlas 11.61 ng/ml (>5.38)
[2024-03-27 07:25] LABS: T4 Free Thyroxine 0.82 ng/dl (0.61-1.60)
[2024-03-27] MEDS: CYANOCOBALAMIN (B-12) 500 MCG TABLET PO SCH (08:20)
[2024-03-27 08:21] LABS: Dohle Bodies 1+; Polychromasia 1+; Tear Drop Cells 1+
[2024-03-27] MEDS: MAGNESIUM OXIDE 400 MG TAB PO SCH (08:21)
[2024-03-27] MEDS: CALCIUM 600MG + VIT D 400 IU TAB PO SCH (08:21)
[2024-03-27 08:29] LABS: Basophils # (auto) 0.02 K/uL (0.00-0.20); Basophils % (auto) 0.6 %; Eosinophils # (auto) 0.02 K/uL (0.00-0.50); Eosinophils % (auto) 0.6 %; Lymphocytes # (auto) 2.29 K/uL (1.20-3.40); Lymphocytes % (auto) 66.6 %; Monocytes # (auto) 0.18 K/uL (0.11-0.59); Monocytes % (auto) 5.2 %; Neutrophils # (auto) 0.93 K/uL (1.40-6.50)
[2024-03-27] MEDS ORDERED: CALCIUM PO SCH (09:00)
[2024-03-27] MEDS ORDERED: [UNRECOGNIZED DRUG - OTHER] PO SCH (09:00)
[2024-03-27] MEDS ORDERED: NON-FORMULARY MEDICATION (Zinc Gluconate 50 mg Tablet) PO SCH (09:00)
--- NOTE | 2024-03-27 09:55 | Hospitalist Progress Note ---
Date of Service March 27, 2024 Assessment & Plan (1) Cellulitis of right lower extremity: Plan: Admission for RLE cellulitis failing Augmentin outpatient (similar to presentation in December this year - discharged on doxycyline). Abx: started on Vancomycin, Ceftriaxone - 03/27 switched vanco to dapto for IV fluid conservation in setting of national shortage LE doppler: No DVT A1c 5.4 TSH/B12/folate checked given MCV >100 - B12/folate WNL - TSH mild elevation (5) but T4 WNL xray L knee: osteoarthitis. no fx or gout - uric acid level wnl (2) Anemia: Plan: chronic, hx GIB. Hgb stable 9.0 and no bleeding reported. - avoid NSAIDs - chemical DVT proh deferred, scds as tolerated, encourage ambulation (3) CLL (chronic lymphocytic leukemia): Plan: Hx of such, following with [facility] q 3 month ?consider outpatient IVIG injections - defer to oncology Plan Dispo: continued inpatient stay, if continued improvement hopeful for d/c tomorrow DVT proh: scds and encourage ambulation Admission and Anticipated Discharge Date Admission Date: March 26, 2024 Subjective Patient reports leg pain and swelling is much better. No longer feels like it is on fire. able to ambulate in the room with occasional groin pain good appetite, moving bowels Review of Systems Review of Systems: All systems reviewed & are unremarkable except as noted in Subjective Physical Exam Physical Exam: General: 73yo female resting in bed, NAD HEENT; head atraumatic, normocephalic, mmm, trachea midline Resp: even/unlabored, no w/c/r, on room air CV: RRR, no murmur GI: +BS, soft/NT Psych: AOx3, cooperative with exam Skin: R leg - erythema over lateral part of knee, minimal swelling compared to left. not warm to touch. non tender. no open sores or wounds. Results & Data Results & Data Vital Signs (Past 12 Hours) Vital Signs Temp Pulse Resp BP Pulse Ox O2 Del Method 03/27/24 07:42 98.2 F 71 17 111/54 L 98 Room Air Laboratory Results CBC reviewed B12 reviewed folate reviewed tSH reviewed Diagnostic Findings doppler reviewed PG Care Time/CCT Total # of Minutes Spent Total Time Spent with Patient: Total time spent is greater than 50% in coordination of care (as documented) at patient's floor/unit and/or counseling patient: Coding Level of Care Code 10389 SUB INP/OBS CARE MIN Diagnoses Cellulitis of right lower extremity L03.115 Anemia D64.9 CLL (chronic lymphocytic leukemia) C91.10
[2024-03-27] MEDS: DAPTOmycin 250 MG in SYRINGE 0 ML IV SCH (12:16)
[2024-03-27] MEDS: MELATONIN 3 MG TAB PO PRN (20:52)
[2024-03-28 07:29] VITALS: PULSE 74; RESP 16; TEMP 98.2; O2SAT 95
[2024-03-28 08:23] LABS: Hematocrit (blood only) 26.7 % (37.0-47.0); Hemoglobin 8.7 g/dl (12.0-16.0); Mean Corpuscular Hemoglobin 37.3 pg (25.0-34.0); Mean Corpuscular Hgb Conc 32.6 g/dL (32.0-36.0); Mean Corpuscular Volume 114.6 fL (80.0-100.0); Mean Platelet Volume 10.7 fL (9.4-12.4); Platelet Count 290 K/uL (130-400); RDW Coefficient of Variation 13.7 % (11.5-14.5); RDW Standard Deviation 57.4 fL (36.4-46.3); Red Blood Count 2.33 M/uL (4.20-5.40); White Blood Count 4.69 K/ul (4.8-10.8)
[2024-03-28 08:43] LABS: BUN Creatinine Ratio 33.3 (10-20); Calcium 8.8 mg/dl (8.6-10.3); Creatinine Clr Calc Pharmacy 67.8 ml/min; Potassium 3.7 mmol/L (3.5-5.1)
[2024-03-28 09:37] LABS: Basophils # (auto) 0.01 K/uL (0.00-0.20); Basophils % (auto) 0.2 %; Eosinophils # (auto) 0.02 K/uL (0.00-0.50); Eosinophils % (auto) 0.4 %; Immature Granulocytes # (auto) 0.01 K/uL (0.01-0.20); Immature Granulocytes % (auto) 0.2 %; Lymphocytes # (auto) 2.75 K/uL (1.20-3.40); Lymphocytes % (auto) 58.6 %; Monocytes # (auto) 0.54 K/uL (0.11-0.59); Monocytes % (auto) 11.5 %; Neutrophils # (auto) 1.36 K/uL (1.40-6.50); Neutrophils % (auto) 29.1 %; Ovalocytes 1+; Polychromasia 1+; Tear Drop Cells 1+
[2024-03-28 11:58] VITALS: BP 95/55
--- NOTE | 2024-03-28 17:13 | Discharge Summary ---
Discharge Summary Date of Service March 28, 2024 Principal Dx & Hospital Course #1 = Principal Diagnosis (1) Cellulitis of right lower extremity: Admission for RLE cellulitis (posterolateral leg just prox to the knee) failing three days of Augmentin outpatient Abx: started on Vancomycin, Ceftriaxone - 03/27 switched vanco to dapto for IV fluid conservation in setting of national shortage LE doppler: No DVT A1c 5.4 TSH/B12/folate checked given MCV >100 - B12/folate WNL - TSH mild elevation (5) but T4 WNL xray L knee: osteoarthitis. no fx or gout - uric acid level wnl Erythema has significantly improved, now patchy and mild and not warm Has some R hip/groin pain this week I think this is related to right groin lymphadenopathy which is significant on exam. She will see orthopedics if nonresolving in about a week. Bearing weight and ranging hip without difficulty, blood cultures were not obtained on admission but she did not have sepsis so hematogenous seeding of THR unlikely, cellulitis was not contiguous with hip in any way Unclear why augmentin failed - possibly was severe enough to require IV antibiotics for better tissue penetration vs resistant organism. No purulence to suggest MRSA, MRSA nares have been negative. -discharged on oral cefdinir and doxycycline -follow up in primary care, consider standing Rx at home for cellulitis antibiotics to start as soon as symptoms begin. Perhaps a cephalosporin and do xycycline since she responds to this -I asked her to update her oncologist at [facility] about frequent infections recently (2x cellulitis and a pneumonia). SLL/CLL does cause some immunodeficiency. Wonder if she would benefit from IVIG outpatient -ANC was 1360 today (2) Anemia: chronic, hx GIB. Hgb stable 9.0 and no bleeding reported. - avoid NSAIDs (3) CLL (chronic lymphocytic leukemia): Hx of SLL/CLL, following with [facility] q 3 month Notes For Next Care Provider consider standing Rx at home for cellulitis antibiotics to start as soon as symptoms begin. Perhaps a cephalosporin and doxycycline since she responds to this Medication Changes From Visit augmentin replaced with cefdinir/doxycycline Admission HPI Per Admitting Provider 73yo with PMHx significant for _breast ca, CLL, IBS, HLD, perforated bowel presents for pain/redness/swelling to her RLE concerning for cellulitis. Patient evaluated in A3, at bedside. She reports having a bruise on her right knee and noticed increased swelling redness and pain in the same area and saw PCP and was started on Augmentin as she thought thats what she was given last time (however discussed was admitted w/ failure of Augmentin) with subsequent spread of erythema up the leg with increased pain/warmth. She denies any recent fevers at home, takes Tylenol PM for pain control as unable to tolerate opiates and avoids NSAIDs with her IBS to prevent irritating it. Reports she was admitted ~3 months ago for similar issue requiring 10 day admission or cellulitis of the same leg and was given Ceftriaxone/Vanco/Ampicillin (but also concerns for possible meningitis with headache/persistent fever on abx, LP negative) as well as Valtrex and was discharged on Doxycycline at that time. Lyme testing/tick testing appeared to be negative. Does follow / [facility] for her CLL, not on active treatment. Prior followed by Dr Akhtar. Did discuss I noted she did have IG levels drawn and appears to have low IgG/IgM but IgA acceptable. Prior heme/onc discussion for IVIG as outpatient given hx CLL, can reach out to local team on consult but will request most recent records for evaluation to see if any mention. Does have elevated lymphocytes on lab testing. Does have LE edema at baseline and wears compression stockings at baseline. No CP/SOB, abdominal pain/nausea/vomiting. Does have some constipation at baseline since antibiotics but discussed to let us know if any diarrhea given ongoing antibiotic use. No hx DM known. Will admit for IV antibiotics and evaluation. Discussed already provided abx and will avoid blood cultures but if repeat infections should be considered. Full code. Questions/concerns addressed at bedside. Discharge Plan Discharge Items Patient Disposition: Home - Self-Care Reason For Visit: RLE CELLULITIS, FAILURE OUTPT THERAPY Discharge Diagnosis: Right leg cellulitis Condition on Discharge: Fair Activity: Resume your previous activity Non-emergency contact: Primary Care Provider Call non-emergency contact if: you have any medication questions, your symptoms worsen and you have a fever Follow-up/Referrals: Issac Mark MD [Primary Care Provider] - 04/01/24 1:25 pm Diet: Other - See Diet Comment Diet Comment: Resume your usual diet Addtl Attending Provider Instructions: You were treated for right leg cellulitis In the hospital you were treated with broad-spectrum IV antibiotics: ceftriaxone and daptomycin We'll complete a total 7 days course I prescribed cefdinir (analagous to ceftriaxone) and doxycycline (covers MRSA staph) I think that the right groin pain is related to enlarged lymph nodes from the infection. These should go down in about a week. If right hip pain persists, follow up with orthopedic surgeon. It would be a good idea to let your oncologist know that you've had several infections in the last few months (leg cellulitis x 2, pneumonia). SLL/CLL does result in decreased immune system. I'm not sure why the infection worsened despite taking augmentin prior to admission, because it has a very broad spectrum. Its possible that the infection got too severe for oral antibiotics to handle, and its also possible the infection was from a bacteria that the augmentin wasn't covering. Talk to Dr. Mark about having a course of antibiotics on hand at home to start if you have early signs of an infection. The augmentin should generally work for this, but he can consider adding doxycycline to it for skin infections since this antibiotic worked in the past. Its a good idea to take a probiotic for a few weeks It was a pleasure seeing you in the hospital, Risa Hansen MD Pending Studies at Discharge: No Stand-Alone Forms: My [facility], Smoking Cessation Medications and DC Order Prescriptions: New cefdinir 300 mg capsule 300 mg PO BID 5 Days Qty: 10 0RF doxycycline hyclate 100 mg capsule 100 mg PO BID Qty: 10 0RF Continued ascorbic acid (vitamin C) [Vitamin C] 1,000 mg Tablet 0.5 - 1 g PO DAILY Patient Comments: TAKE WHEN FEEL LIKE I NEED IT Probiotic 3 billion cell Capsule 3,000 mmu cells PO DAILY Patient Comments: takes occasionally Cbd Liquid 1 dose PO HS PRN (Reason: Sleep) Patient Comments: 1 DROPPER FULL diphenhydramine-acetaminophen [Tylenol PM Extra Strength] 25-500 mg Tablet 1 tab PO HS PRN (Reason: Sleep) cyanocobalamin (vitamin B-12) 1,000 mcg capsule 1,000 mcg PO DAILY PRN (Reason: Other) Patient Comments: under the tongue not every day. Rx Instructions: drops cyanocobalamin (vitamin B-12) 1,000 mcg/mL solution 1,000 mcg IM MONTHLY magnesium citrate 2 tabs PO DAILY valacyclovir 500 mg tablet 1,000 mg PO Q12H PRN (Reason: Other) lysine 1,000 mg Tablet 1,000 mg PO DAILY Rx Instructions: 2-3 tab daily zinc gluconate 50 mg Tablet 50 mg PO DAILY PRN (Reason: Other) turmeric 400 mg Capsule 400 mg PO DAILY Discharge Orders: Discharge Order (Routine); Ordered 03/28/24 Ordered By: Risa Hansen Admission Data Admit Date/Time: 03/26/24 17:30 Attending Provider: Risa Hansen Admit Provider: Raheel Mercedes Primary Care Provider: Issac Mark Other Providers: Raheel Mercedes Other Interventions: Discharge Summary Assessment (RN) Last Done: 03/28/24 11:56 Hospital Stay Data Consultations 03/26/24 16:48 ED Decision to Admit Stat 03/26/24 17:15 HIM [Consult Health Information Management] Routine Diagnostic Imagining Performed 03/26/24 19:20 US venous doppler LE RT Urgent Pending Results Patient Have Any Pending Studies at Discharge: No Discharge Instructions Given to Patient (Per Discharging Provider) You were treated for right leg cellulitis In the hospital you were treated with broad-spectrum IV antibiotics: ceftriaxone and daptomycin We'll complete a total 7 days course I prescribed cefdinir (analagous to ceftriaxone) and doxycycline (covers MRSA staph) I think that the right groin pain is related to enlarged lymph nodes from the infection. These should go down in about a week. If right hip pain persists, follow up with orthopedic surgeon. It would be a good idea to let your oncologist know that you've had several infections in the last few months (leg cellulitis x 2, pneumonia). SLL/CLL does result in decreased immune system. I'm not sure why the infection worsened despite taking augmentin prior to admission, because it has a very broad spectrum. Its possible that the infection got too severe for oral antibiotics to handle, and its also possible the infection was from a bacteria that the augmentin wasn't covering. Talk to Dr. Mark about having a course of antibiotics on hand at home to start if you have early signs of an infection. The augmentin should generally work for this, but he can consider adding doxycycline to it for skin infections since this antibiotic worked in the past. Its a good idea to take a probiotic for a few weeks It was a pleasure seeing you in the hospital, Risa Hansen MD Total Time Total Time Spent Total Time Spent (In Minutes): I personally spent: 35 minutes today on clinical care activities including: reviewing chart notes and vital signs reviewing labs examining and counseling the patient counseling the patient's family writing orders writing prescriptions, discharge instructions documentation Coding Level of Care Code 29710 INP/OBS DISCH >30 MIN Diagnoses Cellulitis of right lower extremity L03.115 Anemia D64.9 CLL (chronic lymphocytic leukemia) C91.10
== END 2024-03-28 13:17 | disposition home or self-care (01) | DRG 603 ==
LOC: ED 15:10 → 3W 17:30 → SUATTDRO 17:30 → 3W 18:04